=== PATIENT | male | born 1960 | race Caucasian/White ===

== ENCOUNTER 2016-08-25 14:51 | Inpatient (IN) | payer OTHER ==
[~2016-08-25] VITALS: Ht 172.7 cm; Wt 60.1 kg
[~2016-08-25 14:51] MED LIST: CYCL5TAB PO; GABA-113 PO; MULT-506 PO; TRAM-10 PO
[2016-08-25] MEDS ORDERED: SERT50TA PO (15:31)
[2016-08-25] MEDS ORDERED: PREDNISONE TAPER PO (15:31)
[2016-08-25] MEDS ORDERED: SODIUM CHLORIDE 0.9% 1000ML 500 ML IV STA (15:33)
--- NOTE | 2016-08-25 15:38 | EMERGENCY ROOM VISIT NOTE ---
History Report prepared by Rell: Gege Fenton Under the Supervision of: Dr. Kuldip Link M.D. First contact with patient: 15:27 Chief Complaint: ILLNESS Stated Complaint: ANEMIC History of Present Illness The patient is a 56 year old male who presents to the Emergency Room with complaints of possible anemia. He had blood work drawn 2 days ago at [facility] for recent shortness of breath, fatigue and muscle cramping and states his doctors office called him today and recommended he come to the ED for a "possible transfusion". He denies any history of a low blood count. He denies any recent rectal bleeding, melena or hematochezia. He notes he has experienced intermittent shortness of breath for a "long time". He thought the shortness of breath was from increased asthma, but reports "I am just tired every day". He does admit to a recent fall where he hit his head and shoulder, but seemed to only sustain bruising. He denies any recent fevers or abdominal pain. The patient takes daily Zoloft and has been on Prednisone for the past few days for elbow pain. He has a history of alcohol abuse and alcoholic cirrhosis. 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 A total of 10 systems reviewed and were otherwise negative. Past Medical & Surgical Medical Problems: (1) Acute pancreatitis (2) Alcohol abuse (3) Alcoholic cirrhosis Social History Smoking Status: Never Smoker Alcohol Use: heavy Drug Use: none Marital Status: in relationship Housing Status: lives with family Occupation Status: other Current/Historical Medications Scheduled Multivitamin (Multivitamin), 1 TAB PO DAILY Sertraline (Zoloft), 75 MG PO DAILY [Prednisone Taper], 1 DOSE PO DIRECTED Scheduled PRN Cyclobenzaprine Hcl (Flexeril), 5-10 MG PO TID PRN for Muscle Spasms Tramadol (Ultram), 50 MG PO BID PRN for Pain Allergies Coded Allergies: No Known Allergies (Unverified , 04/25/15) Physical Exam Vital Signs Date Time Temp Pulse Resp B/P (MAP) Pulse Ox O2 Delivery O2 Flow Rate FiO2 08/25/16 18:15 98 18 126/72 98 Room Air 08/25/16 16:57 89 20 143/83 98 Room Air 08/25/16 15:54 83 08/25/16 15:46 83 141/73 100 86 146/76 87 110/79 08/25/16 15:02 36.8 83 18 146/82 100 Room Air Physical Exam GENERAL: Patient is in no acute distress. HEENT: No acute trauma, normocephalic atraumatic, mucous membranes moist, no nasal congestion, no scleral icterus. NECK: No stridor, no adenopathy, no meningismus, trachea is midline. LUNGS: Clear to auscultation bilaterally, no wheeze, no rhonchi, breath sounds equal. HEART: Without murmurs gallops or rubs, regular rate and rhythm. ABDOMEN: Soft, nontender, bowel sounds positive, no hernias, no peritonitis. RECTAL: Reddish brown stool, heme negative. EXTREMITIES: No cyanosis or edema, full range of motion of all the joints without pain or difficulty, no signs for acute trauma. NEUROLOGIC: Oriented x 3, no acute motor or sensory deficits, no focal weakness. SKIN: No rash, no jaundice, no diaphoresis. Medical Decision & Procedures ER Provider Diagnostic Interpretation: Radiology results as stated below per my review and radiologist interpretation: CHEST ONE VIEW PORTABLE CLINICAL HISTORY: Altered mental status. Weakness. COMPARISON STUDY: No previous studies for comparison. FINDINGS: Calcified granuloma within the right lower lobe is noted. Patient is rotated. There is no pneumothorax or pleural effusion. There is no evidence of pulmonary edema. Cardiac size is normal. Mediastinal contours are normal. There is no consolidation. IMPRESSION: No acute cardiopulmonary findings. Electronically signed by: Wily Espinal M.D. 08/25/2016 4:01 PM Laboratory Results 08/25/16 15:45 Red Blood Count 4.28, Mean Corpuscular Volume 62.1, Mean Corpuscular Hemoglobin 17.5, Mean Corpuscular Hemoglobin Concent 28.2, Mean Platelet Volume 8.4, Neutrophils (%) (Auto) 89.2, Lymphocytes (%) (Auto) 7.4, Monocytes (%) (Auto) 2.7, Eosinophils (%) (Auto) 0.0, Basophils (%) (Auto) 0.5, Neutrophils # (Auto) 8.60, Lymphocytes # (Auto) 0.71, Monocytes # (Auto) 0.26, Eosinophils # (Auto) 0.00, Basophils # (Auto) 0.05 08/25/16 15:45 Test 08/25/16 15:45 08/25/16 16:50 White Blood Count 9.64 K/uL (4.8-10.8) Red Blood Count 4.28 M/uL (4.7-6.1) Hemoglobin 7.5 g/dL (14.0-18.0) Hematocrit 26.6 % (42-52) Mean Corpuscular Volume 62.1 fL (80-100) Mean Corpuscular Hemoglobin 17.5 pg (25-34) Mean Corpuscular Hemoglobin Concent 28.2 g/dl (32-36) Platelet Count 481 K/uL (130-400) Mean Platelet Volume 8.4 fL (7.4-10.4) Neutrophils (%) (Auto) 89.2 % Lymphocytes (%) (Auto) 7.4 % Monocytes (%) (Auto) 2.7 % Eosinophils (%) (Auto) 0.0 % Basophils (%) (Auto) 0.5 % Neutrophils # (Auto) 8.60 K/uL (1.4-6.5) Lymphocytes # (Auto) 0.71 K/uL (1.2-3.4) Monocytes # (Auto) 0.26 K/uL (0.11-0.59) Eosinophils # (Auto) 0.00 K/uL (0-0.5) Basophils # (Auto) 0.05 K/uL (0-0.2) RDW Standard Deviation 42.3 fL (36.4-46.3) RDW Coefficient of Variation 19.2 % (11.5-14.5) Immature Granulocyte % (Auto) 0.2 % Immature Granulocyte # (Auto) 0.02 K/uL (0.00-0.02) Polychromasia 1+ Hypochromasia PRESENT Anisocytosis PRESENT Microcytosis PRESENT Tear Drop Cells 1+ Prothrombin Time 11.0 SECONDS (9.0-12.0) Prothromb Time International Ratio 1.0 (0.9-1.1) Activated Partial Thromboplast Time 21.9 SECONDS (21.0-31.0) Partial Thromboplastin Ratio 0.8 Anion Gap 12.0 mmol/L (3-11) Est Creatinine Clear Calc Drug Dose 79.7 ml/min Estimated GFR () 111.6 Estimated GFR (Non- 96.3 BUN/Creatinine Ratio 13.0 (10-20) Calcium Level 9.3 mg/dl (8.5-10.1) Magnesium Level 2.1 mg/dl (1.8-2.4) Total Bilirubin 0.5 mg/dl (0.2-1) Aspartate Amino Transf (AST/SGOT) 18 U/L (15-37) Alanine Aminotransferase (ALT/SGPT) 19 U/L (12-78) Alkaline Phosphatase 52 U/L (45-117) Troponin I < 0.015 ng/ml (0-0.045) Total Protein 7.8 gm/dl (6.4-8.2) Albumin 4.0 gm/dl (3.4-5.0) Globulin 3.8 gm/dl (2.5-4.0) Albumin/Globulin Ratio 1.1 (0.9-2) Thyroid Stimulating Hormone (TSH) 0.783 uIu/ml (0.300-4.500) Urine Color YELLOW Urine Appearance CLEAR (CLEAR) Urine pH 7.0 (4.5-7.5) Urine Specific [place] 1.009 (1.000-1.030) Urine Protein NEG (NEG) Urine Glucose (UA) NEG (NEG) Urine Ketones NEG (NEG) Urine Occult Blood NEG (NEG) Urine Nitrite NEG (NEG) Urine Bilirubin NEG (NEG) Urine Urobilinogen NEG (NEG) Urine Leukocyte Esterase NEG (NEG) Laboratory results reviewed by me. Medications Administered Medications (Trade) Dose Ordered Sig/Tavon Route Start Time Stop Time Status Last Admin Dose Admin Sodium Chloride 500 ml @ 999 mls/hr Q31M STAT IV 08/25/16 15:33 08/25/16 16:03 DC 08/25/16 15:50 999 MLS/HR ECG Indication: weakness Rate (beats per minute): 80 Rhythm: normal sinus (normal sinus rhythm) Findings: no acute ischemic change, no ectopy ED Course 1528: The patient was evaluated in room C4. A complete history and physical exam was performed. 1533: NSS 500 ml @ 999 mls/hr IV. 1750: I reevaluated the patient. He is resting comfortably. I discussed my recommendation that he remain in the hospital for further evaluation and management and he verbalized complete understanding and agreement. 1816: I discussed the patients case with Isidro Hyatt. The patient will be further evaluated. Medical Decision Medication Reconciliation: I attest that I have personally reviewed the patient' s current medication list. Blood Pressure Screening: Patient was found to have a slightly elevated blood pressure and was referred to their primary doctor for recheck and further treatment. The differential diagnoses considered include dehydration, electrolyte imbalance , upper or lower GI bleed, UTI, infection and thyroid disorder. There is no leukocytosis. The patient is anemic with a hemoglobin of 7.5. Rectal exam today was heme negative. No significant electrolyte abnormality, kidney failure or hepatitis. There was no coagulopathy. The patient appeared to be in a euthyroid state. Urinalysis did not show evidence for infection. EKG showed a sinus rhythm no acute ischemic changes. Cardiac enzyme testing times one is not consistent with acute cardiac injury. The patient presents with fatigue, weakness and some abnormal outpatient laboratory tests. He was confirmed to be anemic by our ER evaluation. Admission/observation for possible transfusion was felt warranted. The reason for the anemia is not clear and further work up is advised. I did speak to the patient and to case management. The on-call hospitalist was consulted. Consults Time Called: 1730 Consulting Physician: Isidro Hyatt Returned Call: 1816 I discussed the patients case with Isidro Hyatt. The patient will be further evaluated. Impression Primary Impression: Anemia Additional Impressions: Shortness of breath Weakness Scribe Attestation The scribe's documentation has been prepared under my direction and personally reviewed by me in its entirety. I confirm that the note above accurately reflects all work, treatment, procedures, and medical decision making performed by me. Departure Information Dispostion Being Evaluated By Hospitalist Referrals German Cole M.D. (PCP) Patient Instructions My [facility] Problem Qualifiers
--- NOTE | 2016-08-25 16:02 | DIAGNOSTIC IMAGING REPORT ---
CHEST ONE VIEW PORTABLE CLINICAL HISTORY: Altered mental status. Weakness. COMPARISON STUDY: No previous studies for comparison. FINDINGS: Calcified granuloma within the right lower lobe is noted. Patient is rotated. There is no pneumothorax or pleural effusion. There is no evidence of pulmonary edema. Cardiac size is normal. Mediastinal contours are normal. There is no consolidation. IMPRESSION: No acute cardiopulmonary findings. Electronically signed by: Wily Espinal M.D. 08/25/2016 4:01 PM Dictated Date/Time: 08/25/2016 3:59 PM
[2016-08-25 16:12] LABS: PARTIAL THROMBOPLASTIN RATIO 0.8
[2016-08-25 16:23] LABS: ALT/SGPT 19 U/L (12-78); BLOOD UREA NITROGEN 12 mg/dl (7-18); CARBON DIOXIDE 24 mmol/L (21-32); CHLORIDE 102 mmol/L (98-107); CREATININE 0.89 mg/dl (0.60-1.40); GLUCOSE 102 mg/dl (70-99); MAGNESIUM 2.1 mg/dl (1.8-2.4); POTASSIUM 3.9 mmol/L (3.5-5.1); SODIUM 138 mmol/L (136-145)
[2016-08-25 16:33] LABS: ALB/GLOB RATIO 1.1 (0.9-2); ALKALINE PHOSPHATASE 52 U/L (45-117); AST/SGOT 18 U/L (15-37); THYROID STIMULATING HORMONE 0.783 uIu/ml (0.300-4.500)
[2016-08-25 17:15] LABS: URINE APPEARANCE CLEAR (CLEAR); URINE BILIRUBIN NEG (NEG); URINE COLOR YELLOW; URINE NITRITE NEG (NEG); URINE SPECIFIC GRAVITY 1.009 (1.000-1.030); UROBILINOGEN NEG (NEG); ZZUR CULT IF INDIC CLEAN CATCH NO
[2016-08-25 17:20] LABS: HEMATOCRIT 26.6 % (42-52); MEAN CELL VOLUME 62.1 fL (80-100); MEAN CORPUSCULAR HEMOGLOBIN 17.5 pg (25-34); MEAN CORPUSCULAR HGB CONC 28.2 g/dl (32-36); MEAN PLATELET VOLUME 8.4 fL (7.4-10.4); PLATELET COUNT 481 K/uL (130-400); RED BLOOD COUNT 4.28 M/uL (4.7-6.1); WHITE BLOOD COUNT 9.64 K/uL (4.8-10.8)
[2016-08-25 17:22] LABS: MANUAL MICROSCOPIC REQUIRED? NO; REVIEW REQ? NO
[2016-08-25 17:23] LABS: ANISOCYTOSIS PRESENT; BASO % 0.5 %; BASO ABS # 0.05 K/uL (0-0.2); COMPLETE YES; HYPOCHROMIA PRESENT; IG% 0.2 %; LYMPH % 7.4 %; LYMPH ABS # 0.71 K/uL (1.2-3.4); MICROCYTOSIS PRESENT; MONO % 2.7 %; NEUT % 89.2 %; POLYCHROMASIA 1+; TEAR DROP CELLS 1+
[2016-08-25 17:51] LABS: CALCIUM 9.3 mg/dl (8.5-10.1)
[2016-08-25] MEDS ORDERED: ONDANSETRON INJ 2 MG/ML 2 ML VIAL IV PRN (19:30)
[2016-08-25] MEDS ORDERED: ACETAMINOPHEN 325 MG TAB PO PRN (19:30)
[2016-08-25] MEDS ORDERED: LORAZEPAM 2 MG/ML 1 ML VIAL IV STA (19:33)
[2016-08-25] MEDS ORDERED: ACETAMINOPHEN 325 MG TAB PO SCH (19:45)
[2016-08-25] MEDS ORDERED: LORAZEPAM 1 MG TAB PO PRN (19:45)
[2016-08-25] MEDS ORDERED: TRAMADOL HCL 50 MG TAB PO PRN (19:45)
[2016-08-25] MEDS ORDERED: GABAPENTIN 600 MG TAB PO SCH (19:45)
[2016-08-25 20:11] LABS: FERRITIN 5.3 ng/ml (8.0-388.0)
--- NOTE | 2016-08-25 20:12 | History and Physical ---
History & Physical Date & Time of Service: Aug 25, 2016 at 19:44 Chief Complaint: Anemic Primary Care Physician: German Cole M.D. 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 He reports one year of progressively worsening lightheadedness, dizziness, and severe fatigue and muscle cramping. Last Hb in Apr 2015 was 10, with normal baseline, and today it was 7.5. He recently reports worsening dizziness and SOB and fell down banging his head (no cut, LOC or persistent JESUS) on the ground two days ago as a result. His cramps have gotten worse and he has been taking Flexeril unsuccessfully. He reports multiple joint issues requiring steroid injections in his elbows, and occasionally takes prednisone but this is not a chronic thing. He denies any NSAID use hardly at all, using Tramadol mostly for pain if he has it. He still drinks heavily, reporting 10-12 beers daily when not working and he still smokes heavily. He currently denies any abdominal pain, blood in his stool, bruising or other bleeding. He reports having a "h/o bleeding ulcers" and had an upper endoscopy in May 2015 revealing a normal esophagus, +gastritis and Type I gastric varices in the fundus with no stigmata of bleeding. He also had a colonoscopy for age-related CRC screening in Feb 2015 which revealed two small polyps in the sigmoid colon and diverticulosis. In the ER, he is hemoccult negative. He reports his last drink within the last 24 hours and states that he has had the shakes before. Past Medical/Surgical History Medical Problems: (1) Alcohol abuse Status: Chronic (2) Gastric varices without bleeding Status: Chronic (3) Recurrent pancreatitis Status: Chronic (4) Shortness of breath Status: Chronic (5) Splenic vein thrombosis Status: Chronic (6) Tobacco abuse Status: Chronic Social History Problems: (1) ETOH abuse Status: Chronic Family History FH: prostate cancer FATHER FH: stroke FATHER Social History Smoking Status: Current Every Day Smoker Smokeless Tobacco Use: Yes Alcohol Use: heavy Drug Use: none Marital Status: in relationship Housing status: lives with significant other Occupational Status: employed Immunizations History of Influenza Vaccine: No History of Tetanus Vaccine?: Yes Tetanus Immunization Date: Dec 28, 2015 History of Pneumococcal: Yes Pneumococcal Date: Feb 08, 2015 History of Hepatitis B Vaccine: No Multi-Drug Resistant Organisms History of MDRO: No Allergies Coded Allergies: No Known Allergies (Unverified , 04/25/15) Home Medications Scheduled Multivitamin (Multivitamin), 1 TAB PO DAILY Sertraline (Zoloft), 75 MG PO DAILY Scheduled PRN Cyclobenzaprine Hcl (Flexeril), 5-10 MG PO TID PRN for Muscle Spasms Tramadol (Ultram), 50 MG PO BID PRN for Pain Review of Systems ten systems were reviewed and negative except as indicated in HPI Physical Exam Vital Signs Date Time Temp Pulse Resp B/P (MAP) Pulse Ox O2 Delivery O2 Flow Rate FiO2 08/25/16 18:15 98 18 126/72 98 Room Air 08/25/16 16:57 89 20 143/83 98 Room Air 08/25/16 15:54 83 08/25/16 15:46 83 141/73 100 86 146/76 87 110/79 08/25/16 15:02 36.8 83 18 146/82 100 Room Air GEN: WNWD, in no acute distress, alert and appropriate, mentating well HEENT: NC/AT, PERRL, normal sclerae/conjunctivae, MMM, tobacco in mouth, no LAD CARDIO: tachy rate, S1/2 heard without m/g/r LUNGS: CTA bilaterally, no crackles, rales or wheezes, good diaphragmatic excursion ABD: soft, non-tender, non-distended, no rebound or guarding, +BS EXTREMITY: RP and DP palpable 2+ bilat, no LE swelling or edema, extremities are warm and well-perfused NEURO: CN 2-12 intact, sensation intact throughout, no gross focal deficits. MUSC: 5/5 strength throughout, no focal deficits SKIN: warm and dry, some sunburn with peeling on back noted, no bruising. Diagnostics Laboratory Results Results Past 24 Hours Test 08/25/16 15:45 08/25/16 15:46 08/25/16 16:50 Range/Units White Blood Count 9.64 4.8-10.8 K/uL Red Blood Count 4.28 4.7-6.1 M/uL Hemoglobin 7.5 14.0-18.0 g/dL Hematocrit 26.6 42-52 % Mean Corpuscular Volume 62.1 80-100 fL Mean Corpuscular Hemoglobin 17.5 25-34 pg Mean Corpuscular Hemoglobin Concent 28.2 32-36 g/dl Platelet Count 481 130-400 K/uL Mean Platelet Volume 8.4 7.4-10.4 fL Neutrophils (%) (Auto) 89.2 % Lymphocytes (%) (Auto) 7.4 % Monocytes (%) (Auto) 2.7 % Eosinophils (%) (Auto) 0.0 % Basophils (%) (Auto) 0.5 % Neutrophils # (Auto) 8.60 1.4-6.5 K/uL Lymphocytes # (Auto) 0.71 1.2-3.4 K/uL Monocytes # (Auto) 0.26 0.11-0.59 K/uL Eosinophils # (Auto) 0.00 0-0.5 K/uL Basophils # (Auto) 0.05 0-0.2 K/uL RDW Standard Deviation 42.3 36.4-46.3 fL RDW Coefficient of Variation 19.2 11.5-14.5 % Immature Granulocyte % (Auto) 0.2 % Immature Granulocyte # (Auto) 0.02 0.00-0.02 K/uL Polychromasia 1+ Hypochromasia PRESENT Anisocytosis PRESENT Microcytosis PRESENT Tear Drop Cells 1+ Prothrombin Time 11.0 9.0-12.0 SECONDS Prothromb Time International Ratio 1.0 0.9-1.1 Activated Partial Thromboplast Time 21.9 21.0-31.0 SECONDS Partial Thromboplastin Ratio 0.8 Sodium Level 138 136-145 mmol/L Potassium Level 3.9 3.5-5.1 mmol/L Chloride Level 102 98-107 mmol/L Carbon Dioxide Level 24 21-32 mmol/L Anion Gap 12.0 3-11 mmol/L Blood Urea Nitrogen 12 7-18 mg/dl Creatinine 0.89 0.60-1.40 mg/dl Est Creatinine Clear Calc Drug Dose 79.7 ml/min Estimated GFR () 111.6 Estimated GFR (Non- 96.3 BUN/Creatinine Ratio 13.0 10-20 Random Glucose 102 70-99 mg/dl Calcium Level 9.3 8.5-10.1 mg/dl Magnesium Level 2.1 1.8-2.4 mg/dl Total Bilirubin 0.5 0.2-1 mg/dl Aspartate Amino Transf (AST/SGOT) 18 15-37 U/L Alanine Aminotransferase (ALT/SGPT) 19 12-78 U/L Alkaline Phosphatase 52 45-117 U/L Troponin I < 0.015 0-0.045 ng/ml Total Protein 7.8 6.4-8.2 gm/dl Albumin 4.0 3.4-5.0 gm/dl Globulin 3.8 2.5-4.0 gm/dl Albumin/Globulin Ratio 1.1 0.9-2 Thyroid Stimulating Hormone (TSH) 0.783 0.300-4.500 uIu/ml Urine Color YELLOW Urine Appearance CLEAR CLEAR Urine pH 7.0 4.5-7.5 Urine Specific [place] 1.009 1.000-1.030 Urine Protein NEG NEG Urine Glucose (UA) NEG NEG Urine Ketones NEG NEG Urine Occult Blood NEG NEG Urine Nitrite NEG NEG Urine Bilirubin NEG NEG Urine Urobilinogen NEG NEG Urine Leukocyte Esterase NEG NEG Diagnostic Radiology CHEST ONE VIEW PORTABLE CLINICAL HISTORY: Altered mental status. Weakness. COMPARISON STUDY: No previous studies for comparison. FINDINGS: Calcified granuloma within the right lower lobe is noted. Patient is rotated. There is no pneumothorax or pleural effusion. There is no evidence of pulmonary edema. Cardiac size is normal. Mediastinal contours are normal. There is no consolidation. IMPRESSION: No acute cardiopulmonary findings. EKG SR 80. No ST changes. Impression Assessment and Plan 56 yo M presents with symptomatic anemia 1. Symptomatic anemia evidenced by lightheadedness and fatigue--uncertain origin but with h/o bleeding ulcers in the past concern for GI source. He reports the bleeding ulcers were worked up when he was on a trip to [place], but cannot remember the information so as to request the records. He is a heavy drinker and smoker with a history of recurrent pancreatitis. 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 He denies any NSAID use but has had some steroids recently. No prior labwork until Apr 2015 which revealed anemia at that time but not as severe. Pattern and story reflect a chronic blood loss. As there has been no blood per rectum reported or any other bleeding, will not start PPI drip but will start PPI BID and consult GI for assistance with workup/treatment. Transfuse two units now and follow post- transfusion H/H in am. Clear liquid diet until GI is able to weigh in. 2. ETOH abuse-close monitoring for signs/symptoms of withdrawal. Will institute Ativan protocol and Gabapentin protocol and will given 2mg Ativan right now as patient states he is anxious and has some tachycardia. Seizure precautions. Give empiric thiamine and folate. Check B12/folate level in am. Banana bag. 3. Tobacco use-Nicotine patch, note pt had dip in mouth also, so will not use both 4. Depression/Anxiety-cont zoloft daily 5. Muscle cramps-likely related to the anemia-hold on flexeril and see if blood products helps this. Will check CK and 25OH in the am. 6. Tachycardia-likely mutlifactorial from alcohol withdrawal, anxiety and tobacco use. Could also be from bleed, however no bleeding reported and anemia appears to be more chronic. DVT prophy-contraindicated, SCDs only FULL CODE Dispo-to med[facility]surg [facility] Care Med/Surg Resuscitation Status FULL RESUSCITATION VTE Prophylaxis VTE Risk Assessment Done? Y/N: Yes Risk Level: Moderate Given or contraindicated: SCD's, Contraindicated
[2016-08-25] MEDS ORDERED: MULTI-VITAMIN INFUSION INJ 10 ML, THIAMINE HCL INJ 100 MG, FoLIC ACID INJ 1 MG in SODIU... IV ONE (20:30)
[2016-08-25] MEDS ORDERED: GABAPENTIN 1200MG LOADING DOSE PO ONE (20:30)
[2016-08-25 20:51] VITALS: BP 145/64; PULSE 100; TEMP 36.7; O2SAT 98; Ht 172.7 cm; Wt 60.1 kg
[2016-08-25] MEDS ORDERED: THIAMINE HCL INJ 100 MG in SYRINGE 9 ML IV SCH (21:00)
[2016-08-25] MEDS ORDERED: LORAZEPAM INJ 2 MG in SYRINGE 1 ML IV STA (21:10)
[2016-08-25] MEDS: NICOTINE 21 MG/24 HR TDSY TD SCH (22:13)
[2016-08-25] MEDS: PANTOprazole INJ 40 MG in SYRINGE 0 ML IV SCH (22:15)
[2016-08-26] VITALS (18 sets, daily range): BP systolic 129–160; BP diastolic 70–86; PULSE 67–97; TEMP 36.4–37.2; O2SAT 94–100
[2016-08-26] MEDS: GABAPENTIN 600MG Q6H DOSE PO SCH ×2 (01:56→08:21)
[2016-08-26 07:36] LABS: HEMATOCRIT 30.9 % (42-52); MEAN CELL VOLUME 65.6 fL (80-100); MEAN CORPUSCULAR HEMOGLOBIN 19.5 pg (25-34); MEAN CORPUSCULAR HGB CONC 29.8 g/dl (32-36); MEAN PLATELET VOLUME 8.8 fL (7.4-10.4); PLATELET COUNT 410 K/uL (130-400); RED BLOOD COUNT 4.71 M/uL (4.7-6.1); WHITE BLOOD COUNT 8.47 K/uL (4.8-10.8)
[2016-08-26 08:00] LABS: BUN/CREATININE RATIO 13.8 (10-20); CREATININE 0.86 mg/dl (0.60-1.40); POTASSIUM 3.9 mmol/L (3.5-5.1)
[2016-08-26] MEDS ORDERED: MULTIVITAMIN TAB PO SCH (08:00)
[2016-08-26] MEDS ORDERED: SERTRALINE HCL 50 MG TAB PO SCH (08:00)
[2016-08-26] MEDS: NICOTINE 21 MG/24 HR TDSY TD SCH (08:20)
[2016-08-26] MEDS: PANTOprazole INJ 40 MG in SYRINGE 0 ML IV SCH (08:21)
[2016-08-26 08:24] LABS: CALCIUM 8.2 mg/dl (8.5-10.1)
[2016-08-26 11:01] LABS: BENZODIAZEPINE, URINE NEG (NEG); COCAINE,URINE NEG (NEG); PHENCYCLIDINE, URINE NEG (NEG)
[2016-08-26] MEDS ORDERED: LORAZEPAM 2 MG TAB ONE (11:53)
[2016-08-26] MEDS ORDERED: NURSING VERBAL MED ORDER ONE (12:00)
[2016-08-26] MEDS ORDERED: NICO21DI4 TD (12:43)
[2016-08-26] MEDS ORDERED: FERR1TAB23 PO (12:44)
[2016-08-26] MEDS ORDERED: PANT40TA PO (12:44)
--- NOTE | 2016-08-26 12:48 | Discharge Instructions ---
Discharge Instructions Date of Service Aug 26, 2016. Admission Reason for Admission: Symptomatic Anemia Discharge Discharge Diagnosis / Problem: Iron deficiency anemia Discharge Goals Goal(s): Prevent Disease Progression Activity Recommendations Activity Limitations: per Instructions/Follow-up section . Instructions / Follow-Up Instructions / Follow-Up Please take all medications as instructed above. It is recommended that you follow-up with your primary care physician (PCP) within one week of discharge. At this time, your PCP will need to place a referral to see a Cell Changer and get you over to [facility] for possible endoscopy as outpatient. As it is the weekend, someone should be contacting you on Sunday with the time and date of that appointment. It is strongly recommended that you stop drinking and using tobacco as this is bad for your health! It was a pleasure taking care of you! Call if you have any questions or problems. You can reach a [facility] hospitalist on duty at [facility] 24 hours a day by calling [phone]. Take care of yourself. oTnja Edwards DO [facility] Current [facility] Diet Patient's current hospital diet: Regular Diet Discharge Diet Recommended Diet: Regular Diet Procedures Procedures Performed: None. Pending Studies Studies pending at discharge: yes List of pending studies: H pylori angiten level Medical Emergencies . Who to Call and When: Medical Emergencies: If at any time you feel your situation is an emergency, please call 911 immediately. . Non-Emergent Contact Non-Emergency issues call your: Primary Care Provider . . "Provider Documentation" section prepared by Tonja Edwards. . VTE Core Measure Inpt VTE Proph given/why not?: SCD's, Contraindicated
--- NOTE | 2016-08-26 12:53 | Discharge Summary ---
Discharge Summary Date of Service Aug 26, 2016. 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 Consultations: GI Pending Studies/Follow-Up: see instructions below Medication Reconciliation New Medications: Ferrous Sulfate (Iron) 325 Mg Tab 325 MG PO TIDM for 30 Days, #90 TAB 1 Refill Pantoprazole (Protonix) 40 Mg Tab 40 MG PO BID for 30 Days, #60 TAB 1 Refill Nicotine (Nicoderm Cq) 21 Mg/24 Hr Dis 1 PATCH TD QAM for 15 Days, #15 PATCH 2 Refills Continued Medications: Cyclobenzaprine Hcl (Flexeril) 5 Mg Tab 5-10 MG PO TID PRN for Muscle Spasms, TAB PRN Multivitamin (Multivitamin) Tab 1 TAB PO DAILY, TAB Sertraline (Zoloft) 50 Mg Tab 75 MG PO DAILY, TAB Tramadol (Ultram) 50 Mg Tab 50 MG PO BID PRN for Pain, TAB Admission Information HPI (per Admitting provider): 56 yo alcoholic smoker with 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 He reports one year of progressively worsening lightheadedness, dizziness, and severe fatigue and muscle cramping. Last Hb in Apr 2015 was 10, with normal baseline, and today it was 7.5. He recently reports worsening dizziness and SOB and fell down banging his head (no cut, LOC or persistent JESUS) on the ground two days ago as a result. His cramps have gotten worse and he has been taking Flexeril unsuccessfully. He reports multiple joint issues requiring steroid injections in his elbows, and occasionally takes prednisone but this is not a chronic thing. He denies any NSAID use hardly at all, using Tramadol mostly for pain if he has it. He still drinks heavily, reporting 10-12 beers daily when not working and he still smokes heavily. He currently denies any abdominal pain, blood in his stool, bruising or other bleeding. He reports having a "h/o bleeding ulcers" and had an upper endoscopy in May 2015 revealing a normal esophagus, +gastritis and Type I gastric varices in the fundus with no stigmata of bleeding. He also had a colonoscopy for age-related CRC screening in Feb 2015 which revealed two small polyps in the sigmoid colon and diverticulosis. In the ER, he is hemoccult negative. He reports his last drink within the last 24 hours and states that he has had the shakes before. Physical Exam (per Admitting): GEN: WNWD, in no acute distress, alert and appropriate, mentating well HEENT: NC/AT, PERRL, normal sclerae/conjunctivae, MMM, tobacco in mouth, no LAD CARDIO: tachy rate, S1/2 heard without m/g/r LUNGS: CTA bilaterally, no crackles, rales or wheezes, good diaphragmatic excursion ABD: soft, non-tender, non-distended, no rebound or guarding, +BS EXTREMITY: RP and DP palpable 2+ bilat, no LE swelling or edema, extremities are warm and well-perfused NEURO: CN 2-12 intact, sensation intact throughout, no gross focal deficits. MUSC: 5/5 strength throughout, no focal deficits SKIN: warm and dry, some sunburn with peeling on back noted, no bruising. Hospital Course 56 yo M presents with symptomatic anemia. He reports the bleeding ulcers were worked up when he was on a trip to [place], but cannot remember the information so as to request the records. He is a heavy drinker and smoker with a history of recurrent pancreatitis. 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 He denies any NSAID use but has had some steroids recently. No prior labwork until Apr 2015 which revealed anemia at that time but not as se and story reflect a chronic blood loss. As there has been no blood per rectum reported or any other bleeding, however, with his history a PPI was started twice daily. GI was consulted and will see him as an outpatient to consider endoscopy. Anemia workup revealed iron deficiency and he was started on iron supplementation. After two units of blood, he responded appropriately with H/H 7.5/-->9.2/. By day of discharge he was hemodynamically stable and was tolerating regular food with no episodes of GI bleeding throughout his stay. He was still fatigued somewhat but his lightheadedness had improved and he felt well enough to go home. He was strongly advised to cut down on his drinking and to quit using chew tobacco. H pylori was sent while he was present which was pending at time of discharge. Total time spent on discharge = 60 minutes This includes examination of the patient, discharge planning, medication reconciliation, and communication with other providers. Discharge Instructions Discharge Instructions Date of Service Aug 26, 2016. Admission Reason for Admission: Symptomatic Anemia Discharge Discharge Diagnosis / Problem: Iron deficiency anemia Discharge Goals Goal(s): Prevent Disease Progression Activity Recommendations Activity Limitations: per Instructions/Follow-up section . Instructions / Follow-Up Instructions / Follow-Up Please take all medications as instructed above. It is recommended that you follow-up with your primary care physician (PCP) within one week of discharge. At this time, your PCP will need to place a referral to see a Animal Control Specialist and get you over to [facility] for possible endoscopy as outpatient. As it is the weekend, someone should be contacting you on Sunday with the time and date of that appointment. It is strongly recommended that you stop drinking and using tobacco as this is bad for your health! It was a pleasure taking care of you! Call if you have any questions or problems. You can reach a [facility] hospitalist on duty at [facility] 24 hours a day by calling [phone]. Take care of yourself. Tonja Edwards, [facility] Additional Copies To German Cole M.D.
--- NOTE | 2016-08-26 13:08 | Progress Note ---
Progress Note Date of Service Aug 26, 2016. Progress Note Patient with iron deficiency anemia. Known h/o ETOH. Hemodynamically stable without and s/s of melena or hematochezia. He needs an outpatient EGD and colonoscopy which will be arranged. Discussed with hospitalist service. Please call with questions.
[2016-08-26] MEDS ORDERED: GABAPENTIN 600MG Q8H DOSE PO SCH (16:00)
[2016-08-27] MEDS ORDERED: GABAPENTIN 600MG Q12H DOSE PO SCH (20:00)
[2016-08-28] MEDS ORDERED: GABAPENTIN 600MG X1 DOSE PO SCH (08:00)
[2016-08-29] MEDS ORDERED: GABAPENTIN 600MG X1 DOSE PO SCH (08:00)
== END 2016-08-26 19:14 | disposition home or self-care (01) | DRG 812 ==
LOC: C.EDB 14:52 → C.MS4W 19:32 → ENRESERV 19:46
PROVIDERS: ADMIT Hospitalist; ATTEND Hospitalist
DX: D50.8 Other iron deficiency anemias (principal); F17.200 Nicotine dependence, unspecified, uncomplicated; F32.9 Major depressive disorder, single episode, unspecified; F41.9 Anxiety disorder, unspecified; F10.10 Alcohol abuse, uncomplicated

== ENCOUNTER 2018-07-18 15:05 | Inpatient (IN) ==
[2018-07-18] MEDS ORDERED: ACETAMINOPHEN 1,000 MG/100 ML VIAL IV STA (15:55)
[2018-07-18] MEDS ORDERED: KETOROLAC 30 MG/ML VIAL IV STA (15:55)
[2018-07-18] MEDS ORDERED: SODIUM CHLORIDE 0.9% 1000ML 1,000 ML IV SCH (16:00)
--- NOTE | 2018-07-18 16:04 | Emergency Department Note ---
History of Present Illness General Chief complaint: Pain (Generalized) Stated complaint: HURT ALL OVER, FEVER, BLURRED VISION Time Seen by Provider: 07/18/18 15:42 History of Present Illness Maximum Pain Intensity: 10 This is a 58-year-old male presenting to the emergency department with multiple complaints. The patient states that he went to his primary care physician today, and was found to have a fever of 102 F. The patient is complaining of full body aches primarily in his entire back and abdomen. The patient is a chronic alcoholic and does not admit to drinking today. He does not have significant headache or sore throat symptoms. No chest pain, chest tightness, or shortness of breath. He has been eating and drinking as normal but does report chronic constipation. Urination has been normal. The patient evidently has completed his prescriptions for trazodone, Toradol, and Flexeril, and thus has not taken any medication for his pain. He has not taken Advil or Tylenol. He does not identify aggravating or alleviating factors. No known exposure to disease or recent travel history. Home Medications Home Medications Medication Instructions Recorded Confirmed Type multivitamin 1 tab PO DAILY 06/12/18 07/18/18 History sertraline 75 mg PO DAILY 06/12/18 07/18/18 History cyclobenzaprine 5 - 10 mg PO TID PRN 07/18/18 07/18/18 History trazodone 50 mg PO HS 07/18/18 07/18/18 History Allergies Allergy/AdvReac Type Severity Reaction Status Date / Time No Known Allergies Allergy Verified 07/18/18 16:41 Past Med/Surg History Medical History Symptomatic anemia Abdominal pain (Acute) Pancreatitis (Acute) Splenic vein thrombosis (Chronic) Tobacco abuse (Chronic) Alcoholic cirrhosis (09/15/12) Gastric varices without bleeding (Chronic) Recurrent pancreatitis (Chronic) ETOH abuse (Chronic) No pertinent family history Surgical History No pertinent past surgical history Social History Preferred Language: Amharic Communication Ability: Effective Visual Impairment: No Limitations Hearing Ability: Normal Admitting Officer Required: No Beliefs That Will Affect Care: None Current Living Situation: Family Other Information That Helps Us Care for You: No Feels Safe at Home: Yes Safety Concerns: Feels Safe At This Time Smoking Status: Never smoker Do You Dip or Chew Tobacco: Yes Second Hand Exposure: No Tobacco Cessation Education Requested by Patient: No Hx Alcohol Use: Yes Alcohol type: beer and hard liquor Alcohol Intake Frequency Comment: 6-10 drinks a day Hx Substance Use: No Review of Systems A total of 10 systems reviewed and were otherwise negative Physical Exam Vital Signs Vital Signs - 24 hr 07/18/18 15:26 07/18/18 17:19 07/18/18 20:19 Temperature 37.3 C Temperature Source Oral Sepsis Recent Fever Within 48 Hours Yes Sepsis New/Unexplained Change in Mental Status No Sepsis Action Taken by Nursing No Action Required Pulse Rate 96 H Pulse Rate [Apical] 84 72 Pulse Rhythm Regular Pulse Rhythm [Apical] Pulse Strength Normal Pulse Strength [Apical] Respiratory Rate 20 18 18 Respiratory Effort / Characteristics Non-Labored Spontaneous Respiratory Depth Normal Respiratory Pattern Regular Blood Pressure 114/72 Blood Pressure [Right Arm] 134/83 132/83 Blood Pressure Mean 86 Blood Pressure Mean [Right Arm] 100 99 Blood Pressure Position Sitting Blood Pressure Position [Right Arm] Pulse Oximetry 100 100 100 Oxygen Delivery Method Room Air Room Air 07/18/18 22:14 07/18/18 22:34 07/18/18 23:17 Temperature 36.7 C 37.5 C Temperature Source Oral Oral Sepsis Recent Fever Within 48 Hours Sepsis New/Unexplained Change in Mental Status Sepsis Action Taken by Nursing Pulse Rate 75 Pulse Rate [Apical] 83 86 Pulse Rhythm Pulse Rhythm [Apical] Regular Pulse Strength Pulse Strength [Apical] Normal Respiratory Rate 18 17 Respiratory Effort / Characteristics Non-Labored Spontaneous Respiratory Depth Normal Respiratory Pattern Regular Blood Pressure Blood Pressure [Right Arm] 121/78 134/82 Blood Pressure Mean Blood Pressure Mean [Right Arm] 92 99 Blood Pressure Position Blood Pressure Position [Right Arm] Lying Pulse Oximetry 98 99 Oxygen Delivery Method Room Air VITALS: Vitals are noted on the nurse's note and reviewed by myself. Vital signs stable. GENERAL: Well-developed, well-nourished, white male, who is in no acute distress and resting comfortably. Patient is cooperative with the examination. HEAD: Normocephalic atraumatic. EARS: External ear normal. External auditory canals clear, tympanic membranes pearly arteaga without erythema or effusion bilaterally. EYES: Pupils equal round and reactive to light and accommodation. Conjunctivae without injection, sclerae without icterus. Extraocular movements intact. NOSE: Patent, turbinates without inflammation or discharge. MOUTH: Mucous membranes moist. Tonsils are not enlarged. Pharynx without erythema, blood, or exudate. Uvula midline. Airway patent. NECK: Supple without nuchal rigidity. No lymphadenopathy. No thyromegaly. Cervical spine is nontender. HEART: Regular rate and rhythm without murmurs gallops or rubs. LUNGS: Clear to auscultation bilaterally without wheezes, rales or rhonchi. No retractions or accessory muscle use. ABDOMEN: Positive normal bowel sounds x 4. Soft with mild epigastric and lower umbilical abdominal tenderness. No distinct rebound or guarding. No CVA tenderness. MUSCULOSKELETAL: No muscle atrophy, erythema, or edema noted. Full range of motion in all extremities. NEURO: Patient was alert and oriented to person place and time. CN II through XII grossly intact. SKIN: The skin was without rashes, erythema, edema, or bruising. Capillary refill less than 2 seconds. Course Administered Medications Docusate Sodium (Colace) 100 mg PO DAILY TAYO Stop: 08/17/18 21:29 Last Admin: 07/18/18 22:01 Dose: 100 mg Documented by: [id number] Heparin Sodium (Porcine) (Heparin Sodium (Porcine)) 5,000 units SQ Q8 TAYO Stop: 08/17/18 21:59 Last Admin: 07/18/18 22:02 Dose: 5,000 units Documented by: [id number] Cosigned by: [id number] Lactated Ringer's (Lr) 1,000 mls @ 50 mls/hr IV .Q20H TAYO Stop: 08/17/18 20:29 Last Admin: 07/18/18 20:58 Dose: 50 mls/hr Documented by: [id number] Oxycodone HCl (Roxicodone Immediate Rel) 5 mg PO Q4H PRN PRN Reason: Pain Stop: 08/01/18 20:55 Last Admin: 07/18/18 22:58 Dose: 5 mg Documented by: [id number] Trazodone HCl (Desyrel) 50 mg PO HS TAYO Stop: 08/17/18 20:59 Last Admin: 07/18/18 22:01 Dose: 50 mg Documented by: [id number] Discontinued Medications Sodium Chloride (Nss 1000ml) 1,000 mls @ 999 mls/hr IV .Q1H1M TAYO Stop: 07/18/18 17:00 Last Infusion: 07/18/18 17:40 Dose: 0 mls/hr Documented by: [id number] Admin: 07/18/18 16:09 Dose: 999 mls/hr Documented by: [id number] Acetaminophen (Ofirmev) 1,000 mg in 100 mls @ 400 mls/hr IV NOW STA Stop: 07/18/18 16:09 Last Infusion: 07/18/18 16:52 Dose: 0 mls/hr Documented by: [id number] Admin: 07/18/18 16:10 Dose: 400 mls/hr Documented by: [id number] Magnesium Sulfate/Dextrose (Magnesium Sulfate / D5w) 1 gm in 100 mls @ 100 mls/hr IV ONE ONE Stop: 07/18/18 17:39 Last Infusion: 07/18/18 18:33 Dose: 0 mls/hr Documented by: [id number] Admin: 07/18/18 17:17 Dose: 100 mls/hr Documented by: [id number] Piperacillin Sod/Tazobactam Sod (Zosyn) 4.5 gm in 120 mls @ 240 mls/hr IV NOW ONE Stop: 07/18/18 18:34 Last Infusion: 07/18/18 20:14 Dose: 0 mls/hr Documented by: [id number] Admin: 07/18/18 18:22 Dose: 240 mls/hr Documented by: [id number] Thiamine HCl 100 mg/ Syringe 10 mls @ 2 mls/min IV 2100 ONE Stop: 07/18/18 21:04 Last Admin: 07/18/18 20:58 Dose: 2 mls/min Documented by: [id number] Magnesium Sulfate/Dextrose (Magnesium Sulfate / D5w) 1 gm in 100 mls @ 100 mls/hr IV Q1H TAYO Stop: 07/18/18 23:29 Last Infusion: 07/18/18 22:59 Dose: 0 mls/hr Documented by: [id number] Admin: 07/18/18 21:59 Dose: 100 mls/hr Documented by: [id number] Infusion: 07/18/18 21:59 Dose: 100 mls/hr Documented by: [id number] Admin: 07/18/18 21:02 Dose: 100 mls/hr Documented by: [id number] Ioversol (Optiray 320 100ml) 94 ml IV ONCE PRN PRN Reason: Interaction Checking Stop: 07/22/18 17:04 Last Admin: 07/18/18 17:06 Dose: 94 ml Documented by: [id number] Ketorolac Tromethamine (Toradol) 30 mg IV NOW STA Stop: 07/18/18 15:56 Last Admin: 07/18/18 16:10 Dose: 30 mg Documented by: [id number] Potassium Chloride (Klor-Con M20) 40 meq PO NOW STA Stop: 07/18/18 19:32 Last Admin: 07/18/18 20:20 Dose: 40 meq Documented by: [id number] Potassium Chloride (Klor-Con M10) 40 meq PO ONE ONE Stop: 07/18/18 22:01 Last Admin: 07/18/18 21:01 Dose: 40 meq Documented by: [id number] Medical Decision Making Differential Diagnosis Differential diagnosis: Etiologies such as biliary colic, cholecystitis, hepatitis, pancreatitis, cardiac disease, pancreatitis, gastritis, peptic ulcer disease, appendicitis, cystitis, diverticulitis, mesenteric ischemia, inflammatory bowel disease, ileus, bowel obstruction, testicular/adnexal torsion, aortic pathology, shingles, as well as others were considered Laboratory Data Result diagrams: 07/18/18 16:03 07/18/18 21:04 Lab Results 07/18/18 07/18/18 07/18/18 Range/Units 16:03 16:03 16:03 WBC 9.06 (4.8-10.8) K/uL RBC 3.78 L (4.7-6.1) M/uL Hgb 12.7 L (14.0-18.0) g/dL Hct 34.8 L (42-52) % MCV 92.1 (80-100) fL MCH 33.6 (25-34) pg MCHC 36.5 H (32-36) g/dL RDW Std Deviation 43.2 (36.4-46.3) fL RDW Coeff of Ashvin 13.0 (11.5-14.5) % Plt Count 291 (130-400) K/uL MPV 9.4 (7.4-10.4) fL Immature Gran % (Auto) 0.6 % Neut % (Auto) 68.5 % Lymph % (Auto) 9.1 % Wood % (Auto) 21.6 % Eos % (Auto) 0.0 % Baso % (Auto) 0.2 % Immature Gran # (Auto) 0.05 H (0.00-0.02) K/uL Neut # (Auto) 6.21 (1.4-6.5) K/uL Lymph # (Auto) 0.82 L (1.2-3.4) K/uL Wood # (Auto) 1.96 H (0.11-0.59) K/uL Eos # (Auto) 0.00 (0-0.5) K/uL Baso # (Auto) 0.02 (0-0.2) K/uL PT 10.6 (9.0-12.0) Seconds INR 1.0 (0.9-1.1) APTT 28.1 (21.0-31.0) Seconds PTT Ratio 1.0 Sodium 128 L (136-145) mmol/L Potassium 3.3 L (3.5-5.1) mmol/L Chloride 92 L (98-107) mmol/L Carbon Dioxide 27 (21-32) mmol/L Anion Gap 9.0 (3-11) BUN 11 (7-18) mg/dl Creatinine 0.98 (0.6-1.4) mg/dl Est Cr Clr Drug Dosing 69.9 ml/min Est GFR ( Amer) 98.8 Est GFR (Non-Af Amer) 85.2 BUN/Creatinine Ratio 11.3 (10-20) Glucose 115 H (70-99) mg/dl Osmolality (280-300) mOsm/kg Lactate (0.4-2.0) mmol/L Calcium 9.5 (8.5-10.1) mg/dl Magnesium 1.2 L (1.8-2.4) mg/dl Total Bilirubin 0.7 (0.2-1) mg/dl AST 49 H (15-37) U/L ALT 47 (12-78) U/L Alkaline Phosphatase 94 (45-117) U/L Troponin I < 0.015 (0-0.045) ng/ml Total Protein 7.9 (6.4-8.2) gm/dl Albumin 3.5 (3.4-5.0) gm/dl Globulin 4.4 H (2.5-4.0) gm/dl Albumin/Globulin Ratio 0.8 L (0.9-2) Lipase 2422 H (73-393) U/L Procalcitonin (0-0.5) ng/ml TSH 0.746 (0.300-4.500) uIu/ml Urine Color Urine Appearance (Clear) Urine pH (4.5-7.5) Ur Specific [place] (1.000-1.030) Urine Protein (Negative) Urine Glucose (UA) (Negative) Urine Ketones (Negative) Urine Blood (Negative) Urine Nitrite (Negative) Urine Bilirubin (Negative) Urine Urobilinogen (Negative) Ur Leukocyte Esterase (Negative) Urine WBC (Auto) (0-5) /hpf Urine RBC (Auto) (0-4) /hpf U Hyaline Cast (Auto) (0-5) /lpf U Epithel Cells (Auto) (0-5) /lpf Urine Bacteria (Auto) (Negative) Urine Osmolality (500-800) mOsm/kg Ur Random Sodium mmol/L Urine Opiates Screen (Neg) Ur Methadone, Qual (Neg) Urine Barbiturates (Neg) Ur Phencyclidine (PCP) (Neg) U Amphetamin/Meth Scrn (Neg) MDMA (Ecstasy) Screen (Neg) U Benzodiazepines Scrn (Neg) Ur Cocaine Metabolite (Neg) U Marijuana (THC) Screen (Neg) Ethyl Alcohol mg/dL (0-3) mg/dl Lyme Disease IgG Ab (Negative) Lyme Disease IgM Ab (Negative) Influenza Type A Ag (Neg) Influenza Type B Ag (Neg) 07/18/18 07/18/18 07/18/18 Range/Units 16:03 16:03 16:11 WBC (4.8-10.8) K/uL RBC (4.7-6.1) M/uL Hgb (14.0-18.0) g/dL Hct (42-52) % MCV (80-100) fL MCH (25-34) pg MCHC (32-36) g/dL RDW Std Deviation (36.4-46.3) fL RDW Coeff of Ashvin (11.5-14.5) % Plt Count (130-400) K/uL MPV (7.4-10.4) fL Immature Gran % (Auto) % Neut % (Auto) % Lymph % (Auto) % Wood % (Auto) % Eos % (Auto) % Baso % (Auto) % Immature Gran # (Auto) (0.00-0.02) K/uL Neut # (Auto) (1.4-6.5) K/uL Lymph # (Auto) (1.2-3.4) K/uL Wood # (Auto) (0.11-0.59) K/uL Eos # (Auto) (0-0.5) K/uL Baso # (Auto) (0-0.2) K/uL PT (9.0-12.0) Seconds INR (0.9-1.1) APTT (21.0-31.0) Seconds PTT Ratio Sodium (136-145) mmol/L Potassium (3.5-5.1) mmol/L Chloride (98-107) mmol/L Carbon Dioxide (21-32) mmol/L Anion Gap (3-11) BUN (7-18) mg/dl Creatinine (0.6-1.4) mg/dl Est Cr Clr Drug Dosing ml/min Est GFR ( Amer) Est GFR (Non-Af Amer) BUN/Creatinine Ratio (10-20) Glucose (70-99) mg/dl Osmolality 267 L (280-300) mOsm/kg Lactate (0.4-2.0) mmol/L Calcium (8.5-10.1) mg/dl Magnesium (1.8-2.4) mg/dl Total Bilirubin (0.2-1) mg/dl AST (15-37) U/L ALT (12-78) U/L Alkaline Phosphatase (45-117) U/L Troponin I (0-0.045) ng/ml Total Protein (6.4-8.2) gm/dl Albumin (3.4-5.0) gm/dl Globulin (2.5-4.0) gm/dl Albumin/Globulin Ratio (0.9-2) Lipase (73-393) U/L Procalcitonin 0.37 (0-0.5) ng/ml TSH (0.300-4.500) uIu/ml Urine Color Urine Appearance (Clear) Urine pH (4.5-7.5) Ur Specific [place] (1.000-1.030) Urine Protein (Negative) Urine Glucose (UA) (Negative) Urine Ketones (Negative) Urine Blood (Negative) Urine Nitrite (Negative) Urine Bilirubin (Negative) Urine Urobilinogen (Negative) Ur Leukocyte Esterase (Negative) Urine WBC (Auto) (0-5) /hpf Urine RBC (Auto) (0-4) /hpf U Hyaline Cast (Auto) (0-5) /lpf U Epithel Cells (Auto) (0-5) /lpf Urine Bacteria (Auto) (Negative) Urine Osmolality (500-800) mOsm/kg Ur Random Sodium mmol/L Urine Opiates Screen (Neg) Ur Methadone, Qual (Neg) Urine Barbiturates (Neg) Ur Phencyclidine (PCP) (Neg) U Amphetamin/Meth Scrn (Neg) MDMA (Ecstasy) Screen (Neg) U Benzodiazepines Scrn (Neg) Ur Cocaine Metabolite (Neg) U Marijuana (THC) Screen (Neg) Ethyl Alcohol mg/dL (0-3) mg/dl Lyme Disease IgG Ab (Negative) Lyme Disease IgM Ab (Negative) Influenza Type A Ag Neg for Influ A (Neg) Influenza Type B Ag Neg for Influ B (Neg) 07/18/18 07/18/18 07/18/18 Range/Units 16:29 16:29 18:29 WBC (4.8-10.8) K/uL RBC (4.7-6.1) M/uL Hgb (14.0-18.0) g/dL Hct (42-52) % MCV (80-100) fL MCH (25-34) pg MCHC (32-36) g/dL RDW Std Deviation (36.4-46.3) fL RDW Coeff of Ashvin (11.5-14.5) % Plt Count (130-400) K/uL MPV (7.4-10.4) fL Immature Gran % (Auto) % Neut % (Auto) % Lymph % (Auto) % Wood % (Auto) % Eos % (Auto) % Baso % (Auto) % Immature Gran # (Auto) (0.00-0.02) K/uL Neut # (Auto) (1.4-6.5) K/uL Lymph # (Auto) (1.2-3.4) K/uL Wood # (Auto) (0.11-0.59) K/uL Eos # (Auto) (0-0.5) K/uL Baso # (Auto) (0-0.2) K/uL PT (9.0-12.0) Seconds INR (0.9-1.1) APTT (21.0-31.0) Seconds PTT Ratio Sodium (136-145) mmol/L Potassium (3.5-5.1) mmol/L Chloride (98-107) mmol/L Carbon Dioxide (21-32) mmol/L Anion Gap (3-11) BUN (7-18) mg/dl Creatinine (0.6-1.4) mg/dl Est Cr Clr Drug Dosing ml/min Est GFR ( Amer) Est GFR (Non-Af Amer) BUN/Creatinine Ratio (10-20) Glucose (70-99) mg/dl Osmolality (280-300) mOsm/kg Lactate 1.6 (0.4-2.0) mmol/L Calcium (8.5-10.1) mg/dl Magnesium (1.8-2.4) mg/dl Total Bilirubin (0.2-1) mg/dl AST (15-37) U/L ALT (12-78) U/L Alkaline Phosphatase (45-117) U/L Troponin I (0-0.045) ng/ml Total Protein (6.4-8.2) gm/dl Albumin (3.4-5.0) gm/dl Globulin (2.5-4.0) gm/dl Albumin/Globulin Ratio (0.9-2) Lipase (73-393) U/L Procalcitonin (0-0.5) ng/ml TSH (0.300-4.500) uIu/ml Urine Color Urine Appearance (Clear) Urine pH (4.5-7.5) Ur Specific [place] (1.000-1.030) Urine Protein (Negative) Urine Glucose (UA) (Negative) Urine Ketones (Negative) Urine Blood (Negative) Urine Nitrite (Negative) Urine Bilirubin (Negative) Urine Urobilinogen (Negative) Ur Leukocyte Esterase (Negative) Urine WBC (Auto) (0-5) /hpf Urine RBC (Auto) (0-4) /hpf U Hyaline Cast (Auto) (0-5) /lpf U Epithel Cells (Auto) (0-5) /lpf Urine Bacteria (Auto) (Negative) Urine Osmolality (500-800) mOsm/kg Ur Random Sodium mmol/L Urine Opiates Screen Neg (Neg) Ur Methadone, Qual Neg (Neg) Urine Barbiturates Neg (Neg) Ur Phencyclidine (PCP) Neg (Neg) U Amphetamin/Meth Scrn Neg (Neg) MDMA (Ecstasy) Screen Neg (Neg) U Benzodiazepines Scrn Neg (Neg) Ur Cocaine Metabolite Neg (Neg) U Marijuana (THC) Screen Neg (Neg) Ethyl Alcohol mg/dL < 3.0 (0-3) mg/dl Lyme Disease IgG Ab (Negative) Lyme Disease IgM Ab (Negative) Influenza Type A Ag (Neg) Influenza Type B Ag (Neg) 07/18/18 07/18/18 07/18/18 Range/Units 18:29 18:29 18:29 WBC (4.8-10.8) K/uL RBC (4.7-6.1) M/uL Hgb (14.0-18.0) g/dL Hct (42-52) % MCV (80-100) fL MCH (25-34) pg MCHC (32-36) g/dL RDW Std Deviation (36.4-46.3) fL RDW Coeff of Ashvin (11.5-14.5) % Plt Count (130-400) K/uL MPV (7.4-10.4) fL Immature Gran % (Auto) % Neut % (Auto) % Lymph % (Auto) % Wood % (Auto) % Eos % (Auto) % Baso % (Auto) % Immature Gran # (Auto) (0.00-0.02) K/uL Neut # (Auto) (1.4-6.5) K/uL Lymph # (Auto) (1.2-3.4) K/uL Wood # (Auto) (0.11-0.59) K/uL Eos # (Auto) (0-0.5) K/uL Baso # (Auto) (0-0.2) K/uL PT (9.0-12.0) Seconds INR (0.9-1.1) APTT (21.0-31.0) Seconds PTT Ratio Sodium (136-145) mmol/L Potassium (3.5-5.1) mmol/L Chloride (98-107) mmol/L Carbon Dioxide (21-32) mmol/L Anion Gap (3-11) BUN (7-18) mg/dl Creatinine (0.6-1.4) mg/dl Est Cr Clr Drug Dosing ml/min Est GFR ( Amer) Est GFR (Non-Af Amer) BUN/Creatinine Ratio (10-20) Glucose (70-99) mg/dl Osmolality (280-300) mOsm/kg Lactate (0.4-2.0) mmol/L Calcium (8.5-10.1) mg/dl Magnesium (1.8-2.4) mg/dl Total Bilirubin (0.2-1) mg/dl AST (15-37) U/L ALT (12-78) U/L Alkaline Phosphatase (45-117) U/L Troponin I (0-0.045) ng/ml Total Protein (6.4-8.2) gm/dl Albumin (3.4-5.0) gm/dl Globulin (2.5-4.0) gm/dl Albumin/Globulin Ratio (0.9-2) Lipase (73-393) U/L Procalcitonin (0-0.5) ng/ml TSH (0.300-4.500) uIu/ml Urine Color Yellow Urine Appearance Clear (Clear) Urine pH 7.0 (4.5-7.5) Ur Specific [place] 1.029 (1.000-1.030) Urine Protein 1+ H (Negative) Urine Glucose (UA) Negative (Negative) Urine Ketones Trace H (Negative) Urine Blood 2+ H (Negative) Urine Nitrite Negative (Negative) Urine Bilirubin Negative (Negative) Urine Urobilinogen Negative (Negative) Ur Leukocyte Esterase Negative (Negative) Urine WBC (Auto) 0 (0-5) /hpf Urine RBC (Auto) 0-4 (0-4) /hpf U Hyaline Cast (Auto) 0 (0-5) /lpf U Epithel Cells (Auto) 0-5 (0-5) /lpf Urine Bacteria (Auto) Negative (Negative) Urine Osmolality 303 L (500-800) mOsm/kg Ur Random Sodium 24 mmol/L Urine Opiates Screen (Neg) Ur Methadone, Qual (Neg) Urine Barbiturates (Neg) Ur Phencyclidine (PCP) (Neg) U Amphetamin/Meth Scrn (Neg) MDMA (Ecstasy) Screen (Neg) U Benzodiazepines Scrn (Neg) Ur Cocaine Metabolite (Neg) U Marijuana (THC) Screen (Neg) Ethyl Alcohol mg/dL (0-3) mg/dl Lyme Disease IgG Ab (Negative) Lyme Disease IgM Ab (Negative) Influenza Type A Ag (Neg) Influenza Type B Ag (Neg) 07/18/18 07/18/18 Range/Units 21:04 21:04 WBC (4.8-10.8) K/uL RBC (4.7-6.1) M/uL Hgb (14.0-18.0) g/dL Hct (42-52) % MCV (80-100) fL MCH (25-34) pg MCHC (32-36) g/dL RDW Std Deviation (36.4-46.3) fL RDW Coeff of Ashvin (11.5-14.5) % Plt Count (130-400) K/uL MPV (7.4-10.4) fL Immature Gran % (Auto) % Neut % (Auto) % Lymph % (Auto) % Wood % (Auto) % Eos % (Auto) % Baso % (Auto) % Immature Gran # (Auto) (0.00-0.02) K/uL Neut # (Auto) (1.4-6.5) K/uL Lymph # (Auto) (1.2-3.4) K/uL Wood # (Auto) (0.11-0.59) K/uL Eos # (Auto) (0-0.5) K/uL Baso # (Auto) (0-0.2) K/uL PT (9.0-12.0) Seconds INR (0.9-1.1) APTT (21.0-31.0) Seconds PTT Ratio Sodium 131 L (136-145) mmol/L Potassium (3.5-5.1) mmol/L Chloride (98-107) mmol/L Carbon Dioxide (21-32) mmol/L Anion Gap (3-11) BUN (7-18) mg/dl Creatinine (0.6-1.4) mg/dl Est Cr Clr Drug Dosing ml/min Est GFR ( Amer) Est GFR (Non-Af Amer) BUN/Creatinine Ratio (10-20) Glucose (70-99) mg/dl Osmolality (280-300) mOsm/kg Lactate (0.4-2.0) mmol/L Calcium (8.5-10.1) mg/dl Magnesium (1.8-2.4) mg/dl Total Bilirubin (0.2-1) mg/dl AST (15-37) U/L ALT (12-78) U/L Alkaline Phosphatase (45-117) U/L Troponin I (0-0.045) ng/ml Total Protein (6.4-8.2) gm/dl Albumin (3.4-5.0) gm/dl Globulin (2.5-4.0) gm/dl Albumin/Globulin Ratio (0.9-2) Lipase (73-393) U/L Procalcitonin (0-0.5) ng/ml TSH (0.300-4.500) uIu/ml Urine Color Urine Appearance (Clear) Urine pH (4.5-7.5) Ur Specific [place] (1.000-1.030) Urine Protein (Negative) Urine Glucose (UA) (Negative) Urine Ketones (Negative) Urine Blood (Negative) Urine Nitrite (Negative) Urine Bilirubin (Negative) Urine Urobilinogen (Negative) Ur Leukocyte Esterase (Negative) Urine WBC (Auto) (0-5) /hpf Urine RBC (Auto) (0-4) /hpf U Hyaline Cast (Auto) (0-5) /lpf U Epithel Cells (Auto) (0-5) /lpf Urine Bacteria (Auto) (Negative) Urine Osmolality (500-800) mOsm/kg Ur Random Sodium mmol/L Urine Opiates Screen (Neg) Ur Methadone, Qual (Neg) Urine Barbiturates (Neg) Ur Phencyclidine (PCP) (Neg) U Amphetamin/Meth Scrn (Neg) MDMA (Ecstasy) Screen (Neg) U Benzodiazepines Scrn (Neg) Ur Cocaine Metabolite (Neg) U Marijuana (THC) Screen (Neg) Ethyl Alcohol mg/dL (0-3) mg/dl Lyme Disease IgG Ab Negative (Negative) Lyme Disease IgM Ab Negative (Negative) Influenza Type A Ag (Neg) Influenza Type B Ag (Neg) Imaging Data Radiologist's Impression: CT abd pelvis IV con only CT DOSE: 262.06 mGycm HISTORY: Pain. Fever. abd pain. fever. TECHNIQUE: Multiaxial CT images of the abdomen and pelvis were performed following the use of intravenous contrast. A dose lowering technique was utilized adhering to the principles of ALARA. COMPARISON STUDY: 04/25/2015 FINDINGS: Lung bases are clear. Liver is uniform in overall appearance. Gallbladder is slightly contracted. The kidneys are considered negative for hydronephrosis. The multiple collections in the left upper quadrant and left upper abdomen procedure described have essentially resolved. Patient has developed pancreatitis of the pancreatic body and pancreatic tail. Multiple calcifications of the pancreatic substance are present consistent with chronic pancreatitis. Superimposed pancreatitis is present. This appears to be secondary to a 7 mm calcification within the mid pancreatic duct at the level of the pancreatic body. This is best seen on image 24. There is dilatation of the more proximal aspect of the pancreatic duct to 7 mm. There is moderate peripancreatic infiltrative change. A well-defined major pseudocyst is not appreciated. There is small residual fluid pockets do the pancreatic tail several which contain calcific fragments. This potentially represents residual pseudocyst formation from the patient's previous episode of pancreatitis. There is a calcification adjacent to the pancreatic head unaltered from the pr ior study. There is no dilatation of the pancreatic ductal system. Within the abdomen and pelvis is considered nonobstructive. Bladder is midline. There is no significant free fluid within the pelvic cul-de-sac. IMPRESSION: 1. 7 mm obstructing calculus of the mid pancreatic duct. 2. This is creating dilatation of the proximal and mid pancreatic duct to a maximum diameter of 7 mm. 3. This process appears to be creating acute pancreatitis of the pancreatic body and tail superimposed upon chronic pancreatitis which has been described previously. 4. Several small pseudocysts unchanged from the prior study. 5. Moderate peripancreatic infiltrative change with no current evidence for absc ess 6. Additional 8 mm calcification adjacent to the distal aspect of the pancreatic duct XR chest 2V routine CLINICAL HISTORY: fever dyspnea COMPARISON STUDY: 06/12/2018 FINDINGS: The bones soft tissues and hemidiaphragms are normal. The cardiomediastinal silhouette is normal. The lungs are clear. The pulmonary vasculature is normal. IMPRESSION: Negative chest MDM Narrative Physical exam and history were performed. Nursing notes, EMR, and Medication List were personally reviewed. Patient appears to have nonspecific fever as well as abdominal pain and back pain bringing him to the emergency department. I was able to review records from his [facility] visit this morning, and he did have a temperature of 101.6 at their clinic. They had concerns for sepsis and sent him to the ER for further evaluation. Upon arrival the patient does not appear acutely toxic. He does have some reproducible abdominal discomfort. IV access was established and labs were obtained. The patient was hydrated with normal saline. He was given IV Toradol and IV Tylenol. He was kept n.p.o. CT scan of the abdomen was performed, as well as chest x-ray. Blood cultures were gathered. He was empirically started on Zosyn. The patient's blood work is as above and was reviewed. He does not have a significantly elevated white blood cell count. He is mildly anemic, however this does seem somewhat chronic. INR is 1.0. Glucose is 115. Lactic and procalcitonin are normal with blood cultures pending. His magnesium is low at 1.2 and this was repleted through his IV. Transaminases are not diagnostic, however his lipase is elevated at 2422. Alcohol is undetectable. He is negative for influenza. Chest x-ray was reviewed by myself and radiology does not show acute process. The patient CT scan was also reviewed and appears to have findings consistent with an acute on chronic pancreatitis with a 7 mm pancreatic duct stone. The case was discussed with on-call [facility] who recommended keeping the patient n.p.o. after midnight to facilitate ERCP in the morning. The case was also discussed with the [facility] hospitalist team. Who agreed to evaluate the patient here in the department. Please see their dictation for further patient course, plan, and disposition. The chart was completed utilizing [employer] Speech Voice Recognition Software. Grammatical errors, random word insertions, pronoun errors, and incomplete sentences are an occasional consequence of this system due to software limitations, ambient noise, and hardware issues. Any formal questions or concerns about the content, text, or information contained within the body of this dictation should be directly addressed to the provider for clarification. . Impression & Plan Pancreatitis, Low blood magnesium Discharge Plan Visit Data *Final* Discharge Date/Time: 07/18/18 20:44 Chief Complaint: Pain (Generalized) Stated Complaint: HURT ALL OVER, FEVER, BLURRED VISION ED Provider: Gene Jerry ED Midlevel Provider: Clem South Discharge Problem: Pancreatitis, Low blood magnesium Patient Disposition: Admitted As Inpatient Discharge Instructions Interventions: ED Discharge Assessment Last Done: 07/18/18 20:44 Discharge Problem: Pancreatitis Qualifiers: Chronicity: acute Pancreatitis type: unspecified pancreatitis type Acute pancreatitis complication: unspecified Qualified Code(s): K85.90 - Acute pancreatitis without necrosis or infection, unspecified
[2018-07-18 16:14] LABS: Basophils # (auto) 0.02 K/uL (0-0.2); Basophils % (auto) 0.2 %; Hematocrit (blood only) 34.8 % (42-52); Hemoglobin 12.7 g/dL (14.0-18.0); Immature Granulocytes # (auto) 0.05 K/uL (0.00-0.02); Immature Granulocytes % (auto) 0.6 %; Lymphocytes # (auto) 0.82 K/uL (1.2-3.4); Lymphocytes % (auto) 9.1 %; Mean Corpuscular Hgb Conc 36.5 g/dL (32-36); Mean Corpuscular Volume 92.1 fL (80-100); Mean Platelet Volume 9.4 fL (7.4-10.4); Monocytes # (auto) 1.96 K/uL (0.11-0.59); Monocytes % (auto) 21.6 %; Neutrophils # (auto) 6.21 K/uL (1.4-6.5); Neutrophils % (auto) 68.5 %; Platelet Count 291 K/uL (130-400); RDW Standard Deviation 43.2 fL (36.4-46.3); Red Blood Count 3.78 M/uL (4.7-6.1); White Blood Count 9.06 K/uL (4.8-10.8)
[2018-07-18 16:27] LABS: Partial Thromboplastin Time 28.1 Seconds (21.0-31.0); Prothrombin Time 10.6 Seconds (9.0-12.0)
[2018-07-18 16:32] LABS: Alanine Aminotransferase 47 U/L (12-78); Albumin Level 3.5 gm/dl (3.4-5.0); Aspartate Aminotransferase 49 U/L (15-37); BUN Creatinine Ratio 11.3 (10-20); Blood Urea Nitrogen 11 mg/dl (7-18); Calcium 9.5 mg/dl (8.5-10.1); Carbon Dioxide 27 mmol/L (21-32); Chloride 92 mmol/L (98-107); Creatinine Clr Calc Pharmacy 69.9 ml/min; Est GFR (African American) 98.8; Est GFR (Non-African American) 85.2; Glucose 115 mg/dl (70-99); Magnesium 1.2 mg/dl (1.8-2.4); Potassium 3.3 mmol/L (3.5-5.1); Sodium 128 mmol/L (136-145)
[2018-07-18] MEDS ORDERED: MAGNESIUM SULFATE / D5W 1 GM/100 ML BAG IV ONE (16:40)
[2018-07-18 16:43] LABS: Albumin Globulin Ratio 0.8 (0.9-2); Alkaline Phosphatase 94 U/L (45-117); Bilirubin,Total 0.7 mg/dl (0.2-1); Globulin 4.4 gm/dl (2.5-4.0); Total Protein 7.9 gm/dl (6.4-8.2); Troponin I < 0.015 ng/ml (0-0.045)
[2018-07-18] MEDS ORDERED: IOVERSOL 100ml IV PRN (17:05)
--- NOTE | 2018-07-18 17:19 | CT Scan Report ---
CT abd pelvis IV con only CT DOSE: 262.06 mGycm HISTORY: Pain. Fever. abd pain. fever. TECHNIQUE: Multiaxial CT images of the abdomen and pelvis were performed following the use of intrave nous contrast. A dose lowering technique was utilized adhering to the principles of ALARA. COMPARISON STUDY: 04/25/2015 FINDINGS: Lung bases are clear. Liver is uniform in overall appearance. Gallbladder is slightly contr acted. The kidneys are considered negative for hydronephrosis. The multiple collections in the left upper quadrant and left upper abdomen procedure described have e ssentially resolved. Patient has developed pancreatitis of the pancreatic body and pancreatic tail. Multiple calcification s of the pancreatic substance are present consistent with chronic pancreatitis. Superimposed pancreat itis is present. This appears to be secondary to a 7 mm calcification within the mid pancreatic duct at the level of t he pancreatic body. This is best seen on image 24. There is dilatation of the more proximal aspect of the pancreatic duct to 7 mm. There is moderate peripancreatic infiltrative change. A well-defined major pseudocyst is not apprecia gene. There is small residual fluid pockets do the pancreatic tail several which contain calcific frag ments. This potentially represents residual pseudocyst formation from the patient's previous episode of pancreatitis. There is a calcification adjacent to the pancreatic head unaltered from the prior study. There is no dilatation of the pancreatic ductal system. Within the abdomen and pelvis is considered nonobstructive. Bladder is midline. There is no significa nt free fluid within the pelvic cul-de-sac. IMPRESSION: 1. 7 mm obstructing calculus of the mid pancreatic duct. 2. This is creating dilatation of the proximal and mid pancreatic duct to a maximum diameter of 7 mm. 3. This process appears to be creating acute pancreatitis of the pancreatic body and tail superimpose d upon chronic pancreatitis which has been described previously. 4. Several small pseudocysts unchanged from the prior study. 5. Moderate peripancreatic infiltrative change with no current evidence for abscess 6. Additional 8 mm calcification adjacent to the distal aspect of the pancreatic duct The above report was generated using voice recognition software. It may contain grammatical, syntax or spelling errors. Electronically signed by: Gabriel Saldana M.D. 07/18/2018 5:17 PM
--- NOTE | 2018-07-18 17:48 | XRay Report ---
XR chest 2V routine CLINICAL HISTORY: fever dyspnea COMPARISON STUDY: 06/12/2018 FINDINGS: The bones soft tissues and hemidiaphragms are normal. The cardiomediastinal silhouette is n ormal. The lungs are clear. The pulmonary vasculature is normal. IMPRESSION: Negative chest. The above report was generated using voice recognition software. It may contain grammatical, syntax or spelling errors. Electronically signed by: Gabriel Saldana M.D. 07/18/2018 5:46 PM
[2018-07-18] MEDS ORDERED: PIPERACILLIN/TAZOBACTAM 4.5 GM/120 ML BAG IV ONE (18:05)
[2018-07-18] MEDS ORDERED: PIPERACILL/TAZOBAC CONSULT ACTIVE PRN (18:05)
[2018-07-18 19:29] LABS: Appearance Urine Clear (Clear); Bilirubin Urine Negative (Negative); Blood Urine 2+ (Negative); Color Urine Yellow; Glucose Urine UA Negative (Negative); Ketones Urine Trace (Negative); Leukocyte Esterase Urine Negative (Negative); Nitrite Urine Negative (Negative); Protein Urine 1+ (Negative); Specific Gravity Urine 1.029 (1.000-1.030); Urobilinogen Urine Negative (Negative)
[2018-07-18] MEDS ORDERED: POTASSIUM CHLORIDE 20 MEQ TABCR PO STA (19:31)
[2018-07-18 19:41] LABS: Bacteria Urine Automated Negative (Negative); Cast Urine Automated 0 /lpf (0-5); Epithelial Cell Urine Auto 0-5 /lpf (0-5); RBC Urine Automated 0-4 /hpf (0-4); WBC Urine Automated 0 /hpf (0-5)
[2018-07-18 19:47] LABS: Amphetamines+Metham, Urine Neg (Neg); Barbiturates, Urine Neg (Neg); Benzodiazepine, Urine Neg (Neg); Cocaine, Urine Neg (Neg); MDMA (Ecstacy), Urine Neg (Neg); Methadone, Urine Neg (Neg); Opiate, Urine Neg (Neg); Phencyclidine, Urine Neg (Neg)
--- NOTE | 2018-07-18 20:17 | History & Physical Report ---
Date of Service July 18, 2018 Assessment & Plan (1) Pancreatitis: Recurrent Secondary to biliary pathology No sepsis for now. Bilateral blurred vision of 1 week duration Hyponatremia, hypokalemia, hypomagnesemia secondary to poor p.o. intake Acute on chronic anemia No occult GI bleed. mood disorder, stable past alcohol abuse Medical telemetry for hyponatremia Careful correction of sodium Nephrology consult if with worsening of hyponatremia Bowel rest Gentle IVF given hyponatremia GI consult RE recurrent pericarditis (ER provider already in touch with Dr. Dewitt.) Ophthalmology consult in a.m. RE bilateral blurred vision for 1 week duration Replace electrolytes DVT prophylaxis. Heparin subcu Full code History of Present Illness Chief Complaint: Abdominal pain Primary Care Provider: German Cole MD History obtained from patient and records. Medical history significant for chronic anemia (recent hemoglobin of 13 from June 2017), mood disorder, history of pancreatitis, gastric ulcers as per records, past alcohol abuse. Recent confinement August 2016 for symptomatic anemia. One week history of sharp epigastric pain with nausea, no emesis; constipated for about 2 days, poor appetite. Low-grade fever at home. Shortness of breath from not being able to take a deep breath. Body aches. No chest pain. Last alcohol intake was last month. Patient also noted bilateral blurred vision the last week without headache, head trauma, extremity weakness, facial asymmetry. Patient seen at PCPs office and subsequently directed to the ER. IV Zosyn given at the ER. 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 Allergies Allergy/AdvReac Type Severity Reaction Status Date / Time No Known Allergies Allergy Verified 07/18/18 16:41 Home Medications Home Medications Medication Instructions Recorded Confirmed Type multivitamin 1 tab PO DAILY 06/12/18 07/18/18 History sertraline 75 mg PO DAILY 06/12/18 07/18/18 History cyclobenzaprine 5 - 10 mg PO TID PRN 07/18/18 07/18/18 History trazodone 50 mg PO HS 07/18/18 07/18/18 History Past Med/Surg History Medical History Symptomatic anemia Abdominal pain (Acute) Pancreatitis (Acute) Splenic vein thrombosis (Chronic) Tobacco abuse (Chronic) Alcoholic cirrhosis (09/15/12) Gastric varices without bleeding (Chronic) Recurrent pancreatitis (Chronic) ETOH abuse (Chronic) No pertinent family history Surgical History No pertinent past surgical history Social History Preferred Language: Mongolian Communication Ability: Effective Visual Impairment: No Limitations Hearing Ability: Normal Director Social Required: No Beliefs That Will Affect Care: None Current Living Situation: Family Other Information That Helps Us Care for You: No Feels Safe at Home: Yes Safety Concerns: Feels Safe At This Time Smoking Status: Never smoker Do You Dip or Chew Tobacco: Yes Second Hand Exposure: No Tobacco Cessation Education Requested by Patient: No Hx Alcohol Use: Yes Alcohol type: beer and hard liquor Alcohol Intake Frequency Comment: 6-10 drinks a day Hx Substance Use: No Review of Systems Review of Systems: As per HPI, all 10 systems reviewed, all other ROS negative Physical Exam Physical Exam: GENERAL: Comfortable, slightly anxious, no respiratory distress SKIN: Pallor , warm HEENT: Pale palpebral conjunctivae, no ptosis, intermittent squinting of the left eye, dry buccal mucosa NECK : Supple, no tenderness CHEST : CTA, no tenderness HEART : RRR, no obvious murmurs ABDOMEN: Some distention, epigastric tenderness Rectal: Intact sphincter, yellow stool, heme-negative EXTREMITIES : No LE swelling/tenderness, no other conspicuous deformities noted NEUROLOGIC : Coherent, intermittent squinting of the left eye, VA, OU : Able to read gross print material, unable to read fine print material on hand-held card; no facial asymmetry, no other gross focality Results & Data Vital Signs (Past 12 Hours) Vital Signs Temp Pulse Pulse Resp BP BP Pulse Ox 07/18/18 17:19 84 18 134/83 100 07/18/18 15:26 37.3 C 96 H 20 114/72 100 Laboratory Results Laboratory Results WBC 9.06 K/uL (4.8-10.8) 07/18/18 16:03 RBC 3.78 M/uL (4.7-6.1) L 07/18/18 16:03 Hgb 12.7 g/dL (14.0-18.0) L 07/18/18 16:03 Hct 34.8 % (42-52) L 07/18/18 16:03 MCV 92.1 fL (80-100) 07/18/18 16:03 MCH 33.6 pg (25-34) 07/18/18 16:03 MCHC 36.5 g/dL (32-36) H 07/18/18 16:03 RDW Std Deviation 43.2 fL (36.4-46.3) 07/18/18 16:03 RDW Coeff of Ashvin 13.0 % (11.5-14.5) 07/18/18 16:03 Plt Count 291 K/uL (130-400) 07/18/18 16:03 MPV 9.4 fL (7.4-10.4) 07/18/18 16:03 Immature Gran % (Auto) 0.6 % 07/18/18 16:03 Neut % (Auto) 68.5 % 07/18/18 16:03 Lymph % (Auto) 9.1 % 07/18/18 16:03 [place] % (Auto) 21.6 % 07/18/18 16:03 Eos % (Auto) 0.0 % 07/18/18 16:03 Baso % (Auto) 0.2 % 07/18/18 16:03 Immature Gran # (Auto) 0.05 K/uL (0.00-0.02) H 07/18/18 16:03 Neut # (Auto) 6.21 K/uL (1.4-6.5) 07/18/18 16:03 Lymph # (Auto) 0.82 K/uL (1.2-3.4) L 07/18/18 16:03 [place]rie # (Auto) 1.96 K/uL (0.11-0.59) H 07/18/18 16:03 Eos # (Auto) 0.00 K/uL (0-0.5) 07/18/18 16:03 Baso # (Auto) 0.02 K/uL (0-0.2) 07/18/18 16:03 PT 10.6 Seconds (9.0-12.0) 07/18/18 16:03 INR 1.0 (0.9-1.1) 07/18/18 16:03 APTT 28.1 Seconds (21.0-31.0) 07/18/18 16:03 PTT Ratio 1.0 07/18/18 16:03 Sodium 128 mmol/L (136-145) L 07/18/18 16:03 Potassium 3.3 mmol/L (3.5-5.1) L 07/18/18 16:03 Chloride 92 mmol/L (98-107) L 07/18/18 16:03 Carbon Dioxide 27 mmol/L (21-32) 07/18/18 16:03 Anion Gap 9.0 (3-11) 07/18/18 16:03 BUN 11 mg/dl (7-18) 07/18/18 16:03 Creatinine 0.98 mg/dl (0.6-1.4) 07/18/18 16:03 Est Cr Clr Drug Dosing 69.9 ml/min 07/18/18 16:03 Est GFR ( Amer) 98.8 07/18/18 16:03 Est GFR (Non-Af Amer) 85.2 07/18/18 16:03 BUN/Creatinine Ratio 11.3 (10-20) 07/18/18 16:03 Glucose 115 mg/dl (70-99) H 07/18/18 16:03 Lactate 1.6 mmol/L (0.4-2.0) 07/18/18 16:29 Calcium 9.5 mg/dl (8.5-10.1) 07/18/18 16:03 Magnesium 1.2 mg/dl (1.8-2.4) L 07/18/18 16:03 Total Bilirubin 0.7 mg/dl (0.2-1) 07/18/18 16:03 AST 49 U/L (15-37) H 07/18/18 16:03 ALT 47 U/L (12-78) 07/18/18 16:03 Alkaline Phosphatase 94 U/L (45-117) 07/18/18 16:03 Troponin I < 0.015 ng/ml (0-0.045) 07/18/18 16:03 Total Protein 7.9 gm/dl (6.4-8.2) 07/18/18 16:03 Albumin 3.5 gm/dl (3.4-5.0) 07/18/18 16:03 Globulin 4.4 gm/dl (2.5-4.0) H 07/18/18 16:03 Albumin/Globulin Ratio 0.8 (0.9-2) L 07/18/18 16:03 Lipase 2422 U/L (73-393) H 07/18/18 16:03 Procalcitonin 0.37 ng/ml (0-0.5) 07/18/18 16:03 TSH 0.746 uIu/ml (0.300-4.500) 07/18/18 16:03 Urine Color Yellow 07/18/18 18: Urine Appearance Clear (Clear) 07/18/18 18: Urine pH 7.0 (4.5-7.5) 07/18/18 18:29 Ur Specific [place] 1.029 (1.000-1.030) 07/18/18 18:29 Urine Protein 1+ (Negative) H 07/18/18 18:29 Urine Glucose (UA) Negative (Negative) 07/18/18 18:29 Urine Ketones Trace (Negative) H 07/18/18 18:29 Urine Blood 2+ (Negative) H 07/18/18 18:29 Urine Nitrite Negative (Negative) 07/18/18 18: Urine Bilirubin Negative (Negative) 07/18/18 18:29 Urine Urobilinogen Negative (Negative) 07/18/18 18:29 Ur Leukocyte Esterase Negative (Negative) 07/18/18 18:29 Urine WBC (Auto) 0 /hpf (0-5) 07/18/18 18:29 Urine RBC (Auto) 0-4 /hpf (0-4) 07/18/18 18:29 U Hyaline Cast (Auto) 0 /lpf (0-5) 07/18/18 18:29 U Epithel Cells (Auto) 0-5 /lpf (0-5) 07/18/18 18:29 Urine Bacteria (Auto) Negative (Negative) 07/18/18 18:29 Urine Osmolality 303 mOsm/kg (500-800) L 07/18/18 18:29 Ur Random Sodium 24 mmol/L 07/18/18 18:29 Urine Opiates Screen Neg (Neg) 07/18/18 18:29 Ur Methadone, Qual Neg (Neg) 07/18/18 18:29 Urine Barbiturates Neg (Neg) 07/18/18 18:29 Ur Phencyclidine (PCP) Neg (Neg) 07/18/18 18:29 U Amphetamin/Meth Scrn Neg (Neg) 07/18/18 18:29 MDMA (Ecstasy) Screen Neg (Neg) 07/18/18 18:29 U Benzodiazepines Scrn Neg (Neg) 07/18/18 18:29 Ur Cocaine Metabolite Neg (Neg) 07/18/18 18:29 U Marijuana (THC) Screen Neg (Neg) 07/18/18 18:29 Ethyl Alcohol mg/dL < 3.0 mg/dl (0-3) 07/18/18 16:29 Influenza Type A Ag Neg for Influ A (Neg) 07/18/18 16:11 Influenza Type B Ag Neg for Influ B (Neg) 07/18/18 16:11 Diagnostic Findings Chest x-ray: Negative EKG as per my interpretation:Rate 90, NSR, PVCs CT abdomen pelvis: 1. 7 mm obstructing calculus of the mid pancreatic duct. 2. This is creating dilatation of the proximal and mid pancreatic duct to a maximum diameter of 7 mm. 3. This process appears to be creating acute pancreatitis of the pancreatic body and tail superimposed upon chronic pancreatitis which has been described previously. 4. Several small pseudocysts unchanged from the prior study. 5. Moderate peripancreatic infiltrative change with no current evidence for abscess 6. Additional 8 mm calcification adjacent to the distal aspect of the pancreatic duct
[2018-07-18] MEDS ORDERED: POLYETHYLENE (MIRALAX) 17 GM PACK PO PRN (20:55)
[2018-07-18] MEDS ORDERED: MoRPHine SULFATE 2 MG/ML CARP IV PRN (20:56)
[2018-07-18] MEDS ORDERED: ACETAMINOPHEN 325 MG TAB PO PRN (20:56)
[2018-07-18] MEDS ORDERED: PROMETHAZINE HCL 12.5 MG in SODIUM CHLORIDE 0.9% 50 ML IV PRN (20:56)
[2018-07-18] MEDS ORDERED: NITROGLYCERIN SL 0.4 MG/TAB TAB SL PRN (20:56)
[2018-07-18] MEDS: LACTATED RINGER'S 1,000 ML IV SCH (20:58)
[2018-07-18] MEDS ORDERED: THIAMINE HCL 100 MG in SYRINGE 9 ML IV ONE (21:00)
[2018-07-18] MEDS: MAGNESIUM SULFATE / D5W 1 GM/100 ML BAG IV SCH ×2 (21:02→21:59)
[2018-07-18] MEDS ORDERED: POTASSIUM CHLORIDE 10 MEQ TABCR PO ONE (22:00)
[2018-07-18] MEDS: TRAZODONE HCL 50 MG TAB PO SCH (22:01)
[2018-07-18] MEDS: DOCUSATE SODIUM 100 MG CAP PO SCH (22:01)
[2018-07-18] MEDS: HEPARIN SOD 5,000 UNIT/0.5 ML VIAL SQ SCH (22:02)
[2018-07-18 22:21] LABS: Lyme Ab IgG w/WB Rflx Negative (Negative); Lyme Ab IgM w/WB Rflx Negative (Negative)
[2018-07-18] MEDS: OXYCODONE HCL IR 5 MG TAB (IMMEDIATE RELEASE) PO PRN (22:58)
[2018-07-18] MEDS: LORazepam 0.25 MG/0.5 ML VIAL IV PRN (23:54)
[2018-07-19] MEDS: HEPARIN SOD 5,000 UNIT/0.5 ML VIAL SQ SCH ×2 (06:14→22:59)
[2018-07-19] MEDS: OXYCODONE HCL IR 5 MG TAB (IMMEDIATE RELEASE) PO PRN ×3 (06:18→22:58)
[2018-07-19 06:33] LABS: Basophils # (auto) 0.03 K/uL (0-0.2); Basophils % (auto) 0.4 %; Eosinophils # (auto) 0.09 K/uL (0-0.5); Eosinophils % (auto) 1.1 %; Hematocrit (blood only) 30.6 % (42-52); Hemoglobin 10.8 g/dL (14.0-18.0); Immature Granulocytes # (auto) 0.02 K/uL (0.00-0.02); Immature Granulocytes % (auto) 0.3 %; Lymphocytes # (auto) 1.07 K/uL (1.2-3.4); Lymphocytes % (auto) 13.5 %; Mean Corpuscular Hgb Conc 35.3 g/dL (32-36); Mean Corpuscular Volume 92.7 fL (80-100); Mean Platelet Volume 9.2 fL (7.4-10.4); Monocytes % (auto) 27.8 %; Neutrophils % (auto) 56.9 %; Platelet Count 286 K/uL (130-400); RDW Coefficient of Variation 13.1 % (11.5-14.5); RDW Standard Deviation 44.4 fL (36.4-46.3); White Blood Count 7.91 K/uL (4.8-10.8)
[2018-07-19 07:15] LABS: Albumin Globulin Ratio 0.8 (0.9-2); Albumin Level 2.7 gm/dl (3.4-5.0); BUN Creatinine Ratio 12.2 (10-20); Bilirubin,Total 0.5 mg/dl (0.2-1); Calcium 8.6 mg/dl (8.5-10.1); Creatinine Clr Calc Pharmacy 85.4 ml/min; Est GFR (African American) 115.5; Est GFR (Non-African American) 99.7; Globulin 3.6 gm/dl (2.5-4.0); Magnesium 1.7 mg/dl (1.8-2.4); Potassium 3.9 mmol/L (3.5-5.1); Total Protein 6.3 gm/dl (6.4-8.2)
[2018-07-19] MEDS: FOLIC ACID 1 MG TAB PO SCH (07:32)
[2018-07-19] MEDS: THIAMINE HCL 100 MG TAB PO SCH (07:32)
[2018-07-19] MEDS: SERTRALINE HCL 50 MG TABLET PO SCH (07:33)
[2018-07-19] MEDS: MULTIVITAMIN TAB PO SCH (07:33)
[2018-07-19] MEDS: DOCUSATE SODIUM 100 MG CAP PO SCH (07:36)
[2018-07-19] MEDS ORDERED: MAGNESIUM SULFATE / D5W 1 GM/100 ML BAG IV ONE (08:00)
[2018-07-19] MEDS: LACTATED RINGER'S 1,000 ML IV SCH ×3 (12:10→22:37)
--- NOTE | 2018-07-19 12:10 | Gastrointestinal Consultation ---
Date of Consultation July 19, 2018 Assessment & Plan (1) Pancreatitis: Pt is a 58 y/o male currently admitted for acute on chronic pancreatitis secondary to pancreatic duct calculi. Hx of ETOH abuse, last use 1 month ago - Increase IVF rate to 200ml/hr (was at 50ml/hr) - Pepcid 20mg IV BID - Keep NPO for ERCP this afternoon by Dr. Dewitt in OR; Indomethacin 100mg GA for ERCP premed ordered. I had discussed ERCP indication, benefits vs risk with pt. - GI will give further recs after ERCP is completed. - F/U blood cx results. Supervising Physician Co-Signing Physician Notes I performed a history and physical examination of the patient, including specifically on physical exam - soft, nontender abdomen. I have discussed the patient's management with Suzette. Please refer to the nurse practitioner's note for the documented findings and plan of care. ERCP today for PD stone removal, also suspected pancreatic divisim EGD to evaluate his prior esophageal varices History of Present Illness Reason for Consultation: Pancreatitis Requesting Physician: Dr. Ben Pearson Attending Physician: Dr. Dougie Davenport. History of Present Illness Pt is a 58 y/o male w PMHx as noted below who was referred to ED by PCP w c/o upper abd pain associated w nausea w/o vomiting, constipation. He also had been noticing low grade fevers, blurry vision. Upon eval noted to have mild anemia, LFTs unremarkable but Lipase up [place] 1999s. CT abd/pelvis showed 7 mm obstructing calculus of the mid pancreatic duct causing dilatation of the proximal and mid pancreatic duct to a maximum diameter of 7 mm. There appears to be acute on chronic pancreatitis, several small pseudocysts of pancreas, 8mm calcification on distal pancreatic duct. No abscess is noted. Pt notes hx of ETOH abuse, ETOH pancreatitis about 2 yrs ago. Last ETOH intake 1 month ago. Over night he's given LR IVF, made NPO. He feels abd pain is still similar to yesterday. No current N/V. He was febrile up to 38.2C, blood cx obtained, pending. Allergies Allergy/AdvReac Type Severity Reaction Status Date / Time No Known Allergies Allergy Verified 07/18/18 16:41 Home Medications Home Medications Medication Instructions Recorded Confirmed Type multivitamin 1 tab PO DAILY 06/12/18 07/18/18 History sertraline 75 mg PO DAILY 06/12/18 07/18/18 History cyclobenzaprine 5 - 10 mg PO TID PRN 07/18/18 07/18/18 History trazodone 50 mg PO HS 07/18/18 07/18/18 History Patient History Medical History Symptomatic anemia Abdominal pain (Acute) Pancreatitis (Acute) Splenic vein thrombosis (Chronic) Tobacco abuse (Chronic) Alcoholic cirrhosis (09/15/12) Gastric varices without bleeding (Chronic) Recurrent pancreatitis (Chronic) ETOH abuse (Chronic) No pertinent family history Surgical History No pertinent past surgical history Social History Preferred Language: Thai Communication Ability: Effective Visual Impairment: No Limitations Hearing Ability: Normal Fiberglass Model Maker Required: No Beliefs That Will Affect Care: None Current Living Situation: Family Other Information That Helps Us Care for You: No Feels Safe at Home: Yes Safety Concerns: Feels Safe At This Time Smoking Status: Never smoker Do You Dip or Chew Tobacco: Yes Second Hand Exposure: No Tobacco Cessation Education Requested by Patient: No Hx Alcohol Use: Yes Alcohol type: beer and hard liquor Alcohol Intake Frequency Comment: 6-10 drinks a day Hx Substance Use: No Review of Systems Review of Systems: All systems reviewed & are unremarkable except as noted in HPI & below Physical Exam Constitutional: WD/WN, vitals as above well groomed, cooperative and comfortable Eyes: PERRL, conjunctivae normal, anicteric sclerae ENMT: external ear and nose normal, oropharynx normal Respiratory: normal respiratory effort, lungs clear to auscultation Cardiovascular: RRR, no murmur, no edema Gastrointestinal (Abdomen): Inspection/Auscultation: + hypoactive bowel sounds Percussion/Palpation: + abdomen tender (RUQ, LUQ ) and abdomen soft Skin: no rashes, warm and dry no jaundice Neurologic: Motor/Sensory: no asterixis Psychiatric: A+Ox3, euthymic affect Lymphatic: no lymphedema Results & Data Vital Signs (Past 12 Hours) Vital Signs Temp Pulse Pulse Resp BP Pulse Ox 07/19/18 11:14 37.3 C 83 18 146/77 H 97 07/19/18 07:22 79 07/19/18 07:00 38.2 C H 80 18 136/76 98 07/19/18 03:35 37.5 C 81 20 122/80 95 Laboratory Results Laboratory Results - last 72 hr 07/18/18 07/18/18 07/18/18 16:03 16:03 16:03 WBC 9.06 RBC 3.78 L Hgb 12.7 L Hct 34.8 L MCV 92.1 MCH 33.6 MCHC 36.5 H RDW Std Deviation 43.2 RDW Coeff of Ashvin 13.0 Plt Count 291 MPV 9.4 Immature Gran % (Auto) 0.6 Neut % (Auto) 68.5 Lymph % (Auto) 9.1 [place] % (Auto) 21.6 Eos % (Auto) 0.0 Baso % (Auto) 0.2 Immature Gran # (Auto) 0.05 H Neut # (Auto) 6.21 Lymph # (Auto) 0.82 L [place] # (Auto) 1.96 H Eos # (Auto) 0.00 Baso # (Auto) 0.02 PT 10.6 INR 1.0 APTT 28.1 PTT Ratio 1.0 Sodium 128 L Potassium 3.3 L Chloride 92 L Carbon Dioxide 27 Anion Gap 9.0 BUN 11 Creatinine 0.98 Est Cr Clr Drug Dosing 69.9 Est GFR ( Amer) 98.8 Est GFR (Non-Af Amer) 85.2 BUN/Creatinine Ratio 11.3 Glucose 115 H Osmolality Lactate Calcium 9.5 Magnesium 1.2 L Total Bilirubin 0.7 AST 49 H ALT 47 Alkaline Phosphatase 94 Troponin I < 0.015 Total Protein 7.9 Albumin 3.5 Globulin 4.4 H Albumin/Globulin Ratio 0.8 L Lipase 2422 H Procalcitonin TSH 0.746 Urine Color Urine Appearance Urine pH Ur Specific [place] Urine Protein Urine Glucose (UA) Urine Ketones Urine Blood Urine Nitrite Urine Bilirubin Urine Urobilinogen Ur Leukocyte Esterase Urine WBC (Auto) Urine RBC (Auto) U Hyaline Cast (Auto) U Epithel Cells (Auto) Urine Bacteria (Auto) Urine Osmolality Ur Random Sodium Urine Opiates Screen Ur Methadone, Qual Urine Barbiturates Ur Phencyclidine (PCP) U Amphetamin/Meth Scrn MDMA (Ecstasy) Screen U Benzodiazepines Scrn Ur Cocaine Metabolite U Marijuana (THC) Screen Ethyl Alcohol mg/dL Lyme Disease IgG Ab Lyme Disease IgM Ab Influenza Type A Ag Influenza Type B Ag 07/18/18 07/18/18 07/18/18 16:03 16:03 16:11 WBC RBC Hgb Hct MCV MCH MCHC RDW Std Deviation RDW Coeff of Ashvin Plt Count MPV Immature Gran % (Auto) Neut % (Auto) Lymph % (Auto) [place] % (Auto) Eos % (Auto) Baso % (Auto) Immature Gran # (Auto) Neut # (Auto) Lymph # (Auto) [place] # (Auto) Eos # (Auto) Baso # (Auto) PT INR APTT PTT Ratio Sodium Potassium Chloride Carbon Dioxide Anion Gap BUN Creatinine Est Cr Clr Drug Dosing Est GFR ( Amer) Est GFR (Non-Af Amer) BUN/Creatinine Ratio Glucose Osmolality 267 L Lactate Calcium Magnesium Total Bilirubin AST ALT Alkaline Phosphatase Troponin I Total Protein Albumin Globulin Albumin/Globulin Ratio Lipase Procalcitonin 0.37 TSH Urine Color Urine Appearance Urine pH Ur Specific [place] Urine Protein Urine Glucose (UA) Urine Ketones Urine Blood Urine Nitrite Urine Bilirubin Urine Urobilinogen Ur Leukocyte Esterase Urine WBC (Auto) Urine RBC (Auto) U Hyaline Cast (Auto) U Epithel Cells (Auto) Urine Bacteria (Auto) Urine Osmolality Ur Random Sodium Urine Opiates Screen Ur Methadone, Qual Urine Barbiturates Ur Phencyclidine (PCP) U Amphetamin/Meth Scrn MDMA (Ecstasy) Screen U Benzodiazepines Scrn Ur Cocaine Metabolite U Marijuana (THC) Screen Ethyl Alcohol mg/dL Lyme Disease IgG Ab Lyme Disease IgM Ab Influenza Type A Ag Neg for Influ A Influenza Type B Ag Neg for Influ B 07/18/18 07/18/18 07/18/18 16:29 16:29 18:29 WBC RBC Hgb Hct MCV MCH MCHC RDW Std Deviation RDW Coeff of Ashvin Plt Count MPV Immature Gran % (Auto) Neut % (Auto) Lymph % (Auto) [place] % (Auto) Eos % (Auto) Baso % (Auto) Immature Gran # (Auto) Neut # (Auto) Lymph # (Auto) [place] # (Auto) Eos # (Auto) Baso # (Auto) PT INR APTT PTT Ratio Sodium Potassium Chloride Carbon Dioxide Anion Gap BUN Creatinine Est Cr Clr Drug Dosing Est GFR ( Amer) Est GFR (Non-Af Amer) BUN/Creatinine Ratio Glucose Osmolality Lactate 1.6 Calcium Magnesium Total Bilirubin AST ALT Alkaline Phosphatase Troponin I Total Protein Albumin Globulin Albumin/Globulin Ratio Lipase Procalcitonin TSH Urine Color Urine Appearance Urine pH Ur Specific [place] Urine Protein Urine Glucose (UA) Urine Ketones Urine Blood Urine Nitrite Urine Bilirubin Urine Urobilinogen Ur Leukocyte Esterase Urine WBC (Auto) Urine RBC (Auto) U Hyaline Cast (Auto) U Epithel Cells (Auto) Urine Bacteria (Auto) Urine Osmolality Ur Random Sodium Urine Opiates Screen Neg Ur Methadone, Qual Neg Urine Barbiturates Neg Ur Phencyclidine (PCP) Neg U Amphetamin/Meth Scrn Neg MDMA (Ecstasy) Screen Neg U Benzodiazepines Scrn Neg Ur Cocaine Metabolite Neg U Marijuana (THC) Screen Neg Ethyl Alcohol mg/dL < 3.0 Lyme Disease IgG Ab Lyme Disease IgM Ab Influenza Type A Ag Influenza Type B Ag 07/18/18 07/18/18 07/18/18 18:29 18:29 18:29 WBC RBC Hgb Hct MCV MCH MCHC RDW Std Deviation RDW Coeff of Ashvin Plt Count MPV Immature Gran % (Auto) Neut % (Auto) Lymph % (Auto) [place] % (Auto) Eos % (Auto) Baso % (Auto) Immature Gran # (Auto) Neut # (Auto) Lymph # (Auto) [place] # (Auto) Eos # (Auto) Baso # (Auto) PT INR APTT PTT Ratio Sodium Potassium Chloride Carbon Dioxide Anion Gap BUN Creatinine Est Cr Clr Drug Dosing Est GFR ( Amer) Est GFR (Non-Af Amer) BUN/Creatinine Ratio Glucose Osmolality Lactate Calcium Magnesium Total Bilirubin AST ALT Alkaline Phosphatase Troponin I Total Protein Albumin Globulin Albumin/Globulin Ratio Lipase Procalcitonin TSH Urine Color Yellow Urine Appearance Clear Urine pH 7.0 Ur Specific [place] 1.029 Urine Protein 1+ H Urine Glucose (UA) Negative Urine Ketones Trace H Urine Blood 2+ H Urine Nitrite Negative Urine Bilirubin Negative Urine Urobilinogen Negative Ur Leukocyte Esterase Negative Urine WBC (Auto) 0 Urine RBC (Auto) 0-4 U Hyaline Cast (Auto) 0 U Epithel Cells (Auto) 0-5 Urine Bacteria (Auto) Negative Urine Osmolality 303 L Ur Random Sodium 24 Urine Opiates Screen Ur Methadone, Qual Urine Barbiturates Ur Phencyclidine (PCP) U Amphetamin/Meth Scrn MDMA (Ecstasy) Screen U Benzodiazepines Scrn Ur Cocaine Metabolite U Marijuana (THC) Screen Ethyl Alcohol mg/dL Lyme Disease IgG Ab Lyme Disease IgM Ab Influenza Type A Ag Influenza Type B Ag 07/18/18 07/18/18 07/19/18 21:04 21:04 06:21 WBC 7.91 RBC 3.30 L Hgb 10.8 L Hct 30.6 L MCV 92.7 MCH 32.7 MCHC 35.3 RDW Std Deviation 44.4 RDW Coeff of Ashvin 13.1 Plt Count 286 MPV 9.2 Immature Gran % (Auto) 0.3 Neut % (Auto) 56.9 Lymph % (Auto) 13.5 [place] % (Auto) 27.8 Eos % (Auto) 1.1 Baso % (Auto) 0.4 Immature Gran # (Auto) 0.02 Neut # (Auto) 4.50 Lymph # (Auto) 1.07 L [place] # (Auto) 2.20 H Eos # (Auto) 0.09 Baso # (Auto) 0.03 PT INR APTT PTT Ratio Sodium 131 L Potassium Chloride Carbon Dioxide Anion Gap BUN Creatinine Est Cr Clr Drug Dosing Est GFR ( Amer) Est GFR (Non-Af Amer) BUN/Creatinine Ratio Glucose Osmolality Lactate Calcium Magnesium Total Bilirubin AST ALT Alkaline Phosphatase Troponin I Total Protein Albumin Globulin Albumin/Globulin Ratio Lipase Procalcitonin TSH Urine Color Urine Appearance Urine pH Ur Specific [place] Urine Protein Urine Glucose (UA) Urine Ketones Urine Blood Urine Nitrite Urine Bilirubin Urine Urobilinogen Ur Leukocyte Esterase Urine WBC (Auto) Urine RBC (Auto) U Hyaline Cast (Auto) U Epithel Cells (Auto) Urine Bacteria (Auto) Urine Osmolality Ur Random Sodium Urine Opiates Screen Ur Methadone, Qual Urine Barbiturates Ur Phencyclidine (PCP) U Amphetamin/Meth Scrn MDMA (Ecstasy) Screen U Benzodiazepines Scrn Ur Cocaine Metabolite U Marijuana (THC) Screen Ethyl Alcohol mg/dL Lyme Disease IgG Ab Negative Lyme Disease IgM Ab Negative Influenza Type A Ag Influenza Type B Ag 07/19/18 06:21 WBC RBC Hgb Hct MCV MCH MCHC RDW Std Deviation RDW Coeff of Ashvin Plt Count MPV Immature Gran % (Auto) Neut % (Auto) Lymph % (Auto) [place] % (Auto) Eos % (Auto) Baso % (Auto) Immature Gran # (Auto) Neut # (Auto) Lymph # (Auto) [place] # (Auto) Eos # (Auto) Baso # (Auto) PT INR APTT PTT Ratio Sodium 133 L Potassium 3.9 D Chloride 99 Carbon Dioxide 26 Anion Gap 7.0 BUN 10 Creatinine 0.79 Est Cr Clr Drug Dosing 85.4 Est GFR ( Amer) 115.5 Est GFR (Non-Af Amer) 99.7 BUN/Creatinine Ratio 12.2 Glucose 85 Osmolality Lactate Calcium 8.6 Magnesium 1.7 L Total Bilirubin 0.5 AST 43 H ALT 38 Alkaline Phosphatase 79 Troponin I Total Protein 6.3 L D Albumin 2.7 L Globulin 3.6 Albumin/Globulin Ratio 0.8 L Lipase 1165 H Procalcitonin TSH Urine Color Urine Appearance Urine pH Ur Specific [place] Urine Protein Urine Glucose (UA) Urine Ketones Urine Blood Urine Nitrite Urine Bilirubin Urine Urobilinogen Ur Leukocyte Esterase Urine WBC (Auto) Urine RBC (Auto) U Hyaline Cast (Auto) U Epithel Cells (Auto) Urine Bacteria (Auto) Urine Osmolality Ur Random Sodium Urine Opiates Screen Ur Methadone, Qual Urine Barbiturates Ur Phencyclidine (PCP) U Amphetamin/Meth Scrn MDMA (Ecstasy) Screen U Benzodiazepines Scrn Ur Cocaine Metabolite U Marijuana (THC) Screen Ethyl Alcohol mg/dL Lyme Disease IgG Ab Lyme Disease IgM Ab Influenza Type A Ag Influenza Type B Ag (1) Pancreatitis Acute pancreatitis complication: unspecified Chronicity: acute Pancreatitis type: unspecified pancreatitis type Qualified Code(s): K85.90 - Acute pancreatitis without necrosis or infection, unspecified
[2018-07-19] MEDS ORDERED: FAMOTIDINE 20MG/5ML IV PUSH IV STA (12:17)
[2018-07-19] MEDS ORDERED: INDOMETHACIN 50 MG SUPP PR ONE (12:48)
[2018-07-19] MEDS ORDERED: PIPERACILL/TAZOBAC CONSULT ACTIVE SCH (12:58)
[2018-07-19] MEDS ORDERED: PIPERACILLIN/TAZOBACTAM 3.375 GM in DEXTROSE 5% 100 ML IV ONE (13:15)
[2018-07-19] MEDS: FAMOTIDINE 20 MG in SYRINGE 3 ML IV SCH ×2 (14:06→21:00)
[2018-07-19] MEDS ORDERED: ePHEDrine sulfate 50 MG/ML AMP IV PRN (14:19)
[2018-07-19] MEDS ORDERED: ATROPINE SULFATE 0.1 MG/ML 10ML SYR IV PRN (14:19)
[2018-07-19] MEDS ORDERED: fentaNYL citrate 100 MCG/2 ML VIAL IV PRN (14:19)
[2018-07-19] MEDS ORDERED: ONDANSETRON INJ 2 MG/ML 2 ML VIAL IV PRN (14:19)
--- NOTE | 2018-07-19 14:28 | Anesthesiology Consultation ---
Date of Service July 19, 2018 Assessment & Plan (1) Encounter for pre-operative examination: Chart Review Chart Review: Acceptable Risk for Surgery and Patient NOT seen in Pre Admission Testing Consults Requested none snuff one hour ago History Surgery Operation Date: 07/19/18 08:50 Proposed Procedures p Endoscopic Retrograde Cholangiopancreatogram - Carmen Dewitt MD Height/Weight Height: 5 ft 8 in Weight: 58.5 kg Allergies Allergy/AdvReac Type Severity Reaction Status Date / Time No Known Allergies Allergy Verified 07/18/18 16:41 Medications Home Medications Medication Instructions Recorded Confirmed Last Taken multivitamin 1 tab PO DAILY 06/12/18 07/18/18 Unknown sertraline 75 mg PO DAILY 06/12/18 07/18/18 Unknown cyclobenzaprine 5 - 10 mg PO TID PRN 07/18/18 07/18/18 Unknown trazodone 50 mg PO HS 07/18/18 07/18/18 Unknown Active Medications Generic Name Dose Route Start Last Admin Trade Name Freq PRN Reason Stop Dose Admin Acetaminophen 325 mg 07/18/18 20:56 07/19/18 07:31 Tylenol PO 08/17/18 20:55 325 mg Q4H PRN Administration Pain or Fever Docusate Sodium 100 mg 07/18/18 21:30 07/19/18 07:36 Colace PO 08/17/18 21:29 100 mg DAILY TAYO Administration Folic Acid 1 mg 07/19/18 09:00 07/19/18 07:32 Folvite PO 08/18/18 08:59 1 mg QAM TAYO Administration Heparin Sodium (Porcine) 5,000 units 07/18/18 22:00 07/19/18 06:14 Heparin Sodium (Porcine) SQ 08/17/18 21:59 5,000 units Q8 TAYO Administration Lactated Ringer's 1,000 mls @ 200 mls/hr 07/18/18 20:30 07/19/18 12:10 Lr IV 08/17/18 20:29 200 mls/hr .Q5H TAYO Administration Lorazepam 0.25 mg in 0.5 mls @ 0.5 mls/min 07/18/18 20:56 07/18/18 23:54 Ativan IV 08/17/18 20:55 0.5 mls/min Q4H PRN Administration Anxiety Famotidine 20 mg/ Syringe 5 mls @ 2.5 mls/min 07/19/18 13:00 07/19/18 14:06 IV 08/18/18 12:59 2.5 mls/min BID TAYO Administration Multivitamins 1 tab 07/19/18 09:00 07/19/18 07:33 Multivitamin Tab PO 08/18/18 08:59 1 tab DAILY TAYO Administration Oxycodone HCl 5 mg 07/18/18 20:56 07/19/18 10:32 Roxicodone Immediate Rel PO 08/01/18 20:55 5 mg Q4H PRN Administration Pain Sertraline HCl 75 mg 07/19/18 09:00 07/19/18 07:33 Zoloft PO 08/18/18 08:59 75 mg DAILY TAYO Administration Thiamine HCl 100 mg 07/19/18 09:00 07/19/18 07:32 Vitamin B-1 PO 08/18/18 08:59 100 mg QAM TAYO Administration Trazodone HCl 50 mg 07/18/18 21:00 07/18/18 22:01 Desyrel PO 08/17/18 20:59 50 mg HS TAYO Administration Past Medical History Medical History Symptomatic anemia Abdominal pain (Acute) Pancreatitis (Acute) Splenic vein thrombosis (Chronic) Tobacco abuse (Chronic) Alcoholic cirrhosis (09/15/12) Gastric varices without bleeding (Chronic) Recurrent pancreatitis (Chronic) ETOH abuse (Chronic) No pertinent family history Exercise / Class Metabolic Activity II 4-5 Yardwork/Stairs/Walk up hill Past Surgical History Surgical History No pertinent past surgical history Past Anesthesia History No Hx of Anesthesia Complications and No Family Hx of Anesthesia Complications History of PONV No Hx of PONV and No Hx of Motion Sickness Social History Smoking Status: Never smoker Do You Dip or Chew Tobacco: Yes Smoking End Date: Hx Alcohol Use: Yes Alcohol type: beer and hard liquor alcohol intake frequency: 3 or more drinks per day Alcohol Intake Frequency Comment: per pt he has not drank in one month Hx Substance Use: No Physical Exam Vital Signs Last Vital Signs Temp 37.3 C 07/19/18 11:14 Pulse 83 07/19/18 11:14 Resp 18 07/19/18 11:14 BP 146/77 H 07/19/18 11:14 Pulse Ox 97 07/19/18 11:14 Testing Electrocardiogram Date: 07/18/18 Findings: + NSR @ (92) sinus rhythm with occasional PVC's. Chest X-Ray Date: 07/18/18 XR chest 2V routine CLINICAL HISTORY: fever dyspnea COMPARISON STUDY: 06/12/2018 FINDINGS: The bones soft tissues and hemidiaphragms are normal. The cardiomediastinal silhouette is normal. The lungs are clear. The pulmonary vasculature is normal. IMPRESSION: Negative chest. Laboratory Results 07/19/18 06:21 PT 10.6 Seconds (9.0-12.0) 07/18/18 16:03 INR 1.0 (0.9-1.1) 07/18/18 16:03 APTT 28.1 Seconds (21.0-31.0) 07/18/18 16:03 Urine Color Yellow 07/18/18 18:29 Urine Appearance Clear (Clear) 07/18/18 18:29 Urine pH 7.0 (4.5-7.5) 07/18/18 18:29 Ur Specific [place] 1.029 (1.000-1.030) 07/18/18 18:29 Urine Protein 1+ (Negative) H 07/18/18 18:29 Urine Glucose (UA) Negative (Negative) 07/18/18 18:29 Urine Ketones Trace (Negative) H 07/18/18 18:29 Urine Nitrite Negative (Negative) 07/18/18 18:29 Ur Leukocyte Esterase Negative (Negative) 07/18/18 18:29 Urine WBC (Auto) 0 /hpf (0-5) 07/18/18 18:29 Urine RBC (Auto) 0-4 /hpf (0-4) 07/18/18 18:29 U Hyaline Cast (Auto) 0 /lpf (0-5) 07/18/18 18:29 U Epithel Cells (Auto) 0-5 /lpf (0-5) 07/18/18 18:29 Urine Bacteria (Auto) Negative (Negative) 07/18/18 18:29 07/18/18 16:03 Blood Culture - Preliminary Blood Gram positive cocci clusters
[2018-07-19] MEDS ORDERED: ROCURONIUM BROMIDE 10 MG/ML 5 ML VIAL ONE (14:31)
[2018-07-19] MEDS ORDERED: PROPOFOL IV EMULSION 10 MG/ML 20 ML VIAL IV ONE (14:31)
[2018-07-19] MEDS ORDERED: LIDOCAINE HCL 2% 2 ML VIAL/AMP(20MG/ML) INFIL ONE (14:31)
[2018-07-19] MEDS ORDERED: fentaNYL citrate 100 MCG/2 ML VIAL ONE (14:33)
[2018-07-19] MEDS ORDERED: MIDAZOLAM HCL 1 MG/ML 2ML VIAL ONE (14:33)
--- NOTE | 2018-07-19 14:44 | History & Physical Bridge Note ---
Date of Service July 19, 2018 History & Physical Bridge Note I have examined the patient, reviewed the History & Physical and in the interval since the performance of the History & Physical I have noted the following changes of clinical significance: no changes noted ASA is E but will need to proceede with the procedure due to risk of worsening pancreatitis and need to remove the stone Patient had chewed tobacco hence I explained risk of aspiration.
[2018-07-19] MEDS ORDERED: SUCCINYLCHOLINE CHLORIDE 20 MG/ML 10 ML VIAL ONE (15:05)
[2018-07-19] MEDS ORDERED: ESMOLOL HCL INJ 10 MG/ML 10ML VIAL IV ONE (15:55)
[2018-07-19] MEDS ORDERED: METOCLOPRAMIDE HCL INJ 5 MG/ML 2 ML VIAL ONE (15:55)
--- NOTE | 2018-07-19 16:40 | Operative Report ---
Post Operative Report Pre & Post Diagnosis Operation Date: 07/19/18 08:50 Pre-Op Diagnosis: HYPONATREMIA,PANCREATITIS Post-Op Diagnosis: HYPONATREMIA,PANCREATITIS Procedure Operation Date: 07/19/18 08:50 Actual Procedures p Endoscopic Retrograde Cholangiopancreatogram(Not Applicable) - Carmen Dewitt MD s Esophagogastroduodenoscopy(Not Applicable) - Carmen Dewitt MD Surgeon Carmen Dewitt MD Needle Valve Operator None Estimated Blood Loss 0 Findings See Below (Purulent pancreatitis, PD stone removed, pus sweeped, Stent placed) Specimens None Description of Procedure ERCP I attest to the content of the Intraoperative Record and any orders documented therein. Any exceptions are noted below.
--- NOTE | 2018-07-19 17:00 | Fluoroscopy Report ---
FL ERCP biliary ductal CLINICAL HISTORY: CHECK DUCTScalcification COMPARISON STUDY: CT 07/18/2018 FLUOROSCOPY TIME: 3 minutes 20 seconds NUMBER OF FLUOROSCOPIC IMAGES: 11 FINDINGS: Retrograde opacification of the common bile duct as well as cystic duct shows no filling de fects or distention. This appears to been followed by sweeping of the common duct with air balloon insufflation. This follow by retrograde placement of a catheter along the length of the pancreatic duct. There is p artial contrast opacification distally with potential attempted placement of a balloon insufflation d evice. The images of the pancreatic duct are not considered diagnostic. IMPRESSION: 1. No significant filling defect of the biliary ductal system. 2. Retrograde cannulation of the pancreatic duct is successful although it is not opacified to a diag nostic degree. The above report was generated using voice recognition software. It may contain grammatical, syntax or spelling errors. Electronically signed by: Gabriel Saldana M.D. 07/19/2018 4:59 PM
[2018-07-19] MEDS ORDERED: GLUCAGON FOR INJ 1 MG VIAL ONE ×2 (17:09)
--- NOTE | 2018-07-19 17:11 | Hospitalist Progress Note ---
Date of Service July 19, 2018 Assessment & Plan (1) Pancreatitis: Acute on chronic pancreatitis secondary to pancreatic duct calculi H/O Alcohol abuse Last alcohol drink 1 month ago per patient --CT ABD:7 mm obstructing calculus of the mid pancreatic duct. This is creating dilatation of the proximal and mid pancreatic duct to a maximum diameter of 7 mm. This process appears to be creating acute pancreatitis of the pancreatic body and tail superimposed upon chronic pancreatitis which has been described previously. Several small pseudocysts unchanged from the prior study. Moderate peripancreatic infiltrative change with no current evidence for abscess. Additional 8 mm calcification adjacent to the distal aspect of the pancreatic duct --Lipase:[id number] --Appreciate GI Input --Planned for ERCP today --Continue gentle IV fluids given hyponatremia --Continue Pepcid twice daily --N.p.o. for now until further recommendations from GI --Pain control R/O Bacteremia: Has low grade fever Blood Cx: 03/13: Gram-positive cocci in clusters Started on Zosyn empirically MRSA screen negative Repeat blood cultures ordered Bilateral blurred vision Reports symptoms since 1 week Discussed with Ophthalmology Advised to follow up patient as outpatient unless clinically deteriorates Monitor Hyponatremia Likely due to dehydration Also Differential: due to Alcohol abuse Sodium levels: 128>>132 Continue gentle IV fluids Monitor sodium levels Consider Nephrology Consult Hypokalemia Hypomagnesemia Replace electrolytes as needed Acute on chronic anemia EGD: Multiple duodenal ulcers with no stigmata of bleeding. Microscopic hematuria on UA GI following Continue Pepcid Will need Urology FU as outpatient Monitor CBC Partly could be dilutional due to IV fluids Recheck UA in AM Mood disorder stable On Trazadone H/O Alcohol abuse No signs of withdrawal Continue thiamine, folic acid DVT Px: SCDs for now Code Status Full code Subjective Patient is seen and examined at bedside Planned for ERCP today Complains of abdominal pain, back pain this morning Also reports blurred vision Discussed with GI and Ophthalmology today Denies any chest pain, SOB, dizziness Offers no other complaints Review of Systems Review of Systems: All systems reviewed & are unremarkable except as noted in HPI & below Physical Exam Physical Exam: Physical Exam: Vitals signs as noted above General Appearance:Moderately built and nourished, no apparent distress Head: normocephalic, Atraumatic Eyes: normal inspection, EOMI Neck: supple, Trachea midline Respiratory/Chest: Normal breath sounds, CTA Cardiovascular: S1, S2, No murmur Abdomen/GI:Soft, mild right sided tender, Bowel sounds present Extremities/Musculoskelatal:normal inspection, no edema Neurologic/Psych:AAOX3, grossly no focal neurological deficits Skin: normal color, warm Results & Data Vital Signs (Past 12 Hours) Vital Signs Temp Pulse Pulse Pulse Resp BP BP 07/19/18 16:55 86 16 150/90 H 07/19/18 16:47 37.4 C 93 H 21 154/95 H 07/19/18 14:33 37.3 C 83 18 134/79 07/19/18 11:14 37.3 C 83 18 146/77 H 07/19/18 07:22 79 07/19/18 07:00 38.2 C H 80 18 136/76 Pulse Ox 07/19/18 16:55 100 07/19/18 16:47 100 07/19/18 14:33 97 07/19/18 11:14 97 07/19/18 07:22 07/19/18 07:00 98 Laboratory Results Short CBC 07/19/18 Range/Units 06:21 WBC 7.91 (4.8-10.8) K/uL Hgb 10.8 L (14.0-18.0) g/dL Hct 30.6 L (42-52) % Plt Count 286 (130-400) K/uL BMP 07/18/18 07/19/18 07/19/18 21:04 06:21 14:07 Sodium 131 L 133 L 132 L Potassium 3.9 D Chloride 99 Carbon Dioxide 26 BUN 10 Creatinine 0.79 Glucose 85 Calcium 8.6 Liver Function 07/19/18 Range/Units 06:21 Total Bilirubin 0.5 (0.2-1) mg/dl AST 43 H (15-37) U/L ALT 38 (12-78) U/L Alkaline Phosphatase 79 (45-117) U/L Albumin 2.7 L (3.4-5.0) gm/dl Urine 07/18/18 Range/Units 18:29 Urine Color Yellow Urine Appearance Clear (Clear) Urine pH 7.0 (4.5-7.5) Ur Specific [place] 1.029 (1.000-1.030) Urine Protein 1+ H (Negative) Urine Glucose (UA) Negative (Negative) (1) Pancreatitis Acute pancreatitis complication: unspecified Chronicity: acute Pancreatitis type: unspecified pancreatitis type Qualified Code(s): K85.90 - Acute pancreatitis without necrosis or infection, unspecified
--- NOTE | 2018-07-19 17:22 | GI REPORT ---
Patient Name: Antwon Douglass Procedure Date: 07/19/2018 2:50 PM Date of : 1960 Admit Type: Inpatient Age: 58 Gender: Male Attending MD: Carmen Dewitt MD Procedure: Upper GI endoscopy Providers: Carmen Dewitt MD Referring MD: Ben Pearson Md Indications: Epigastric abdominal pain Medicines: General Anesthesia Complications: No immediate complications. Estimated Blood Loss: Estimated blood loss: none. Procedure: Pre-Anesthesia Assessment: - Prior to the procedure, a History and Physical was performed, and patient medications and allergies were reviewed. The patient is competent. The risks and benefits of the procedure and the sedation options and risks were discussed with the patient. All questions were answered and informed consent was obtained. Patient identification and proposed procedure were verified by the physician and the nurse in the procedure room. Mental Status Examination: alert and oriented. Airway Examination: normal oropharyngeal airway and neck mobility. Respiratory Examination: clear to auscultation. CV Examination: normal. ASA Grade Assessment: III - A patient with severe systemic disease. After reviewing the risks and benefits, the patient was deemed in satisfactory condition to undergo the procedure. The anesthesia plan was to use general anesthesia. Immediately prior to administration of medications, the patient was re-assessed for adequacy to receive sedatives. The heart rate, respiratory rate, oxygen saturations, blood pressure, adequacy of pulmonary ventilation, and response to care were monitored throughout the procedure. The physical status of the patient was re-assessed after the procedure. After obtaining informed consent, the endoscope was passed under direct vision. Throughout the procedure, the patient's blood pressure, pulse, and oxygen saturations were monitored continuously. The Endoscope was introduced through the mouth, and advanced to the second part of duodenum. The upper GI endoscopy was accomplished without difficulty. The patient tolerated the procedure well. Findings: The examined esophagus was normal. There is no endoscopic evidence of varices in the lower third of the esophagus or the stomach. Prominent gastric folds were found in the gastric body. Few superficial duodenal ulcers with no stigmata of bleeding were found in the duodenal bulb. The second portion of the duodenum was normal. Impression: - Normal esophagus. - Enlarged gastric folds. - Multiple duodenal ulcers with no stigmata of bleeding. - Normal second portion of the duodenum. - No specimens collected. Recommendation: - Use a proton pump inhibitor PO BID for 2 months. - Perform an ERCP today. Carmen Dewitt MD 07/19/2018 5:21:38 PM This report has been signed electronically. Note Initiated On: 07/19/2018 2:50 PM Number of Addenda: 0 I attest to the content of the Intraoperative Record and orders documented therein, exceptions below {[id number]}
--- NOTE | 2018-07-19 17:23 | Anesthesiology Progress Note ---
Date of Service July 19, 2018 Anesthesia Post Procedure Vital Signs Vital Signs: Temp Pulse Pulse Pulse Resp BP BP 07/19/18 17:15 79 16 131/88 07/19/18 17:05 85 16 137/97 07/19/18 16:55 86 16 150/90 H 07/19/18 16:47 37.4 C 93 H 21 154/95 H 07/19/18 14:33 37.3 C 83 18 134/79 07/19/18 11:14 37.3 C 83 18 146/77 H 07/19/18 07:22 79 07/19/18 07:00 38.2 C H 80 18 136/76 07/19/18 03:35 37.5 C 81 20 122/80 07/18/18 23:20 77 07/18/18 23:17 37.5 C 86 17 134/82 07/18/18 22:34 75 07/18/18 22:14 36.7 C 83 18 121/78 07/18/18 20:19 72 18 132/83 Pulse Ox 07/19/18 17:15 100 07/19/18 17:05 100 07/19/18 16:55 100 07/19/18 16:47 100 07/19/18 14:33 97 07/19/18 11:14 97 07/19/18 07:22 07/19/18 07:00 98 07/19/18 03:35 95 07/18/18 23:20 07/18/18 23:17 99 07/18/18 22:34 07/18/18 22:14 98 07/18/18 20:19 100 Pain Intensity Generalized: Pain Intensity: 7 Transfer of Care Handoff Completed per policy Notes Mental Status: alert / awake / arousable Patient Amnestic to Procedure: Yes Nausea / Vomiting: adequately controlled Pain: adequately controlled Airway Patency, RR, SpO2: stable & adequate BP & HR: stable & adequate Hydration State: stable & adequate Anesthetic Complications: no major complications apparent
--- NOTE | 2018-07-19 17:59 | GI REPORT ---
Patient Name: Antwon Douglass Procedure Date: 07/19/2018 2:14 PM Date of : 1960 Admit Type: Inpatient Age: 58 Gender: Male Attending MD: Carmen Dewitt MD Procedure: ERCP Providers: Carmen Dewitt MD Referring MD: Ben Pearson Md, German Cole Indications: Epigastric abdominal pain, Abnormal abdominal CT, Pancreatic duct obstruction associated acute pancreatitis, Pancreatic duct stone Medicines: General Anesthesia Complications: No immediate complications. Estimated Blood Loss: Estimated blood loss: none. Procedure: Pre-Anesthesia Assessment: - Prior to the procedure, a History and Physical was performed, and patient medications and allergies were reviewed. The patient is competent. The risks and benefits of the procedure and the sedation options and risks were discussed with the patient. All questions were answered and informed consent was obtained. Patient identification and proposed procedure were verified by the physician and the nurse in the procedure room. Mental Status Examination: alert and oriented. Airway Examination: normal oropharyngeal airway and neck mobility. Respiratory Examination: clear to auscultation. CV Examination: normal. ASA Grade Assessment: E - Emergency. After reviewing the risks and benefits, the patient was deemed in satisfactory condition to undergo the procedure. The anesthesia plan was to use general anesthesia. Immediately prior to administration of medications, the patient was re-assessed for adequacy to receive sedatives. The heart rate, respiratory rate, oxygen saturations, blood pressure, adequacy of pulmonary ventilation, and response to care were monitored throughout the procedure. The physical status of the patient was re-assessed after the procedure. After obtaining informed consent, the scope was passed under direct vision. Throughout the procedure, the patient's blood pressure, pulse, and oxygen saturations were monitored continuously. The Scope was introduced through the mouth, and advanced to the duodenum and used to inject contrast into the bile duct and dorsal pancreatic duct. The ERCP was accomplished without difficulty. The patient tolerated the procedure well. Findings: The greige mender film was normal. The esophagus was successfully intubated under direct vision. The scope was advanced to a normal major papilla in the descending duodenum without detailed examination of the pharynx, larynx and associated structures, and upper GI tract. The upper GI tract was grossly normal. The major papilla was small and could not be initially cannulated with standard sphincterotome. An 0.018 inch straight standard wire was passed into the biliary tree. The 3-4-5 taper-tip cannula was passed over the guidewire and the bile duct was then deeply cannulated. Contrast was injected. I personally interpreted the bile duct images. Ductal flow of contrast was adequate. Image quality was adequate. Contrast extended to the main bile duct. Opacification of the main bile duct, cystic duct and gallbladder was successful. The maximum diameter of the ducts was 5 mm. Biliary sphincterotomy was made with a monofilament Fusion OMNI sphincterotome using ERBE electrocautery. There was no post-sphincterotomy bleeding. The biliary tree was swept with an 8.5 mm balloon starting at the bifurcation. Sludge was swept from the duct. Despite multiple attempts, could not cannulate the ventral pancreatic duct. The minor papilla was found and was normal. A 0.035 inch straight standard wire was passed into the dorsal pancreatic duct. The dorsal pancreatic duct was then deeply cannulated with the Fusion OMNI sphincterotome. Changes, including dilation of the main pancreatic duct, irregularity of the main pancreatic duct and beading of side branches, were seen in the main pancreatic duct consistent with chronic pancreatitis. I highly suspect a complete pancreas divisum. A small cyst in the pancreatic duct in the tail of the pancreas was identified. Dorsal pancreatic sphincterotomy was made with a monofilament Fusion OMNI sphincterotome using ERBE electrocautery. There was no post-sphincterotomy bleeding. To remove object(s) the dorsal pancreatic duct was swept with an 8 mm balloon starting at the main pancreatic duct. One stone was removed. No stones remained. Pus was swept from the duct. One 5 Fr by 5 cm plastic stent with an external pigtail and no internal flaps was placed into the dorsal pancreatic duct. Clear fluid flowed through the stent. The stent was in good position. The total fluoroscopy exposure time was 4 minutes and 56 seconds. Indomethacin 100 mg was given via suppository to decrease the risk of post-ERCP pancreatitis (PEP). Impression: Biliary side: - The major papilla appeared to be small. - A biliary sphincterotomy was performed. - No abnormalities seen on the cholangiogram. - The biliary tree was swept and sludge was found. Pancreatic side: - The ventral duct could not be located from the major papilla. - The minor papilla was found and appeared normal. - Pancreas divisum was found. The dorsal pancreatic duct was swept and pus was found. One Pancreatic stone was found. Complete removal was accomplished. A minor papilla sphincterotomy was performed and then a stent was placed. - Findings of chronic pancreatitis seen. Recommendation: - [facility] care. - Clear liquid diet today, then advance as tolerated. - Continue ABx and plan to complete a course of 10 days. - Obtain KUB in 3 weeks to assure spontaneous migration of the PD stent. - Obtain MRCP in 4 weeks to delineate the ductal anatomy. Carmen Dewitt MD 07/19/2018 5:58:53 PM This report has been signed electronically. Note Initiated On: 07/19/2018 2:14 PM Number of Addenda: 0 I attest to the content of the Intraoperative Record and orders documented therein, exceptions below {[id number]}
[2018-07-19] MEDS: PIPERACILLIN/TAZOBACTAM 3.375 GM in DEXTROSE 5% 100 ML IV SCH (18:07)
[2018-07-19] MEDS: PANTOprazole 40 MG TAB PO SCH (20:55)
[2018-07-19] MEDS: TRAZODONE HCL 50 MG TAB PO SCH (20:56)
[2018-07-19] MEDS: LORazepam 0.25 MG/0.5 ML VIAL IV PRN (22:59)
[2018-07-19 23:11] LABS: Appearance Urine Clear (Clear); Bilirubin Urine Negative (Negative); Blood Urine 1+ (Negative); Color Urine Yellow; Glucose Urine UA 1+ (Negative); Ketones Urine Negative (Negative); Leukocyte Esterase Urine Negative (Negative); Nitrite Urine Negative (Negative); Protein Urine Negative (Negative); Urobilinogen Urine Negative (Negative); pH Urine 6.5 (4.5-7.5)
[2018-07-19 23:39] LABS: Bacteria Urine Automated Negative (Negative); Cast Urine Automated 0 /lpf (0-5); Epithelial Cell Urine Auto 0-5 /lpf (0-5); RBC Urine Automated 0-4 /hpf (0-4); WBC Urine Automated 0 /hpf (0-5)
--- NOTE | 2018-07-19 23:51 | Consultation Report ---
DATE OF CONSULTATION: 07/18/2018 INPATIENT CONSULTATION NOTE REASON FOR CONSULT: I was asked to come see the patient due to generalized blurred vision and some double vision in the recent past. I went to visit the patient at bedside and he is currently in the operating room, having a procedure. I spoke to his attending physician, Dr. Pearson who examined him this morning and said the patient's complaint is mainly some difficulty focusing up close. It is unknown if the patient regularly wears glasses and just does not have his reading glasses with him or if had a perhaps his reading demand for the read strength of his reading glasses has changed recently. He also has a current attack of pancreatitis. Sometimes attacks like this can cause fluid shifts in the lens of the eye causing some temporary blurred vision. I have asked the consulting physician to consult me again over the weekend if the patient's symptoms were to worsen or double vision return and stay double. Otherwise, I would recommend that he have a full exam as an outpatient, so he can have a proper refraction with glasses as well as proper testing in the outpatient setting. My office phone number is [phone].
[2018-07-20] MEDS ORDERED: POTASSIUM CHLORIDE 20 MEQ TABCR PO STA (02:17)
[2018-07-20] MEDS: PIPERACILLIN/TAZOBACTAM 3.375 GM in DEXTROSE 5% 100 ML IV SCH ×2 (02:25→09:59)
[2018-07-20] MEDS: MAGNESIUM SULFATE / D5W 1 GM/100 ML BAG IV SCH ×2 (02:43→03:47)
[2018-07-20 03:01] LABS: Basophils # (auto) 0.02 K/uL (0-0.2); Basophils % (auto) 0.4 %; Eosinophils % (auto) 1.8 %; Hematocrit (blood only) 29.9 % (42-52); Hemoglobin 10.6 g/dL (14.0-18.0); Immature Granulocytes # (auto) 0.04 K/uL (0.00-0.02); Immature Granulocytes % (auto) 0.7 %; Mean Corpuscular Hgb Conc 35.5 g/dL (32-36); Mean Platelet Volume 9.4 fL (7.4-10.4); Monocytes # (auto) 1.28 K/uL (0.11-0.59); Monocytes % (auto) 22.7 %; Neutrophils # (auto) 2.91 K/uL (1.4-6.5); Neutrophils % (auto) 51.4 %; Platelet Count 347 K/uL (130-400); Red Blood Count 3.25 M/uL (4.7-6.1); White Blood Count 5.65 K/uL (4.8-10.8)
[2018-07-20 03:19] LABS: Albumin Level 2.5 gm/dl (3.4-5.0); BUN Creatinine Ratio 9.1 (10-20); Bilirubin Direct 0.7 mg/dl (0-0.2); Calcium 8.8 mg/dl (8.5-10.1); Creatinine Clr Calc Pharmacy 92.4 ml/min; Est GFR (African American) 119.3; Magnesium 1.9 mg/dl (1.8-2.4); Potassium 3.8 mmol/L (3.5-5.1)
[2018-07-20 03:28] LABS: Bilirubin,Total 1.2 mg/dl (0.2-1); Total Protein 6.2 gm/dl (6.4-8.2)
[2018-07-20] MEDS: LACTATED RINGER'S 1,000 ML IV SCH ×2 (03:48→07:50)
[2018-07-20] MEDS: HEPARIN SOD 5,000 UNIT/0.5 ML VIAL SQ SCH ×3 (06:39→20:49)
[2018-07-20] MEDS: MULTIVITAMIN TAB PO SCH (07:50)
[2018-07-20] MEDS: FAMOTIDINE 20 MG in SYRINGE 3 ML IV SCH ×2 (07:50→20:53)
[2018-07-20] MEDS: OXYCODONE HCL IR 5 MG TAB (IMMEDIATE RELEASE) PO PRN ×3 (07:50→21:30)
[2018-07-20] MEDS: FOLIC ACID 1 MG TAB PO SCH (07:51)
[2018-07-20] MEDS: SERTRALINE HCL 50 MG TABLET PO SCH (07:51)
[2018-07-20] MEDS: PANTOprazole 40 MG TAB PO SCH ×2 (07:51→20:47)
[2018-07-20] MEDS: DOCUSATE SODIUM 100 MG CAP PO SCH (07:51)
[2018-07-20] MEDS: THIAMINE HCL 100 MG TAB PO SCH (07:51)
[2018-07-20] MEDS ORDERED: VANCOMYCIN CONSULT ACTIVE PRN (09:11)
[2018-07-20] MEDS ORDERED: VANCOMYCIN HCL 1,500 MG in SODIUM CHLORIDE 0.9% 500 ML IV SCH (09:30)
--- NOTE | 2018-07-20 10:06 | Pharmacy Report ---
Pharmacy Abx Initial Consult - Date of Service July 20, 2018 - Pharmacy Dosing Scope Date of Consult: 07/20/18 Consultation requested by: Dr. Pearson Pharmacy is consulted to initiate vancomycin/Zosyn IV dosing therapy, order appropriate labs and adjust drug dose/frequency. - Subjective The patient is a 58 year old M admitted on 07/18/18 20:18. - Objective Height: 5 ft 8 in Weight: 60 kg Vital Signs (Past 12hrs): Vital Signs Temp Pulse Pulse Resp BP Pulse Ox 07/20/18 08:00 49 L 07/20/18 07:07 36.6 C 65 18 136/84 99 07/20/18 04:25 36.3 C L 63 18 160/90 H 97 07/20/18 02:24 62 127/78 97 07/20/18 00:00 62 07/19/18 23:00 36.3 C L 74 18 132/81 99 Lab Results (24hrs): Laboratory Tests (24 Hours) 07/20/18 07/20/18 02:29 02:29 WBC 5.65 Neut # (Auto) 2.91 Creatinine 0.73 Est Cr Clr Drug Dosing 92.4 Micro Results: 07/19/18 13:57 Blood Culture - Pending Blood 07/19/18 14:06 Blood Culture - Pending Blood - Assessment & Plan Assessment * 58 year old M admitted for acute on chronic pancreatitis secondary to pancreatic duct calculi * Hx of ETOH abuse, last use 1 month ago * Started on Zosyn empirically in the ED on 07/18 * Blood Cx: 1/2: Gram-positive cocci in clusters; Vancomycin initiated this AM * Repeat blood cultures ordered. Per Dr. Pearson, abx can be tailored once sensitivities result Plan Vancomycin IV * Estimated PK Parameters: Vd 0.7 L/kg, Slava 0.08 hr-1, t1/2 ~9 hr * Loading dose: 1500 mg (25 mg/kg) * Maintenance dose: 1000 mg IV (17 mg/kg) every 12 hours * Goal trough level: 15 to 20 mcg/mL * Trough ordered for 07/22/18 @0930 Piperacillin/tazobactam * 3.375 g bolus administered over 30 minutes, then 3.375 g IV extended infusion every 8 hours for CrCl greater than 20 mL/min Pharmacy will continue to follow and will adjust dose/frequency as necessary. Thank you.
--- NOTE | 2018-07-20 15:37 | Infectious Disease Consult ---
Date of Consultation July 20, 2018 Assessment & Plan (1) Staphylococcus aureus bacteremia without sepsis: 58-year-old male with staph aureus bacteremia in the setting of pancreatitis from obstructing pancreatic duct stone now status post ERCP and stenting. Patient likely will require 2 weeks of IV antibiotics to adequately treat, will change for now to IV cefazolin. Would obtain echocardiogram given positive blood cultures. Follow-up blood cultures to ensure clearance of bacteremia. Will follow. (2) Recurrent pancreatitis: History of Present Illness Reason for Consultation: Staph bacteremia Attending Physician: Ben Pearson MD History of Present Illness 8-year-old male with history of alcohol abuse, alcoholic cirrhosis, and recurrent pancreatitis, who was admitted to the hospital yesterday with several days of progressively worsening abdominal pain, nausea, anorexia, low-grade fever. Was found to have evidence of recurrent pancreatitis with biliary tract obstruction, and is now undergone for urgent ERCP with placement of a pancreatic duct stent for obstruction. Patient was empirically started on IV Zosyn. Admission blood culture now growing a methicillin sensitive staph aureus. Patient feeling better, pain has decreased, currently 2 out of 10 in intensity. Follow-up blood cultures are pending. Allergies Allergy/AdvReac Type Severity Reaction Status Date / Time No Known Allergies Allergy Verified 07/18/18 16:41 Home Medications Home Medications Medication Instructions Recorded Confirmed Type multivitamin 1 tab PO DAILY 06/12/18 07/18/18 History sertraline 75 mg PO DAILY 06/12/18 07/18/18 History cyclobenzaprine 5 - 10 mg PO TID PRN 07/18/18 07/18/18 History trazodone 50 mg PO HS 07/18/18 07/18/18 History Patient History Medical History Symptomatic anemia Abdominal pain (Acute) Pancreatitis (Acute) Splenic vein thrombosis (Chronic) Tobacco abuse (Chronic) Alcoholic cirrhosis (09/15/12) Gastric varices without bleeding (Chronic) Recurrent pancreatitis (Chronic) ETOH abuse (Chronic) No pertinent family history Surgical History No pertinent past surgical history Social History Preferred Language: [place] Communication Ability: Effective Visual Impairment: No Limitations Hearing Ability: Normal Inspector Paper Products Required: No Beliefs That Will Affect Care: None Current Living Situation: Family Other Information That Helps Us Care for You: No Feels Safe at Home: Yes Safety Concerns: Feels Safe At This Time Smoking Status: Never smoker Do You Dip or Chew Tobacco: Yes Smoking End Date: Second Hand Exposure: No Tobacco Cessation Education Requested by Patient: No Hx Alcohol Use: Yes Alcohol type: beer and hard liquor Alcohol Intake Frequency Comment: 6-10 drinks a day Hx Substance Use: No Review of Systems Review of Systems: All systems reviewed & are unremarkable except as noted in HPI & below Physical Exam Constitutional: WD/WN, vitals as above comfortable; no acute distress Eyes: PERRL, conjunctivae normal, anicteric sclerae ENMT: external ear and nose normal, oropharynx normal Neck: trachea midline, no thyromegaly neck nontender Respiratory: normal respiratory effort, lungs clear to auscultation normal percussion; does not use accessory muscles Cardiovascular: Rate/Rhythm: regular rate and regular rhythm Heart Sounds: normal S1 and normal S2; no gallop, no murmur and no cardiac rub Vessels: normal peripheral pulses; no JVD Gastrointestinal (Abdomen): Inspection/Auscultation: + abdomen distended and normal bowel sounds Percussion/Palpation: + abdomen tender (Right upper quadrant and epigastrium); no hepatosplenomegaly Musculoskeletal: no cyanosis or clubbing, extremities motor strength 5/5 Spine: thoracic spine normal to inspection and lumbar spine normal to inspection; no cervical spinal tenderness Skin: no rashes, warm and dry normal turgor; no lesions Neurologic: patellar DTR's 2+ bilat, sensation intact no focal motor deficits Psychiatric: A+Ox3, euthymic affect Orientation: cooperative Lymphatic: no cervical or axillary lymphadenopathy no inguinal lymphadenopathy Results & Data Vital Signs (Past 12 Hours) Vital Signs Temp Pulse Pulse Resp BP BP Pulse Ox 07/20/18 15:00 36.7 C 60 18 129/84 94 07/20/18 12:00 36.7 C 65 18 132/84 100 07/20/18 08:00 49 L 07/20/18 07:07 36.6 C 65 18 136/84 99 07/20/18 04:25 36.3 C L 63 18 160/90 H 97 Laboratory Results Short CBC 07/20/18 Range/Units 02:29 WBC 5.65 (4.8-10.8) K/uL Hgb 10.6 L (14.0-18.0) g/dL Hct 29.9 L (42-52) % Plt Count 347 (130-400) K/uL BMP 07/19/18 07/20/18 20:55 02:29 Sodium 131 L 136 Potassium 3.8 Chloride 103 Carbon Dioxide 29 BUN 7 Creatinine 0.73 Glucose 92 Calcium 8.8 Liver Function 07/20/18 Range/Units 02:29 Total Bilirubin 1.2 H D (0.2-1) mg/dl Direct Bilirubin 0.7 H (0-0.2) mg/dl AST 37 (15-37) U/L ALT 33 (12-78) U/L Alkaline Phosphatase 82 (45-117) U/L Albumin 2.5 L (3.4-5.0) gm/dl Urine 07/19/18 Range/Units 22:50 Urine Color Yellow Urine Appearance Clear (Clear) Urine pH 6.5 (4.5-7.5) Ur Specific [place] 1.010 (1.000-1.030) Urine Protein Negative (Negative) Urine Glucose (UA) 1+ H (Negative) Diagnostic Findings Microbiology 07/18/18 16:03 Blood Blood Culture - Preliminary Staphylococcus aureus 07/18/18 16:29 Blood Blood Culture - Preliminary No growth to date. CT abd pelvis IV con only CT DOSE: 262.06 mGycm HISTORY: Pain. Fever. abd pain. fever. TECHNIQUE: Multiaxial CT images of the abdomen and pelvis were performed following the use of intravenous contrast. A dose lowering technique was utilized adhering to the principles of ALARA. COMPARISON STUDY: 04/25/2015 FINDINGS: Lung bases are clear. Liver is uniform in overall appearance. Gallbladder is slightly contracted. The kidneys are considered negative for hydronephrosis. The multiple collections in the left upper quadrant and left upper abdomen procedure described have essentially resolved. Patient has developed pancreatitis of the pancreatic body and pancreatic tail. Multiple calcifications of the pancreatic substance are present consistent with chronic pancreatitis. Superimposed pancreatitis is present. This appears to be secondary to a 7 mm calcification within the mid pancreatic duct at the level of the pancreatic body. This is best seen on image 24. There is dilatation of the more proximal aspect of the pancreatic duct to 7 mm. There is moderate peripancreatic infiltrative change. A well-defined major pseudocyst is not appreciated. There is small residual fluid pockets do the pancreatic tail several which contain calcific fragments. This potentially represents residual pseudocyst formation from the patient's previous episode of pancreatitis. There is a calcification adjacent to the pancreatic head unaltered from the prior study. There is no dilatation of the pancreatic ductal system. Within the abdomen and pelvis is considered nonobstructive. Bladder is midline. There is no significant free fluid within the pelvic cul-de-sac. IMPRESSION: 1. 7 mm obstructing calculus of the mid pancreatic duct. 2. This is creating dilatation of the proximal and mid pancreatic duct to a maximum diameter of 7 mm. 3. This process appears to be creating acute pancreatitis of the pancreatic body and tail superimposed upon chronic pancreatitis which has been described pr eviously. 4. Several small pseudocysts unchanged from the prior study. 5. Moderate peripancreatic infiltrative change with no current evidence for abscess 6. Additional 8 mm calcification adjacent to the distal aspect of the pancreatic duct The above report was generated using voice recognition software. It may contain grammatical, syntax or spelling errors. Electronically signed by: Gabriel Saldana M.D. 07/18/2018 5:17 PM
--- NOTE | 2018-07-20 16:32 | Hospitalist Progress Note ---
Date of Service July 20, 2018 Assessment & Plan (1) Pancreatitis: Acute on chronic pancreatitis secondary to pancreatic duct calculi H/O Alcohol abuse Last alcohol drink 1 month ago per patient --CT ABD:7 mm obstructing calculus of the mid pancreatic duct. This is creating dilatation of the proximal and mid pancreatic duct to a maximum diameter of 7 mm. This process appears to be creating acute pancreatitis of the pancreatic body and tail superimposed upon chronic pancreatitis which has been described previously. Several small pseudocysts unchanged from the prior study. Moderate peripancreatic infiltrative change with no current evidence for abscess. Additional 8 mm calcification adjacent to the distal aspect of the pancreatic duct --Lipase:2422>>1165 --Appreciate GI Input --S/P ERCP--biliary sphincterotomy, pancreatic stone removed, minor papilla sphincterotomy and stent placement --Continue gentle IV fluids --Continue Pepcid twice daily --Advance diet as tolerated --Pain control --Continue IV Abx --Needs KUB in 3 weeks (to monitor PD stent) and MRCP in 4 weeks to delinate ductal anatomy R/O Bacteremia: Has low grade fever Blood Cx: 1/2: Staphylococcus aureus IV Zosyn>> Transitioned to IV Cefazolin--Needs 2 week course MRSA screen negative Repeat blood cultures:pending ECHO: pending Appreciate ID input Bilateral blurred vision Reports symptoms since 1 week Discussed with Ophthalmology Advised to follow up patient as outpatient unless clinically deteriorates Blurred vision improving Monitor Hyponatremia Likely due to dehydration Also Differential: due to Alcohol abuse Sodium levels: 128>>132>>136 Decrease IV fluids Monitor sodium levels Consider Nephrology Consult if necessary Hypokalemia Hypomagnesemia Replace electrolytes as needed Acute on chronic anemia EGD: Multiple duodenal ulcers with no stigmata of bleeding. Microscopic hematuria on UA GI following Continue Pepcid Will need Urology FU as outpatient Monitor CBC Hb drop partly could be dilutional due to IV fluids Hb stable Mood disorder stable On Trazadone H/O Alcohol abuse No signs of withdrawal Continue thiamine, folic acid DVT Px: SCDs for now Code Status Full code Subjective Patient is seen and examined at bedside Doing much better today Tolerating liquid diet Denies abdominal pain Back pain, vision improving Also denies any chest pain, SOB, dizziness Offers no other complaints Review of Systems Review of Systems: All systems reviewed & are unremarkable except as noted in HPI & below Physical Exam Physical Exam: Physical Exam: Vitals signs as noted above General Appearance:Moderately built and nourished, no apparent distress Head: normocephalic, Atraumatic Eyes: normal inspection, EOMI Neck: supple, Trachea midline Respiratory/Chest: Normal breath sounds, CTA Cardiovascular: S1, S2, No murmur Abdomen/GI:Soft, non tender, Bowel sounds present Extremities/Musculoskelatal:normal inspection, no edema Neurologic/Psych:AAOX3, grossly no focal neurological deficits Skin: normal color, warm Results & Data Vital Signs (Past 12 Hours) Vital Signs Temp Pulse Pulse Resp BP BP Pulse Ox 07/20/18 15:00 36.7 C 60 18 129/84 94 07/20/18 12:00 36.7 C 65 18 132/84 100 07/20/18 08:00 49 L 07/20/18 07:07 36.6 C 65 18 136/84 99 07/20/18 04:25 36.3 C L 63 18 160/90 H 97 Laboratory Results Short CBC 07/20/18 Range/Units 02:29 WBC 5.65 (4.8-10.8) K/uL Hgb 10.6 L (14.0-18.0) g/dL Hct 29.9 L (42-52) % Plt Count 347 (130-400) K/uL BMP 07/19/18 07/20/18 20:55 02:29 Sodium 131 L 136 Potassium 3.8 Chloride 103 Carbon Dioxide 29 BUN 7 Creatinine 0.73 Glucose 92 Calcium 8.8 Liver Function 07/20/18 Range/Units 02:29 Total Bilirubin 1.2 H D (0.2-1) mg/dl Direct Bilirubin 0.7 H (0-0.2) mg/dl AST 37 (15-37) U/L ALT 33 (12-78) U/L Alkaline Phosphatase 82 (45-117) U/L Albumin 2.5 L (3.4-5.0) gm/dl Urine 07/19/18 Range/Units 22:50 Urine Color Yellow Urine Appearance Clear (Clear) Urine pH 6.5 (4.5-7.5) Ur Specific [place] 1.010 (1.000-1.030) Urine Protein Negative (Negative) Urine Glucose (UA) 1+ H (Negative) (1) Pancreatitis Acute pancreatitis complication: unspecified Chronicity: acute Pancreatitis type: unspecified pancreatitis type Qualified Code(s): K85.90 - Acute pancreatitis without necrosis or infection, unspecified
[2018-07-20] MEDS: CEFAZOLIN 2000MG 2,000 MG/15 ML SYR IV SCH (17:24)
[2018-07-20] MEDS: TRAZODONE HCL 50 MG TAB PO SCH (20:48)
[2018-07-20] MEDS ORDERED: VANCOMYCIN HCL 1,000 MG in SODIUM CHLORIDE 0.9% 250 ML IV SCH (22:00)
[2018-07-20] MEDS: LORazepam 0.25 MG/0.5 ML VIAL IV PRN (23:13)
[2018-07-21] MEDS: CEFAZOLIN 2000MG 2,000 MG/15 ML SYR IV SCH ×3 (01:22→16:54)
[2018-07-21 05:53] LABS: Hematocrit (blood only) 30.4 % (42-52); Hemoglobin 10.4 g/dL (14.0-18.0)
[2018-07-21] MEDS: HEPARIN SOD 5,000 UNIT/0.5 ML VIAL SQ SCH ×3 (05:58→22:43)
[2018-07-21 06:19] LABS: Albumin Level 2.4 gm/dl (3.4-5.0); BUN Creatinine Ratio 7.2 (10-20); Calcium 8.7 mg/dl (8.5-10.1); Creatinine Clr Calc Pharmacy 86.7 ml/min; Est GFR (African American) 114.9; Est GFR (Non-African American) 99.2; Magnesium 1.4 mg/dl (1.8-2.4); Potassium 4.2 mmol/L (3.5-5.1)
[2018-07-21 06:22] LABS: Albumin Globulin Ratio 0.7 (0.9-2); Globulin 3.6 gm/dl (2.5-4.0)
[2018-07-21] MEDS: MULTIVITAMIN TAB PO SCH (09:03)
[2018-07-21] MEDS: FAMOTIDINE 20 MG in SYRINGE 3 ML IV SCH (09:03)
[2018-07-21] MEDS: SERTRALINE HCL 50 MG TABLET PO SCH (09:03)
[2018-07-21] MEDS: PANTOprazole 40 MG TAB PO SCH ×2 (09:03→20:33)
[2018-07-21] MEDS: FOLIC ACID 1 MG TAB PO SCH (09:03)
[2018-07-21] MEDS: DOCUSATE SODIUM 100 MG CAP PO SCH (09:03)
[2018-07-21] MEDS: THIAMINE HCL 100 MG TAB PO SCH (09:04)
[2018-07-21] MEDS: MAGNESIUM SULFATE / D5W 1 GM/100 ML BAG IV SCH ×2 (09:57→10:45)
[2018-07-21] MEDS: OXYCODONE HCL IR 5 MG TAB (IMMEDIATE RELEASE) PO PRN ×3 (12:19→22:49)
--- NOTE | 2018-07-21 14:21 | Hospitalist Progress Note ---
Date of Service July 21, 2018 Assessment & Plan (1) Pancreatitis: Acute on chronic pancreatitis secondary to pancreatic duct calculi H/O Alcohol abuse Last alcohol drink 1 month ago per patient --CT ABD:7 mm obstructing calculus of the mid pancreatic duct. This is creating dilatation of the proximal and mid pancreatic duct to a maximum diameter of 7 mm. This process appears to be creating acute pancreatitis of the pancreatic body and tail superimposed upon chronic pancreatitis which has been described previously. Several small pseudocysts unchanged from the prior study. Moderate peripancreatic infiltrative change with no current evidence for abscess. Additional 8 mm calcification adjacent to the distal aspect of the pancreatic duct --Lipase:[id number] --Appreciate GI Input --S/P ERCP--biliary sphincterotomy, pancreatic stone removed, minor papilla sphincterotomy and stent placement --Received IV fluids --Continue PPI --tolerating diet --Pain control --Continue IV Abx --Needs KUB in 3 weeks (to monitor PD stent) and MRCP in 4 weeks to delineate ductal anatomy --Needs FU with GI upon discharge MSSA Bacteremia: Has low grade fever Blood Cx: 1/2: MSSA IV Zosyn>> Transitioned to IV Cefazolin--Needs 2 week course MRSA screen negative Repeat blood cultures:pending ECHO: No evidence of mass or vegetation Appreciate ID input Bilateral blurred vision Reports symptoms since 1 week Discussed with Ophthalmology Advised to follow up patient as outpatient unless clinically deteriorates Blurred vision much improved Monitor Hyponatremia Likely due to dehydration Also Differential: due to Alcohol abuse Sodium levels: 128>>132>>136>>137 DC IV fluids Monitor sodium levels Hypokalemia Hypomagnesemia Replace electrolytes as needed Acute on chronic anemia EGD: Multiple duodenal ulcers with no stigmata of bleeding. Microscopic hematuria on UA GI following Continue PPI Will need Urology FU as outpatient Monitor CBC Hb drop partly could be dilutional due to IV fluids Hb stable Mood disorder stable On Trazadone H/O Alcohol abuse No signs of withdrawal Continue thiamine, folic acid DVT Px: SCDs for now Code Status Full code Subjective Patient is seen and examined at bedside Reports mild abdominal discomfort Tolerating diet Blurred vision much improved Denies any chest pain, SOB, dizziness Offers no other complaints Review of Systems Review of Systems: All systems reviewed & are unremarkable except as noted in HPI & below Physical Exam Physical Exam: Physical Exam: Vitals signs as noted above General Appearance:Moderately built and nourished, no apparent distress Head: normocephalic, Atraumatic Eyes: normal inspection, EOMI Neck: supple, Trachea midline Respiratory/Chest: Normal breath sounds, CTA Cardiovascular: S1, S2, No murmur Abdomen/GI:Soft, mild epigastric tender, Bowel sounds present Extremities/Musculoskelatal:normal inspection, no edema Neurologic/Psych:AAOX3, grossly no focal neurological deficits Skin: normal color, warm Results & Data Vital Signs (Past 12 Hours) Vital Signs Temp Pulse Pulse Resp BP BP Pulse Ox 07/21/18 11:00 36.9 C 66 18 135/80 96 07/21/18 07:44 57 L 07/21/18 07:00 36.9 C 70 18 153/80 H 90 07/21/18 04:07 37.1 C 72 20 160/85 H 95 Laboratory Results Short CBC 07/21/18 Range/Units 05:31 Hgb 10.4 L (14.0-18.0) g/dL Hct 30.4 L (42-52) % BMP 07/21/18 05:31 Sodium 137 Potassium 4.2 Chloride 102 Carbon Dioxide 29 BUN 6 L Creatinine 0.80 Glucose 84 Calcium 8.7 Liver Function 07/21/18 Range/Units 05:31 Total Bilirubin 1.0 (0.2-1) mg/dl AST 44 H (15-37) U/L ALT 33 (12-78) U/L Alkaline Phosphatase 128 H (45-117) U/L Albumin 2.4 L (3.4-5.0) gm/dl (1) Pancreatitis Acute pancreatitis complication: unspecified Chronicity: acute Pancreatitis type: unspecified pancreatitis type Qualified Code(s): K85.90 - Acute pancreatitis without necrosis or infection, unspecified
[2018-07-21] MEDS: TRAZODONE HCL 50 MG TAB PO SCH (20:30)
[2018-07-21] MEDS: MAGNESIUM OXIDE 400 MG TAB PO SCH (20:31)
[2018-07-21] MEDS: LORazepam 0.25 MG/0.5 ML VIAL IV PRN (22:43)
[2018-07-22] MEDS: CEFAZOLIN 2000MG 2,000 MG/15 ML SYR IV SCH ×2 (01:23→08:28)
[2018-07-22] MEDS: HEPARIN SOD 5,000 UNIT/0.5 ML VIAL SQ SCH (06:12)
[2018-07-22 07:16] VITALS: O2SAT 97
[2018-07-22] MEDS: MAGNESIUM OXIDE 400 MG TAB PO SCH (08:29)
[2018-07-22] MEDS: MULTIVITAMIN TAB PO SCH (08:29)
[2018-07-22] MEDS: PANTOprazole 40 MG TAB PO SCH (08:29)
[2018-07-22] MEDS: FOLIC ACID 1 MG TAB PO SCH (08:29)
[2018-07-22] MEDS: DOCUSATE SODIUM 100 MG CAP PO SCH (08:30)
[2018-07-22] MEDS: SERTRALINE HCL 50 MG TABLET PO SCH (08:30)
[2018-07-22] MEDS: THIAMINE HCL 100 MG TAB PO SCH (08:30)
[2018-07-22 08:40] LABS: Hematocrit (blood only) 31.4 % (42-52); Hemoglobin 11.2 g/dL (14.0-18.0); Mean Corpuscular Hgb Conc 35.7 g/dL (32-36); Mean Corpuscular Volume 92.9 fL (80-100); Mean Platelet Volume 9.3 fL (7.4-10.4); Platelet Count 613 K/uL (130-400); RDW Coefficient of Variation 13.3 % (11.5-14.5); RDW Standard Deviation 45.3 fL (36.4-46.3); Red Blood Count 3.38 M/uL (4.7-6.1); White Blood Count 6.75 K/uL (4.8-10.8)
[2018-07-22 08:50] LABS: Albumin Level 2.6 gm/dl (3.4-5.0); Calcium 9.3 mg/dl (8.5-10.1); Creatinine Clr Calc Pharmacy 81.5 ml/min; Est GFR (African American) 112.1; Est GFR (Non-African American) 96.7; Magnesium 1.9 mg/dl (1.8-2.4); Potassium 4.3 mmol/L (3.5-5.1)
[2018-07-22 08:55] LABS: Albumin Globulin Ratio 0.7 (0.9-2); Bilirubin,Total 0.6 mg/dl (0.2-1); Globulin 3.9 gm/dl (2.5-4.0); Total Protein 6.5 gm/dl (6.4-8.2)
[2018-07-22] MEDS ORDERED: VANCOMYCIN TROUGH ONE (09:30)
[2018-07-22] MEDS: OXYCODONE HCL IR 5 MG TAB (IMMEDIATE RELEASE) PO PRN (10:15)
[2018-07-22 11:22] VITALS: BP 127/70; TEMP 98.6
--- NOTE | 2018-07-22 13:13 | Hospitalist Progress Note ---
Date of Service July 22, 2018 Assessment & Plan (1) Pancreatitis: Acute on chronic pancreatitis secondary to pancreatic duct calculi H/O Alcohol abuse Last alcohol drink 1 month ago per patient --CT ABD:7 mm obstructing calculus of the mid pancreatic duct. This is creating dilatation of the proximal and mid pancreatic duct to a maximum diameter of 7 mm. This process appears to be creating acute pancreatitis of the pancreatic body and tail superimposed upon chronic pancreatitis which has been described previously. Several small pseudocysts unchanged from the prior study. Moderate peripancreatic infiltrative change with no current evidence for abscess. Additional 8 mm calcification adjacent to the distal aspect of the pancreatic duct --Lipase:[id number] --Appreciate GI Input --S/P ERCP--biliary sphincterotomy, pancreatic stone removed, minor papilla sphincterotomy and stent placement --Received IV fluids --Continue PPI --tolerating diet --Pain resolved --Continue IV Abx>>> Transition to Keflex and flagyl for 2 weeks--Appreciate ID input --Needs KUB in 3 weeks (to monitor PD stent) and MRCP in 4 weeks to delineate ductal anatomy --Needs FU with GI upon discharge MSSA Bacteremia: Has low grade fever Blood Cx: 03/13: MSSA--Pansensitive IV Zosyn>> Transitioned to IV Cefazolin>>Transition to Keflex --Needs 2 week course MRSA screen negative Repeat blood cultures:No growth to date ECHO: No evidence of mass or vegetation Appreciate ID input Bilateral blurred vision--Resolved Reports symptoms since 1 week prior to admission Discussed with Ophthalmology Advised to follow up patient as outpatient unless clinically deteriorates vision back to baseline per patient Monitor Hyponatremia--Resolved Likely due to dehydration Also Differential: due to Alcohol abuse Sodium levels: 128>>132>>136>>138 DC IV fluids Monitor sodium levels Hypokalemia Hypomagnesemia Resolved Replace electrolytes as needed Acute on chronic anemia EGD: Multiple duodenal ulcers with no stigmata of bleeding. Microscopic hematuria on UA GI following Continue PPI Monitor CBC Hb stable Denies hematuria Will need Urology FU as outpatient for possible Cystoscopy Mood disorder stable On Trazadone H/O Alcohol abuse No signs of withdrawal Continue thiamine, folic acid DVT Px: SCDs Code Status Full code Subjective Patient is seen and examined at bedside Doing well today abdominal discomfort resolved States his vision is back to baseline Tolerating diet Denies any chest pain, SOB, dizziness Offers no other complaints Discussed with GI and ID today Review of Systems Review of Systems: All systems reviewed & are unremarkable except as noted in HPI & below Physical Exam Physical Exam: Physical Exam: Vitals signs as noted above General Appearance:Moderately built and nourished, no apparent distress Head: normocephalic, Atraumatic Eyes: normal inspection, EOMI Neck: supple, Trachea midline Respiratory/Chest: Normal breath sounds, CTA Cardiovascular: S1, S2, No murmur Abdomen/GI:Soft, Non tender, Bowel sounds present Extremities/Musculoskelatal:normal inspection, no edema Neurologic/Psych:AAOX3, grossly no focal neurological deficits Skin: normal color, warm Results & Data Vital Signs (Past 12 Hours) Vital Signs Temp Pulse Pulse Resp BP BP Pulse Ox 07/22/18 11:21 37 C 78 20 127/70 97 07/22/18 09:19 56 L 07/22/18 07:15 36.9 C 63 18 138/79 97 07/22/18 04:24 36.8 C 67 20 146/84 H 99 Laboratory Results Short CBC 07/22/18 Range/Units 07:46 WBC 6.75 (4.8-10.8) K/uL Hgb 11.2 L (14.0-18.0) g/dL Hct 31.4 L (42-52) % Plt Count 613 H (130-400) K/uL BMP 07/22/18 07:46 Sodium 138 Potassium 4.3 Chloride 102 Carbon Dioxide 31 BUN 5 L Creatinine 0.85 Glucose 94 Calcium 9.3 Liver Function 07/22/18 Range/Units 07:46 Total Bilirubin 0.6 (0.2-1) mg/dl AST 43 H (15-37) U/L ALT 32 (12-78) U/L Alkaline Phosphatase 375 H D (45-117) U/L Albumin 2.6 L (3.4-5.0) gm/dl (1) Pancreatitis Acute pancreatitis complication: unspecified Chronicity: acute Pancreatitis type: unspecified pancreatitis type Qualified Code(s): K85.90 - Acute pancreatitis without necrosis or infection, unspecified
--- NOTE | 2018-07-22 13:26 | Discharge Summary ---
Date of Service July 22, 2018 Admission HPI Per Admitting Provider History obtained from patient and records. Medical history significant for chronic anemia (recent hemoglobin of 13 from June 2017), mood disorder, history of pancreatitis, gastric ulcers as per records, past alcohol abuse. Recent confinement August 2016 for symptomatic anemia. One week history of sharp epigastric pain with nausea, no emesis; constipated for about 2 days, poor appetite. Low-grade fever at home. Shortness of breath from not being able to take a deep breath. Body aches. No chest pain. Last alcohol intake was last month. Patient also noted bilateral blurred vision the last week without headache, head trauma, extremity weakness, facial asymmetry. Patient seen at PCPs office and subsequently directed to the ER. IV Zosyn given at the ER. 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 Admission Exam Per Admitting Provider GENERAL: Comfortable, slightly anxious, no respiratory distress SKIN: Pallor , warm HEENT: Pale palpebral conjunctivae, no ptosis, intermittent squinting of the left eye, dry buccal mucosa NECK : Supple, no tenderness CHEST : CTA, no tenderness HEART : RRR, no obvious murmurs ABDOMEN: Some distention, epigastric tenderness Rectal: Intact sphincter, yellow stool, heme-negative EXTREMITIES : No LE swelling/tenderness, no other conspicuous deformities noted NEUROLOGIC : Coherent, intermittent squinting of the left eye, VA, OU : Able to read gross print material, unable to read fine print material on hand-held card; no facial asymmetry, no other gross focality Principal Diagnosis Discharge Information Discharge Diagnosis Acute pancreatitis Bacteremia Hyponatremia/Hypokalemia/Hypomagnesemia Microscopic Hematuria Discharge Goals Decrease discomfort,Improve function,Improve disease control Discharge Activity Limitations Resume your previous activity Discharge Data Allergies Allergy/AdvReac Type Severity Reaction Status Date / Time No Known Allergies Allergy Verified 07/18/18 16:41 Consultations 07/18/18 18:50 ED Decision to Admit Stat 07/18/18 20:24 Consult Ophthalmology Routine 07/18/18 20:56 Consult Gastroenterology Routine 07/20/18 08:55 Consult Infectious Diseases Routine Procedures Performed Operation Date: 07/19/18 08:50 Actual Procedures p Endoscopic Retrograde Cholangiopancreatogram(Not Applicable) - Carmen Dewitt MD s Esophagogastroduodenoscopy(Not Applicable) - Carmen Dewitt MD ERCP: Impression: Biliary side: - The major papilla appeared to be small. - A biliary sphincterotomy was performed. - No abnormalities seen on the cholangiogram. - The biliary tree was swept and sludge was found. Pancreatic side: - The ventral duct could not be located from the major papilla. - The minor papilla was found and appeared normal. - Pancreas divisum was found. The dorsal pancreatic duct was swept and pus was found. One Pancreatic stone was found. Complete removal was accomplished. A minor papilla sphincterotomy was performed and then a stent was placed. - Findings of chronic pancreatitis seen. Recommendation: - [facility]. - Clear liquid diet today, then advance as tolerated. - Continue ABx and plan to complete a course of 10 days. - Obtain KUB in 3 weeks to assure spontaneous migration of the PD stent. - Obtain MRCP in 4 weeks to delineate the ductal anatomy. CT ABD: 1. 7 mm obstructing calculus of the mid pancreatic duct. 2. This is creating dilatation of the proximal and mid pancreatic duct to a maximum diameter of 7 mm. 3. This process appears to be creating acute pancreatitis of the pancreatic body and tail superimposed upon chronic pancreatitis which has been described previously. 4. Several small pseudocysts unchanged from the prior study. 5. Moderate peripancreatic infiltrative change with no current evidence for abscess 6. Additional 8 mm calcification adjacent to the distal aspect of the pancreatic duct CXR: Negative chest. EGD: Impression: - Normal esophagus. - Enlarged gastric folds. - Multiple duodenal ulcers with no stigmata of bleeding. - Normal second portion of the duodenum. - No specimens collected. Recommendation: - Use a proton pump inhibitor PO BID for 2 months. - Perform an ERCP today. ECHO: There is no evidence of mass or vegetation. This does not rule out endocarditis Ejection fraction= 55 to 60% Pulse wave TDI with anterior and posterior mitral annulus demonstrates normal LV relaxation There is mild mitral regurgitation There is mild tricuspid regurgitation Doppler findings do not suggest pulmonary hypertension Ordered Studies 07/18/18 15:55 CT abd pelvis IV con only Stat 07/19/18 08:47 FL fluoroscopy <1hr Routine 07/19/18 14:00 FL ERCP biliary ductal Routine Hospital Course (1) Pancreatitis: Acute on chronic pancreatitis secondary to pancreatic duct calculi H/O Alcohol abuse Last alcohol drink 1 month ago per patient --CT ABD:7 mm obstructing calculus of the mid pancreatic duct. This is creating dilatation of the proximal and mid pancreatic duct to a maximum diameter of 7 mm . This process appears to be creating acute pancreatitis of the pancreatic body and tail superimposed upon chronic pancreatitis which has been described previously. Several small pseudocysts unchanged from the prior study. Moderate peripancreatic infiltrative change with no current evidence for abscess. Additional 8 mm calcification adjacent to the distal aspect of the pancreatic duct --Lipase:2422>>1165 --Appreciate GI Input --S/P ERCP--biliary sphincterotomy, pancreatic stone removed, minor papilla sphincterotomy and stent placement --Received IV fluids --Continue PPI --tolerating diet --Pain resolved --Continue IV Abx>>> Transition to Keflex and flagyl for 2 weeks--Appreciate ID input --Needs KUB in 3 weeks (to monitor PD stent) and MRCP in 4 weeks to delineate ductal anatomy --Needs FU with GI upon discharge MSSA Bacteremia: Has low grade fever Blood Cx: 03/13: MSSA--Pansensitive IV Zosyn>> Transitioned to IV Cefazolin>>Transition to Keflex --Needs 2 week course MRSA screen negative Repeat blood cultures:No growth to date ECHO: No evidence of mass or vegetation Appreciate ID input Bilateral blurred vision--Resolved Reports symptoms since 1 week prior to admission Discussed with Ophthalmology Advised to follow up patient as outpatient unless clinically deteriorates vision back to baseline per patient Monitor Hyponatremia--Resolved Likely due to dehydration Also Differential: due to Alcohol abuse Sodium levels: 128>>132>>136>>138 DC IV fluids Monitor sodium levels Hypokalemia Hypomagnesemia Resolved Replace electrolytes as needed Acute on chronic anemia EGD: Multiple duodenal ulcers with no stigmata of bleeding. Microscopic hematuria on UA GI following Continue PPI Monitor CBC Hb stable Denies hematuria Will need Urology FU as outpatient for possible Cystoscopy Mood disorder stable On Trazadone H/O Alcohol abuse No signs of withdrawal Continue thiamine, folic acid DVT Px: SCDs Code Status Full code Total Time Total Time Spent Total Time Spent (In Minutes): 43 minutes Total Time Includes: Examination of the Patient, Discharge Planning, Medication Reconciliation, Communication With Other Providers and Other Discharge Plan Discharge Items Patient Disposition: Home - Self-Care Reason For Visit: HYPONATREMIA,PANCREATITIS Discharge Diagnosis: Acute pancreatitis Bacteremia Hyponatremia/Hypokalemia/Hypomagnesemia Microscopic Hematuria Discharge Goals: Decrease discomfort, Improve disease control and Improve function Activity: Resume your previous activity Exercise/Sports: Gradually increase as tolerated Non-emergency contact: Primary Care Provider, Director Of Sales And Marketing, Cloth Winder Machine Operator and Urologist Call non-emergency contact if: you have any medication questions, your symptoms worsen, your pain is not controlled, your pain is worsening, your pain is unusual for you, your pain is concerning for you and you have a fever Follow-up/Referrals: German Cole MD [Primary Care Provider] - Diet: Low Fat Addtl Provider Instructions: Follow-up with your primary care physician Dr. Jernigan on July 26, 2018 at 10:00 AM Follow-up with your coach operator Dr.Molham Bailey 2 weeks as advised Follow up with your Urologist for evaluation of blood in urine as advised Follow up with your Cloth Winder Machine Operator Dr.Jay Ignacio in 1-2 weeks as advised Complete the antibiotics as prescribed Get X ray (KUB) in 3 weeks and repeat MRCP in 4 weeks as per the recommendations from your Director Of Sales And Marketing Seek immediate medical attention if your symptoms reoccur or worsen Prescriptions: New polyethylene glycol 3350 [Miralax] 17 gram Powder In Packet 17 g PO DAILY PRN (Reason: constipation) 30 Days Qty: 30 RF: 0 magnesium oxide 400 mg (241.3 mg magnesium) Tablet 400 mg PO DAILY 14 Days Qty: 14 RF: 0 pantoprazole 40 mg Tablet,Delayed Release (Dr/Ec) 40 mg PO BID 30 Days Qty: 60 RF: 1 thiamine HCl (vitamin B1) [Vitamin B-1] 100 mg Tablet 100 mg PO QAM 30 Days Qty: 30 RF: 0 folic acid 1 mg Tablet 1 mg PO QAM 30 Days Qty: 30 RF: 0 cephalexin [Keflex] 500 mg capsule 500 mg PO QID 14 Days Qty: 56 RF: 0 metronidazole [Flagyl] 500 mg tablet 500 mg PO TID 10 Days Qty: 30 RF: 0 Continued multivitamin Tablet 1 tab PO DAILY RF: 0 sertraline 50 mg Tablet 75 mg PO DAILY RF: 0 trazodone 50 mg Tablet 50 mg PO HS RF: 0 cyclobenzaprine 5 mg Tablet 5 - 10 mg PO TID PRN (Reason: Muscle Spasm/Back Pain) RF: 0 Stand-Alone Forms: [facility] Discharge Orders: Discharge Order (Routine); Ordered 07/22/18 Ordered By: Ben Pearson Admission Data Admit Date/Time: 07/18/18 20:18 Attending Provider: Ben Pearson Admit Provider: Navi Ghosh Primary Care Provider: German Cole Other Providers: Tonja Edwards ; Oleg Ignacio ; Carmen Dewitt ; Kimmy Carcamo Service: Telemetry Medical Other Interventions: Discharge Summary Assessment (RN) Last Done: 07/22/18 13:44 Pending Studies at Discharge: No DC Date/Time DO NOT enter until pt leaves facility: 07/22/18 14:34
[2018-07-22 13:45] VITALS: PULSE 72
== END 2018-07-22 14:34 | disposition home or self-care (01) | DRG 439 ==
LOC: ED 15:05 → 2W 20:18

== ENCOUNTER 2018-11-13 08:53 | Inpatient (IN) ==
[2018-11-13] MEDS ORDERED: MoRPHine SULFATE 4 MG/ML 1 ML CARP\\VIAL IV STA (09:55)
[2018-11-13] MEDS ORDERED: ONDANSETRON INJ 2 MG/ML 2 ML VIAL IV STA (09:55)
[2018-11-13] MEDS ORDERED: SODIUM CHLORIDE 0.9% 500 ML IV SCH (10:00)
[2018-11-13 10:26] LABS: Basophils # (auto) 0.02 K/uL (0-0.2); Basophils % (auto) 0.2 %; Eosinophils # (auto) 0.02 K/uL (0-0.5); Eosinophils % (auto) 0.2 %; Hematocrit (blood only) 32.6 % (42-52); Hemoglobin 11.6 g/dL (14.0-18.0); Immature Granulocytes # (auto) 0.07 K/uL (0.00-0.02); Immature Granulocytes % (auto) 0.8 %; Lymphocytes # (auto) 0.54 K/uL (1.2-3.4); Mean Corpuscular Hgb Conc 35.6 g/dL (32-36); Mean Corpuscular Volume 95.6 fL (80-100); Monocytes # (auto) 2.64 K/uL (0.11-0.59); Monocytes % (auto) 29.5 %; Neutrophils # (auto) 5.65 K/uL (1.4-6.5); Neutrophils % (auto) 63.3 %; Platelet Count 332 K/uL (130-400); RDW Coefficient of Variation 12.9 % (11.5-14.5); RDW Standard Deviation 44.9 fL (36.4-46.3); Red Blood Count 3.41 M/uL (4.7-6.1); White Blood Count 8.94 K/uL (4.8-10.8)
[2018-11-13 10:37] LABS: Albumin Level 2.9 gm/dl (3.4-5.0); BUN Creatinine Ratio 15.1 (10-20); Calcium 8.7 mg/dl (8.5-10.1); Creatinine Clr Calc Pharmacy 86.3 ml/min; Est GFR (African American) 114.9; Est GFR (Non-African American) 99.2; Potassium 3.4 mmol/L (3.5-5.1)
--- NOTE | 2018-11-13 10:41 | Emergency Department Note ---
Entered by Yazan Mcallister acting as a scribe for History of Present Illness General Chief complaint: Abdominal Pain Stated complaint: abd pain,back pain Source: patient History of Present Illness Provider complaint: Abdominal pain Onset (ago): day(s) 3 Location: abdomen Radiation: back Severity: similar to prior episodes Pain Consistency: + constant and + other (Worsening) Maximum Pain Intensity: 9 Current Pain Intensity: 9 Relieved By: + none Exacerbated By: + none Associated symptoms: no chest pain, no nausea/vomiting and no shortness of breat h The patient is a 58 year old male who presents to the Emergency Room with complaints of constant left upper quadrant abdominal pain that started about 3 days ago. The patient rates the pain as a 9/10 and notes it feels similar to his past episodes of pancreatitis. The patient adds that his pain radiates to his back and up to his neck. The patient mentioned that about a month ago he had pancreatitis and had a gallstone removed. The patient denies using any alcohol for the past couple of weeks but he does have a history of alcohol abuse. The patient denies any nausea, vomiting, diarrhea, chest pain or shortness of breath. Home Medications Home Medications Medication Instructions Recorded Confirmed Type sertraline [Zoloft] 75 mg PO DAILY 10/24/18 11/13/18 History cyclobenzaprine 0 mg PO UNKNOWN 11/13/18 11/13/18 History trazodone 0 mg PO UNKNOWN 11/13/18 11/13/18 History Allergies Allergy/AdvReac Type Severity Reaction Status Date / Time No Known Allergies Allergy Verified 11/13/18 09:15 Past Med/Surg History Medical History Splenic vein thrombosis Alcoholic cirrhosis (09/15/12) Gastric varices without bleeding no evidence of varices on 07/2018 EGD Recurrent pancreatitis ETOH abuse 3-4 beers daily* Anemia Anxiety Asthma "childhood" Depression Stomach ulcer non-bleeding Surgical History H/O eye surgery "FIBER" REMOVAL History of ERCP 09/13/18: ERCP: Grade 2 view, MAC#3, ETT 7.5 at [facility] History of colonoscopy History of tonsillectomy Family History Other No pertinent family history in first degree relatives Social History Preferred Language: Slovak Communication Ability: Effective Visual Impairment: No Limitations Hearing Ability: Normal Transit Operator Required: No Beliefs That Will Affect Care: None Current Living Situation: Family Feels Safe at Home: Yes Smoking Status: Never smoker Tobacco Type: cigarettes ; Cigarettes Per Day: KELLIE T SMOKING "YEARS AGO" ; Second Hand Exposure: No ; Hx Alcohol Use: Yes Alcohol type: beer Alcohol Intake Frequency Comment: 6-10 drinks a day Hx Substance Use: No Review of Systems See HPI for pertinent positives & negatives. and A total of 10 systems reviewed and were otherwise negative Physical Exam Vital Signs Vital Signs - 24 hr 11/13/18 08:59 11/13/18 10:42 11/13/18 12:37 Temperature 36.4 C L 38.2 C H Temperature Source Oral Oral Sepsis Recent Fever Within 48 Hours No Sepsis New/Unexplained Change in Mental Status No Sepsis Action Taken by Nursing No Action Required Pulse Rate 75 Pulse Rate [Finger] 99 H 100 H Respiratory Rate 20 16 16 Respiratory Depth Normal Blood Pressure 92/61 L Blood Pressure [Right Arm] 122/77 129/75 Blood Pressure Mean 71 Blood Pressure Mean [Right Arm] 92 93 Pulse Oximetry 98 97 99 Oxygen Delivery Method Room Air Room Air Room Air CONSTITUTIONAL/VITAL SIGNS: Reviewed / noted above. GENERAL: Non-toxic in appearance. INTEGUMENTARY: Warm, dry, and [place]. HEAD: Normocephalic. EYES: without scleral icterus or trauma. ENT/OROPHARYNX: clear and moist. LYMPHADENOPATHY/NECK: Is supple without lymphadenopathy or meningismus. RESPIRATORY: Lungs clear and equal. CARDIOVASCULAR: Regular rate and rhythm. GI/ABDOMEN: Soft. Tender to palpation of the LUQ. No organomegaly or pulsatile mass. No rebound or guarding. Normal bowel sounds. EXTREMITIES: Warm and well perfused. BACK: No CVA tenderness. NEUROLOGICAL: Intact without focal deficits. PSYCHIATRIC: normal affect. MUSCULOSKELETAL: Normally developed with good muscle tone. Course 947: Past medical records reviewed. The patient was evaluated in room B02, and a complete history and physical examination were performed. 1212: I spoke to Melani ESQUEDA under Dr. Michel Felix Hospitalist, about the patient's case. They are going to accept the patient for further evaluation. 1223: I reevaluated the patient and updated him on the treatment plan. He is agreeable to the plan. Consultations Consultation #1: I spoke to Melani Felix PAC under Dr. Michel Felix Hospitalist, about the patient's case. They are going to accept the patient for further evaluation. Time: 12:12 Administered Medications Ioversol (Optiray 320 100ml) 93 ml IV ONCE PRN PRN Reason: Interaction Checking Stop: 11/17/18 10:51 Last Admin: 11/13/18 10:54 Dose: 93 ml Documented by: [id number] Discontinued Medications Sodium Chloride (Nss) 500 mls @ 999 mls/hr IV .Q31M TAYO Stop: 11/13/18 10:30 Last Infusion: 11/13/18 10:43 Dose: 0 mls/hr Documented by: [id number] Admin: 11/13/18 10:14 Dose: 999 mls/hr Documented by: [id number] Morphine Sulfate (Morphine Sulfate) 4 mg IV NOW STA Stop: 11/13/18 09:56 Last Admin: 11/13/18 10:14 Dose: 4 mg Documented by: [id number] Morphine Sulfate (Morphine Sulfate) 2 mg IV NOW STA Stop: 11/13/18 12:38 Last Admin: 11/13/18 13:07 Dose: 2 mg Documented by: [id number] Ondansetron HCl (Zofran) 4 mg IV NOW STA Stop: 11/13/18 09:56 Last Admin: 11/13/18 10:14 Dose: 4 mg Documented by: [id number] Medical Decision Making Differential Diagnosis Differential diagnoses includes but is not limited to gastritis, peptic ulcer disease, GERD, gallbladder disease, pancreatitis, small bowel obstruction, acute coronary syndrome, pericarditis, ischemic bowel, irritable bowel disease, irritable bowel syndrome, appendicitis, diverticulitis, malignancy, hernia, urinary tract infection, torsion, perforation, trauma, infectious. Medical Records Attestation: I reviewed the patient's medical records. Home Medications Current Medication List: was personally reviewed by me Laboratory Data Attestation: I reviewed the patient's lab results. Result diagrams: 11/13/18 10:05 11/13/18 10:05 Lab Results 11/13/18 11/13/18 Range/Units 10:05 10:05 WBC 8.94 (4.8-10.8) K/uL RBC 3.41 L (4.7-6.1) M/uL Hgb 11.6 L (14.0-18.0) g/dL Hct 32.6 L (42-52) % MCV 95.6 (80-100) fL MCH 34.0 (25-34) pg MCHC 35.6 (32-36) g/dL RDW Std Deviation 44.9 (36.4-46.3) fL RDW Coeff of Ashvin 12.9 (11.5-14.5) % Plt Count 332 (130-400) K/uL MPV 9.0 (7.4-10.4) fL Immature Gran % (Auto) 0.8 % Neut % (Auto) 63.3 % Lymph % (Auto) 6.0 % [place] % (Auto) 29.5 % Eos % (Auto) 0.2 % Baso % (Auto) 0.2 % Immature Gran # (Auto) 0.07 H (0.00-0.02) K/uL Neut # (Auto) 5.65 (1.4-6.5) K/uL Lymph # (Auto) 0.54 L (1.2-3.4) K/uL Deuel # (Auto) 2.64 H (0.11-0.59) K/uL Eos # (Auto) 0.02 (0-0.5) K/uL Baso # (Auto) 0.02 (0-0.2) K/uL Absolute Nucleated RBC 0.00 (0-0) K/uL Nucleated RBC % (auto) 0.0 % Sodium 129 L (136-145) mmol/L Potassium 3.4 L (3.5-5.1) mmol/L Chloride 94 L (98-107) mmol/L Carbon Dioxide 29 (21-32) mmol/L Anion Gap 6.0 (3-11) BUN 12 (7-18) mg/dl Creatinine 0.80 (0.6-1.4) mg/dl Est Cr Clr Drug Dosing 86.3 ml/min Est GFR ( Amer) 114.9 Est GFR (Non-Af Amer) 99.2 BUN/Creatinine Ratio 15.1 (10-20) Glucose 154 H (70-99) mg/dl Calcium 8.7 (8.5-10.1) mg/dl Total Bilirubin 0.7 (0.2-1) mg/dl AST 37 (15-37) U/L ALT 43 (12-78) U/L Alkaline Phosphatase 120 H (45-117) U/L Total Protein 6.6 (6.4-8.2) gm/dl Albumin 2.9 L (3.4-5.0) gm/dl Globulin 3.7 (2.5-4.0) gm/dl Albumin/Globulin Ratio 0.8 L (0.9-2) Lipase 1245 H (73-393) U/L Imaging Data Radiologist's Impression: Radiology results as stated below per my review and the radiologist's interpretation: CT abd pelvis IV con only CLINICAL HISTORY: Left upper abdominal pain COMPARISON STUDY: 07/18/2018 TECHNIQUE: The patient was scanned in a dynamic helical fashion during intravenous administration of 93 cc of Optiray 320 A dose lowering technique was utilized adhering to the principles of ALARA. CT DOSE: 287.85 mGycm FINDINGS: Lower chest: There is scattered subcentimeter lung cysts, likely representing emphysema. There is a right lower lobe granuloma Liver: The contrast-enhanced liver is normal in size, contour, and attenuation. There is no intrahepatic biliary ductal dilatation. The hepatic veins and portal veins are patent. Gallbladder: Unremarkable. Spleen: Normal in size and attenuation. There is soft tissue stranding adjacent the spleen, likely secondary to a pancreatic process. Pancreas: There is an indwelling pancreatic stent present. There is dilatation of the distal pancreatic duct. There is an enlarging 5 cm cystic lesion involving the distal pancreatic body/tail. There are associated coarse calcifications. There are possible pancreatic ductal calcifications are This likely represents a pseudocyst. There is mild peripancreatic stranding. There is soft tissue stranding within the left upper quadrant Adrenal glands: Unremarkable. Kidneys: There is symmetric renal cortical enhancement. The kidneys are normal in size without hydronephrosis. Bowel: There are no transition zone to indicate bowel obstruction. There is no evidence of acute diverticulitis. There is no evidence of acute appendicitis. Peritoneum: There is no intraperitoneal free air or abdominal ascites. Vasculature: The abdominal aorta is normal in course and caliber. Adenopathy: There are mildly prominent peripancreatic lymph nodes, likely reactive. Pelvic viscera: The bladder, and pelvic viscera are unremarkable. Skeletal structures: No destructive osseous lesions are seen. IMPRESSION: 1. Acute on chronic pancreatitis 2. Dilatation of the distal pancreatic duct with possible pancreatic ductal calculi 3. Enlarging 5 cm cystic lesion of the pancreatic body/tail, likely representing a pseudocyst 4. Prominent peripancreatic and left upper quadrant mesenteric lymph nodes likely reactive 5. No evidence of bowel obstruction. No evidence of free air 6. No evidence of acute appendicitis. No evidence of acute diverticulitis Electronically signed by: Fran Bales M.D. 11/13/2018 11:23 AM Blood Pressure Blood Pressure Findings: Elevated blood pressure Blood Pressure Disposition: further management by hospitalist MDM Narrative This is a 58-year-old male who presents to the ED with a chief complaint of left upper quadrant abdominal pain. The patient states that his symptoms have been going on for the past few days but worsened today. Denies any associated nausea vomiting or diarrhea. The patient does report alcohol use on a regular basis. He also reported gallstones in the past. His initial vital signs revealed some mild hypertension. The patient reports previous history of pancreatitis and states that this feels similar. The patient has a history of alcohol abuse. Patient's exam revealed some tenderness in left upper quadrant. The CT scan as well as lipase reveal findings suggesting acute pancreatitis. The patient's sodium is slightly low. Chemistry panel was otherwise unremarkable. The patien t was treated with IV morphine and IV fluids as well as IV Zofran. He will be seen by the hospitalist for further inpatient evaluation and care. Impression & Plan Acute pancreatitis Discharge Plan Visit Data Chief Complaint: Abdominal Pain Stated Complaint: abd pain,back pain ED Provider: Gene Jerry Discharge Problem: Acute pancreatitis Patient Disposition: Being Evaluated by Hospitalist Forms Stand Alone Forms: Call Back Authorization, [facility] Prescriptions Prescriptions: No Action sertraline [Zoloft] 50 mg Tablet 75 mg PO DAILY RF: 0 trazodone 50 mg Tablet PO UNKNOWN RF: 0 cyclobenzaprine 5 mg Tablet PO UNKNOWN RF: 0 Referrals Referrals: PCP,NO [Primary Care Provider] - Discharge Problem: Acute pancreatitis Qualifiers: Pancreatitis type: unspecified pancreatitis type Acute pancreatitis complication: unspecified Qualified Code(s): K85.90 - Acute pancreatitis without necrosis or infection, unspecified The scribe's documentation has been prepared under my direction and personally reviewed by me in its entirety. I confirm that the note above accurately reflects all work, treatment, procedures, and medical decision making performed by me.
[2018-11-13 10:45] LABS: Albumin Globulin Ratio 0.8 (0.9-2); Bilirubin,Total 0.7 mg/dl (0.2-1); Globulin 3.7 gm/dl (2.5-4.0); Total Protein 6.6 gm/dl (6.4-8.2)
[2018-11-13] MEDS ORDERED: IOVERSOL 100ml IV PRN (10:52)
--- NOTE | 2018-11-13 11:24 | CT Scan Report ---
CT abd pelvis IV con only CLINICAL HISTORY: Left upper abdominal pain COMPARISON STUDY: 07/18/2018 TECHNIQUE: The patient was scanned in a dynamic helical fashion during intravenous administration of 93 cc of Optiray 320 A dose lowering technique was utilized adhering to the principles of ALARA. CT DOSE: 287.85 mGycm FINDINGS: Lower chest: There is scattered subcentimeter lung cysts, likely representing emphysema. There is a r ight lower lobe granuloma Liver: The contrast-enhanced liver is normal in size, contour, and attenuation. There is no intrahepa tic biliary ductal dilatation. The hepatic veins and portal veins are patent. Gallbladder: Unremarkable. Spleen: Normal in size and attenuation. There is soft tissue stranding adjacent the spleen, likely se condary to a pancreatic process. Pancreas: There is an indwelling pancreatic stent present. There is dilatation of the distal pancreat ic duct. There is an enlarging 5 cm cystic lesion involving the distal pancreatic body/tail. There ar e associated coarse calcifications. There are possible pancreatic ductal calcifications are This like ly represents a pseudocyst. There is mild peripancreatic stranding. There is soft tissue stranding wi thin the left upper quadrant Adrenal glands: Unremarkable. Kidneys: There is symmetric renal cortical enhancement. The kidneys are normal in size without hydron ephrosis. Bowel: There are no transition zone to indicate bowel obstruction. There is no evidence of acute dive rticulitis. There is no evidence of acute appendicitis. Peritoneum: There is no intraperitoneal free air or abdominal ascites. Vasculature: The abdominal aorta is normal in course and caliber. Adenopathy: There are mildly prominent peripancreatic lymph nodes, likely reactive. Pelvic viscera: The bladder, and pelvic viscera are unremarkable. Skeletal structures: No destructive osseous lesions are seen. IMPRESSION: 1. Acute on chronic pancreatitis 2. Dilatation of the distal pancreatic duct with possible pancreatic ductal calculi 3. Enlarging 5 cm cystic lesion of the pancreatic body/tail, likely representing a pseudocyst 4. Prominent peripancreatic and left upper quadrant mesenteric lymph nodes likely reactive 5. No evidence of bowel obstruction. No evidence of free air 6. No evidence of acute appendicitis. No evidence of acute diverticulitis Electronically signed by: Fran Bales M.D. 11/13/2018 11:23 AM
[2018-11-13] MEDS ORDERED: MoRPHine SULFATE 2 MG/ML CARP IV STA (12:37)
--- NOTE | 2018-11-13 12:57 | History & Physical Report ---
Date of Service November 13, 2018 Assessment & Plan (1) Acute on chronic pancreatitis: Etiology of pancreatitis appears multifactorial with history of alcohol abuse, pancreas divisum and pancreatic duct stones - currently episode likely triggered by relapse of alcohol use. New (?) fluid collection on CT. - IVF with NSS with 20 mEq of KCl at 150 ml/hr - Strict NPO for now - Consult GI for additional recommendations - it appears that pt was supposed to be scheduled for a repeat ERCP on 11/22 but cancelled. - Pain control with IV morphine - Replete electrolytes - recheck in AM - Due to new fever since arriving in ED, check blood cultures and lactate. Add empiric antibiotics with cefepime and metronidazole. (2) ETOH abuse: Pt is unclear on his last alcoholic drink was -initially he stated that it was two weeks ago but then admitted it may have been more recently - Monitor for S/S of alcohol withdrawal - Ativan prn symptoms of withdrawal (3) Depression: Pt has been taking his Zoloft intermittently - will hold while NPO then restart. Will need to discuss importance of compliance Patient seen and examined with collaborating physician, Dr. Pearson. Plan of care discussed and as outlined above. Care to be assumed in AM by Dr. Reed. Ricci Thomas PA-C History of Present Illness Primary Care Provider: Dr. Cole 58 y/o male with a PMH of recurrent pancreatitis, pancreas divisum, pancreatic duct stones, alcohol abuse, prior PUD, depression and splenic vein thrombosis who presents with 3-4 days of abdominal pain that has worsened over past 1-2 days. Describes pain "from my butt clean up to my head" and currently rates as 8/10. Pain is present constantly but worse with movement, radiates to his back. Denies any increase in pain with eating and actually reports that his appetite has been great recently. History of alcohol abuse for >30 years having been to AA numerous times and gone through rehab in the past. Initially reported that his last alcoholic drink was two weeks ago - prior to that states that he was drinking at least 3-4 beers per day as well as vodka at times. Denies prior history of alcohol withdrawal. States that he "didn't get the shakes" when he stopped drinking two weeks ago. During the course of the interview pt admitted to a relapse of drinking more recently but "not that much" and stated "I didn't think it would be a problem." Has been taking Aleve and Advil for the pain and states that he wasn't aware that he was supposed to avoid these medications. Denies N/V/D, blood in stool. Reports occasional chills but denies fevers or sweats. Denies CP or SOB. Most recent ERCP was 09/13/18 and showed one occluded stent in the minor papilla; prior minor papilla sphincterotomy open; extension of biliary sphincterotomy performed; moderate dilatation of main PD with irregularity found in PD; pancreas divisum; pancreatic stones found - PD stented and complete removal accomplished; 1 plastic pancreatic stent placed in dorsal PD. Pt was to undergo repeat ERCP for stent removal and re-evaluation of pancreatic duct which was scheduled for 11/22 but patient cancelled this procedure. He states that he was told that the stent would likely pass on its own so he didn't need the ERCP. Also c/o drainage from left eye for past 2-3 days, small amount from right eye since yesterday. May have crusting. Mild blurry vision for past few days. No diplopia. Does not use corrective lenses. No eye pain. +itching bilateral eyes but not as bad today. No sick contacts Allergies Allergy/AdvReac Type Severity Reaction Status Date / Time No Known Allergies Allergy Verified 11/13/18 09:15 Home Medications Home Medications Medication Instructions Recorded Confirmed Type sertraline [Zoloft] 75 mg PO DAILY 10/24/18 11/13/18 History cyclobenzaprine 0 mg PO UNKNOWN 11/13/18 11/13/18 History trazodone 0 mg PO UNKNOWN 11/13/18 11/13/18 History Past Med/Surg History Family History Other No pertinent family history in first degree relatives Social History Preferred Language: Colombian Communication Ability: Effective Visual Impairment: No Limitations Hearing Ability: Normal Senior Project Architect Required: No Beliefs That Will Affect Care: None Current Living Situation: Other Current Living Situation Comment: friend lives with him in his home Feels Safe at Home: Yes Safety Concerns: Feels Safe At This Time Smoking Status: Never smoker Tobacco Type: smokeless tobacco ; Cigarettes Per Day: QUIT SMOKING "YEARS AGO" ; Do You Dip or Chew Tobacco: Yes ; Second Hand Exposure: No ; Hx Alcohol Use: Yes Alcohol type: beer Alcohol Intake Frequency Comment: 6-10 drinks a day Hx Substance Use: No Review of Systems Review of Systems: All systems reviewed & are unremarkable except as noted in HPI & below Constitutional: + chills and + fatigue; no fever, no sweats and no anorexia Eyes: + discharge; no blind spots, no diplopia, no eye pain and no photophobia Ear, Nose, Mouth, Throat: no nasal congestion and no sore throat Respiratory: no cough, no dyspnea and no wheezing Cardiovascular: no chest pain, no palpitations, no syncope and no edema Gastrointestinal: as per Subjective / HPI Genitourinary: no dysuria and no urinary frequency Musculoskeletal: + back pain (radiates from abdominal pain); no neck pain and no muscle weakness Integumentary: no rash, no urticaria and no yellowing of the skin Neurologic: + unsteadiness and + tremor(s); no syncope and no headache(s) Psychiatric: + depression (inconsistently taking meds) Physical Exam Constitutional: well developed, well nourished and + ill appearing; no altered mental status Eyes: PERRL, conjunctivae normal, anicteric sclerae ENMT: external ear and nose normal, oropharynx normal Neck: trachea midline Respiratory: normal respiratory effort, lungs clear to auscultation Auscultation: no rales, no rhonchi and no wheezes Cardiovascular: Rate/Rhythm: regular rate and regular rhythm Heart Sounds: no gallop, no murmur and no cardiac rub Extremities: normal capillary refill; no calf tenderness and no pedal edema Gastrointestinal (Abdomen): Inspection/Auscultation: + abdomen distended (mild) and normal bowel sounds Percussion/Palpation: + abdomen tender (moderate in bilateral UQ), + guarding (voluntary) and abdomen soft Musculoskeletal: Head/Neck/Chest: normocephalic, head atraumatic and neck supple Extremities: no cyanosis and no clubbing Skin: no rashes and no jaundice hot to touch, flushed in face Neurologic: moves all extremities; no focal motor deficits Speech / Cognition: normal speech Motor/Sensory: + tremor (bilateral UE) Psychiatric: A+Ox3, euthymic affect Insight: + limited insight Results & Data Vital Signs (Past 12 Hours) Vital Signs Temp Pulse Pulse Resp BP BP Pulse Ox 11/13/18 12:37 100 H 16 129/75 99 11/13/18 10:42 99 H 16 122/77 97 11/13/18 08:59 36.4 C L 75 20 92/61 L 98 Laboratory Results Laboratory Results - last 24 hr 11/13/18 11/13/18 10:05 10:05 WBC 8.94 RBC 3.41 L Hgb 11.6 L Hct 32.6 L MCV 95.6 MCH 34.0 MCHC 35.6 RDW Std Deviation 44.9 RDW Coeff of Ashvin 12.9 Plt Count 332 MPV 9.0 Immature Gran % (Auto) 0.8 Neut % (Auto) 63.3 Lymph % (Auto) 6.0 [place] % (Auto) 29.5 Eos % (Auto) 0.2 Baso % (Auto) 0.2 Immature Gran # (Auto) 0.07 H Neut # (Auto) 5.65 Lymph # (Auto) 0.54 L [place] # (Auto) 2.64 H Eos # (Auto) 0.02 Baso # (Auto) 0.02 Absolute Nucleated RBC 0.00 Nucleated RBC % (auto) 0.0 Sodium 129 L Potassium 3.4 L Chloride 94 L Carbon Dioxide 29 Anion Gap 6.0 BUN 12 Creatinine 0.80 Est Cr Clr Drug Dosing 86.3 Est GFR ( Amer) 114.9 Est GFR (Non-Af Amer) 99.2 BUN/Creatinine Ratio 15.1 Glucose 154 H Calcium 8.7 Total Bilirubin 0.7 AST 37 ALT 43 Alkaline Phosphatase 120 H Total Protein 6.6 Albumin 2.9 L Globulin 3.7 Albumin/Globulin Ratio 0.8 L Lipase [address] Abd/Pel 11/13/18 - IMPRESSION: 1. Acute on chronic pancreatitis 2. Dilatation of the distal pancreatic duct with possible pancreatic ductal calculi 3. Enlarging 5 cm cystic lesion of the pancreatic body/tail, likely representing a pseudocyst 4. Prominent peripancreatic and left upper quadrant mesenteric lymph nodes likely reactive 5. No evidence of bowel obstruction. No evidence of free air 6. No evidence of acute appendicitis. No evidence of acute diverticulitis Medications Administered Ioversol (Optiray 320 100ml) 93 ml IV ONCE PRN PRN Reason: Interaction Checking Stop: 11/17/18 10:51 Last Admin: 11/13/18 10:54 Dose: 93 ml Documented by: [id number] Discontinued Medications Sodium Chloride (Nss) 500 mls @ 999 mls/hr IV .Q31M TAYO Stop: 11/13/18 10:30 Last Infusion: 11/13/18 10:43 Dose: 0 mls/hr Documented by: [id number] Admin: 11/13/18 10:14 Dose: 999 mls/hr Documented by: [id number] Morphine Sulfate (Morphine Sulfate) 4 mg IV NOW STA Stop: 11/13/18 09:56 Last Admin: 11/13/18 10:14 Dose: 4 mg Documented by: [id number] Morphine Sulfate (Morphine Sulfate) 2 mg IV NOW STA Stop: 11/13/18 12:38 Last Admin: 11/13/18 13:07 Dose: 2 mg Documented by: [id number] Ondansetron HCl (Zofran) 4 mg IV NOW STA Stop: 11/13/18 09:56 Last Admin: 11/13/18 10:14 Dose: 4 mg Documented by: [id number] Supervising Physician Co-Signing Physician Notes Patient is a 58-year-old male with history of recurrent pancreatitis, pancreatic ductal stones, ongoing alcohol use disorder and other medical problems presents with history of worsening abdominal pain since 3-4 duration. Abdominal pain increases with movement, radiates to the back, constant, no relation with food intake, 8/10 intensity. States his last alcohol drink was 2 weeks ago. please review HPI for complete details of presentation. CT abdomen suggestive of acute on chronic pancreatitis, dilatation of the distal pancreatic duct with possible pancreatic ductal calculi. Also noted findings suggestive of pancreatic pseudo cyst. On exam patient is moderately built and nourished, no apparent distress, normocephalic atraumatic, decreased breath sounds, clear to auscultation, abdomen--voluntary guarding, tenderness in epigastric, left upper quadrant, no pedal edema, grossly no focal neurological deficits. Patient is admitted for management of recurrent alcoholic pancreatitis. Plan to keep him n.p.o., aggressive IV fluids, pain control, broad-spectrum antibiotics secondary to fever. Blood cultures obtained. Agree with alcohol withdrawal protocol. Monitor for withdrawal. Counseled to quit drinking. GI consulted for possible ERCP. I personally reviewed the record. Patient is interviewed and examined at bedside. Patient's care is coordinated with Tammie Thomas PA-C. Please refer to the documentation above for details of patient's presentation and for discussion of other issues.
[2018-11-13] MEDS ORDERED: CEFEPIME CONSULT ACTIVE ONE (13:35)
--- NOTE | 2018-11-13 14:15 | Gastrointestinal Consultation ---
Date of Consultation November 13, 2018 Assessment & Plan (1) Acute on chronic pancreatitis: 58 year old male w/ history of recurrent pancreatitis, pancreas divisum, pancreatic duct stones, alcohol abuse admitted w/ acute on chronic pancreatitis, dilatation of the distal pancreatic duct with possible pancreatic ductal calculi and new fluid collection, about 5 cm cystic lesion on the pancreatic body. He is awake, alert w/o leukocytosis but is newly running fevers. No evidence of MELISSA w/ mildly elevated ALKP at 120 but otherwise normal liver function test. Pancreatitis Management - NPO for bowel rest - LR 200 mL/hr - Ensure adequate hydration w/ 2 pt drop in HGB - Antiemetics PRN - Analgesia PRN - Can continue ABX for now given new onset fever - Will discuss repeat ERCP w/ attending - Strict ETOH cessation Expiratory Wheezing - Recommend Chest XR Thank you for allowing us to participate in the care of this patient. Please call with any acute changes, questions or concerns. Please see addendum below with additional recommendation from my supervising physician. Present on Admission?: Yes Supervising Physician Co-Signing Physician Notes Attending attestation I have seen, examined this patient, and agree with the findings and above by our mid-level provider SHEMAR Chang, with the following additions -Known chronic pancreatitis with pancreatic duct stone calcifications, as well as pancreas divisum, now presenting with acute on chronic pancreatitis without complications including lack of hypoxia or renal failure. Does have a fever and a new fluid collection consistent with pancreatic fluid collection. -We will need repeat ERCP however the timing is to be determined, in the interim continue with conservative care including IV fluids, pain control, blood cultures for fever as well as chest x-ray and urine culture. History of Present Illness Reason for Consultation: pancreatitis Requesting Physician: Martha Attending Physician: Martha History of Present Illness 58 year old male with history of recurrent pancreatitis, pancreas divisum, pancreatic duct stones, alcohol abuse, prior PUD, depression and splenic vein thrombosis who presented through the ED for evaluation of upper abdominal pain - GI asked to evaluate for pancreatitis. Pt was seen and evaluated, chart reviewed. Pt notes a history of recurrent pancreatitis. Also endorses ongoing ETOH use suggesting last ETOH use was about 2/3 weeks ago. He notes 3/4 days ago started having vague upper abdominal pain. This has worsened and become constant, more severe. Pain radiates under both breasts, into his back and up his neck. Mild nausea but no vomiting. No change in bowels. Denies any post- prandial diarrhea. No black or bloody stools. No weight loss. No fevers but has had some chills. He does have a cough. ERCP 09/13/18: occluded stent in the minor papilla; prior minor papilla sphincterotomy open; extension of biliary sphincterotomy performed; moderate dilatation of main PD with irregularity found in PD; pancreas divisum; pancreatic stones found - PD stented and complete removal accomplished; 1 plastic pancreatic stent placed in dorsal PD ERCP 07/19/18: Biliary side: The major papilla appeared to be small. A biliary sphincterotomy was performed.No abnormalities seen on the cholangiogram.The biliary tree was swept and sludge was found. Pancreatic side: The ventral duct could not be located from the major papilla. The minor papilla was found and appeared normal. Pancreas divisum was found. The dorsal pancreatic duct was swept and pus was found. One Pancreatic stone was found. Complete removal was accomplished. A minor papilla sphincterotomy was performed and then a stent was placed. Findings of chronic pancreatitis seen CTAP 11/28: acute on chronic pancreatitis Dilatation of the distal pancreatic duct with possible pancreatic ductal calculi Enlarging 5 cm cystic lesion of the pancreatic body/tail, likely representing a pseudocyst Prominent peripancreatic and left upper quadrant mesenteric lymph nodes likely reactiveNo evidence of bowel obstruction. No evidence of free air No evidence of acute appendicitis. No evidence of acute diverticulitis CTAP 07/28: 7 mm obstructing calculus of the mid pancreatic duct. This is creating dilatation of the proximal and mid pancreatic duct to a maximum diameter of 7 mm. This process appears to be creating acute pancreatitis of the pancreatic body and tail superimposed upon chronic pancreatitis which has been described previously. Several small pseudocysts unchanged from the prior study.Moderate peripancreatic infiltrative change with no current evidence for abscess Additional 8 mm calcification adjacent to the distal aspect of the pancreatic duct Allergies Allergy/AdvReac Type Severity Reaction Status Date / Time No Known Allergies Allergy Verified 11/13/18 09:15 Home Medications Home Medications Medication Instructions Recorded Confirmed Type sertraline [Zoloft] 75 mg PO DAILY 10/24/18 11/13/18 History cyclobenzaprine 0 mg PO UNKNOWN 11/13/18 11/13/18 History trazodone 0 mg PO UNKNOWN 11/13/18 11/13/18 History Patient History Family History Other No pertinent family history in first degree relatives Social History Preferred Language: Fijian Communication Ability: Effective Visual Impairment: No Limitations Hearing Ability: Normal Barrel Stave Inspector Required: No Beliefs That Will Affect Care: None Current Living Situation: Family Feels Safe at Home: Yes Smoking Status: Never smoker Tobacco Type: cigarettes ; Cigarettes Per Day: QUIT SMOKING "YEARS AGO" ; Second Hand Exposure: No ; Hx Alcohol Use: Yes Alcohol type: beer Alcohol Intake Frequency Comment: 6-10 drinks a day Hx Substance Use: No Review of Systems Constitutional: + chills; no fever, no fatigue and no weight loss Respiratory: + cough; no dyspnea and no wheezing Cardiovascular: no chest pain, no dyspnea on exertion and no palpitations Gastrointestinal: + abdominal pain; no nausea, no coffee ground emesis, no hematemesis, no diarrhea/loose stools, no blood in stools and no melena Physical Exam Constitutional: well nourished; no acute distress and not ill appearing Neck: trachea midline Respiratory: Auscultation: + diminished lung sounds and + wheezes Cardiovascular: Rate/Rhythm: regular rate and regular rhythm Gastrointestinal (Abdomen): Inspection/Auscultation: abdomen normal to inspection Percussion/Palpation: + abdomen tender and abdomen soft; no guarding, abdomen not rigid, no abdominal mass and no ascites Skin: no rashes, warm and dry Results & Data Vital Signs (Past 12 Hours) Vital Signs Temp Pulse Pulse Resp BP BP Pulse Ox 11/13/18 12:37 38.2 C H 100 H 16 129/75 99 11/13/18 10:42 99 H 16 122/77 97 11/13/18 08:59 36.4 C L 75 20 92/61 L 98 Laboratory Results 11/13/18 11/13/18 Range/Units 10:05 10:05 WBC 8.94 (4.8-10.8) K/uL RBC 3.41 L (4.7-6.1) M/uL Hgb 11.6 L (14.0-18.0) g/dL Hct 32.6 L (42-52) % MCV 95.6 (80-100) fL MCH 34.0 (25-34) pg MCHC 35.6 (32-36) g/dL RDW Std Deviation 44.9 (36.4-46.3) fL RDW Coeff of Ashvin 12.9 (11.5-14.5) % Plt Count 332 (130-400) K/uL MPV 9.0 (7.4-10.4) fL Immature Gran % (Auto) 0.8 % Neut % (Auto) 63.3 % Lymph % (Auto) 6.0 % [place] % (Auto) 29.5 % Eos % (Auto) 0.2 % Baso % (Auto) 0.2 % Immature Gran # (Auto) 0.07 H (0.00-0.02) K/uL Neut # (Auto) 5.65 (1.4-6.5) K/uL Lymph # (Auto) 0.54 L (1.2-3.4) K/uL [place] # (Auto) 2.64 H (0.11-0.59) K/uL Eos # (Auto) 0.02 (0-0.5) K/uL Baso # (Auto) 0.02 (0-0.2) K/uL Absolute Nucleated RBC 0.00 (0-0) K/uL Nucleated RBC % (auto) 0.0 % Sodium 129 L (136-145) mmol/L Potassium 3.4 L (3.5-5.1) mmol/L Chloride 94 L (98-107) mmol/L Carbon Dioxide 29 (21-32) mmol/L Anion Gap 6.0 (3-11) BUN 12 (7-18) mg/dl Creatinine 0.80 (0.6-1.4) mg/dl Est Cr Clr Drug Dosing 86.3 ml/min Est GFR ( Amer) 114.9 Est GFR (Non-Af Amer) 99.2 BUN/Creatinine Ratio 15.1 (10-20) Glucose 154 H (70-99) mg/dl Calcium 8.7 (8.5-10.1) mg/dl Total Bilirubin 0.7 (0.2-1) mg/dl AST 37 (15-37) U/L ALT 43 (12-78) U/L Alkaline Phosphatase 120 H (45-117) U/L Total Protein 6.6 (6.4-8.2) gm/dl Albumin 2.9 L (3.4-5.0) gm/dl Globulin 3.7 (2.5-4.0) gm/dl Albumin/Globulin Ratio 0.8 L (0.9-2) Lipase 1245 H (73-393) U/L
[2018-11-13] MEDS ORDERED: CEFEPIME 2,000 MG in SYRINGE 7.5 ML IV ONE (14:45)
[2018-11-13] MEDS ORDERED: LORazepam 1 MG TAB PO PRN (15:38)
[2018-11-13] MEDS ORDERED: ARTIFICIAL TEARS OP PRN (15:38)
[2018-11-13] MEDS ORDERED: CEFEPIME CONSULT ACTIVE PRN (15:45)
[2018-11-13] MEDS ORDERED: NSS + 20MEQ KCL 20 MEQ/1,000 ML BAG IV SCH (15:45)
[2018-11-13] MEDS ORDERED: FOLIC ACID 1 MG in SYRINGE 9.8 ML IV ONE (15:45)
[2018-11-13] MEDS ORDERED: ONDANSETRON INJ 2 MG/ML 2 ML VIAL IV PRN (15:54)
[2018-11-13] MEDS: metroNIDAZOLE 500 MG/100 ML BAG IV SCH ×2 (17:41→23:49)
[2018-11-13] MEDS: THIAMINE HCL 100 MG in SYRINGE 9 ML IV SCH (17:42)
[2018-11-13] MEDS: CEFEPIME 2,000 MG in SYRINGE 7.5 ML IV SCH ×2 (17:43→23:49)
[2018-11-13] MEDS: MoRPHine SULFATE 2 MG/ML CARP IV PRN (20:11)
[2018-11-13] MEDS ORDERED: LORazepam 2 MG/4 ML VIAL ONE (20:29)
[2018-11-13] MEDS ORDERED: ACETAMINOPHEN 65 ML IV PRN (20:30)
--- NOTE | 2018-11-13 20:45 | XRay Report ---
XR chest 1V portable CLINICAL HISTORY: 58 years-old Male presenting with congestion/infiltrate. TECHNIQUE: Portable upright AP view of the chest was obtained. COMPARISON: 07/18/2018. FINDINGS: Cardiac silhouette top normal in size. No focal opacity. Blunting of the left costophrenic angle may be due to prominent fat pad or trace effusion. No large effusion or pneumothorax. Osseous structures normal. Upper abdomen normal. IMPRESSION: 1. Questionable trace left pleural effusion. Otherwise no acute cardiopulmonary disease. Electronically signed by: Jb Welsh M.D. 11/13/2018 8:43 PM
[2018-11-13] MEDS ORDERED: KETOROLAC 30 MG/ML VIAL IV ONE (21:41)
[2018-11-13] MEDS: FAMOTIDINE 20 MG in SYRINGE 3 ML IV SCH (22:20)
[2018-11-13] MEDS: LACTATED RINGER'S 1,000 ML IV SCH (22:30)
[2018-11-14] MEDS: MoRPHine SULFATE 2 MG/ML CARP IV PRN ×4 (03:19→22:22)
[2018-11-14] MEDS: LORazepam 1.5 MG/3 ML VIAL IV PRN ×4 (03:29→22:22)
[2018-11-14] MEDS: LACTATED RINGER'S 1,000 ML IV SCH ×3 (03:33→18:15)
[2018-11-14 03:41] LABS: Appearance Urine Clear (Clear); Bacteria Urine Automated Negative (Negative); Bilirubin Urine Negative (Negative); Blood Urine 1+ (Negative); Cast Urine Automated 0 /lpf (0-5); Color Urine Yellow; Epithelial Cell Urine Auto 20-30 /lpf (0-5); Glucose Urine UA Negative (Negative); Ketones Urine Negative (Negative); Leukocyte Esterase Urine Negative (Negative); Nitrite Urine Negative (Negative); Protein Urine Negative (Negative); RBC Urine Automated 0-4 /hpf (0-4); Specific Gravity Urine 1.017 (1.000-1.030); Urobilinogen Urine Negative (Negative); pH Urine 6.5 (4.5-7.5)
[2018-11-14 06:34] LABS: Hematocrit (blood only) 30.2 % (42-52); Hemoglobin 10.5 g/dL (14.0-18.0); Mean Corpuscular Hgb Conc 34.8 g/dL (32-36); Mean Corpuscular Volume 96.5 fL (80-100); Mean Platelet Volume 9.2 fL (7.4-10.4); Platelet Count 365 K/uL (130-400); RDW Coefficient of Variation 13.2 % (11.5-14.5); RDW Standard Deviation 46.2 fL (36.4-46.3); Red Blood Count 3.13 M/uL (4.7-6.1); White Blood Count 9.53 K/uL (4.8-10.8)
[2018-11-14 06:41] LABS: INR 1.1 (0.9-1.1); Prothrombin Time 11.5 Seconds (9.0-12.0)
[2018-11-14 06:58] LABS: ALC (manual) 1.16 K/uL (1.2-3.4); Dohle Bodies 2+; Eosinophils # (manual) 0.09 K/uL (0-0.5); Eosinophils % (manual) 0.9 %; Lymphocytes # (manual) 1.16 K/uL (1.2-3.4); Lymphocytes % (manual) 12.2 %; Monocytes # (manual) 1.08 K/uL (0.11-0.59); Monocytes % (manual) 11.3 %; Neutrophils % (manual) 75.6 %; Toxic Granulation 2+; Toxic Vacuolation 1+
[2018-11-14 07:05] LABS: Estimated Average Glucose 117 mg/dl; Hemoglobin A1C 5.7 % (4.5-5.6)
[2018-11-14 07:11] LABS: Albumin Level 2.4 gm/dl (3.4-5.0); BUN Creatinine Ratio 13.3 (10-20); Calcium 8.4 mg/dl (8.5-10.1); Creatinine Clr Calc Pharmacy 77.7 ml/min; Est GFR (Non-African American) 94.9; Magnesium 1.1 mg/dl (1.8-2.4); Potassium 3.2 mmol/L (3.5-5.1)
[2018-11-14 07:15] LABS: Bilirubin Direct 0.2 mg/dl (0-0.2); Bilirubin,Total 0.6 mg/dl (0.2-1); Phosphorus 2.1 mg/dl (2.5-4.9); Total Protein 5.7 gm/dl (6.4-8.2)
[2018-11-14] MEDS ORDERED: POTASSIUM PHOS 3 MMOL/1 ML INFUSION IV STA (08:04)
[2018-11-14] MEDS: ACETAMINOPHEN 65 ML IV PRN ×2 (08:22→17:19)
[2018-11-14] MEDS: CEFEPIME 2,000 MG in SYRINGE 7.5 ML IV SCH ×2 (08:26→15:54)
[2018-11-14] MEDS: FAMOTIDINE 20 MG in SYRINGE 3 ML IV SCH ×2 (08:26→21:14)
[2018-11-14] MEDS: FOLIC ACID 1 MG in SYRINGE 9.8 ML IV SCH (08:26)
[2018-11-14] MEDS: THIAMINE HCL 100 MG in SYRINGE 9 ML IV SCH (08:26)
[2018-11-14] MEDS: metroNIDAZOLE 500 MG/100 ML BAG IV SCH ×2 (08:28→16:00)
[2018-11-14] MEDS ORDERED: POTASSIUM PHOSPHATE 30 MMOL in SODIUM CHLORIDE 0.9% 500 ML IV ONE (08:30)
[2018-11-14] MEDS: MAGNESIUM SULFATE / D5W 1 GM/100 ML BAG IV SCH ×2 (08:36→10:16)
--- NOTE | 2018-11-14 09:03 | Gastroenterology Progress Note ---
Date of Service November 14, 2018 Assessment & Plan (1) Acute on chronic pancreatitis: 58 year old male w/ history of recurrent pancreatitis, pancreas divisum, pancreatic duct stones, alcohol abuse admitted w/ acute on chronic pancreatitis, dilatation of the distal pancreatic duct with possible pancreatic ductal calculi and new fluid collection, about 5 cm cystic lesion on the pancreatic body. He is awake, alert w/o leukocytosis but is newly running fevers. No evidence of MELISSA w/ mildly elevated ALKP at 120 but otherwise normal liver function test. He remains febrile on Flagyl/Cefepime. AM labs pending. Pancreatitis Management - NPO for bowel rest - LR 250 mL/hr - Ensure adequate hydration w/ 2 pt drop in HGB - Antiemetics PRN - Analgesia PRN - Continue ABX for now given new onset fever - Will discuss repeat ERCP w/ attending - Strict ETOH cessation - Follow blood cx Thank you for allowing us to participate in the care of this patient. Please call with any acute changes, questions or concerns. Please see addendum below with additional recommendation from my supervising physician. Supervising Physician Co-Signing Physician Notes Attending attestation I have seen, examined this patient, and agree with the findings and above by our mid-level provider SHEMAR Chang, with the following additions. -Cr, Pulm function ok. With a pancreatic fluid collection, if continues to have fevers may need aspiration of cyst. Stable now. -Continue with IVF, abx, pain control Subjective Pt was seen and evaluated, chart reviewed. Remains febrile this AM Cultures pending Chest XR reviewed Notes this AM he is less dizzy He has persistent upper abdominal pain, unchanged No nausea, vomiting Passing gas but no BM + non productive cough, no CP, SOB Review of Systems Constitutional: + fever and + chills; no fatigue Respiratory: + cough; no dyspnea and no wheezing Cardiovascular: no chest pain, no radiating jaw, neck or arm pain and no dyspnea on exertion Gastrointestinal: + abdominal pain; no nausea, no coffee ground emesis, no hematemesis, no blood in stools and no melena Physical Exam Constitutional: + ill appearing; no acute distress Neck: + trachea not midline Respiratory: normal respiratory effort Auscultation: + diminished lung sounds Cardiovascular: Rate/Rhythm: regular rate and regular rhythm Gastrointestinal (Abdomen): Percussion/Palpation: + abdomen tender and abdomen soft; no guarding, abdomen not rigid, no abdominal mass and no ascites Skin: no rashes, warm and dry Results & Data Vital Signs (Past 12 Hours) Vital Signs Temp Pulse Pulse Resp BP Pulse Ox 11/14/18 07:15 38.3 C H 92 H 20 101/64 94 11/14/18 03:26 36.8 C 85 18 111/75 98 11/14/18 00:24 36.4 C L 74 19 118/63 97 11/14/18 00:00 90 11/13/18 23:53 36.4 C L 74 17 118/63 97 11/13/18 21:30 39 C H
--- NOTE | 2018-11-14 11:09 | Hospitalist Progress Note ---
Date of Service November 14, 2018 Assessment & Plan (1) Acute on chronic pancreatitis: Etiology of pancreatitis appears multifactorial with history of alcohol abuse, pancreas divisum and pancreatic duct stones - currently episode likely triggered by relapse of alcohol use. New fluid collection on CT. - IVF with NSS with 20 mEq of KCl at 150 ml/hr - Strict NPO for now - Consult GI for additional recommendations - it appears that pt was supposed to be scheduled for a repeat ERCP on 11/22 but cancelled. - Pain control with IV morphine -Clinically little better with ongoing pain -GI is not planning to do any ERCP for now -We will continue n.p.o. and intravenous fluids Possible cholangitis With history of fever and chills but white count remains normal Await blood culture Continue current antibiotic with cefepime and Flagyl (2) ETOH abuse: Pt is unclear on his last alcoholic drink was -initially he stated that it was two weeks ago but then admitted it may have been more recently - Monitor for S/S of alcohol withdrawal - Ativan prn symptoms of withdrawal -No signs and/or symptoms of withdrawal (3) Depression: Pt has been taking his Zoloft intermittently - will hold while NPO then restart. Will need to discuss importance of compliance GI prophylaxis With famotidine DVT prophylaxis Subcu heparin CODE STATUS Full Subjective 11/14 The patient is seen and examined in telemetry unit He was admitted with abdominal pain and fever since yesterday History of pancreatic stent Complains abdominal pain with radiation to back without any nausea Denies any chest pain in the palpitation Has a fever of 38.3 C this morning Review of Systems Review of Systems: All systems reviewed and are unremarkable except as noted below Constitutional: + fever, + chills and + fatigue; no sweats and no anorexia Eyes: + discharge; no blind spots, no diplopia, no eye pain and no photophobia Gastrointestinal: + abdominal pain (Gross to the back) and + nausea; no vomiting Musculoskeletal: + back pain (radiates from abdominal pain); no neck pain and no muscle weakness Neurologic: + unsteadiness and + tremor(s); no syncope and no headache(s) Psychiatric: + depression (inconsistently taking meds) Physical Exam Physical Exam: Lying in bed with moderate discomfort secondary to abdominal pain Constitutional: well developed, well nourished, + acute distress (Moderate abdominal pain) and + ill appearing; no altered mental status Eyes: Left eye redness with drainage and sticking of the eyelids ENMT: external ear and nose normal, oropharynx normal Neck: trachea midline Respiratory: normal respiratory effort; no respiratory distress Auscultation: lungs clear to auscultation bilaterally; no rales, no rhonchi and no wheezes Cardiovascular: Rate/Rhythm: regular rate and regular rhythm Heart Sounds: no gallop, no murmur and no cardiac rub Extremities: normal capillary refill; no calf tenderness and no pedal edema Gastrointestinal (Abdomen): Inspection/Auscultation: + abdomen distended (mild) and normal bowel sounds Percussion/Palpation: + abdomen tender (moderate in bilateral UQ), + guarding (voluntary) and abdomen soft Musculoskeletal: Head/Neck/Chest: normocephalic, head atraumatic and neck supple Extremities: no cyanosis and no clubbing No acute arthritis in any of the joints Skin: no rashes and no jaundice Neurologic: moves all extremities; no focal motor deficits Speech / Cognition: normal speech Motor/Sensory: + tremor (bilateral UE) Psychiatric: A+Ox3, euthymic affect Insight: + limited insight Lymphatic: no cervical or axillary lymphadenopathy Results & Data Vital Signs (Past 12 Hours) Vital Signs Temp Pulse Pulse Resp BP Pulse Ox 11/14/18 10:15 37.1 C 11/14/18 07:15 38.3 C H 92 H 20 101/64 94 11/14/18 03:26 36.8 C 85 18 111/75 98 11/14/18 00:24 36.4 C L 74 19 118/63 97 11/14/18 00:00 90 11/13/18 23:53 36.4 C L 74 17 118/63 97 Laboratory Results Short CBC 11/14/18 Range/Units 06:09 WBC 9.53 (4.8-10.8) K/uL Hgb 10.5 L (14.0-18.0) g/dL Hct 30.2 L (42-52) % Plt Count 365 (130-400) K/uL BMP 11/14/18 06:09 Sodium 135 L Potassium 3.2 L Chloride 100 Carbon Dioxide 28 BUN 12 Creatinine 0.89 Glucose 96 Calcium 8.4 L Liver Function 11/14/18 Range/Units 06:09 Total Bilirubin 0.6 (0.2-1) mg/dl Direct Bilirubin 0.2 (0-0.2) mg/dl AST 23 (15-37) U/L ALT 28 (12-78) U/L Alkaline Phosphatase 96 (45-117) U/L Albumin 2.4 L (3.4-5.0) gm/dl Urine 11/14/18 Range/Units 03:25 Urine Color Yellow Urine Appearance Clear (Clear) Urine pH 6.5 (4.5-7.5) Ur Specific [place] 1.017 (1.000-1.030) Urine Protein Negative (Negative) Urine Glucose (UA) Negative (Negative) Medications Administered Current Inpatient Medications Artificial Tears (Artificial Tears) 2 drops OP Q2R PRN PRN Reason: Dryness Stop: 12/13/18 15:37 Folic Acid 1 mg/ Syringe 10 mls @ 5 mls/min IV QAM [facility] Stop: 12/14/18 08:59 Last Admin: 11/14/18 08:26 Dose: 5 mls/min Documented by: Metronidazole (Flagyl) 500 mg in 100 mls @ 100 mls/hr IV Q8H [facility] Stop: 11/23/18 15:59 Last Infusion: 11/14/18 10:30 Dose: Infused Documented by: Famotidine 20 mg/ Syringe 5 mls @ 2.5 mls/min IV BID [facility] Stop: 12/13/18 20:59 Last Admin: 11/14/18 08:26 Dose: 2.5 mls/min Documented by: Thiamine HCl 100 mg/ Syringe 10 mls @ 2 mls[facility] [place] Stop: 12/13/18 15:44 Last Admin: 11/14/18 08:26 Dose: 2 mls/min Documented by: Cefepime HCl 2,000 mg/ Syringe 20 mls @ 5 mls/min IV Q8H [facility]; Protocol Stop: 11/23/18 15:59 Last Admin: 11/14/18 08:26 Dose: 5 mls/min Documented by: Lorazepam (Ativan) 1.5 mg in 3 mls @ 3 mls/min IV Q2H PRN PRN Reason: Alcohol Withdrawal Stop: 12/13/18 20:20 Last Admin: 11/14/18 03:29 Dose: 3 mls/min Documented by: Acetaminophen (Ofirmev) 65 mls @ 200 mls/hr IV Q6H PRN PRN Reason: Pain or Fever Stop: 12/13/18 21:44 Last Infusion: 11/14/18 10:31 Dose: Infused Documented by: Lactated Ringer's (Lr) 1,000 mls @ 200 mls/hr IV .Q5H [facility] Stop: 12/13/18 21:44 Last Admin: 11/14/18 08:35 Dose: 200 mls/hr Documented by: Potassium Phosphate 30 mmol/ (Sodium Chloride) 510 mls @ 102 mls/hr IV 0830 ONE Stop: 11/14/18 13:29 Last Admin: 11/14/18 10:16 Dose: 102 mls/hr Documented by: Ioversol (Optiray 320 100ml) 93 ml IV ONCE PRN PRN Reason: Interaction Checking Stop: 11/17/18 10:51 Last Admin: 11/13/18 10:54 Dose: 93 ml Documented by: Lorazepam (Ativan) 1 mg PO ONE PRN; Protocol PRN Reason: EtoH Withdrawal AWSS 6-10 Miscellaneous Information (Cefepime Consult Active) 1 ea N/A UD PRN PRN Reason: Consult Stop: 12/13/18 15:44 Morphine Sulfate (Morphine Sulfate) 2 mg IV Q3H PRN PRN Reason: Pain Stop: 11/27/18 13:12 Last Admin: 11/14/18 03:19 Dose: 2 mg Documented by: Ondansetron HCl (Zofran) 4 mg IV Q6H PRN PRN Reason: Nausea Stop: 12/13/18 15:53 Last Admin: 11/13/18 20:11 Dose: 4 mg Documented by:
[2018-11-14] MEDS: HEPARIN SOD 5,000 UNIT/0.5 ML VIAL SQ SCH (21:14)
[2018-11-15] MEDS: CEFEPIME 2,000 MG in SYRINGE 7.5 ML IV SCH ×4 (00:07→23:18)
[2018-11-15] MEDS: LACTATED RINGER'S 1,000 ML IV SCH ×6 (00:23→21:59)
[2018-11-15] MEDS: metroNIDAZOLE 500 MG/100 ML BAG IV SCH ×4 (00:23→23:18)
[2018-11-15] MEDS: ACETAMINOPHEN 65 ML IV PRN (01:27)
[2018-11-15] MEDS: MoRPHine SULFATE 2 MG/ML CARP IV PRN ×6 (06:29→23:11)
[2018-11-15 07:11] LABS: Hematocrit (blood only) 28.2 % (42-52); Hemoglobin 9.7 g/dL (14.0-18.0); Mean Corpuscular Hgb Conc 34.4 g/dL (32-36); Mean Corpuscular Volume 95.6 fL (80-100); Mean Platelet Volume 9.4 fL (7.4-10.4); Platelet Count 434 K/uL (130-400); RDW Coefficient of Variation 13.2 % (11.5-14.5); Red Blood Count 2.95 M/uL (4.7-6.1); White Blood Count 16.38 K/uL (4.8-10.8)
[2018-11-15 07:43] LABS: Albumin Level 1.9 gm/dl (3.4-5.0); BUN Creatinine Ratio 8.8 (10-20); Calcium 8.1 mg/dl (8.5-10.1); Creatinine Clr Calc Pharmacy 87.9 ml/min; Est GFR (African American) 114.9; Est GFR (Non-African American) 99.2; Magnesium 1.1 mg/dl (1.8-2.4)
[2018-11-15 07:46] LABS: Albumin Globulin Ratio 0.6 (0.9-2); Bilirubin,Total 0.7 mg/dl (0.2-1); Globulin 3.1 gm/dl (2.5-4.0); Phosphorus 2.2 mg/dl (2.5-4.9)
[2018-11-15 08:35] LABS: ALC (manual) 3.28 K/uL (1.2-3.4); Basophils # (manual) 0.15 K/uL (0-0.2); Basophils % (manual) 0.9 %; Lymphocytes # (manual) 3.28 K/uL (1.2-3.4); Monocytes # (manual) 0.85 K/uL (0.11-0.59); Monocytes % (manual) 5.2 %; Myelocytes # (manual) 0.28 K/uL (0-0); Myelocytes % (manual) 1.7 %; Neutrophils % (manual) 72.2 %
[2018-11-15] MEDS: FOLIC ACID 1 MG in SYRINGE 9.8 ML IV SCH (09:22)
[2018-11-15] MEDS: THIAMINE HCL 100 MG in SYRINGE 9 ML IV SCH (09:23)
[2018-11-15] MEDS ORDERED: POTASSIUM PHOS 3 MMOL/1 ML INFUSION IV STA (09:33)
[2018-11-15] MEDS: HEPARIN SOD 5,000 UNIT/0.5 ML VIAL SQ SCH ×2 (09:34→19:56)
[2018-11-15] MEDS: FAMOTIDINE 20 MG in SYRINGE 3 ML IV SCH ×2 (09:53→19:55)
[2018-11-15] MEDS ORDERED: POTASSIUM PHOSPHATE 30 MMOL in SODIUM CHLORIDE 0.9% 500 ML IV ONE (10:00)
[2018-11-15] MEDS ORDERED: POTASSIUM CHLORIDE 20 MEQ TABCR PO ONE (10:00)
--- NOTE | 2018-11-15 10:03 | Gastroenterology Progress Note ---
Date of Service November 15, 2018 Assessment & Plan (1) Acute on chronic pancreatitis: 58 year old male w/ history of recurrent pancreatitis, pancreas divisum, pancreatic duct stones, alcohol abuse admitted w/ acute on chronic pancreatitis, dilatation of the distal pancreatic duct with possible pancreatic ductal calculi and new fluid collection, about 5 cm cystic lesion on the pancreatic body. He is awake, alert w/o leukocytosis but is newly running fevers. No evidence of MELISSA w/ mildly elevated ALKP at 120 but otherwise normal liver function test. He remains febrile on Flagyl/Cefepime. This morning he has new leukocytosis. Will arrange CT abd/pelvis to rule out worsening fluid collection, necrosis etc Pancreatitis Management - Repeat CT ordered - LR 250 mL/hr - Ensure adequate hydration w/ 2 pt drop in HGB - Antiemetics PRN - Analgesia PRN - Continue ABX for now given new onset fever - Will discuss repeat ERCP w/ attending - Strict ETOH cessation - Follow blood cx Pt was encouraged to keep ERCP was scheduled after discussion w/ Dr. Dewitt yesterday. Thank you for allowing us to participate in the care of this patient. Please call with any acute changes, questions or concerns. Please see addendum below with additional recommendation from my supervising physician. Supervising Physician Co-Signing Physician Notes Attending attestation I have seen, examined this patient, and agree with the findings and above by our mid-level provider SHEMAR Chang, with the following additions. Patient with less complaints today, actually feels better, pain is less. However increasing WBC count, continued fevers, and CT scan done today with increasing size slightly more organized inflammatory left upper quadrant fluid collection presumably pancreatic fluid collection, given the caliber change as well as presence of stones concern for pancreatic disconnect. If that is the case, then may need attempted ERCP to try to cross and bridge this disconnect versus surgical resection. We will discuss with Dr. Rene Davalos whom has been managing. Subjective Pt was seen and evaluated Leukocytosis this AM which is new Persistent fever Blood cultures negative to date Notes his pain is slightly improved but still present No nausea, vomiting Had some clears this AM without any worsening symptoms + fever + chills No CP, SOB Review of Systems Constitutional: + fever and + chills; no fatigue Respiratory: + cough; no dyspnea and no wheezing Gastrointestinal: + abdominal pain; no nausea, no coffee ground emesis, no hematemesis, no blood in stools and no melena Physical Exam Constitutional: well nourished and + ill appearing; no acute distress Neck: + trachea not midline Respiratory: normal respiratory effort Auscultation: + diminished lung sounds and + wheezes Cardiovascular: Rate/Rhythm: regular rate and regular rhythm Gastrointestinal (Abdomen): Inspection/Auscultation: abdomen normal to inspection Percussion/Palpation: + abdomen tender and abdomen soft; no guarding, abdomen not rigid, no abdominal mass and no ascites Skin: no rashes, warm and dry Results & Data Vital Signs (Past 12 Hours) Vital Signs Temp Pulse Pulse Resp BP Pulse Ox 11/15/18 08:05 37.2 C 94 H 18 98/61 L 97 11/15/18 06:58 37.0 C 82 18 123/73 96 11/15/18 03:16 38.2 C H 95 H 18 109/70 94 11/15/18 02:12 101 H 11/14/18 23:27 39.3 C H 102 H 18 127/74 95
[2018-11-15] MEDS ORDERED: IOVERSOL 100ml IV PRN (11:21)
--- NOTE | 2018-11-15 11:47 | CT Scan Report ---
ABDOMEN AND PELVIS CT WITH IV CONTRAST CT DOSE: 377.95 mGycm HISTORY: Follow up study in a patient with acute on chronic pancreatitis panc w/ fluid collect. feve r, leukocytosis TECHNIQUE: Multiaxial CT images of the abdomen and pelvis were performed following the IV administrat ion of 94 cc of Optiray 320, A dose lowering technique was utilized adhering to the principles of AL JAIDA. COMPARISON STUDY: CT abdomen and pelvis 11/13/2018. FINDINGS: Small bilateral pleural effusions with bibasilar dependent consolidation suggestive of prob able atelectasis is new from comparison. Emphysema. No pneumatosis or pneumoperitoneum. The imaged in ferior cardiac chambers are unremarkable. Mild gallbladder distention. The liver, spleen and adrenal glands are unremarkable. Stable positioning of the pancreatic stent. Dilation of the distal pancreati c duct with possible pancreatic ductal calculi redemonstrated. Scattered calcifications of the pancre atic tail. Cystic lesion of the pancreatic body/tail redemonstrated which measures approximately 4.8 x 3.3 cm, previously measuring approximately 5.0 x 3.3 cm on 11/13/2018. Peripancreatic inflammation/ed macrina redemonstrated. Small volume of ascites within the abdominal left upper quadrant is noted with mi ld degree of peripheral enhancement. Interval development of a 3.0 x 2.1 cm fluid collection within t his distribution adjacent to the splenic flexure, image 119 series 3. No drainable fluid collection i dentified. Kidneys, ureters and urinary bladder are unremarkable. Prostamegaly. Small fat filled inguinal hernia s. Calcified plaque the abdominal aorta without aneurysm. Mildly prominent periaortic lymph nodes. En larged gastrohepatic lymph nodes measuring up to 1.2 x 1.5 cm, likely reactive. No bowel obstruction. Mild colonic diverticulosis without acute diverticulitis. Mild wall thickening of the splenic flexur e, likely reactive. Air-fluid levels throughout the colon are suggestive of diarrheal illness. Visual ized appendix appears unremarkable. Mild generalized body wall edema. Bones appear to be intact. IMPRESSION: 1. Acute on chronic pancreatitis with stable positioning of the pancreatic ductal stent. 2. Pancreatic ductal dilation with possible pancreatic ductal calculi redemonstrated. 3. Cystic lesion of the pancreatic body/tail appears unchanged suggestive of a probable pseudocyst. 4. Trace reactive upper abdominal ascites with increased fluid about the abdominal left upper quadran t which demonstrates mild peripheral enhancement suspicious for phlegmon/developing abscess. 5. Mild wall thickening of the splenic flexure, likely reactive. 6. No bowel obstruction. 7. Interval development of small pleural effusions with bibasilar consolidation suggestive of atelect asis. Electronically signed by: Vicente Kang M.D. 11/15/2018 11:46 AM
[2018-11-15] MEDS: MAGNESIUM SULFATE / D5W 1 GM/100 ML BAG IV SCH ×2 (11:50→13:14)
--- NOTE | 2018-11-15 14:18 | Hospitalist Progress Note ---
Date of Service November 15, 2018 Assessment & Plan (1) Acute on chronic pancreatitis: Etiology of pancreatitis appears multifactorial with history of alcohol abuse, pancreas divisum and pancreatic duct stones - currently episode likely triggered by relapse of alcohol use. New fluid collection on CT. - IVF with NSS with 20 mEq of KCl at 150 ml/hr - Strict NPO for now - Consult GI for additional recommendations - it appears that pt was supposed to be scheduled for a repeat ERCP on 11/22 but cancelled. - Pain control with IV morphine -Clinically little better with ongoing pain -GI is not planning to do any ERCP for now -We will continue n.p.o. and intravenous fluids -Has been started on clears orally and advanced to full liquid this morning -Denies any significant abdominal pain today Possible cholangitis With history of fever and chills but white count remains normal Await blood culture Continue current antibiotic with cefepime and Flagyl Noted to have high white count with increasing neutrophil Repeat CT of the abdomen and pelvis did show possible intra-abdominal fluid co llection with abscess formation We will continue current antibiotic (2) ETOH abuse: Pt is unclear on his last alcoholic drink was -initially he stated that it was two weeks ago but then admitted it may have been more recently - Monitor for S/S of alcohol withdrawal - Ativan prn symptoms of withdrawal -No signs and/or symptoms of withdrawal (3) Depression: Pt has been taking his Zoloft intermittently - will hold while NPO then restart. Will need to discuss importance of compliance GI prophylaxis With famotidine DVT prophylaxis Subcu heparin CODE STATUS Full Subjective 11/14 The patient is seen and examined in telemetry unit He was admitted with abdominal pain and fever since yesterday History of pancreatic stent Complains abdominal pain with radiation to back without any nausea Denies any chest pain in the palpitation Has a fever of 38.3 C this morning 11/15 The patient was seen and examined in telemetry unit He remains generally weak and complains to have some left upper quadrant/epigastric pain No nausea no vomiting and no more fever and/or chills Has tremor with outstretched hands Review of Systems Review of Systems: All systems reviewed and are unremarkable except as noted below Constitutional: + fatigue; no sweats and no anorexia Eyes: + discharge; no blind spots, no diplopia, no eye pain and no photophobia Gastrointestinal: + abdominal pain (Gross to the back) and + nausea; no vomiting Musculoskeletal: + back pain (radiates from abdominal pain); no neck pain and no muscle weakness Neurologic: + unsteadiness and + tremor(s); no syncope and no headache(s) Psychiatric: + depression (inconsistently taking meds) Physical Exam Physical Exam: Lying in bed with moderate discomfort secondary to pain in the abdomen Constitutional: well developed, well nourished, + acute distress (Moderate abdominal pain) and + ill appearing; no altered mental status ENMT: external ear and nose normal, oropharynx normal Neck: trachea midline Respiratory: normal respiratory effort; no respiratory distress Auscultation: lungs clear to auscultation bilaterally; no rales, no rhonchi and no wheezes Cardiovascular: Rate/Rhythm: regular rate and regular rhythm Heart Sounds: no gallop, no murmur and no cardiac rub Extremities: normal capillary refill; no calf tenderness and no pedal edema Gastrointestinal (Abdomen): Inspection/Auscultation: + abdomen distended (mild) and normal bowel sounds Percussion/Palpation: + abdomen tender (In the epigastrium mainly), + guarding (voluntary) and abdomen soft Musculoskeletal: Head/Neck/Chest: normocephalic, head atraumatic and neck sup ple Extremities: no cyanosis and no clubbing Skin: no rashes and no jaundice Neurologic: moves all extremities; no focal motor deficits Speech / Cognition: normal speech Motor/Sensory: + tremor (bilateral UE) Psychiatric: A+Ox3, euthymic affect Insight: + limited insight Lymphatic: no cervical or axillary lymphadenopathy Results & Data Vital Signs (Past 12 Hours) Vital Signs Temp Pulse Pulse Resp BP BP Pulse Ox 11/15/18 11:01 37.5 C 84 18 120/76 100 11/15/18 08:05 37.2 C 94 H 18 98/61 L 97 11/15/18 06:58 37.0 C 82 18 123/73 96 11/15/18 03:16 38.2 C H 95 H 18 109/70 94 Laboratory Results Short CBC 11/15/18 Range/Units 06:51 WBC 16.38 H (4.8-10.8) K/uL Hgb 9.7 L (14.0-18.0) g/dL Hct 28.2 L (42-52) % Plt Count 434 H (130-400) K/uL BMP 11/15/18 06:51 Sodium 134 L Potassium 3.0 L Chloride 99 Carbon Dioxide 28 BUN 7 D Creatinine 0.80 Glucose 92 Calcium 8.1 L Liver Function 11/15/18 Range/Units 06:51 Total Bilirubin 0.7 (0.2-1) mg/dl AST 17 (15-37) U/L ALT 21 (12-78) U/L Alkaline Phosphatase 97 (45-117) U/L Albumin 1.9 L (3.4-5.0) gm/dl Medications Administered Current Inpatient Medications Artificial Tears (Artificial Tears) 2 drops OP Q2R PRN PRN Reason: Dryness Stop: 12/13/18 15:37 Heparin Sodium (Porcine) (Heparin Sodium (Porcine)) 5,000 units SQ Q12 [facility] Stop: 12/14/18 20:59 Last Admin: 11/15/18 09:34 Dose: 5,000 units Documented by: Folic Acid 1 mg/ Syringe 10 mls @ 5 [facility]ls[facility] Stop: 12/14/18 08:59 Last Admin: 11/15/18 09:22 Dose: 5 mls/min Documented by: Metronidazole (Flagyl) 500 mg in 100 mls @ 100 mls/hr IV Q8H [facility] Stop: 11/23/18 15:59 Last Infusion: 11/15/18 10:17 Dose: Infused Documented by: Famotidine 20 mg/ Syringe 5 mls @ 2.5 mls/min IV BID [facility] Stop: 12/13/18 20:59 Last Admin: 11/15/18 09:53 Dose: 2.5 mls/min Documented by: Thiamine HCl 100 mg/ Syringe 10 mls @ 2 mls/min IV QAM [facility] Stop: 12/13/18 15:44 Last Admin: 11/15/18 09:23 Dose: 2 mls/min Documented by: Cefepime HCl 2,000 mg/ Syringe 20 mls @ 5 mls/min IV Q8H [facility]; Protocol Stop: 11/23/18 15:59 Last Admin: 11/15/18 09:33 Dose: 5 mls/min Documented by: Lorazepam (Ativan) 1.5 mg in 3 mls @ 3 mls/min IV Q2H PRN PRN Reason: Alcohol Withdrawal Stop: 12/13/18 20:20 Last Admin: 11/14/18 22:22 Dose: 3 mls/min Documented by: Acetaminophen (Ofirmev) 65 mls @ 200 mls/hr IV Q6H PRN PRN Reason: Pain or Fever Stop: 12/13/18 21:44 Last Infusion: 11/15/18 01:47 Dose: Infused Documented by: Lactated Ringer's (Lr) 1,000 mls @ 200 mls/hr IV .Q5H [facility] Stop: 12/13/18 21:44 Last Admin: 11/15/18 11:46 Dose: 200 mls/hr Documented by: Potassium Phosphate 30 mmol/ (Sodium Chloride) 510 mls @ 88 mls/hr IV ONE ONE Stop: 11/15/18 15:47 Last Admin: 11/15/18 11:48 Dose: 88 mls/hr Documented by: Ioversol (Optiray 320 100ml) 94 ml IV ONCE PRN PRN Reason: Interaction Checking Stop: 11/17/18 10:51 Lorazepam (Ativan) 1 mg PO ONE PRN; Protocol PRN Reason: EtoH Withdrawal AWSS 6-10 Miscellaneous Information (Cefepime Consult Active) 1 ea N/A UD PRN PRN Reason: Consult Stop: 12/13/18 15:44 Morphine Sulfate (Morphine Sulfate) 2 mg IV Q3H PRN PRN Reason: Pain Stop: 11/27/18 13:12 Last Admin: 11/15/18 13:18 Dose: 2 mg Documented by: Ondansetron HCl (Zofran) 4 mg IV Q6H PRN PRN Reason: Nausea Stop: 12/13/18 15:53 Last Admin: 11/13/18 20:11 Dose: 4 mg Documented by:
--- NOTE | 2018-11-15 20:10 | Magnetic Resonance Report ---
MRCP CLINICAL HISTORY: Pancreatitis. Pancreatic stent. Generalized abdominal pain. COMPARISON STUDY: Abdominal CT dated 11/15/2018. MRCP dated 09/16/2012. TECHNIQUE: Abdominal MRCP is performed utilizing various T2-weighted sequences in the axial and coron al planes. IV contrast was not administered for this examination. 3-D reformats are created and asses sed. FINDINGS: The gallbladder is distended. No gallstones are identified, and there is no gallbladder wall thickeni ng or pericholecystic inflammation. The common bile duct is normal in caliber, measuring up to 4 mm i n diameter. There are no filling defects to indicate choledocholithiasis. A filling defect within the pancreatic duct proximal to the ampulla likely corresponds to a known pancreatic duct stent. The macdonald creatic duct in the region of the pancreatic head at the major papilla measures up to 7 mm in diamete r. The distal pancreatic duct is somewhat irregular and measures up to 4 mm in diameter. Pancreas div isum is noted, and the stent is located within the minor papilla. A round filling defect within the p ancreatic duct in the pancreatic head above the major papilla (high-resolution coronal image #65) may represent an intraductal stone. The pancreatic duct extends to a collection adjacent the pancreatic tail. The unenhanced liver, spleen, adrenal glands, and kidneys are grossly unremarkable. The pancreas is h eterogeneous. Only mild inflammatory change is seen around the distal pancreas. A fluid collection in the region of the pancreatic tail measures approximately 5.5 x 4 cm and likely represents a pseudocy st. There are left larger than right pleural effusions with associated atelectasis. Trace fluid is no gene in the left paracolic gutter. A smaller organized fluid collection is also seen in the left upper quadrant on image #13 measuring 3.7 x 1.9 cm. This is located just inferior to the spleen. IMPRESSION: 1. No gallstones are identified. There is no intra or extrahepatic biliary ductal dilatation. 2. Pancreas divisum is noted. 3. A pancreatic stent is in place, entering via the minor papilla. 4. There is an ovoid filling defect identified within the pancreatic duct in the pancreatic head sarah on just above the major papilla. This likely represents a ductal calculus. 5. Findings suggest mild acute pancreatitis. 6. There is a large fluid collection again seen within/adjacent to the pancreatic tail. This likely r epresents a pseudocyst. The sterility of the collection cannot be assessed by MRI. 7. An additional complex collection is seen in the left upper quadrant. Again, likely representing a pseudocyst the sterility of which cannot be assessed. 8. Left larger than right pleural effusions. 9. Additional findings as above. Dictated: 11/15/2018 6:48 PM Transcribed: 11/15/2018 8:02 PM Elva [id number] [email or web address] Electronically signed by: Kuldip Duvall M.D. 11/15/2018 8:09 PM
[2018-11-16] MEDS: LACTATED RINGER'S 1,000 ML IV SCH ×4 (02:26→20:23)
[2018-11-16] MEDS: MoRPHine SULFATE 2 MG/ML CARP IV PRN ×5 (05:53→23:22)
[2018-11-16] MEDS: CEFEPIME 2,000 MG in SYRINGE 7.5 ML IV SCH ×3 (07:39→23:37)
[2018-11-16] MEDS: FOLIC ACID 1 MG in SYRINGE 9.8 ML IV SCH (07:45)
[2018-11-16] MEDS: metroNIDAZOLE 500 MG/100 ML BAG IV SCH ×3 (07:55→23:36)
[2018-11-16] MEDS: HEPARIN SOD 5,000 UNIT/0.5 ML VIAL SQ SCH ×2 (07:55→20:23)
[2018-11-16] MEDS: FAMOTIDINE 20 MG in SYRINGE 3 ML IV SCH ×2 (08:02→20:23)
[2018-11-16] MEDS: THIAMINE HCL 100 MG in SYRINGE 9 ML IV SCH (08:04)
--- NOTE | 2018-11-16 08:06 | Gastroenterology Progress Note ---
Date of Service November 16, 2018 Assessment & Plan (1) Acute on chronic pancreatitis: Patient with a history of alcohol abuse resulting in chronic pancreatitis presented with worsening pain and evidence of acute pancreatitis. He does have a reina-pancreatic fluid collection but does not seem to have evidence of infection at the present time. The patient is to have an elective ERCP in the next week for stent revision. 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 For the present time I would recommend a low-fat diet and watchful waiting. The patient was again cautioned about ongoing alcohol use as it will contribute to worsening pancreatic problems over the near term. Recommendations Low-fat diet Please call with any questions or concerns Elective ERCP as previously scheduled per Subjective The patient notes that his abdominal pain is improved from yesterday. He underwent MRCP last night which showed evidence of pancreatic divisum as noted on his prior ERCPs. He does not appear to have evidence of a ductal disruption. Review of Systems Constitutional: no sweats and no malaise Eyes: no diplopia Ear, Nose, Mouth, Throat: + ear trauma; no foul smell Respiratory: no change in sputum and no hemoptysis Cardiovascular: no dyspnea at rest Gastrointestinal: no nausea and no hematemesis Physical Exam Constitutional: no acute distress Eyes: PERRL, conjunctivae normal, anicteric sclerae Neck: trachea midline, no thyromegaly Respiratory: normal respiratory effort; no respiratory distress Cardiovascular: Rate/Rhythm: regular rhythm Gastrointestinal (Abdomen): Inspection/Auscultation: abdomen not distended Percussion/Palpation: + abdomen tender Mild tenderness in the left upper quadrant and mid epigastric region Skin: no rashes, warm and dry Results & Data Vital Signs (Past 12 Hours) Vital Signs Temp Pulse Pulse Resp BP Pulse Ox 11/16/18 07:51 37.9 C H 87 20 155/84 H 93 11/16/18 04:23 38.2 C H 81 16 156/71 H 92 11/16/18 01:08 91 H 11/15/18 23:09 38.1 C H 90 18 136/78 93 Diagnostic Findings MRCP CLINICAL HISTORY: Pancreatitis. Pancreatic stent. Generalized abdominal pain. COMPARISON STUDY: Abdominal CT dated 11/15/2018. MRCP dated 09/16/2012. TECHNIQUE: Abdominal MRCP is performed utilizing various T2-weighted sequences in the axial and coronal planes. IV contrast was not administered for this examination. 3-D reformats are created and assessed. FINDINGS: The gallbladder is distended. No gallstones are identified, and there is no gallbladder wall thickening or pericholecystic inflammation. The common bile duct is normal in caliber, measuring up to 4 mm in diameter. There are no filling defects to indicate choledocholithiasis. A filling defect within the pancreatic duct proximal to the ampulla likely corresponds to a known pancreatic duct stent. The pancreatic duct in the region of the pancreatic head at the major papilla measures up to 7 mm in diameter. The distal pancreatic duct is somewhat irregular and measures up to 4 mm in diameter. Pancreas divisum is not ed, and the stent is located within the minor papilla. A round filling defect within the pancreatic duct in the pancreatic head above the major papilla (high- resolution coronal image #65) may represent an intraductal stone. The pancreatic duct extends to a collection adjacent the pancreatic tail. The unenhanced liver, spleen, adrenal glands, and kidneys are grossly unremarkable. The pancreas is heterogeneous. Only mild inflammatory change is seen around the distal pancreas. A fluid collection in the region of the pancreatic tail measures approximately 5.5 x 4 cm and likely represents a pseudo cyst. There are left larger than right pleural effusions with associated atelectasis. Trace fluid is noted in the left paracolic gutter. A smaller organized fluid collection is also seen in the left upper quadrant on image #13 measuring 3.7 x 1.9 cm. This is located just inferior to the spleen. IMPRESSION: 1. No gallstones are identified. There is no intra or extrahepatic biliary ductal dilatation. 2. Pancreas divisum is noted. 3. A pancreatic stent is in place, entering via the minor papilla. 4. There is an ovoid filling defect identified within the pancreatic duct in the pancreatic head region just above the major papilla. This likely represents a ductal calculus. 5. Findings suggest mild acute pancreatitis. 6. There is a large fluid collection again seen within/adjacent to the p ancreatic tail. This likely represents a pseudocyst. The sterility of the collection cannot be assessed by MRI. 7. An additional complex collection is seen in the left upper quadrant. Again, likely representing a pseudocyst the sterility of which cannot be assessed. 8. Left larger than right pleural effusions. 9. Additional findings as above.
[2018-11-16 08:12] LABS: Hematocrit (blood only) 32.6 % (42-52); Hemoglobin 11.3 g/dL (14.0-18.0); Mean Corpuscular Hgb Conc 34.7 g/dL (32-36); Mean Corpuscular Volume 94.2 fL (80-100); Mean Platelet Volume 9.9 fL (7.4-10.4); Platelet Count 580 K/uL (130-400); RDW Coefficient of Variation 13.3 % (11.5-14.5); RDW Standard Deviation 45.7 fL (36.4-46.3); Red Blood Count 3.46 M/uL (4.7-6.1); White Blood Count 21.84 K/uL (4.8-10.8)
[2018-11-16 08:34] LABS: Basophils # (auto) 0.09 K/uL (0-0.2); Basophils % (auto) 0.4 %; Eosinophils # (auto) 0.06 K/uL (0-0.5); Eosinophils % (auto) 0.3 %; Immature Granulocytes # (auto) 0.66 K/uL (0.00-0.02); Lymphocytes # (auto) 1.57 K/uL (1.2-3.4); Lymphocytes % (auto) 7.2 %; Monocytes # (auto) 2.44 K/uL (0.11-0.59); Monocytes % (auto) 11.2 %; Neutrophils # (auto) 17.02 K/uL (1.4-6.5); Neutrophils % (auto) 77.9 %
[2018-11-16 08:48] LABS: Albumin Level 2.3 gm/dl (3.4-5.0); Calcium 8.7 mg/dl (8.5-10.1); Creatinine Clr Calc Pharmacy 98.6 ml/min; Est GFR (African American) 120.7; Est GFR (Non-African American) 104.2; Magnesium 1.3 mg/dl (1.8-2.4); Potassium 3.2 mmol/L (3.5-5.1)
[2018-11-16 08:51] LABS: Albumin Globulin Ratio 0.7 (0.9-2); Bilirubin,Total 0.7 mg/dl (0.2-1); Globulin 3.5 gm/dl (2.5-4.0); Phosphorus 2.4 mg/dl (2.5-4.9); Total Protein 5.8 gm/dl (6.4-8.2)
--- NOTE | 2018-11-16 14:22 | Hospitalist Progress Note ---
Date of Service November 16, 2018 Assessment & Plan (1) Acute on chronic pancreatitis: Etiology of pancreatitis appears multifactorial with history of alcohol abuse, pancreas divisum and pancreatic duct stones - currently episode likely triggered by relapse of alcohol use. New fluid collection on CT. - IVF with NSS with 20 mEq of KCl at 150 ml/hr - Strict NPO on admission - Consult GI for additional recommendations - it appears that pt was supposed to be scheduled for a repeat ERCP on 11/22 but cancelled. - Pain control with IV morphine -Clinically little better with ongoing pain -GI is not planning to do any ERCP for now -We will continue n.p.o. and intravenous fluids -Has been started on clears orally and advanced to full liquid this morning -Denies any significant abdominal pain today -We will advance diet as tolerated, decrease intravenous fluid and increase ambulation Possible cholangitis/intra-abdominal collection with abscess formation With history of fever and chills but white count remains normal Await blood cultures-have been negative Continue current antibiotic with cefepime and Flagyl Noted to have high white count with increasing neutrophil Repeat CT of the abdomen and pelvis did show possible intra-abdominal fluid collection with abscess formation MRI of the abdomen did not show any significant findings except the fluid collection has noted in CT Appreciate GI input and recommendation We will continue current antibiotic (2) ETOH abuse: Pt is unclear on his last alcoholic drink was -initially he stated that it was two weeks ago but then admitted it may have been more recently - Monitor for S/S of alcohol withdrawal - Ativan prn symptoms of withdrawal -No signs and/or symptoms of withdrawal (3) Depression: Pt has been taking his Zoloft intermittently - will hold while NPO then restart. Will need to discuss importance of compliance GI prophylaxis With famotidine DVT prophylaxis Subcu heparin CODE STATUS Full Subjective 11/14 The patient is seen and examined in telemetry unit He was admitted with abdominal pain and fever since yesterday History of pancreatic stent Complains abdominal pain with radiation to back without any nausea Denies any chest pain in the palpitation Has a fever of 38.3 C this morning 11/15 The patient was seen and examined in telemetry unit He remains generally weak and complains to have some left upper quadrant/epigastric pain No nausea no vomiting and no more fever and/or chills Has tremor with outstretched hands 11/16 The patient was seen and examined in telemetry unit He has been a little bit better today Complaint history of some epigastric pain Has been passing a lot of urine Denies any nausea and/or vomiting Review of Systems Review of Systems: All systems reviewed and are unremarkable except as noted below Constitutional: + fatigue; no sweats and no anorexia Eyes: + discharge; no blind spots, no diplopia, no eye pain and no photophobia Gastrointestinal: + abdominal pain (Gross to the back) and + nausea; no vomiting Musculoskeletal: + back pain (radiates from abdominal pain); no neck pain and no muscle weakness Neurologic: + unsteadiness and + tremor(s) (Bilateral acute distress and tremor is improved); no syncope and no headache(s) Psychiatric: + depression (inconsistently taking meds) Physical Exam Physical Exam: Lying in bed without significant discomfort Constitutional: well developed and well nourished; no acute distress, not ill appearing and no altered mental status ENMT: external ear and nose normal, oropharynx normal Neck: trachea midline Respiratory: normal respiratory effort; no respiratory distress Auscultation: lungs clear to auscultation bilaterally; no rales, no rhonchi and no wheezes Cardiovascular: Rate/Rhythm: regular rate and regular rhythm Heart Sounds: no gallop, no murmur and no cardiac rub Extremities: normal capillary refill; no calf tenderness and no pedal edema Gastrointestinal (Abdomen): Inspection/Auscultation: normal bowel sounds Percussion/Palpation: + abdomen tender (Minimal tenderness in the epigastrium) and abdomen soft Musculoskeletal: Head/Neck/Chest: normocephalic, head atraumatic and neck supple Extremities: no cyanosis and no clubbing Skin: no rashes and no jaundice Neurologic: moves all extremities; no focal motor deficits Speech / Cognition: normal speech Motor/Sensory: + tremor (bilateral UE) Psychiatric: A+Ox3, euthymic affect Insight: + limited insight Lymphatic: no cervical or axillary lymphadenopathy Results & Data Vital Signs (Past 12 Hours) Vital Signs Temp Pulse Resp BP Pulse Ox 11/16/18 11:15 37.5 C 73 20 144/71 H 93 11/16/18 07:51 37.9 C H 87 20 155/84 H 93 11/16/18 04:23 38.2 C H 81 16 156/71 H 92 Laboratory Results Short CBC 11/16/18 Range/Units 07:45 WBC 21.84 H (4.8-10.8) K/uL Hgb 11.3 L (14.0-18.0) g/dL Hct 32.6 L (42-52) % Plt Count 580 H (130-400) K/uL BMP 11/16/18 07:45 Sodium 133 L Potassium 3.2 L Chloride 96 L Carbon Dioxide 30 BUN 4 L Creatinine 0.71 Glucose 92 Calcium 8.7 Liver Function 11/16/18 Range/Units 07:45 Total Bilirubin 0.7 (0.2-1) mg/dl AST 17 (15-37) U/L ALT 19 (12-78) U/L Alkaline Phosphatase 114 (45-117) U/L Albumin 2.3 L (3.4-5.0) gm/dl Medications Administered Current Inpatient Medications Artificial Tears (Artificial Tears) 2 drops OP Q2R PRN PRN Reason: Dryness Stop: 12/13/18 15:37 Heparin Sodium (Porcine) (Heparin Sodium (Porcine)) 5,000 units SQ Q12 [facility], 1928[facility]1983 Stop: 12/14/18 20:59 Last Admin: 11/16/18 07:55 Dose: 5,000 units Documented by: Folic Acid 1 mg/ Syringe 10 mls @ 5 mls/min IV QAM [facility], [facility]1983 Stop: 12/14/18 08:59 Last Admin: 11/16/18 07:45 Dose: 5 mls/min Documented by: Metronidazole (Flagyl) 500 mg in 100 mls @ 100 mls/hr IV Q8H [facility], [facility]1983 Stop: 11/23/18 15:59 Last Infusion: 11/16/18 09:59 Dose: Infused Documented by: Famotidine 20 mg/ Syringe 5 mls @ 2.5 mls/min IV BID [facility], [facility]1983 Stop: 12/13/18 20:59 Last Admin: 11/16/18 08:02 Dose: 2.5 mls/min Documented by: Thiamine HCl 100 mg/ Syringe 10 mls @ 2 mls/min IV QAM [facility], [facility]1983 Stop: 12/13/18 15:44 Last Admin: 11/16/18 08:04 Dose: 2 mls/min Documented by: Cefepime HCl 2,000 mg/ Syringe 20 mls @ 5 mls/min IV Q8H [facility], [facility]1983; Protocol Stop: 11/23/18 15:59 Last Admin: 11/16/18 07:39 Dose: 5 mls/min Documented by: Lorazepam (Ativan) 1.5 mg in 3 mls @ 3 mls/min IV Q2H PRN PRN Reason: Alcohol Withdrawal Stop: 12/13/18 20:20 Last Admin: 11/14/18 22:22 Dose: 3 mls/min Documented by: Acetaminophen (Ofirmev) 65 mls @ 200 mls/hr IV Q6H PRN PRN Reason: Pain or Fever Stop: 12/13/18 21:44 Last Infusion: 11/15/18 01:47 Dose: Infused Documented by: Lactated Ringer's (Lr) 1,000 mls @ 100 mls/hr IV .Q10H TAYO Stop: 12/13/18 21:44 Last Admin: 11/16/18 13:56 Dose: 100 mls/hr Documented by: Ioversol (Optiray 320 100ml) 94 ml IV ONCE PRN PRN Reason: Interaction Checking Stop: 11/17/18 10:51 Lorazepam (Ativan) 1 mg PO ONE PRN; Protocol PRN Reason: EtoH Withdrawal AWSS 6-10 Miscellaneous Information (Cefepime Consult Active) 1 ea N/A UD PRN PRN Reason: Consult Stop: 12/13/18 15:44 Morphine Sulfate (Morphine Sulfate) 2 mg IV Q3H PRN PRN Reason: Pain Stop: 11/27/18 13:12 Last Admin: 11/16/18 13:56 Dose: 2 mg Documented by: Ondansetron HCl (Zofran) 4 mg IV Q6H PRN PRN Reason: Nausea Stop: 12/13/18 15:53 Last Admin: 11/13/18 20:11 Dose: 4 mg Documented by:
[2018-11-16] MEDS ORDERED: POTASSIUM PHOS 3 MMOL/1 ML INFUSION IV STA (14:23)
[2018-11-16] MEDS ORDERED: POTASSIUM PHOSPHATE 30 MMOL in SODIUM CHLORIDE 0.9% 500 ML IV ONE (15:00)
[2018-11-16] MEDS: MAGNESIUM SULFATE / D5W 1 GM/100 ML BAG IV SCH ×2 (15:31→16:39)
[2018-11-17] MEDS: MoRPHine SULFATE 2 MG/ML CARP IV PRN ×2 (03:55→07:48)
[2018-11-17] MEDS: LACTATED RINGER'S 1,000 ML IV SCH (05:22)
[2018-11-17] MEDS: THIAMINE HCL 100 MG in SYRINGE 9 ML IV SCH (07:47)
[2018-11-17] MEDS: CEFEPIME 2,000 MG in SYRINGE 7.5 ML IV SCH ×2 (07:47→15:36)
[2018-11-17] MEDS: FOLIC ACID 1 MG in SYRINGE 9.8 ML IV SCH (07:47)
[2018-11-17] MEDS: HEPARIN SOD 5,000 UNIT/0.5 ML VIAL SQ SCH ×3 (07:47→20:41)
[2018-11-17] MEDS: metroNIDAZOLE 500 MG/100 ML BAG IV SCH ×3 (07:48→23:40)
[2018-11-17] MEDS: FAMOTIDINE 20 MG in SYRINGE 3 ML IV SCH ×2 (07:48→20:40)
[2018-11-17 08:10] LABS: Hematocrit (blood only) 31.5 % (42-52); Hemoglobin 11.1 g/dL (14.0-18.0); Mean Corpuscular Hgb Conc 35.2 g/dL (32-36); Mean Corpuscular Volume 94.9 fL (80-100); Mean Platelet Volume 9.6 fL (7.4-10.4); Platelet Count 661 K/uL (130-400); RDW Coefficient of Variation 13.3 % (11.5-14.5); Red Blood Count 3.32 M/uL (4.7-6.1); White Blood Count 20.24 K/uL (4.8-10.8)
[2018-11-17 08:39] LABS: BUN Creatinine Ratio 6.1 (10-20); Calcium 8.3 mg/dl (8.5-10.1); Creatinine Clr Calc Pharmacy 94.9 ml/min; Est GFR (African American) 119.3; Magnesium 1.5 mg/dl (1.8-2.4); Phosphorus 2.9 mg/dl (2.5-4.9); Potassium 3.6 mmol/L (3.5-5.1)
[2018-11-17 08:44] LABS: Basophils # (auto) 0.06 K/uL (0-0.2); Basophils % (auto) 0.3 %; Eosinophils # (auto) 0.15 K/uL (0-0.5); Eosinophils % (auto) 0.7 %; Immature Granulocytes # (auto) 1.04 K/uL (0.00-0.02); Immature Granulocytes % (auto) 5.1 %; Lymphocytes # (auto) 2.31 K/uL (1.2-3.4); Lymphocytes % (auto) 11.4 %; Monocytes # (auto) 2.13 K/uL (0.11-0.59); Monocytes % (auto) 10.5 %; Neutrophils # (auto) 14.55 K/uL (1.4-6.5); Toxic Granulation 1+
--- NOTE | 2018-11-17 11:24 | Gastroenterology Progress Note ---
Date of Service November 17, 2018 Assessment & Plan (1) Acute on chronic pancreatitis: Patient with a history of chronic pancreatitis having an exacerbation. The patient has a number of fluid collections and given the persistent elevation of his white blood cell count I would wonder about underlying infection of the pancreatic cysts. Given this I think it may be beneficial to have the patient referred to a tertiary center where interventions on the cyst could be performed. Recommendations Continue broad-spectrum antibiotic coverage Clear liquid diet Referral to tertiary center to consider Axious stent drainage of the dominant pancreatic cyst Subjective Patient notes having persistent discomfort, it is improved as compared to prior to admission. Review of Systems Constitutional: no sweats Ear, Nose, Mouth, Throat: no dental pain Respiratory: no change in sputum and no hemoptysis Cardiovascular: no chest pain with activity Gastrointestinal: + abdominal pain, + bloating and + nausea; no hematemesis and no cramping Physical Exam Constitutional: WD/WN, vitals as above Eyes: PERRL, conjunctivae normal, anicteric sclerae Neck: trachea midline, no thyromegaly Respiratory: normal respiratory effort; no respiratory distress Cardiovascular: Rate/Rhythm: regular rate Gastrointestinal (Abdomen): Percussion/Palpation: + abdomen tender Patient with tenderness localizing to the mid epigastric region and left abdomen Results & Data Vital Signs (Past 12 Hours) Vital Signs Temp Pulse Resp BP BP Pulse Ox 11/17/18 07:13 37.1 C 76 20 153/87 H 96 11/17/18 07:00 37.0 C 72 16 145/81 H 94 11/17/18 02:56 37.5 C 65 16 131/80 94 Laboratory Results Laboratory Results - last 24 hr 11/17/18 11/17/18 07:53 07:53 WBC 20.24 H RBC 3.32 L Hgb 11.1 L Hct 31.5 L MCV 94.9 MCH 33.4 MCHC 35.2 RDW Std Deviation 46.0 RDW Coeff of Ashvin 13.3 Plt Count 661 H MPV 9.6 Immature Gran % (Auto) 5.1 Neut % (Auto) 72.0 Lymph % (Auto) 11.4 [place] % (Auto) 10.5 Eos % (Auto) 0.7 Baso % (Auto) 0.3 Immature Gran # (Auto) 1.04 H Neut # (Auto) 14.55 H Lymph # (Auto) 2.31 [place] # (Auto) 2.13 H Eos # (Auto) 0.15 Baso # (Auto) 0.06 Toxic Granulation 1+ Sodium 133 L Potassium 3.6 Chloride 95 L Carbon Dioxide 30 Anion Gap 8.0 BUN 5 L Creatinine 0.73 Est Cr Clr Drug Dosing 94.9 Est GFR ( Amer) 119.3 Est GFR (Non-Af Amer) 103.0 BUN/Creatinine Ratio 6.1 L Glucose 115 H Calcium 8.3 L Phosphorus 2.9 Magnesium 1.5 L Diagnostic Findings MRCP CLINICAL HISTORY: Pancreatitis. Pancreatic stent. Generalized abdominal pain. COMPARISON STUDY: Abdominal CT dated 11/15/2018. MRCP dated 09/16/2012. TECHNIQUE: Abdominal MRCP is performed utilizing various T2-weighted sequences in the axial and coronal planes. IV contrast was not administered for this examination. 3-D reformats are created and assessed. FINDINGS: The gallbladder is distended. No gallstones are identified, and there is no gallbladder wall thickening or pericholecystic inflammation. The common bile duct is normal in caliber, measuring up to 4 mm in diameter. There are no filling defects to indicate choledocholithiasis. A filling defect within the pancreatic duct proximal to the ampulla likely corresponds to a known pancreatic duct stent. The pancreatic duct in the region of the pancreatic head at the major papilla measures up to 7 mm in diameter. The distal pancreatic duct is somewhat irregular and measures up to 4 mm in diameter. Pancreas divisum is noted, and the stent is located within the minor papilla. A round filling defect within the pancreatic duct in the pancreatic head above the major papilla (high- resolution coronal image #65) may represent an intraductal stone. The pancreatic duct extends to a collection adjacent the pancreatic tail. The unenhanced liver, spleen, adrenal glands, and kidneys are grossly unremarkable. The pancreas is heterogeneous. Only mild inflammatory change is seen around the distal pancreas. A fluid collection in the region of the pancreatic tail measures approximately 5.5 x 4 cm and likely represents a pseudocyst. There are left larger than right pleural effusions with associated atelectasis. Trace fluid is noted in the left paracolic gutter. A smaller organized fluid collection is also seen in the left upper quadrant on image #13 measuring 3.7 x 1.9 cm. This is located just inferior to the spleen. IMPRESSION: 1. No gallstones are identified. There is no intra or extrahepatic biliary ductal dilatation. 2. Pancreas divisum is noted. 3. A pancreatic stent is in place, entering via the minor papilla. 4. There is an ovoid filling defect identified within the pancreatic duct in the pancreatic head region just above the major papilla. This likely represents a ductal calculus. 5. Findings suggest mild acute pancreatitis. 6. There is a large fluid collection again seen within/adjacent to the pancreatic tail. This likely represents a pseudocyst. The sterility of the collection cannot be assessed by MRI. 7. An additional complex collection is seen in the left upper quadrant. Again, likely representing a pseudocyst the sterility of which cannot be assessed. 8. Left larger than right pleural effusions. 9. Additional findings as above.
--- NOTE | 2018-11-17 11:51 | Hospitalist Progress Note ---
Date of Service November 17, 2018 Assessment & Plan (1) Acute on chronic pancreatitis: Etiology of pancreatitis appears multifactorial with history of alcohol abuse, pancreas divisum and pancreatic duct stones - currently episode likely triggered by relapse of alcohol use. New fluid collection on CT. - IVF with NSS with 20 mEq of KCl at 150 ml/hr - Strict NPO on admission - Consult GI for additional recommendations - it appears that pt was supposed to be scheduled for a repeat ERCP on 11/22 but cancelled. - Pain control with IV morphine -Clinically little better with ongoing pain -GI is not planning to do any ERCP for now -We will continue n.p.o. and intravenous fluids -Has been started on clears orally and advanced to full liquid this morning -Denies any significant abdominal pain today -We will advance diet as tolerated, decrease intravenous fluid and increase ambulation -Abdominal pain is better without any nausea and/or vomiting -Tolerating clears and advance diet as tolerated Possible cholangitis/intra-abdominal collection with abscess formation With history of fever and chills but white count remains normal Await blood cultures-have been negative Continue current antibiotic with cefepime and Flagyl Noted to have high white count with increasing neutrophil Repeat CT of the abdomen and pelvis did show possible intra-abdominal fluid collection with abscess formation MRI of the abdomen did not show any significant findings except the fluid collection has noted in CT GI recommended that the patient should be transferred to a tertiary care center for drainage of the intra-abdominal fluid collection/abscess Discussed with the patient in detail and explained the proposed intervention He is very anxious and has been crying since knowing that he may have to be transferred He wants to wait till tomorrow morning and 1 to have a repeat scan to see if the collection has been improving or not We will continue current antibiotic (2) ETOH abuse: Pt is unclear on his last alcoholic drink was -initially he stated that it was two weeks ago but then admitted it may have been more recently - Monitor for S/S of alcohol withdrawal - Ativan prn symptoms of withdrawal -No signs and/or symptoms of withdrawal (3) Depression: Pt has been taking his Zoloft intermittently - will hold while NPO then restart. Will need to discuss importance of compliance GI prophylaxis With famotidine DVT prophylaxis Subcu heparin CODE STATUS Full Discussed with him in presence of the nurse in detail Subjective 11/14 The patient is seen and examined in telemetry unit He was admitted with abdominal pain and fever since yesterday History of pancreatic stent Complains abdominal pain with radiation to back without any nausea Denies any chest pain in the palpitation Has a fever of 38.3 C this morning 11/15 The patient was seen and examined in telemetry unit He remains generally weak and complains to have some left upper quadrant/epigastric pain No nausea no vomiting and no more fever and/or chills Has tremor with outstretched hands 11/16 The patient was seen and examined in telemetry unit He has been a little bit better today Complaint history of some epigastric pain Has been passing a lot of urine Denies any nausea and/or vomiting 11/17 Patient was seen and examined in telemetry unit He has been feeling little better with less pain than left upper quadrant without any nausea and vomiting Tolerating clears orally Denies any fever and/or chills He is worried that he may to be transferred to tertiary care center and wants to wait till tomorrow Review of Systems Review of Systems: All systems reviewed and are unremarkable except as noted below Constitutional: + fatigue; no sweats and no anorexia Gastrointestinal: + abdominal pain (Gross to the back) and + nausea; no vomiting Musculoskeletal: + back pain (radiates from abdominal pain); no neck pain and no muscle weakness Neurologic: + unsteadiness and + tremor(s) (Bilateral acute distress and tremor is improved); no syncope and no headache(s) Psychiatric: + depression (inconsistently taking meds) Physical Exam Physical Exam: Has been lying in bed with anxiety and crying Constitutional: well developed and well nourished; no acute distress, not ill appearing and no altered mental status ENMT: external ear and nose normal, oropharynx normal Neck: trachea midline Respiratory: normal respiratory effort; no respiratory distress Auscultation: lungs clear to auscultation bilaterally; no rales, no rhonchi and no wheezes Cardiovascular: Rate/Rhythm: regular rate and regular rhythm Heart Sounds: no gallop, no murmur and no cardiac rub Extremities: normal capillary refill; no calf tenderness and no pedal edema Gastrointestinal (Abdomen): Inspection/Auscultation: normal bowel sounds Percussion/Palpation: + abdomen tender (Minimal tenderness in the epigastrium) and abdomen soft Musculoskeletal: Head/Neck/Chest: normocephalic, head atraumatic and neck supple Extremities: no cyanosis and no clubbing Skin: no rashes and no jaundice Neurologic: moves all extremities; no focal motor deficits Speech / Cognition: normal speech Motor/Sensory: + tremor (bilateral UE) Psychiatric: A+Ox3, euthymic affect Insight: + limited insight Lymphatic: no cervical or axillary lymphadenopathy Results & Data Vital Signs (Past 12 Hours) Vital Signs Temp Pulse Pulse Resp BP BP Pulse Ox 11/17/18 11:32 37.3 C 65 16 149/80 H 95 11/17/18 07:13 37.1 C 76 20 153/87 H 96 11/17/18 07:00 37.0 C 72 16 145/81 H 94 11/17/18 02:56 37.5 C 65 16 131/80 94 Laboratory Results Short CBC 11/17/18 Range/Units 07:53 WBC 20.24 H (4.8-10.8) K/uL Hgb 11.1 L (14.0-18.0) g/dL Hct 31.5 L (42-52) % Plt Count 661 H (130-400) K/uL BMP 11/17/18 07:53 Sodium 133 L Potassium 3.6 Chloride 95 L Carbon Dioxide 30 BUN 5 L Creatinine 0.73 Glucose 115 H Calcium 8.3 L Medications Administered Current Inpatient Medications Artificial Tears (Artificial Tears) 2 drops OP Q2R PRN PRN Reason: Dryness Stop: 12/13/18 15:37 Heparin Sodium (Porcine) (Heparin Sodium (Porcine)) 5,000 units SQ Q12 TAYO Stop: 12/14/18 20:59 Last Admin: 11/17/18 08:06 Dose: Not Given Documented by: Folic Acid 1 mg/ Syringe 10 mls @ 5 mls/min IV QAM TAYO Stop: 12/14/18 08:59 Last Admin: 11/17/18 07:47 Dose: 5 mls/min Documented by: Metronidazole (Flagyl) 500 mg in 100 mls @ 100 mls/hr IV Q8H TAYO Stop: 11/23/18 15:59 Last Infusion: 11/17/18 09:01 Dose: Infused Documented by: Famotidine 20 mg/ Syringe 5 mls @ 2.5 mls/min IV BID TAYO Stop: 12/13/18 20:59 Last Admin: 11/17/18 07:48 Dose: 2.5 mls/min Documented by: Thiamine HCl 100 mg/ Syringe 10 mls @ 2 mls/min IV QAM TAYO Stop: 12/13/18 15:44 Last Admin: 11/17/18 07:47 Dose: 2 mls/min Documented by: Cefepime HCl 2,000 mg/ Syringe 20 mls @ 5 mls/min IV Q8H TAYO; Protocol Stop: 11/23/18 15:59 Last Admin: 11/17/18 07:47 Dose: 5 mls/min Documented by: Lorazepam (Ativan) 1.5 mg in 3 mls @ 3 mls/min IV Q2H PRN PRN Reason: Alcohol Withdrawal Stop: 12/13/18 20:20 Last Admin: 11/14/18 22:22 Dose: 3 mls/min Documented by: Acetaminophen (Ofirmev) 65 mls @ 200 mls/hr IV Q6H PRN PRN Reason: Pain or Fever Stop: 12/13/18 21:44 Last Infusion: 11/15/18 01:47 Dose: Infused Documented by: Lactated Ringer's (Lr) 1,000 mls @ 80 mls/hr IV [id number] Stop: 12/13/18 21:44 Last Admin: 11/17/18 05:22 Dose: 80 mls/hr Documented by: Lorazepam (Ativan) 1 mg PO ONE PRN; Protocol PRN Reason: EtoH Withdrawal AWSS 6-10 Miscellaneous Information (Cefepime Consult Active) 1 ea N/A UD PRN PRN Reason: Consult Stop: 12/13/18 15:44 Morphine Sulfate (Morphine Sulfate) 2 mg IV Q3H PRN PRN Reason: Pain Stop: 11/27/18 13:12 Last Admin: 11/17/18 07:48 Dose: 2 mg Documented by: Ondansetron HCl (Zofran) 4 mg IV Q6H PRN PRN Reason: Nausea Stop: 12/13/18 15:53 Last Admin: 11/13/18 20:11 Dose: 4 mg Documented by:
[2018-11-18] MEDS: CEFEPIME 2,000 MG in SYRINGE 7.5 ML IV SCH ×4 (00:23→23:28)
[2018-11-18] MEDS: MoRPHine SULFATE 2 MG/ML CARP IV PRN ×2 (01:23→07:59)
[2018-11-18 07:29] LABS: Hematocrit (blood only) 30.8 % (42-52); Hemoglobin 10.7 g/dL (14.0-18.0); Mean Corpuscular Hgb Conc 34.7 g/dL (32-36); Mean Corpuscular Volume 96.9 fL (80-100); Mean Platelet Volume 9.6 fL (7.4-10.4); Platelet Count 689 K/uL (130-400); RDW Coefficient of Variation 13.3 % (11.5-14.5); RDW Standard Deviation 46.6 fL (36.4-46.3); Red Blood Count 3.18 M/uL (4.7-6.1); White Blood Count 17.41 K/uL (4.8-10.8)
[2018-11-18 08:00] LABS: Basophils # (auto) 0.11 K/uL (0-0.2); Basophils % (auto) 0.6 %; Eosinophils # (auto) 0.15 K/uL (0-0.5); Eosinophils % (auto) 0.9 %; Immature Granulocytes # (auto) 1.14 K/uL (0.00-0.02); Immature Granulocytes % (auto) 6.5 %; Lymphocytes # (auto) 2.01 K/uL (1.2-3.4); Lymphocytes % (auto) 11.5 %; Monocytes # (auto) 2.04 K/uL (0.11-0.59); Monocytes % (auto) 11.7 %; Neutrophils # (auto) 11.96 K/uL (1.4-6.5); Neutrophils % (auto) 68.8 %; Toxic Granulation 1+
[2018-11-18 08:01] LABS: Albumin Level 2.1 gm/dl (3.4-5.0); BUN Creatinine Ratio 7.8 (10-20); Calcium 8.2 mg/dl (8.5-10.1); Creatinine Clr Calc Pharmacy 90.1 ml/min; Est GFR (African American) 116.8; Est GFR (Non-African American) 100.7; Magnesium 1.5 mg/dl (1.8-2.4); Potassium 3.5 mmol/L (3.5-5.1)
[2018-11-18] MEDS: metroNIDAZOLE 500 MG/100 ML BAG IV SCH ×3 (08:01→23:29)
[2018-11-18] MEDS: FOLIC ACID 1 MG in SYRINGE 9.8 ML IV SCH (08:01)
[2018-11-18] MEDS: FAMOTIDINE 20 MG in SYRINGE 3 ML IV SCH ×2 (08:01→21:49)
[2018-11-18 08:03] LABS: Albumin Globulin Ratio 0.6 (0.9-2); Bilirubin,Total 0.5 mg/dl (0.2-1); Globulin 3.6 gm/dl (2.5-4.0); Phosphorus 2.4 mg/dl (2.5-4.9); Total Protein 5.7 gm/dl (6.4-8.2)
[2018-11-18] MEDS: HEPARIN SOD 5,000 UNIT/0.5 ML VIAL SQ SCH ×3 (08:11→21:48)
[2018-11-18] MEDS: THIAMINE HCL 100 MG in SYRINGE 9 ML IV SCH (09:42)
[2018-11-18] MEDS ORDERED: INDOMETHACIN 50 MG SUPP PR ONE ×2 (11:22→16:41)
[2018-11-18] MEDS ORDERED: METOCLOPRAMIDE HCL INJ 5 MG/ML 2 ML VIAL IV ONE (11:23)
--- NOTE | 2018-11-18 11:43 | Gastroenterology Progress Note ---
Date of Service November 18, 2018 Assessment & Plan (1) Acute on chronic pancreatitis: Pt is a 58 y/o male w ongoing ETOH abuse, admitted w recurrent pancreatitis. Hx of pancreatic duct stone, pseudocysts development. He is s/p pancreatic stent placement back in September. We reviewed pt's imaging studies again - pancreatic cyst not mature (not walled off). Thus he would be unable to undergo Axios stent placement. Cyst may take 2- 4 weeks to mature. We plan to perform ERCP today w pancreatic stent exchange. - Keep NPO. - ERCP by Dr. Dewitt in OR this afternooon. Send Indomethacin 100mg MS x 1 dose to OR to be given pre ERCP - Continue IVF and IV antibx - GI will give further recs after ERCP is completed. (2) ETOH abuse: Supervising Physician Co-Signing Physician Notes I performed a history and physical examination of the patient, including specifically on physical exam - soft, nontender abdomen. I have discussed the patient's management with Suzette. Please refer to the nurse practitioner's note for the documented findings and plan of care. I reviewed the images with radiology, the cyst is no walled off yet hence he is not a candidate for Axios drainage, I discussed with our advanced endoscopy at [facility] [place], [place] and they agree. Need to repeat CT scan in 2 weeks to check maturation of the cyst wall. The collection may have some communication with his PD hence will try tanspapillary drainage with ERCP today. Subjective Pt reports persistent upper abd pain but improved w current analgesics. He denies any n/v. Tolerated solid meals. He is moving his bowels. Review of Systems Review of Systems: All systems reviewed & are unremarkable except as noted in HPI & below Physical Exam Constitutional: WD/WN, vitals as above well groomed, cooperative and comfortable Eyes: PERRL, conjunctivae normal, anicteric sclerae ENMT: external ear and nose normal, oropharynx normal Respiratory: normal respiratory effort, lungs clear to auscultation Cardiovascular: RRR, no murmur, no edema Gastrointestinal (Abdomen): Inspection/Auscultation: normal bowel sounds Percussion/Palpation: + abdomen tender (RUQ area ) and abdomen soft Skin: no rashes, warm and dry no jaundice Neurologic: Motor/Sensory: no asterixis Psychiatric: A+Ox3, euthymic affect Lymphatic: no lymphedema Results & Data Vital Signs (Past 12 Hours) Vital Signs Temp Pulse Resp BP BP Pulse Ox 11/18/18 08:31 36.9 C 91 H 21 94/60 L 93 11/18/18 04:43 37.1 C 59 L 14 152/71 H 95 11/18/18 00:09 37.1 C 53 L 16 152/87 H 98
--- NOTE | 2018-11-18 14:01 | Anesthesiology Consultation ---
Date of Service November 18, 2018 Assessment & Plan (1) Encounter for pre-operative examination: (2) Encounter for pre-operative examination: History Surgery Operation Date: 11/18/18 12:10 Proposed Procedures p Endoscopic Retrograde Cholangiopancreatogram - Carmen Dewitt MD Height/Weight Height: 5 ft 8 in Weight: 60.2 kg Allergies Allergy/AdvReac Type Severity Reaction Status Date / Time No Known Allergies Allergy Verified 11/13/18 09:15 Medications Home Medications Medication Instructions Recorded Confirmed Last Taken sertraline [Zoloft] 75 mg PO DAILY 10/24/18 11/13/18 Unknown cyclobenzaprine 0 mg PO UNKNOWN 11/13/18 11/13/18 Unknown trazodone 0 mg PO UNKNOWN 11/13/18 11/13/18 Unknown Active Medications Generic Name Dose Route Start Last Admin Trade Name Freq PRN Reason Stop Dose Admin Heparin Sodium (Porcine) 5,000 units 11/14/18 21:00 11/18/18 08:11 Heparin Sodium (Porcine) SQ 12/14/18 20:59 Not Given Q12 TAYO Folic Acid 1 mg/ Syringe 10 mls @ 5 mls/min 11/14/18 09:00 11/18/18 08:01 IV 12/14/18 08:59 5 mls/min QAM TAYO Administration Metronidazole 500 mg in 100 mls @ 100 mls/hr 11/13/18 16:00 11/18/18 09:03 Flagyl IV 11/23/18 15:59 Infused Q8H TAYO Infusion Famotidine 20 mg/ Syringe 5 mls @ 2.5 mls/min 11/13/18 21:00 11/18/18 08:01 IV 12/13/18 20:59 2.5 mls/min BID TAYO Administration Thiamine HCl 100 mg/ Syringe 10 mls @ 2 mls/min 11/13/18 15:45 11/18/18 09:42 IV 12/13/18 15:44 2 mls/min QAM TAYO Administration Cefepime HCl 2,000 mg/ Syringe 20 mls @ 5 mls/min 11/13/18 16:00 11/18/18 08:00 IV 11/23/18 15:59 5 mls/min Q8H TAYO Administration Protocol Lorazepam 1.5 mg in 3 mls @ 3 mls/min 11/13/18 20:21 11/14/18 22:22 Ativan IV 12/13/18 20:20 3 mls/min Q2H PRN Administration Alcohol Withdrawal Acetaminophen 65 mls @ 200 mls/hr 11/13/18 21:45 11/15/18 01:47 Ofirmev IV 12/13/18 21:44 Infused Q6H PRN Infusion Pain or Fever Morphine Sulfate 2 mg 11/13/18 13:13 11/18/18 07:59 Morphine Sulfate IV 11/27/18 13:12 2 mg Q3H PRN Administration Pain Ondansetron HCl 4 mg 11/13/18 15:54 11/13/18 20:11 Zofran IV 12/13/18 15:53 4 mg Q6H PRN Administration Nausea Past Medical History Medical History Splenic vein thrombosis Alcoholic cirrhosis (09/15/12) Gastric varices without bleeding no evidence of varices on 07/2018 EGD Recurrent pancreatitis ETOH abuse 3-4 beers daily* Anemia Anxiety Asthma "childhood" Depression Stomach ulcer non-bleeding Past Family History Family History Other No pertinent family history in first degree relatives Past Surgical History Surgical History H/O eye surgery "FIBER" REMOVAL History of ERCP 09/13/18: ERCP: Grade 2 view, MAC#3, ETT 7.5 at [facility] History of colonoscopy History of tonsillectomy Social History Smoking Status: Never smoker tobacco type: smokeless tobacco Smoking cigarettes per day: QUIT SMOKING "YEARS AGO" Do You Dip or Chew Tobacco: Yes Hx Alcohol Use: Yes Alcohol type: beer alcohol intake frequency: 3 or more drinks per day Alcohol Intake Frequency Comment: Admits to 4-5 beers/day for many years. Stated he has not had any in 2wks Hx Substance Use: No substance use type: does not use Physical Exam Vital Signs Last Vital Signs Temp 37.0 C 11/18/18 11:37 Pulse 54 L 11/18/18 11:37 Resp 18 11/18/18 11:37 BP 155/82 H 11/18/18 11:37 Pulse Ox 99 11/18/18 11:37 Testing Laboratory Results 11/18/18 07:09 11/18/18 07:09 PT 11.5 Seconds (9.0-12.0) 11/14/18 06:09 INR 1.1 (0.9-1.1) 11/14/18 06:09 Hemoglobin A1c 5.7 % (4.5-5.6) H 11/14/18 06:09 Urine Color Yellow 11/14/18 03:25 Urine Appearance Clear (Clear) 11/14/18 03:25 Urine pH 6.5 (4.5-7.5) 11/14/18 03:25 Ur Specific [place] 1.017 (1.000-1.030) 11/14/18 03:25 Urine Protein Negative (Negative) 11/14/18 03:25 Urine Glucose (UA) Negative (Negative) 11/14/18 03:25 Urine Ketones Negative (Negative) 11/14/18 03:25 Urine Nitrite Negative (Negative) 11/14/18 03:25 Ur Leukocyte Esterase Negative (Negative) 11/14/18 03:25 Urine WBC (Auto) 1-5 /hpf (0-5) 11/14/18 03:25 Urine RBC (Auto) 0-4 /hpf (0-4) 11/14/18 03:25 U Hyaline Cast (Auto) 0 /lpf (0-5) 11/14/18 03:25 U Epithel Cells (Auto) 20-30 /lpf (0-5) H 11/14/18 03:25 Urine Bacteria (Auto) Negative (Negative) 11/14/18 03:25 11/13/18 16:16 Aerobic Blood Culture - Preliminary Blood No growth in Aerobic bottle after 48 hours. Anaerobic Blood Culture - Preliminary No growth in Anaerobic bottle after 48 hours. 11/13/18 16:06 Aerobic Blood Culture - Preliminary Blood No growth in Aerobic bottle after 48 hours. Anaerobic Blood Culture - Preliminary No growth in Anaerobic bottle after 48 hours. Electrocardiogram Date: 07/18/18 Sinus rhythm with occasional Premature ventricular complexes Otherwise normal ECG When compared with ECG of 12-JUN-2018 12:18, Premature ventricular complexes are now Present Confirmed by Venancio Costello ([id number]) on 07/20/2018 6:21:11 AM Chest X-Ray Date: 09/04/19 IMPRESSION: 1. Questionable trace left pleural effusion. Otherwise no acute cardiopulmonary disease.
[2018-11-18] MEDS ORDERED: PHENYLEPHRINE 100MCG/ML 5ML SYR IV PRN (16:22)
[2018-11-18] MEDS ORDERED: LABETALOL HCL IV 5 MG/ML 20ML IV PRN (16:22)
[2018-11-18] MEDS ORDERED: ATROPINE SULFATE 0.1 MG/ML 10ML SYR IV PRN (16:22)
[2018-11-18] MEDS ORDERED: ONDANSETRON INJ 2 MG/ML 2 ML VIAL IV PRN (16:22)
[2018-11-18] MEDS ORDERED: ePHEDrine sulfate 50 MG/ML AMP IV PRN (16:22)
[2018-11-18] MEDS ORDERED: HYDROmorphone INJ 1 MG/ML SYRINGE IV PRN (16:22)
[2018-11-18] MEDS ORDERED: fentaNYL citrate 100 MCG/2 ML VIAL IV PRN (16:22)
[2018-11-18] MEDS ORDERED: LIDOCAINE HCL 2% 2 ML VIAL/AMP(20MG/ML) INFIL ONE (16:28)
[2018-11-18] MEDS ORDERED: PROPOFOL IV EMULSION 10 MG/ML 20 ML VIAL IV ONE (16:28)
[2018-11-18] MEDS ORDERED: fentaNYL citrate 100 MCG/2 ML VIAL ONE ×2 (16:30→18:18)
[2018-11-18] MEDS ORDERED: MIDAZOLAM HCL 1 MG/ML 2ML VIAL ONE (16:30)
--- NOTE | 2018-11-18 16:30 | Anesthesiology Consultation ---
Date of Service November 18, 2018 Assessment & Plan (1) Encounter for pre-operative examination: Chart Review Chart Review: Acceptable Risk for Surgery and Patient NOT seen in Pre Admission Testing Consults Requested none ASA ASA3 Proposed Anesthesia Anesthesia Type: General Risk / Benefits Reviewed With: PT / POA / Parent / Guardian, Accepts Plan and Informed Consent Obtained History Surgery Operation Date: 11/18/18 12:10 Proposed Procedures p Endoscopic Retrograde Cholangiopancreatogram - Carmen Dewitt MD Height/Weight Height: 5 ft 8 in Weight: 60.2 kg Allergies Allergy/AdvReac Type Severity Reaction Status Date / Time No Known Allergies Allergy Verified 11/13/18 09:15 Medications Home Medications Medication Instructions Recorded Confirmed Last Taken sertraline [Zoloft] 75 mg PO DAILY 10/24/18 11/13/18 Unknown cyclobenzaprine 0 mg PO UNKNOWN 11/13/18 11/13/18 Unknown trazodone 0 mg PO UNKNOWN 11/13/18 11/13/18 Unknown Active Medications Generic Name Dose Route Start Last Admin Trade Name Freq PRN Reason Stop Dose Admin Heparin Sodium (Porcine) 5,000 units 11/14/18 21:00 11/18/18 08:11 Heparin Sodium (Porcine) SQ 12/14/18 20:59 Not Given Q12 TAYO Folic Acid 1 mg/ Syringe 10 mls @ 5 mls/min 11/14/18 09:00 11/18/18 08:01 IV 12/14/18 08:59 5 mls/min QAM TAYO Administration Metronidazole 500 mg in 100 mls @ 100 mls/hr 11/13/18 16:00 11/18/18 16:03 Flagyl IV 11/23/18 15:59 100 mls/hr Q8H TAYO Administration Famotidine 20 mg/ Syringe 5 mls @ 2.5 mls/min 11/13/18 21:00 11/18/18 08:01 IV 12/13/18 20:59 2.5 mls/min BID TAYO Administration Thiamine HCl 100 mg/ Syringe 10 mls @ 2 mls/min 11/13/18 15:45 11/18/18 09:42 IV 12/13/18 15:44 2 mls/min QAM TAYO Administration Cefepime HCl 2,000 mg/ Syringe 20 mls @ 5 mls/min 11/13/18 16:00 11/18/18 16:00 IV 11/23/18 15:59 5 mls/min Q8H TAYO Administration Protocol Lorazepam 1.5 mg in 3 mls @ 3 mls/min 11/13/18 20:21 11/14/18 22:22 Ativan IV 12/13/18 20:20 3 mls/min Q2H PRN Administration Alcohol Withdrawal Acetaminophen 65 mls @ 200 mls/hr 11/13/18 21:45 11/15/18 01:47 Ofirmev IV 12/13/18 21:44 Infused Q6H PRN Infusion Pain or Fever Morphine Sulfate 2 mg 11/13/18 13:13 11/18/18 07:59 Morphine Sulfate IV 11/27/18 13:12 2 mg Q3H PRN Administration Pain Ondansetron HCl 4 mg 11/13/18 15:54 11/13/18 20:11 Zofran IV 12/13/18 15:53 4 mg Q6H PRN Administration Nausea NPO Date Last Intake of Fluids: 11/18/18 Time Last Intake of Fluids: 08:00 Date Last Intake of Solids: 11/18/18 Time Last Intake of Solids: 08:00 Past Medical History Medical History Splenic vein thrombosis Alcoholic cirrhosis (09/15/12) Gastric varices without bleeding no evidence of varices on 07/2018 EGD Recurrent pancreatitis ETOH abuse 3-4 beers daily* Anemia Anxiety Asthma "childhood" Depression Stomach ulcer non-bleeding Exercise / Class Metabolic Activity II 4-5 Yardwork/Stairs/Walk up hill Past Family History Family History Other No pertinent family history in first degree relatives Past Surgical History Surgical History H/O eye surgery "FIBER" REMOVAL History of ERCP 09/13/18: ERCP: Grade 2 view, MAC#3, ETT 7.5 at [facility] History of colonoscopy History of tonsillectomy Past Anesthesia History No Hx of Anesthesia Complications and No Family Hx of Anesthesia Complications History of PONV No Hx of PONV and No Hx of Motion Sickness Social History Smoking Status: Never smoker tobacco type: smokeless tobacco Smoking cigarettes per day: QUIT SMOKING "YEARS AGO" Do You Dip or Chew Tobacco: Yes Hx Alcohol Use: Yes Alcohol type: beer alcohol intake frequency: 3 or more drinks per day Alcohol Intake Frequency Comment: Admits to 4-5 beers/day for many years. Stated he has not had any in 2wks Hx Substance Use: No substance use type: does not use Review of Systems no chest pain or sob Physical Exam Vital Signs Last Vital Signs Temp 37.2 C 11/18/18 16:19 Pulse 60 11/18/18 16:19 Resp 15 11/18/18 16:19 BP 169/92 H 11/18/18 16:19 Pulse Ox 100 11/18/18 16:19 Constitutional + cachectic ENMT Mouth: + poor dentition; no TMJ abnormality Thyromental Distance: > or= 3.5 Finger Breadths Mallampati Class: II Neck normal visual inspection Respiratory normal respiratory effort Auscultation: lungs clear to auscultation bilaterally Cardiovascular Rate/Rhythm: regular rate and regular rhythm Musculoskeletal Spine: no pain with cervical ROM Skin slightly jaundiced Neurologic moves all extremities Psychiatric Orientation: alert and oriented x 3 Testing Laboratory Results 11/18/18 07:09 11/18/18 07:09 PT 11.5 Seconds (9.0-12.0) 11/14/18 06:09 INR 1.1 (0.9-1.1) 11/14/18 06:09 Hemoglobin A1c 5.7 % (4.5-5.6) H 11/14/18 06:09 Urine Color Yellow 11/14/18 03:25 Urine Appearance Clear (Clear) 11/14/18 03:25 Urine pH 6.5 (4.5-7.5) 11/14/18 03:25 Ur Specific [employer] 1.017 (1.000-1.030) 11/14/18 03:25 Urine Protein Negative (Negative) 11/14/18 03:25 Urine Glucose (UA) Negative (Negative) 11/14/18 03:25 Urine Ketones Negative (Negative) 11/14/18 03:25 Urine Nitrite Negative (Negative) 11/14/18 03:25 Ur Leukocyte Esterase Negative (Negative) 11/14/18 03:25 Urine WBC (Auto) 1-5 /hpf (0-5) 11/14/18 03:25 Urine RBC (Auto) 0-4 /hpf (0-4) 11/14/18 03:25 U Hyaline Cast (Auto) 0 /lpf (0-5) 11/14/18 03:25 U Epithel Cells (Auto) 20-30 /lpf (0-5) H 11/14/18 03:25 Urine Bacteria (Auto) Negative (Negative) 11/14/18 03:25 11/13/18 16:16 Aerobic Blood Culture - Preliminary Blood No growth in Aerobic bottle after 48 hours. Anaerobic Blood Culture - Preliminary No growth in Anaerobic bottle after 48 hours. 11/13/18 16:06 Aerobic Blood Culture - Preliminary Blood No growth in Aerobic bottle after 48 hours. Anaerobic Blood Culture - Preliminary No growth in Anaerobic bottle after 48 hours. Electrocardiogram Date: 07/18/18 Sinus rhythm with occasional Premature ventricular complexes Otherwise normal ECG When compared with ECG of 12-JUN-2018 12:18, Premature ventricular complexes are now Present Confirmed by Venancio Costello ([id number]) on 01/2019 6:21:11 AM Chest X-Ray Date: 11/13/18 IMPRESSION: 1. Questionable trace left pleural effusion. Otherwise no acute cardiopulmonary disease.
[2018-11-18] MEDS ORDERED: SUCCINYLCHOLINE CHLORIDE 20 MG/ML 10 ML VIAL ONE (17:07)
[2018-11-18] MEDS ORDERED: DEXAMETHASONE SOD INJ 4 MG/ML VIAL ONE (17:07)
[2018-11-18] MEDS ORDERED: ONDANSETRON INJ 2 MG/ML 2 ML VIAL ONE (17:07)
[2018-11-18] MEDS ORDERED: ePHEDrine sulfate 50 MG/ML SYR ONE (17:10)
[2018-11-18] MEDS ORDERED: INDOMETHACIN 50 MG SUPP PR STA (17:48)
--- NOTE | 2018-11-18 18:16 | Operative Report ---
Post Operative Report Pre & Post Diagnosis Operation Date: 11/18/18 12:10 Pre-Op Diagnosis: Acute Chronic Pancreatitis Post-Op Diagnosis: Acute Chronic Pancreatitis Procedure Operation Date: 11/18/18 12:10 Actual Procedures p Endoscopic Retrograde Cholangiopancreatogram(Not Applicable) - Carmen Dewitt MD Surgeon Carmen Dewitt MD Cap Jewel Plate Assembler None Estimated Blood Loss 0 Findings See Below (Large PD stone removed, PD stent exchanged, Transpapillary Cyst drainage) Specimens None Description of Procedure ERCP I attest to the content of the Intraoperative Record and any orders documented therein. Any exceptions are noted below.
--- NOTE | 2018-11-18 18:42 | Fluoroscopy Report ---
FL ERCP biliary ductal CLINICAL HISTORY: 58 years-old Male presenting with for ercp. TECHNIQUE: Fluoroscopy was provided for endoscopic retrograde cholangiopancreatography. 21 fluoroscop ic image(s) recorded. COMPARISON: MRCP from 11/15/2018. FINDINGS: Procedure: An endoscope projects over the proximal duodenum. A plastic pancreatic duct stents is in p lace at the start of the procedure. A guidewire was introduced into the pancreatic duct. The guidewir e was advanced to the level of the mid to distal duct, which was then opacified with contrast. A wood ection was opacified in continuity with the pancreatic duct. Subsequently a pancreatic duct stent was replaced. Peritoneal spillage: No evidence of peritoneal spillage of contrast. However contrast may be present in the retroperitoneum. Extrahepatic bile ducts: The common bile duct was not opacified. Intrahepatic bile ducts: Bile ducts were not opacified. Fluoroscopy dosage (mGy): 99.04. Fluoroscopy time: 452.6 seconds. Number or time of high level fluoroscopy (HLF), digital spot, or digital subtraction images: 0. IMPRESSION: Placement of a pancreatic duct stent. Pancreatic collections apparently in continuity with the pancre atic duct. Electronically signed by: Jb Welsh M.D. 11/18/2018 6:41 PM
--- NOTE | 2018-11-18 18:42 | Hospitalist Progress Note ---
Date of Service November 18, 2018 Assessment & Plan (1) Acute on chronic pancreatitis: Etiology of pancreatitis appears multifactorial with history of alcohol abuse, pancreas divisum and pancreatic duct stones - currently episode likely triggered by relapse of alcohol use. New fluid collection on CT. - IVF with NSS with 20 mEq of KCl at 150 ml/hr - Strict NPO on admission - Consult GI for additional recommendations - it appears that pt was supposed to be scheduled for a repeat ERCP on 11/22 but cancelled. - Pain control with IV morphine -Clinically little better with ongoing pain -GI is not planning to do any ERCP for now -We will continue n.p.o. and intravenous fluids -Has been started on clears orally and advanced to full liquid this morning -Denies any significant abdominal pain today -We will advance diet as tolerated, decrease intravenous fluid and increase ambulation -Abdominal pain is better without any nausea and/or vomiting -Tolerating clears and advance diet as tolerated Possible cholangitis/intra-abdominal collection with abscess formation With history of fever and chills but white count remains normal Await blood cultures-have been negative Continue current antibiotic with cefepime and Flagyl Noted to have high white count with increasing neutrophil Repeat CT of the abdomen and pelvis did show possible intra-abdominal fluid collection with abscess formation MRI of the abdomen did not show any significant findings except the fluid collection has noted in CT GI recommended that the patient should be transferred to a tertiary care center for drainage of the intra-abdominal fluid collection/abscess Discussed with the patient in detail and explained the proposed intervention He is very anxious and has been crying since knowing that he may have to be transferred He wants to wait till tomorrow morning and 1 to have a repeat scan to see if the collection has been improving or not We will continue current antibiotic Clinically better today Discussed with GI and will have ERCP and drainage of pancreas pseudocyst today (2) ETOH abuse: Pt is unclear on his last alcoholic drink was -initially he stated that it was two weeks ago but then admitted it may have been more recently - Monitor for S/S of alcohol withdrawal - Ativan prn symptoms of withdrawal -No signs and/or symptoms of withdrawal (3) Depression: Pt has been taking his Zoloft intermittently - will hold while NPO then restart. Will need to discuss importance of compliance GI prophylaxis With famotidine DVT prophylaxis Subcu heparin CODE STATUS Full Subjective 11/14 The patient is seen and examined in telemetry unit He was admitted with abdominal pain and fever since yesterday History of pancreatic stent Complains abdominal pain with radiation to back without any nausea Denies any chest pain in the palpitation Has a fever of 38.3 C this morning 11/15 The patient was seen and examined in telemetry unit He remains generally weak and complains to have some left upper quadrant/epigastric pain No nausea no vomiting and no more fever and/or chills Has tremor with outstretched hands 11/16 The patient was seen and examined in telemetry unit He has been a little bit better today Complaint history of some epigastric pain Has been passing a lot of urine Denies any nausea and/or vomiting 11/17 Patient was seen and examined in telemetry unit He has been feeling little better with less pain than left upper quadrant without any nausea and vomiting Tolerating clears orally Denies any fever and/or chills He is worried that he may to be transferred to tertiary care center and wants to wait till tomorrow 11/18 Patient was seen and examined in telemetry unit He wants to go to [facility] today though his overall condition and lab has been improving Discussed with GI and with to come for ERCP and drainage of pseudocyst Review of Systems Review of Systems: All systems reviewed and are unremarkable except as noted below Constitutional: + fatigue; no sweats and no anorexia Eyes: + discharge; no blind spots, no diplopia, no eye pain and no photophobia Gastrointestinal: + abdominal pain (Gross to the back) and + nausea; no vomiting Musculoskeletal: + back pain (radiates from abdominal pain); no neck pain and no muscle weakness Neurologic: + unsteadiness and + tremor(s) (Bilateral acute distress and tremor is improved); no syncope and no headache(s) Psychiatric: + depression (inconsistently taking meds) Physical Exam Physical Exam: Lying in bed without any symptoms Constitutional: well developed and well nourished; no acute distress, not ill appearing and no altered mental status ENMT: external ear and nose normal, oropharynx normal Neck: trachea midline Respiratory: normal respiratory effort; no respiratory distress Auscultation: lungs clear to auscultation bilaterally; no rales, no rhonchi and no wheezes Cardiovascular: Rate/Rhythm: regular rate and regular rhythm Heart Sounds: no gallop, no murmur and no cardiac rub Extremities: normal capillary refill; no calf tenderness and no pedal edema Gastrointestinal (Abdomen): Inspection/Auscultation: normal bowel sounds Percussion/Palpation: + abdomen tender (Minimal tenderness in the epigastrium) and abdomen soft Musculoskeletal: Head/Neck/Chest: normocephalic, head atraumatic and neck supple Extremities: no cyanosis and no clubbing Skin: no rashes and no jaundice Neurologic: moves all extremities; no focal motor deficits Speech / Cognition: normal speech Motor/Sensory: + tremor (bilateral UE) Psychiatric: A+Ox3, euthymic affect Insight: + limited insight Lymphatic: no cervical or axillary lymphadenopathy Results & Data Vital Signs (Past 12 Hours) Vital Signs Temp Pulse Resp BP BP Pulse Ox 11/18/18 16:19 37.2 C 60 15 169/92 H 100 11/18/18 15:20 37.4 C 62 20 164/76 H 99 11/18/18 11:37 37.0 C 54 L 18 155/82 H 99 11/18/18 08:31 36.9 C 91 H 21 94/60 L 93 Laboratory Results Short CBC 11/18/18 Range/Units 07:09 WBC 17.41 H (4.8-10.8) K/uL Hgb 10.7 L (14.0-18.0) g/dL Hct 30.8 L (42-52) % Plt Count 689 H (130-400) K/uL BMP 11/18/18 07:09 Sodium 136 Potassium 3.5 Chloride 98 Carbon Dioxide 32 BUN 6 L Creatinine 0.77 Glucose 102 H Calcium 8.2 L Liver Function 11/18/18 Range/Units 07:09 Total Bilirubin 0.5 (0.2-1) mg/dl AST 15 (15-37) U/L ALT 15 (12-78) U/L Alkaline Phosphatase 84 (45-117) U/L Albumin 2.1 L (3.4-5.0) gm/dl Medications Administered Current Inpatient Medications Artificial Tears (Artificial Tears) 2 drops OP Q2R PRN PRN Reason: Dryness Stop: 12/13/18 15:37 Atropine Sulfate (Atropine Sulfate) 0.5 mg IV Q1M PRN PRN Reason: PACU Use-HR<40 &/or Bradycardi Stop: 11/18/18 21:22 Ephedrine Sulfate (Ephedrine Sulfate) 5 mg IV Q5M PRN PRN Reason: PACU Use Only-SBP<90 mmHg Stop: 11/18/18 21:22 Fentanyl Citrate (Fentanyl Citrate) 25 mcg IV Q5M PRN PRN Reason: PACU Use Only-Pain Stop: 11/18/18 21:22 Heparin Sodium (Porcine) (Heparin Sodium (Porcine)) 5,000 units SQ Q12 [facility] Stop: 12/14/18 20:59 Last Admin: 11/18/18 08:11 Dose: Not Given Documented by: Hydromorphone HCl (Dilaudid) 0.25 mg IV Q5M PRN PRN Reason: PACU Use Only-Pain Stop: 11/18/18 21:22 Folic Acid 1 mg/ Syringe 10 mls @ 5 mls/min IV QAM [facility] Stop: 12/14/18 08:59 Last Admin: 11/18/18 08:01 Dose: 5 mls/min Documented by: Metronidazole (Flagyl) 500 mg in 100 mls @ 100 mls/hr IV Q8H [facility] Stop: 11/23/18 15:59 Last Admin: 11/18/18 16:03 Dose: 100 mls/hr Documented by: Famotidine 20 mg/ Syringe 5 mls @ 2.5 mls/min IV BID [facility] Stop: 12/13/18 20:59 Last Admin: 11/18/18 08:01 Dose: 2.5 mls/min Documented by: Thiamine HCl 100 mg/ Syringe 10 mls @ 2 mls/min IV QAM [facility] Stop: 12/13/18 15:44 Last Admin: 11/18/18 09:42 Dose: 2 mls/min Documented by: Cefepime HCl 2,000 mg/ Syringe 20 mls @ 5 mls/min IV Q8H [facility]; Protocol Stop: 11/23/18 15:59 Last Admin: 11/18/18 16:00 Dose: 5 mls/min Documented by: Lorazepam (Ativan) 1.5 mg in 3 mls @ 3 mls/min IV Q2H PRN PRN Reason: Alcohol Withdrawal Stop: 12/13/18 20:20 Last Admin: 11/14/18 22:22 Dose: 3 mls/min Documented by: Acetaminophen (Ofirmev) 65 mls @ 200 mls/hr IV Q6H PRN PRN Reason: Pain or Fever Stop: 12/13/18 21:44 Last Infusion: 11/15/18 01:47 Dose: Infused Documented by: Labetalol HCl (Normodyne) 5 mg IV Q5M PRN PRN Reason: PACU Use-SBP>160 or DBP>100 Stop: 11/18/18 21:22 Lorazepam (Ativan) 1 mg PO ONE PRN; Protocol PRN Reason: EtoH Withdrawal AWSS 6-10 Miscellaneous Information (Cefepime Consult Active) 1 ea N/A UD PRN PRN Reason: Consult Stop: 12/13/18 15:44 Morphine Sulfate (Morphine Sulfate) 2 mg IV Q3H PRN PRN Reason: Pain Stop: 11/27/18 13:12 Last Admin: 11/18/18 07:59 Dose: 2 mg Documented by: Ondansetron HCl (Zofran) 4 mg IV Q6H PRN PRN Reason: Nausea Stop: 12/13/18 15:53 Last Admin: 11/13/18 20:11 Dose: 4 mg Documented by: Ondansetron HCl (Zofran) 4 mg IV ONCE PRN PRN Reason: PACU Use Only-Nausea/Vomiting Stop: 11/18/18 21:22 Phenylephrine HCl (Ty-Synephrine 500mcg/5ml) 100 mcg IV Q5M PRN PRN Reason: PACU Use Only-SBP<90 or HR>70 Stop: 11/18/18 21:22
[2018-11-18] MEDS ORDERED: HydrALAZINE HCL 20 MG/ML VIAL ONE (19:06)
[2018-11-18] MEDS ORDERED: HydrALAZINE HCL 20 MG/ML VIAL IV ONE (19:16)
[2018-11-18] MEDS ORDERED: HydrALAZINE HCL 20 MG/ML VIAL IV STA (19:31)
--- NOTE | 2018-11-18 19:31 | Anesthesiology Progress Note ---
Date of Service November 18, 2018 Anesthesia Post Procedure Vital Signs Vital Signs: Temp Pulse Pulse Resp BP BP Pulse Ox 11/18/18 19:25 36.5 C 59 L 13 156/75 H 100 11/18/18 19:15 36.5 C 54 L 12 159/80 H 100 11/18/18 19:05 36.5 C 49 L 17 180/88 H 100 11/18/18 18:55 36.0 C L 53 L 15 154/90 H 100 11/18/18 18:45 36.0 C L 50 L 11 L 183/93 H 100 11/18/18 18:35 36.0 C L 56 L 16 175/99 H 100 11/18/18 18:26 36.0 C L 71 12 172/92 H 100 11/18/18 16:19 37.2 C 60 15 169/92 H 100 11/18/18 15:20 37.4 C 62 20 164/76 H 99 11/18/18 11:37 37.0 C 54 L 18 155/82 H 99 11/18/18 08:31 36.9 C 91 H 21 94/60 L 93 11/18/18 04:43 37.1 C 59 L 14 152/71 H 95 11/18/18 00:09 37.1 C 53 L 16 152/87 H 98 Pain Intensity Abdomen: Pain Intensity: 0 Lower Back: Pain Intensity: 2 Transfer of Care Handoff Completed per policy Notes Mental Status: alert / awake / arousable Patient Amnestic to Procedure: Yes Nausea / Vomiting: adequately controlled Pain: adequately controlled Airway Patency, RR, SpO2: stable & adequate BP & HR: stable & adequate Hydration State: stable & adequate Anesthetic Complications: no major complications apparent and Pt Satisfied with anesthetic care
--- NOTE | 2018-11-18 19:46 | GI REPORT ---
Patient Name: Antwon Douglass Procedure Date: 11/18/2018 3:58 PM Date of : 1960 Admit Type: Inpatient Age: 58 Gender: Male Attending MD: Carmen Dewitt MD Procedure: ERCP Providers: Carmen Dewitt MD Referring MD: Michael eRed, Jovani Grande DO, Pardeep Schulz MD, German Cole Indications: Epigastric abdominal pain, Acute pancreatitis, Pancreatic duct stone, For therapy of pancreatic cysts/ necrosis Medicines: General Anesthesia Complications: No immediate complications. Estimated Blood Loss: Estimated blood loss: none. Procedure: Pre-Anesthesia Assessment: - Prior to the procedure, a History and Physical was performed, and patient medications and allergies were reviewed. The patient is competent. The risks and benefits of the procedure and the sedation options and risks were discussed with the patient. All questions were answered and informed consent was obtained. Patient identification and proposed procedure were verified by the physician and the nurse in the procedure room. Mental Status Examination: alert and oriented. Airway Examination: normal oropharyngeal airway and neck mobility. Respiratory Examination: clear to auscultation. CV Examination: normal. ASA Grade Assessment: III - A patient with severe systemic disease. After reviewing the risks and benefits, the patient was deemed in satisfactory condition to undergo the procedure. The anesthesia plan was to use general anesthesia. Immediately prior to administration of medications, the patient was re-assessed for adequacy to receive sedatives. The heart rate, respiratory rate, oxygen saturations, blood pressure, adequacy of pulmonary ventilation, and response to care were monitored throughout the procedure. The physical status of the patient was re-assessed after the procedure. After obtaining informed consent, the scope was passed under direct vision. Throughout the procedure, the patient's blood pressure, pulse, and oxygen saturations were monitored continuously. The Scope was introduced through the mouth, and advanced to the duodenum and used to inject contrast into the dorsal and ventral pancreatic ducts. The ERCP was accomplished without difficulty. The patient tolerated the procedure well. Findings: A pancreatic stent was visible on the microgrinder operator film. The esophagus was successfully intubated under direct vision. The scope was advanced to a normal major papilla in the descending duodenum without detailed examination of the pharynx, larynx and associated structures, and upper GI tract. The upper GI tract was grossly normal. A biliary sphincterotomy had been performed. The sphincterotomy appeared open. One plastic pancreatic stent was emerging from the minor papilla. The stent was totally occluded. A minor papilla sphincterotomy had been performed. The sphincterotomy appeared open. I planned to cannulate the PD from the major papilla despite prior failed attempts given MRCP showing large stone impacted in the PD orifice at the major papilla and was successful this time. A short 0.025 inch Jagwire was passed into the ventral pancreatic duct. The ventral pancreatic duct was then deeply cannulated with the Autotome sphincterotome. Contrast was injected. I personally interpreted the pancreatic duct images. Ductal flow of contrast was adequate. Image quality was adequate. Contrast extended to the pancreatic duct. The ventral pancreatic duct in the head of the pancreas was dilated markedly and segmentally. The ventral pancreatic duct in the head of the pancreas contained a single large stone. There seems to be an incomplete pancreas divisum as contrast would not extend into the main pancreatic duct. Ventral pancreatic sphincterotomy was made with a monofilament traction (standard) sphincterotome using ERBE electrocautery. There was no post-sphincterotomy bleeding. Pancreatic duct orifice was successfully dilated with a 6 mm balloon dilator. To remove the object(s) the ventral pancreatic duct was swept with an 8.5 mm balloon but the balloon burst over the stone hence I decided to use a trapezoid basket. One 10 mm stone was removed successfully. No stones remained. Despite multiple attempts to access main PD from the major papilla, the guidewire was only exiting through the minor papilla suggesting an underlying incomplete divisim or maybe an ansa loop. I decided to access the PD from the minor papilla. A short 0.025 inch Jagwire was passed into the dorsal pancreatic duct. The dorsal pancreatic duct was then deeply cannulated with the 8.5 mm balloon. Opacification of the main pancreatic duct was successful. Large amount of purulent necrotic material was briskly flowing from both the minor and major papilla. This was suctioned. A pancreatogram was obtained all the way to the tail of the pancreas, a large fluid collection communicating with the PD related to the infected pseudocyst noted in the body of the pancreas. There was upstream ductal dilation. A single disruption with a leak of contrast was found in the pancreatic duct in the body of the pancreas into the fluid collection. I was able to pass the guidewire beyond this area into the tail of the pancreas. One 8.5 Fr by 15 cm plastic pancreatic stent with no external flaps and no internal flaps was placed 14 cm into the dorsal pancreatic duct for transpapillary pancreatic cyst drainage. Purulent fluid and necrotic tissue flowed through the stent. The stent was in good position. Indomethacin 100 mg was given via suppository to decrease the risk of post-ERCP pancreatitis (PEP). Impression: - Prior minor papilla sphincterotomy appeared open. One totally occluded stent was seen in the minor papilla. This was removed. - Successful cannulation of the ventral pancreatic duct from the major papilla. Marked segmental ductal dilation with large impacted stone seen. A pancreatic sphincterotomy was performed and followed by sphincteroplasty. A 10 mm pancreatic stone was found and removed using a trapezoid basket. 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 - Successful transpapillary drainage of an infected pancreatic cyst. A gush of necrotic, purulent fluid was drained. - One 14 cm Johlin plastic pancreatic stent was placed into the dorsal pancreatic duct. Recommendation: - [facility] to [facility] for [facility] care. - Continue ABx, plan to complete a 10 days course. - Perform CT scan (computed tomography) of the abdomen with contrast in 4 weeks to check the size of the pancreatic cyst. If size is not decreased and the wall is mature, will refer to [facility] for transgastric drainage via Axios stent placement. - Repeat ERCP in 3 months to remove the stent. Carmen Dewitt MD 11/18/2018 7:46:12 PM This report has been signed electronically. Note Initiated On: 11/18/2018 3:58 PM Number of Addenda: 0 I attest to the content of the Intraoperative Record and orders documented therein, exceptions below {[id number]}
[2018-11-19 07:45] LABS: Mean Corpuscular Hgb Conc 33.3 g/dL (32-36); Mean Corpuscular Volume 97.6 fL (80-100); Mean Platelet Volume 9.8 fL (7.4-10.4); Platelet Count 803 K/uL (130-400); RDW Coefficient of Variation 13.7 % (11.5-14.5); RDW Standard Deviation 48.9 fL (36.4-46.3); Red Blood Count 3.38 M/uL (4.7-6.1); White Blood Count 14.92 K/uL (4.8-10.8)
--- NOTE | 2018-11-19 07:45 | Anesthesiology Progress Note ---
Date of Service November 19, 2018 Anesthesia Post Procedure Vital Signs Vital Signs: Temp Pulse Pulse Resp BP BP Pulse Ox 11/19/18 03:55 36.8 C 63 18 112/66 96 11/18/18 23:38 36.7 C 98 H 20 98/61 L 99 11/18/18 21:45 36.6 C 88 18 94/57 L 99 11/18/18 20:43 36.6 C 89 18 140/80 99 11/18/18 20:15 36.6 C 96 H 18 145/88 H 99 11/18/18 19:48 36.3 C L 66 18 150/77 H 99 11/18/18 19:25 36.5 C 59 L 13 156/75 H 100 11/18/18 19:15 36.5 C 54 L 12 159/80 H 100 11/18/18 19:05 36.5 C 49 L 17 180/88 H 100 11/18/18 18:55 36.0 C L 53 L 15 154/90 H 100 11/18/18 18:45 36.0 C L 50 L 11 L 183/93 H 100 11/18/18 18:35 36.0 C L 56 L 16 175/99 H 100 11/18/18 18:26 36.0 C L 71 12 172/92 H 100 11/18/18 16:19 37.2 C 60 15 169/92 H 100 11/18/18 15:20 37.4 C 62 20 164/76 H 99 11/18/18 11:37 37.0 C 54 L 18 155/82 H 99 11/18/18 08:31 36.9 C 91 H 21 94/60 L 93 Pain Intensity Abdomen: Pain Intensity: 0 Lower Back: Pain Intensity: 0 Notes Mental Status: alert / awake / arousable and participated in evaluation Patient Amnestic to Procedure: Yes Nausea / Vomiting: adequately controlled Pain: adequately controlled Airway Patency, RR, SpO2: stable & adequate BP & HR: stable & adequate Hydration State: stable & adequate Anesthetic Complications: no major complications apparent
[2018-11-19] MEDS: THIAMINE HCL 100 MG in SYRINGE 9 ML IV SCH (08:17)
[2018-11-19] MEDS: FAMOTIDINE 20 MG in SYRINGE 3 ML IV SCH (08:17)
[2018-11-19] MEDS: CEFEPIME 2,000 MG in SYRINGE 7.5 ML IV SCH (08:17)
[2018-11-19] MEDS: FOLIC ACID 1 MG in SYRINGE 9.8 ML IV SCH (08:17)
[2018-11-19] MEDS: metroNIDAZOLE 500 MG/100 ML BAG IV SCH (08:18)
[2018-11-19] MEDS: HEPARIN SOD 5,000 UNIT/0.5 ML VIAL SQ SCH (08:18)
[2018-11-19 08:20] LABS: Basophils # (auto) 0.02 K/uL (0-0.2); Basophils % (auto) 0.1 %; Eosinophils # (auto) 0.01 K/uL (0-0.5); Eosinophils % (auto) 0.1 %; Immature Granulocytes # (auto) 1.18 K/uL (0.00-0.02); Immature Granulocytes % (auto) 7.9 %; Lymphocytes # (auto) 1.42 K/uL (1.2-3.4); Lymphocytes % (auto) 9.5 %; Monocytes # (auto) 1.05 K/uL (0.11-0.59); Neutrophils # (auto) 11.24 K/uL (1.4-6.5); Neutrophils % (auto) 75.4 %; Toxic Granulation 1+
[2018-11-19 08:25] LABS: Albumin Globulin Ratio 0.6 (0.9-2); Albumin Level 2.2 gm/dl (3.4-5.0); Bilirubin,Total 0.2 mg/dl (0.2-1); Calcium 8.9 mg/dl (8.5-10.1); Creatinine Clr Calc Pharmacy 87.8 ml/min; Est GFR (African American) 115.5; Est GFR (Non-African American) 99.7; Globulin 3.9 gm/dl (2.5-4.0); Potassium 4.3 mmol/L (3.5-5.1); Total Protein 6.1 gm/dl (6.4-8.2)
--- NOTE | 2018-11-19 09:57 | Gastroenterology Progress Note ---
Date of Service November 19, 2018 Assessment & Plan (1) Acute on chronic pancreatitis: Pt is a 58 y/o male w ongoing ETOH abuse, admitted w recurrent pancreatitis. Hx of pancreatic duct stone, pseudocysts development. He is s/p pancreatic stent placement back in September. We reviewed pt's imaging studies again - pancreatic cyst not mature (not walled off). Thus he would be unable to undergo Axios stent placement. Cyst may take 2- 4 weeks to mature. ERCP performed on 11/18/18 - Prior minor papilla sphincterotomy appeared open. One totally occluded stent was seen in the minor papilla which was removed and another pancreatic stent was placed. 10mm pancreatic duct stone removed, pancreatic cyst drained. - Advance diet as tolerated - Completed 10 days course of antibx: Cipro 500mg BID , Flagyl 500mg TID - Obtain CT abd in 4 week's time to check for size of pancreatic cyst. If size not decreased and wall is mature, will refer to [facility] for transgastric drainage of cyst via Axios stent - Repeat ERCP in 3 months time to remove pancreatic stent - Strict ETOh cessation (2) ETOH abuse: Supervising Physician Co-Signing Physician Notes I performed a history and physical examination of the patient, including speci fically on physical exam - soft, nontender abdomen. I have discussed the patient's management with Suzette. Please refer to the nurse practitioner's note for the documented findings and plan of care. s/p transpapillary pancreatic cyst drainage and stone extraction. Doing great. Advance diet. Follow up with me as OP. Subjective Pt feels well, denies any abd pain, n/v, fever, chills overnight. Desires to go home. WBC coming down. LFTs normal. Review of Systems Review of Systems: All systems reviewed & are unremarkable except as noted in HPI & below Physical Exam Constitutional: WD/WN, vitals as above well groomed, cooperative and comfortable Eyes: PERRL, conjunctivae normal, anicteric sclerae ENMT: external ear and nose normal, oropharynx normal Respiratory: normal respiratory effort, lungs clear to auscultation Cardiovascular: RRR, no murmur, no edema Gastrointestinal (Abdomen): Inspection/Auscultation: normal bowel sounds Percussion/Palpation: abdomen soft; abdomen nontender (RUQ area ) Skin: no rashes, warm and dry no jaundice Psychiatric: A+Ox3, euthymic affect Lymphatic: no lymphedema Results & Data Vital Signs (Past 12 Hours) Vital Signs Temp Pulse Resp BP BP Pulse Ox 11/19/18 07:46 36.6 C 58 L 18 108/66 96 11/19/18 03:55 36.8 C 63 18 112/66 96 11/18/18 23:38 36.7 C 98 H 20 98/61 L 99
[2018-11-19] MEDS ORDERED: FOLIC ACID 1 MG TAB PO SCH (14:00)
[2018-11-19] MEDS ORDERED: THIAMINE HCL 50 MG TABLET PO SCH (14:00)
--- NOTE | 2018-11-19 14:39 | Hospitalist Progress Note ---
Date of Service November 19, 2018 Assessment & Plan (1) Acute on chronic pancreatitis: Etiology of pancreatitis appears multifactorial with history of alcohol abuse, pancreas divisum and pancreatic duct stones - currently episode likely triggered by relapse of alcohol use. New fluid collection on CT. - IVF with NSS with 20 mEq of KCl at 150 ml/hr - Strict NPO on admission - Consult GI for additional recommendations - it appears that pt was supposed to be scheduled for a repeat ERCP on 11/22 but cancelled. - Pain control with IV morphine -Clinically little better with ongoing pain -GI is not planning to do any ERCP for now -We will continue n.p.o. and intravenous fluids -Has been started on clears orally and advanced to full liquid this morning -Denies any significant abdominal pain today -We will advance diet as tolerated, decrease intravenous fluid and increase ambulation -Abdominal pain is better without any nausea and/or vomiting -Tolerating clears and advance diet as tolerated -Status post ERCP and extraction of pancreatic duct stone -Denies any more pain and tolerating almost regular diet -We will discharge home this afternoon Possible cholangitis/intra-abdominal collection with abscess formation With history of fever and chills but white count remains normal Await blood cultures-have been negative Continue current antibiotic with cefepime and Flagyl Noted to have high white count with increasing neutrophil Repeat CT of the abdomen and pelvis did show possible intra-abdominal fluid collection with abscess formation MRI of the abdomen did not show any significant findings except the fluid collection has noted in CT GI recommended that the patient should be transferred to a tertiary care center for drainage of the intra-abdominal fluid collection/abscess Discussed with the patient in detail and explained the proposed intervention He is very anxious and has been crying since knowing that he may have to be transferred He wants to wait till tomorrow morning and 1 to have a repeat scan to see if the collection has been improving or not We will continue current antibiotic Clinically better today Discussed with GI and will have ERCP and drainage of pancreas pseudocyst today Status post ERCP and extraction pancreatic duct stone and aspiration of fluid collection Patient has been feeling a lot better He will be discharged home this afternoon (2) ETOH abuse: Pt is unclear on his last alcoholic drink was -initially he stated that it was two weeks ago but then admitted it may have been more recently - Monitor for S/S of alcohol withdrawal - Ativan prn symptoms of withdrawal -No signs and/or symptoms of withdrawal -Strongly advised to have follow-up with alcohol Anonymous (3) Depression: Pt has been taking his Zoloft intermittently - will hold while NPO then restart. Will need to discuss importance of compliance GI prophylaxis With famotidine DVT prophylaxis Subcu heparin CODE STATUS Full Discharge home this afternoon following PT evaluation Subjective 11/14 The patient is seen and examined in telemetry unit He was admitted with abdominal pain and fever since yesterday History of pancreatic stent Complains abdominal pain with radiation to back without any nausea Denies any chest pain in the palpitation Has a fever of 38.3 C this morning 11/15 The patient was seen and examined in telemetry unit He remains generally weak and complains to have some left upper quadrant/epigastric pain No nausea no vomiting and no more fever and/or chills Has tremor with outstretched hands 11/16 The patient was seen and examined in telemetry unit He has been a little bit better today Complaint history of some epigastric pain Has been passing a lot of urine Denies any nausea and/or vomiting 11/17 Patient was seen and examined in telemetry unit He has been feeling little better with less pain than left upper quadrant without any nausea and vomiting Tolerating clears orally Denies any fever and/or chills He is worried that he may to be transferred to tertiary care center and wants to wait till tomorrow 11/18 Patient was seen and examined in telemetry unit He wants to go to [facility] today though his overall condition and lab has been improving Discussed with GI and with to come for ERCP and drainage of pseudocyst 11/19 The patient was seen and examined in medical floor Please status post ERCP and extraction of pancreatic duct stone He is almost free of pain and denies any fever and chills He has been ambulating Will get PT evaluation before discharge to home this afternoon Review of Systems Review of Systems: All systems reviewed and are unremarkable except as noted below Constitutional: + fatigue; no sweats and no anorexia Eyes: + discharge; no blind spots, no diplopia, no eye pain and no photophobia Gastrointestinal: + nausea; no abdominal pain (Gross to the back) and no vomiting Musculoskeletal: no back pain (radiates from abdominal pain), no neck pain and no muscle weakness Neurologic: + unsteadiness and + tremor(s) (Bilateral acute distress and tremor is improved); no syncope and no headache(s) Psychiatric: + depression (inconsistently taking meds) Physical Exam Physical Exam: No apparent distress at rest Constitutional: + thin ENMT: external ear and nose normal, oropharynx normal Neck: trachea midline Respiratory: normal respiratory effort; no respiratory distress Auscultation: lungs clear to auscultation bilaterally; no rales, no rhonchi and no wheezes Cardiovascular: Rate/Rhythm: regular rate and regular rhythm Heart Sounds: no gallop, no murmur and no cardiac rub Extremities: normal capillary refill; no calf tenderness and no pedal edema Gastrointestinal (Abdomen): Inspection/Auscultation: abdomen normal to inspection and normal bowel sounds Percussion/Palpation: abdomen soft; abdomen nontender (Minimal tenderness in the epigastrium) Musculoskeletal: Head/Neck/Chest: normocephalic, head atraumatic and neck supple Extremities: no cyanosis and no clubbing Skin: no rashes and no jaundice Neurologic: moves all extremities; no focal motor deficits Speech / Cognition: normal speech Motor/Sensory: + tremor (bilateral UE) Has unsteady gait Psychiatric: A+Ox3, euthymic affect Insight: + limited insight Lymphatic: no cervical or axillary lymphadenopathy Results & Data Vital Signs (Past 12 Hours) Vital Signs Temp Pulse Resp BP BP Pulse Ox 11/19/18 11:00 36.6 C 78 18 110/79 98 11/19/18 07:46 36.6 C 58 L 18 108/66 96 11/19/18 03:55 36.8 C 63 18 112/66 96 Laboratory Results Short CBC 11/19/18 Range/Units 07:11 WBC 14.92 H (4.8-10.8) K/uL Hgb 11.0 L (14.0-18.0) g/dL Hct 33.0 L (42-52) % Plt Count 803 H (130-400) K/uL BMP 11/19/18 07:11 Sodium 136 Potassium 4.3 D Chloride 100 Carbon Dioxide 30 BUN 12 D Creatinine 0.79 Glucose 196 H Calcium 8.9 Liver Function 11/19/18 Range/Units 07:11 Total Bilirubin 0.2 (0.2-1) mg/dl AST 16 (15-37) U/L ALT 14 (12-78) U/L Alkaline Phosphatase 92 (45-117) U/L Albumin 2.2 L (3.4-5.0) gm/dl Medications Administered Current Inpatient Medications Artificial Tears (Artificial Tears) 2 drops OP Q2R PRN PRN Reason: Dryness Stop: 12/13/18 15:37 Ciprofloxacin (Cipro) 500 mg PO BID [facility] Stop: 11/29/18 20:59 Folic Acid (Folvite) 1 mg PO QAM [facility] Stop: 12/19/18 13:59 Last Admin: 11/19/18 13:57 Dose: Not Given Documented by: Heparin Sodium (Porcine) (Heparin Sodium (Porcine)) 5,000 units SQ Q12 TAYO Stop: 12/14/18 20:59 Last Admin: 11/19/18 08:18 Dose: 5,000 units Documented by: Lorazepam (Ativan) 1.5 mg in 3 mls @ 3 mls/min IV Q2H PRN PRN Reason: Alcohol Withdrawal Stop: 12/13/18 20:20 Last Admin: 11/14/18 22:22 Dose: 3 mls/min Documented by: Acetaminophen (Ofirmev) 65 mls @ 200 mls/hr IV Q6H PRN PRN Reason: Pain or Fever Stop: 12/13/18 21:44 Last Infusion: 11/15/18 01:47 Dose: Infused Documented by: Lorazepam (Ativan) 1 mg PO ONE PRN; Protocol PRN Reason: EtoH Withdrawal AWSS 6-10 Metronidazole (Flagyl) 500 mg PO BID [facility] Stop: 11/29/18 20:59 Morphine Sulfate (Morphine Sulfate) 2 mg IV Q3H PRN PRN Reason: Pain Stop: 11/27/18 13:12 Last Admin: 11/18/18 07:59 Dose: 2 mg Documented by: Ondansetron HCl (Zofran) 4 mg IV Q6H PRN PRN Reason: Nausea Stop: 12/13/18 15:53 Last Admin: 11/13/18 20:11 Dose: 4 mg Documented by: Pantoprazole Sodium (Protonix) 40 mg PO QAM [facility] Stop: 12/20/18 08:59 Thiamine HCl (Vitamin B-1) 50 mg PO QAM [facility] Stop: 12/19/18 13:59 Last Admin: 11/19/18 13:57 Dose: Not Given Documented by:
--- NOTE | 2018-11-19 19:31 | Discharge Summary ---
Date of Service November 19, 2018 Admission HPI Per Admitting Provider 58 y/o male with a PMH of recurrent pancreatitis, pancreas divisum, pancreatic duct stones, alcohol abuse, prior PUD, depression and splenic vein thrombosis who presents with 3-4 days of abdominal pain that has worsened over past 1-2 days. Describes pain "from my butt clean up to my head" and currently rates as 8/10. Pain is present constantly but worse with movement, radiates to his back. Denies any increase in pain with eating and actually reports that his appetite has been great recently. History of alcohol abuse for >30 years having been to AA numerous times and gone through rehab in the past. Initially reported that his last alcoholic drink was two weeks ago - prior to that states that he was drinking at least 3-4 beers per day as well as vodka at times. Denies prior history of alcohol withdrawal. States that he "didn't get the shakes" when he stopped drinking two weeks ago. During the course of the interview pt admitted to a relapse of drinking more recently but "not that much" and stated "I didn't think it would be a problem." Has been taking Aleve and Advil for the pain and states that he wasn't aware that he was supposed to avoid these medications. Denies N/V/D, blood in stool. Reports occasional chills but denies fevers or sweats. Denies CP or SOB. Most recent ERCP was 09/13/18 and showed one occluded stent in the minor papilla; prior minor papilla sphincterotomy open; extension of biliary sphincterotomy performed; moderate dilatation of main PD with irregularity found in PD; pancreas divisum; pancreatic stones found - PD stented and complete removal accomplished; 1 plastic pancreatic stent placed in dorsal PD. Pt was to undergo repeat ERCP for stent removal and re-evaluation of pancreatic duct which was scheduled for 11/22 but patient cancelled this procedure. He states that he was told that the stent would likely pass on its own so he didn't need the ERCP. Also c/o drainage from left eye for past 2-3 days, small amount from right eye since yesterday. May have crusting. Mild blurry vision for past few days. No diplopia. Does not use corrective lenses. No eye pain. +itching bilateral eyes but not as bad today. No sick contacts Admission Exam Per Admitting Provider Constitutional: well developed, well nourished and + ill appearing; no altered mental status Eyes: PERRL, conjunctivae normal, anicteric sclerae ENMT: external ear and nose normal, oropharynx normal Neck: trachea midline Respiratory: normal respiratory effort, lungs clear to auscultation Auscult ation: no rales, no rhonchi and no wheezes Cardiovascular: Rate/Rhythm: regular rate and regular rhythm Heart Sounds: no gallop, no murmur and no cardiac rub Extremities: normal capillary refill; no calf tenderness and no pedal edema Gastrointestinal (Abdomen): Inspection/Auscultation: + abdomen distended (mild) and normal bowel sounds Percussion/Palpation: + abdomen tender (moderate in bilateral UQ), + guarding (voluntary) and abdomen soft Musculoskeletal: Head/Neck/Chest: normocephalic, head atraumatic and neck supple Extremities: no cyanosis and no clubbing Skin: no rashes and no jaundice hot to touch, flushed in face Neurologic: moves all extremities; no focal motor deficits Speech / Cognition: normal speech Motor/Sensory: + tremor (bilateral UE) Psychiatric: A+Ox3, euthymic affect Insight: + limited insight Principal Diagnosis Acute on chronic pancreatitis, status post ERCP and extraction of pancreatic duct stone and replacement of new stent, intra-abdominal fluid collection with possible abscess formation, alcohol abuse Discharge Exam Constitutional + thin ENMT external ear and nose normal, oropharynx normal Neck trachea midline Respiratory normal respiratory effort; no respiratory distress Auscultation: lungs clear to auscultation bilaterally; no rales, no rhonchi and no wheezes Cardiovascular Rate/Rhythm: regular rate and regular rhythm Heart Sounds: no gallop, no murmur and no cardiac rub Extremities: normal capillary refill; no calf tenderness and no pedal edema Gastrointestinal (Abdomen) Inspection/Auscultation: abdomen normal to inspection and normal bowel sounds Percussion/Palpation: abdomen soft; abdomen nontender (Minimal tenderness in the epigastrium) Musculoskeletal Head/Neck/Chest: normocephalic, head atraumatic and neck supple Extremities: no cyanosis and no clubbing Skin no rashes and no jaundice Neurologic moves all extremities; no focal motor deficits Speech / Cognition: normal speech Motor/Sensory: + tremor (bilateral UE) Psychiatric A+Ox3, euthymic affect Insight: + limited insight Lymphatic no cervical or axillary lymphadenopathy Discharge Data Allergies Allergy/AdvReac Type Severity Reaction Status Date / Time No Known Allergies Allergy Verified 11/13/18 09:15 Consultations 11/13/18 12:15 ED Decision to Admit Stat 11/13/18 13:13 Consult Gastroenterology Routine Procedures Performed Operation Date: 11/18/18 12:10 Actual Procedures p Endoscopic Retrograde Cholangiopancreatogram(Not Applicable) - Carmen Dewitt MD Ordered Studies 11/13/18 09:55 CT abd pelvis IV con only Stat 11/15/18 09:45 CT abd pelvis IV con only Urgent 11/15/18 16:00 MR MRCP Routine 11/18/18 16:30 [place] ERCP biliary ductal Routine Hospital Course (1) Acute on chronic pancreatitis: Etiology of pancreatitis appears multifactorial with history of alcohol abuse, pancreas divisum and pancreatic duct stones - currently episode likely triggered by relapse of alcohol use. New fluid collection on CT. - IVF with NSS with 20 mEq of KCl at 150 ml/hr - Strict NPO on admission - Consult GI for additional recommendations - it appears that pt was supposed to be scheduled for a repeat ERCP on 11/22 but cancelled. - Pain control with IV morphine -Clinically little better with ongoing pain -GI is not planning to do any ERCP for now -We will continue n.p.o. and intravenous fluids -Has been started on clears orally and advanced to full liquid this morning -Denies any significant abdominal pain today -We will advance diet as tolerated, decrease intravenous fluid and increase ambulation -Abdominal pain is better without any nausea and/or vomiting -Tolerating clears and advance diet as tolerated -Status post ERCP and extraction of pancreatic duct stone -Denies any more pain and tolerating almost regular diet -We will discharge home this afternoon Possible cholangitis/intra-abdominal collection with abscess formation With history of fever and chills but white count remains normal Await blood cultures-have been negative Continue current antibiotic with cefepime and Flagyl Noted to have high white count with increasing neutrophil Repeat CT of the abdomen and pelvis did show possible intra-abdominal fluid collection with abscess formation MRI of the abdomen did not show any significant findings except the fluid collection has noted in CT GI recommended that the patient should be transferred to a tertiary care center for drainage of the intra-abdominal fluid collection/abscess Discussed with the patient in detail and explained the proposed intervention He is very anxious and has been crying since knowing that he may have to be transferred He wants to wait till tomorrow morning and 1 to have a repeat scan to see if the collection has been improving or not We will continue current antibiotic Clinically better today Discussed with GI and will have ERCP and drainage of pancreas pseudocyst today Status post ERCP and extraction pancreatic duct stone and aspiration of fluid collection Patient has been feeling a lot better He will be discharged home this afternoon (2) ETOH abuse: Pt is unclear on his last alcoholic drink was -initially he stated that it was two weeks ago but then admitted it may have been more recently - Monitor for S/S of alcohol withdrawal - Ativan prn symptoms of withdrawal -No signs and/or symptoms of withdrawal -Strongly advised to have follow-up with alcohol Anonymous (3) Depression: Pt has been taking his Zoloft intermittently - will hold while NPO then restart. Will need to discuss importance of compliance GI prophylaxis With famotidine DVT prophylaxis Subcu heparin CODE STATUS Full Discharge home this afternoon following PT evaluation Total Time Total Time Spent Total Time Spent (In Minutes): 35 minutes Total Time Includes: Examination of the Patient, Discharge Planning, Medication Reconciliation and Communication With Other Providers Discharge Plan Discharge Items Patient Disposition: Home - Self-Care Reason For Visit: ACUTE CHRONIC PANCREATITIS Discharge Diagnosis: Acute on chronic pancreatitis, status post ERCP and extraction of pancreatic duct stone and replacement of new stent, intra- abdominal fluid collection with possible abscess formation, alcohol abuse Condition: Fair Discharge Goals: Decrease discomfort, Improve function and Increase independence Activity: Resume your previous activity Non-emergency contact: Primary Care Provider Call non-emergency contact if: you have any medication questions and your symptoms worsen Follow-up/Referrals: German Cole MD [Primary Care Provider] - 11/22/18 10:45 am (Your appointment is with Dr. Moore. Dr. Jernigan is not available. ) Diet: Low Fat Addtl Provider Instructions: Please take precaution to avoid fall. Advised to quit drinking and outpatient follow-up with alcohol Anonymous group Repeat CT of the abdomen and pelvis in 4 weeks Repeat ERCP in 3 months-[facility] have follow-up for that Prescriptions: New metronidazole 500 mg Tablet 500 mg PO TID 10 Days Qty: 30 RF: 0 ciprofloxacin HCl 500 mg Tablet 500 mg PO BID 10 Days Qty: 20 RF: 0 pantoprazole 40 mg Tablet,Delayed Release (Dr/Ec) 40 mg PO QAM 30 Days Qty: 30 RF: 0 folic acid 1 mg Tablet 1 mg PO QAM 30 Days Qty: 30 RF: 0 thiamine HCl (vitamin B1) [Vitamin B-1] 50 mg Tablet 50 mg PO QAM 30 Days Qty: 30 RF: 0 Lactinex 1 million cell tablet,chewable 2 tab PO BID Qty: 40 RF: 0 Continued sertraline [Zoloft] 50 mg Tablet 75 mg PO DAILY RF: 0 trazodone 50 mg Tablet PO UNKNOWN RF: 0 cyclobenzaprine 5 mg Tablet PO UNKNOWN RF: 0 Stand-Alone Forms: Call Back Authorization, [facility] Discharge Orders: Discharge Order (Routine); Ordered 11/19/18 Ordered By: Michael Reed Admission Data Admit Date/Time: 11/13/18 13:13 Attending Provider: Michael Reed Admit Provider: Ben Pearson Primary Care Provider: German Cole Other Providers: Ben Pearson ; Pardeep Schulz Service: Medical Other Interventions: Discharge Summary Assessment (RN) Last Done: 11/19/18 16:50 DC Date/Time DO NOT enter until pt leaves facility: 11/19/18 18:02
[2018-11-19] MEDS ORDERED: metroNIDAZOLE 500 MG TAB PO SCH (21:00)
[2018-11-19] MEDS ORDERED: CIPROFLOXACIN 500 MG TAB PO SCH (21:00)
[2018-11-20] MEDS ORDERED: PANTOprazole 40 MG TAB PO SCH (09:00)
== END 2018-11-19 18:02 | disposition home or self-care (01) | DRG 439 ==
LOC: ED 08:53 → 2S 13:13 → 2W 11-18 18:51
DX: T85.698A Other mechanical complication of other specified internal prosthetic devices, implants and grafts, initial encounter; F32.9 Major depressive disorder, single episode, unspecified; K25.9 Gastric ulcer, unspecified as acute or chronic, without hemorrhage or perforation; K85.22 Alcohol induced acute pancreatitis with infected necrosis; Y73.2 Prosthetic and other implants, materials and accessory gastroenterology and urology devices associated with adverse incidents; K86.89 Other specified diseases of pancreas; K70.30 Alcoholic cirrhosis of liver without ascites; Y92.009 Unspecified place in unspecified non-institutional (private) residence as the place of occurrence of the external cause; F10.20 Alcohol dependence, uncomplicated; F17.210 Nicotine dependence, cigarettes, uncomplicated; K83.09 Other cholangitis; K86.3 Pseudocyst of pancreas; K86.0 Alcohol-induced chronic pancreatitis; Q45.3 Other congenital malformations of pancreas and pancreatic duct

== ENCOUNTER 2020-02-17 17:21 | Inpatient (IN) ==
[2020-02-17] MEDS ORDERED: THIAMINE HCL 200 MG in SODIUM CHLORIDE 0.9% 50 ML IV STA (17:56)
[2020-02-17] MEDS ORDERED: MULTI-VITAMIN INFUSION 10 ML, THIAMINE HCL 100 MG, FOLIC ACID 1 MG in SODIUM CHLORIDE 0... IV ONE (17:56)
--- NOTE | 2020-02-17 18:40 | Emergency Department Note ---
Impression & Plan Ataxia, Ambulatory dysfunction, Chronic alcoholism, Hypomagnesemia ED Provider Note NAME: ANYI RIVAS AGE: 59 SEX: M ARRIVES VIA: Walk-In INFORMANT: Patient, ED PROVIDER(S): Miguel Rodrigez MD CHIEF COMPLAINT: Etoh dependence ambulatory dysfunction, concern for wernicke's PLAN: Disposition: Admit MEDICAL DECISION MAKING: The patient is a pleasant 59-year-old gentleman with a past medical history of alcohol dependence/abuse, withdrawal, history of alcoholic cirrhosis with history of gastric varices, history of recurrent pancreatitis who presents emerge department from his PCPs office after being evaluated for worsening diffi culty with ambulation unable to keep his balance with concern for developing Wernicke's encephalopathy symptoms of ambulatory dysfunction developing over couple of months, per the patient where has become so severe he has fallen numerous times though he denies any loss of consciousness. He does report a new cough and mild congestion over the past week which she says is not typical for him but denies any known COVID-19 exposures. He denies any fevers, nausea, vomiting, diarrhea, urinary symptoms. He does report he has a tender lump on the right side of his neck which he noticed a couple of days ago. He denies any recent dental pain or infection. He does chew tobacco. On arrival the patient is fatigued appearing but no acute distress, afebrile stable vital signs. He appears clinically dry. He has no overt nystagmus. He does have mild impairment with lpsfjp-vw-yuxa/dysmetria and sluggish alternating palms but significant impairment when performing [id number]. He is completely unable to stand due to unsteadiness in his legs. Reflexes are diminished in the lower extremities. There is no clonus. EKG without overt acute ischemia. Chest x-ray negative for acute cardiopulmon linda process. WBC 4.6, nonspecific. H/H 12.4/37 similar to prior range of values. Platelets within normal limits. Chemistry without metabolic acidosis. Magnesium 1.7 with repletion provided. AST 52 consistent with the patient's alcoholism and otherwise LFTs unremarkable. Troponin negative/undetectable. Ammonia detectable at 30 but within normal range. TSH within normal limits. Lipase is not elevated. UA without convincing evidence of infection. Blood alcohol 198. Lyme screen was negative. COVID-19 RNA, NAAT test was negative. CT of the head and CT of the head and neck was performed and negative for ICH, ischemia or severe narrowing or occlusion of large vessels. Review of the patient's CT does not demonstrate any overt concerning findings related to the patient's right neck pain, may be related to nonspecific reactive lymph node. Patient is agreeable with recommendation for admission for further treatment and evaluation. Suspect likely component related to the patient's alcoholism. Patient was on CIWA during ED observation without development of any severe withdrawal symptoms. Case was discussed with Dr. Ghosh, [facility] hospitalist, who will evaluate the patient for admission. Triage Nursing notes reviewed and agree them. Additional history obtained from [facility] records. Prior medical records reviewed Vital Signs: reviewed and remarkable for no significant abnormalities Differential diagnosis: Infection, dehydration, metabolic abnormality, hypo/hyperglycemia, electrolyte disturbance, anemia, hypoxia, cardiac sources, intracerebral event, toxicologic, neurologic, as well as other pathologies. ER treatment provided: See below. Diagnostics interpreted by me: ECG: Normal sinus rhythm, 81 bpm, no ectopy, no overt ST elevation or depression, QTC 432, QRS 92. Cardiac Monitoring: An order for continuous cardiac monitoring was placed and demonstrated normal sinus rhythm, 81 bpm, no ectopy. Laboratory studies: See below Imaging studies: XR chest 1V portable CLINICAL HISTORY: Atypical chest pain COMPARISON STUDY: 11/23/2018 FINDINGS: The heart is the upper limits of normal in size. There is no failure. There is no focal pulmonary consolidation. There are no pleural effusions. Slight haziness in the perihilar markings is likely secondary to overlying breast tissue attenuation and scatter.[ IMPRESSION: No active disease in the chest. -- CT head/brain wo con CLINICAL HISTORY: Ataxia, etoh abuse DIFFICULTY WALKING. POSSIBLE STROKE. HEAD TRAUMA. COMPARISON STUDY: No previous studies for comparison. TECHNIQUE: Axial CT of the brain is performed from the vertex to the skull base. IV contrast was not administered for this examination. A dose lowering technique was utilized adhering to the principles of ALARA. CT DOSE: FINDINGS: No intra or extra-axial mass lesions are visualized. There is no CT evidence of acute cortical infarction. There is no evidence of midline shift. There is no acute hemorrhage. No calvarial fractures are visualized. There are mild atrophic changes. There is no evidence of pathologic ventricular dilatation. There is mild sphenoid maxillary and ethmoid sinus mucosal thickening. IMPRESSION: No acute intracranial findings -- CT angio head w con CLINICAL HISTORY: Ataxia, ethanol abuse DIZZINESS, HEAD TRAUMA, POSSIBLE STROKE. TECHNIQUE: CT angiography of the head was performed in a dynamic helical fashion during intravenous administration of 121 cc of Optiray 320. MIP imaging was performed. A dose lowering technique was utilized adhering to the principles of ALARA. CT DOSE: COMPARISON STUDY: No previous studies for comparison. FINDINGS: There are no lesion suspicious for aneurysm. There are no major intracranial branch occlusions. The dural venous sinuses appear patent. There is a origin left posterior cerebral artery. There is paranasal sinus mucosal thickening IMPRESSION: Unremarkable CT angiography of the brain. -- CT angio neck with con CLINICAL HISTORY: Ataxia, etoh abuse COMPARISON STUDY: No previous studies for comparison. TECHNIQUE: CT angiography was performed from the aortic arch to the skull base. MIP imaging was performed. The patient was scanned in a dynamic helical fashion during intravenous administration of cc of Optiray 320. A dose lowering technique was utilized adhering to the principles of ALARA. CT DOSE: 1067.62 mGy.cm Technique: CT angiogram of the carotid and vertebral arteries was obtained using intravenous contrast and 3-D reconstruction. NASCET criteria was utilized. Findings: The right carotid revealed no evidence of aneurysm and no evidence of dissection. There is no evidence of hemodynamic significant stenosis. The left carotid revealed no evidence of hemodynamic significant stenosis. There is no evidence of aneurysm. There is no evidence of dissection. There is no evidence of hemodynamically significant vertebral stenosis. There is no evidence of vertebral dissection. IMPRESSION: No evidence of hemodynamically significant carotid or vertebral artery stenosis. No evidence of dissection. ACT 112: Negative or not required by law. Consultation(s): Case was discussed with Dr. Ghosh, [facility] hospitalist, who will evaluate the patient for admission. HPI: The patient is a pleasant 59-year-old gentleman with a past medical history of alcohol dependence/abuse, withdrawal, history of alcoholic cirrhosis with history of gastric varices, history of recurrent pancreatitis who presents emerge department from his PCPs office after being evaluated for worsening difficulty with ambulation unable to keep his balance with concern for developing Wernicke's encephalopathy symptoms of ambulatory dysfunction developing over couple of months, per the patient where has become so severe he has fallen numerous times though he denies any loss of consciousness. He does report a new cough and mild congestion over the past week which she says is not typical for him but denies any known COVID-19 exposures. He denies any fevers, nausea, vomiting, diarrhea, urinary symptoms. He does report he has a tender lump on the right side of his neck which he noticed a couple of days ago. He denies any recent dental pain or infection. He does chew tobacco. ROS: See above HPI for pertinent positives & negatives. A total of 10 systems reviewed and were otherwise negative. PAST MEDICAL HISTORY:See Below PAST SURGICAL HISTORY:See Below FAMILY HISTORY:See Below SOCIAL HISTORY:See Below HOME MEDICATIONS:See Below ALLERGIES:See Below VITALS:See Below PHYSICAL EXAMINATION: GENERAL: Awake, alert, fatigued-appearing, in no distress HENT: Normocephalic, atraumatic. Oropharynx with dry mucous membranes and otherwise unremarkable. EYES: Normal conjunctiva. Sclera non-icteric. EOMI. No nystamgus. PEARRL. NECK: Supple. No nuchal rigidity. FROM. No JVD. RESPIRATORY: Clear to auscultation. CARDIAC: Regular rate, normal rhythm. Extremities warm and well perfused. Pulses equal. ABDOMEN: Soft, non-distended. No tenderness to palpation. No rebound or guarding. No masses. RECTAL: Deferred. MUSCULOSKELETAL: Chest examination reveals no tenderness. The back is symmetrical on inspection without obvious abnormality. There is no CVA tenderness to palpation. No joint edema. LOWER EXTREMITIES: Calves are equal size bilaterally and non-tender. No edema. No discoloration. NEURO: Mild impairment with dysmetria, dysdiadochokinesia, ataxia. Patient is unable to stand as he cannot maintain his balance even with eyes open. 5/5 strength and SILT x 4 extremities. Reflexes are diminished in the lower extre mities. There is no clonus. SKIN: No rash or jaundice noted. Miguel Rodrigez MD Past Med/Surg History Medical History Alcoholic cirrhosis (09/15/12) Anemia Anxiety Asthma "childhood" Depression ETOH abuse 3-4 beers daily* Gastric varices without bleeding no evidence of varices on 07/2018 EGD Recurrent pancreatitis Splenic vein thrombosis Stomach ulcer non-bleeding Surgical History H/O eye surgery "FIBER" REMOVAL History of colonoscopy History of ERCP 09/13/18: ERCP: Grade 2 view, MAC#3, ETT 7.5 at [facility] History of tonsillectomy Family History Other No pertinent family history in first degree relatives Social History Smoking Status: Never smoker Cigarettes Per Day: QUIT SMOKING "YEARS AGO"; Second Hand Exposure: No; Hx Alcohol Use: Yes Alcohol type: beer Alcohol Intake Frequency Comment: 6-10 drinks a day Hx Substance Use: No Preferred Language: Trinidadian Communication Ability: Effective Visual Impairment: No Limitations Hearing Ability: Normal Rug Cleaner Required: No Beliefs That Will Affect Care: None Current Living Situation: Other Current Living Situation Comment: friend lives with him in his home Feels Safe at Home: Yes Assistive Devices: None Allergies Allergies Allergy/AdvReac Type Severity Reaction Status Date / Time No Known Allergies Allergy Verified 02/17/20 19:28 Home Meds Home Medications Medication Instructions Recorded Confirmed sertraline [Zoloft] 75 mg PO DAILY 10/24/18 02/17/20 cyclobenzaprine 5 - 10 mg PO TID PRN 11/13/18 02/17/20 trazodone 50 mg PO HS 11/13/18 02/17/20 albuterol sulfate 2 puff INHALATION Q4 PRN 02/17/20 02/17/20 pantoprazole 40 mg PO DAILY 02/17/20 02/17/20 Results & Data (ED) Vital Signs Vital Signs - 24 hr 02/17/20 17:27 02/17/20 18:21 02/17/20 19:12 Temperature 36.6 C Temperature Source Temporal Artery Scan Oral Pulse Rate 95 H 78 Pulse Rate from SpO2 Sensor 80 Respiratory Rate 18 19 Blood Pressure 109/71 120/83 Blood Pressure Mean 83 89 Pulse Oximetry 98 95 Oxygen Delivery Method Room Air Room Air Sepsis Recent Fever Within 48 Hours No Sepsis New/Unexplained Change in Mental Status No Sepsis Action Taken by Nursing No Action Required 02/17/20 19:30 02/17/20 20:00 02/17/20 20:30 Temperature Temperature Source Pulse Rate 74 72 71 Pulse Rate from SpO2 Sensor 76 72 Respiratory Rate 19 17 15 Blood Pressure 121/83 134/93 135/85 Blood Pressure Mean 90 110 92 Pulse Oximetry 96 97 94 Oxygen Delivery Method Room Air Sepsis Recent Fever Within 48 Hours Sepsis New/Unexplained Change in Mental Status Sepsis Action Taken by Nursing 02/17/20 21:27 02/17/20 21:30 Temperature Temperature Source Pulse Rate 85 71 Pulse Rate from SpO2 Sensor 78 71 Respiratory Rate 21 18 Blood Pressure 134/85 138/88 Blood Pressure Mean 89 95 Pulse Oximetry 97 95 Oxygen Delivery Method Room Air Room Air Sepsis Recent Fever Within 48 Hours Sepsis New/Unexplained Change in Mental Status Sepsis Action Taken by Nursing Laboratory Data Attestation: I reviewed the patient's lab results. Result diagrams: 02/17/20 18:38 02/17/20 18:38 Lab Results 02/17/20 02/17/20 02/17/20 Range/Units 18:38 18:38 18:38 WBC 4.61 L (4.8-10.8) K/uL RBC 3.75 L (4.7-6.1) M/uL Hgb 12.4 L (14.0-18.0) g/dL Hct 37.0 L (42-52) % MCV 98.7 (80-100) fL MCH 33.1 (25-34) pg MCHC 33.5 (32-36) g/dL RDW Std Deviation 47.4 H (36.4-46.3) fL RDW Coeff of Ashvin 13.1 (11.5-14.5) % Plt Count 185 (130-400) K/uL MPV 9.4 (7.4-10.4) fL Immature Gran % (Auto) 0.2 % Neut % (Auto) 44.3 % Lymph % (Auto) 39.9 % Bay % (Auto) 9.3 % Eos % (Auto) 5.4 % Baso % (Auto) 0.9 % Neut # (Auto) 2.04 (1.4-6.5) K/uL Lymph # (Auto) 1.84 (1.2-3.4) K/uL Bay # (Auto) 0.43 (0.11-0.59) K/uL Eos # (Auto) 0.25 (0-0.5) K/uL Baso # (Auto) 0.04 (0-0.2) K/uL Immature Gran # (Auto) 0.01 (0.00-0.02) K/uL PT 10.2 (9.0-12.0) Seconds INR 1.0 (0.9-1.1) APTT 26.0 (21.0-31.0) Seconds PTT Ratio 0.9 Sodium 137 (136-145) mmol/L Potassium 3.6 (3.5-5.1) mmol/L Chloride 103 (98-107) mmol/L Carbon Dioxide 27 (21-32) mmol/L Anion Gap 7.0 (3-11) BUN 11 (7-18) mg/dl Creatinine 0.82 (0.6-1.4) mg/dl Est Cr Clr Drug Dosing 93.1 ml/min Est GFR ( Amer) 113.0 Est GFR (Non-Af Amer) 97.5 BUN/Creatinine Ratio 13.0 (10-20) Glucose 134 H (70-99) mg/dl Calcium 8.3 L (8.5-10.1) mg/dl Phosphorus 2.6 (2.5-4.9) mg/dl Magnesium 1.7 L (1.8-2.4) mg/dl Total Bilirubin 0.4 (0.2-1) mg/dl Direct Bilirubin 0.2 (0-0.2) mg/dl AST 52 H (15-37) U/L ALT 31 (12-78) U/L Alkaline Phosphatase 70 (45-117) U/L Ammonia (11-32) umol/L Total Creatine Kinase 123 (39-308) U/L Troponin I < 0.015 (0-0.045) ng/ml Total Protein 7.4 (6.4-8.2) gm/dl Albumin 3.5 (3.4-5.0) gm/dl Globulin 3.9 (2.5-4.0) gm/dl Albumin/Globulin Ratio 0.9 (0.9-2) Lipase 168 (73-393) U/L TSH 0.726 (0.300-4.500) uIu/ml Urine Color Urine Appearance (Clear) Urine pH (4.5-7.5) Ur Specific [place] (1.000-1.030) Urine Protein (Negative) Urine Glucose (UA) (Negative) Urine Ketones (Negative) Urine Blood (Negative) Urine Nitrite (Negative) Urine Bilirubin (Negative) Urine Urobilinogen (Negative) Ur Leukocyte Esterase (Negative) Urine RBC (0-4) /hpf Urine WBC (0-5) /hpf Ur Epithelial Cells (0-5) /lpf Urine Bacteria (Negative) Ethyl Alcohol mg/dL (0-3) mg/dl Lyme Disease IgG Ab (Negative) Lyme Disease IgM Ab (Negative) COVID-19 Eval Order SARS-CoV-2, RNA, NAAT (NEGATIVE) 02/17/20 02/17/20 02/17/20 Range/Units 18:38 18:38 18:40 WBC (4.8-10.8) K/uL RBC (4.7-6.1) M/uL Hgb (14.0-18.0) g/dL Hct (42-52) % MCV (80-100) fL MCH (25-34) pg MCHC (32-36) g/dL RDW Std Deviation (36.4-46.3) fL RDW Coeff of Ashvin (11.5-14.5) % Plt Count (130-400) K/uL MPV (7.4-10.4) fL Immature Gran % (Auto) % Neut % (Auto) % Lymph % (Auto) % Bay % (Auto) % Eos % (Auto) % Baso % (Auto) % Neut # (Auto) (1.4-6.5) K/uL Lymph # (Auto) (1.2-3.4) K/uL Bay # (Auto) (0.11-0.59) K/uL Eos # (Auto) (0-0.5) K/uL Baso # (Auto) (0-0.2) K/uL Immature Gran # (Auto) (0.00-0.02) K/uL PT (9.0-12.0) Seconds INR (0.9-1.1) APTT (21.0-31.0) Seconds PTT Ratio Sodium (136-145) mmol/L Potassium (3.5-5.1) mmol/L Chloride (98-107) mmol/L Carbon Dioxide (21-32) mmol/L Anion Gap (3-11) BUN (7-18) mg/dl Creatinine (0.6-1.4) mg/dl Est Cr Clr Drug Dosing ml/min Est GFR ( Amer) Est GFR (Non-Af Amer) BUN/Creatinine Ratio (10-20) Glucose (70-99) mg/dl Calcium (8.5-10.1) mg/dl Phosphorus (2.5-4.9) mg/dl Magnesium (1.8-2.4) mg/dl Total Bilirubin (0.2-1) mg/dl Direct Bilirubin (0-0.2) mg/dl AST (15-37) U/L ALT (12-78) U/L Alkaline Phosphatase (45-117) U/L Ammonia 30.0 (11-32) umol/L Total Creatine Kinase (39-308) U/L Troponin I (0-0.045) ng/ml Total Protein (6.4-8.2) gm/dl Albumin (3.4-5.0) gm/dl Globulin (2.5-4.0) gm/dl Albumin/Globulin Ratio (0.9-2) Lipase (73-393) U/L TSH (0.300-4.500) uIu/ml Urine Color Urine Appearance (Clear) Urine pH (4.5-7.5) Ur Specific [place] (1.000-1.030) Urine Protein (Negative) Urine Glucose (UA) (Negative) Urine Ketones (Negative) Urine Blood (Negative) Urine Nitrite (Negative) Urine Bilirubin (Negative) Urine Urobilinogen (Negative) Ur Leukocyte Esterase (Negative) Urine RBC (0-4) /hpf Urine WBC (0-5) /hpf Ur Epithelial Cells (0-5) /lpf Urine Bacteria (Negative) Ethyl Alcohol mg/dL (0-3) mg/dl Lyme Disease IgG Ab Negative (Negative) Lyme Disease IgM Ab Negative (Negative) COVID[facility] SARS-[facility]-2, RNA, NAAT (NEGATIVE) 02/17/20 02/17/20 02/17/20 Range/Units 18:40 18:47 19:13 WBC (4.8-10.8) K/uL RBC (4.7-6.1) M/uL Hgb (14.0-18.0) g/dL Hct (42-52) % MCV (80-100) fL MCH (25-34) pg MCHC (32-36) g/dL RDW Std Deviation (36.4-46.3) fL RDW Coeff of Ashvin (11.5-14.5) % Plt Count (130-400) K/uL MPV (7.4-10.4) fL Immature Gran % (Auto) % Neut % (Auto) % Lymph % (Auto) % Bay % (Auto) % Eos % (Auto) % Baso % (Auto) % Neut # (Auto) (1.4-6.5) K/uL Lymph # (Auto) (1.2-3.4) K/uL [place] # (Auto) (0.11-0.59) K/uL Eos # (Auto) (0-0.5) K/uL Baso # (Auto) (0-0.2) K/uL Immature Gran # (Auto) (0.00-0.02) K/uL PT (9.0-12.0) Seconds INR (0.9-1.1) APTT (21.0-31.0) Seconds PTT Ratio Sodium (136-145) mmol/L Potassium (3.5-5.1) mmol/L Chloride (98-107) mmol/L Carbon Dioxide (21-32) mmol/L Anion Gap (3-11) BUN (7-18) mg/dl Creatinine (0.6-1.4) mg/dl Est Cr Clr Drug Dosing ml/min Est GFR ( Amer) Est GFR (Non-Af Amer) BUN/Creatinine Ratio (10-20) Glucose (70-99) mg/dl Calcium (8.5-10.1) mg/dl Phosphorus (2.5-4.9) mg/dl Magnesium (1.8-2.4) mg/dl Total Bilirubin (0.2-1) mg/dl Direct Bilirubin (0-0.2) mg/dl AST (15-37) U/L ALT (12-78) U/L Alkaline Phosphatase (45-117) U/L Ammonia (11-32) umol/L Total Creatine Kinase (39-308) U/L Troponin I (0-0.045) ng/ml Total Protein (6.4-8.2) gm/dl Albumin (3.4-5.0) gm/dl Globulin (2.5-4.0) gm/dl Albumin/Globulin Ratio (0.9-2) Lipase (73-393) U/L TSH (0.300-4.500) uIu/ml Urine Color Yellow Urine Appearance Clear (Clear) Urine pH 6.5 (4.5-7.5) Ur Specific [place] 1.025 (1.000-1.030) Urine Protein Negative (Negative) Urine Glucose (UA) Negative (Negative) Urine Ketones Trace H (Negative) Urine Blood Trace H (Negative) Urine Nitrite Negative (Negative) Urine Bilirubin Negative (Negative) Urine Urobilinogen Negative (Negative) Ur Leukocyte Esterase Negative (Negative) Urine RBC 5-10 H (0-4) /hpf Urine WBC 0-5 (0-5) /hpf Ur Epithelial Cells 0-5 (0-5) /lpf Urine Bacteria Negative (Negative) Ethyl Alcohol mg/dL 198.0 H (0-3) mg/dl Lyme Disease IgG Ab (Negative) Lyme Disease IgM Ab (Negative) COVID-19 Eval Order SARS-CoV-2, RNA, NAAT NEGATIVE (NEGATIVE) Administered Medications Discontinued Medications Multivitamins 10 ml/ Thiamine HCl 100 mg/ Folic Acid 1 mg/Sodium Chloride 1,011.2 mls @ 1,011.2 mls/hr IV .Q1H ONE Stop: 02/17/20 18:55 Last Infusion: 02/17/20 19:57 Dose: 0 mls/hr Documented by: [id number] Admin: 02/17/20 18:45 Dose: 1,011.2 mls/hr Documented by: [id number] Thiamine HCl 200 mg/ Sodium (Chloride) 52 mls @ 208 mls/hr IV NOW STA Stop: 02/17/20 18:10 Last Infusion: 02/17/20 19:04 Dose: 0 mls/hr Documented by: [id number] Admin: 02/17/20 18:45 Dose: 208 mls/hr Documented by: [id number] Magnesium Sulfate/Dextrose (Magnesium Sulfate / D5w) 1 gm in 100 mls @ 100 mls/hr IV Q1H TAYO Stop: 02/17/20 21:46 Last Admin: 02/17/20 21:37 Dose: 100 mls/hr Documented by: [id number] Infusion: 02/17/20 21:37 Dose: 0 mls/hr Documented by: [id number] Admin: 02/17/20 20:36 Dose: 100 mls/hr Documented by: [id number] Ioversol (Optiray 320 125ml) 121 ml IV ONCE ONE Stop: 02/17/20 20:51 Last Admin: 02/17/20 20:51 Dose: 121 ml Documented by: [id number] Discharge Plan Visit Data Chief Complaint: Referred by Doctor Stated Complaint: REF BY ED Provider: Miguel Rodrigez Discharge Problem: Ataxia, Ambulatory dysfunction, Chronic alcoholism, Hypomagnesemia Forms Stand Alone Forms: [facility] Prescriptions Prescriptions: No Action sertraline [Zoloft] 50 mg Tablet 75 mg PO DAILY RF: 0 trazodone 50 mg Tablet 50 mg PO HS RF: 0 cyclobenzaprine 5 mg Tablet 5 - 10 mg PO TID PRN (Reason: spasms/pain) RF: 0 pantoprazole 40 mg Tablet,Delayed Release (Dr/Ec) 40 mg PO DAILY RF: 0 albuterol sulfate 90 mcg/actuation Hfa Aerosol Inhaler 2 puff INHALATION Q4 PRN (Reason: Shortness Of Breath Or Wheezing) RF: 0
[2020-02-17 19:03] LABS: Basophils # (auto) 0.04 K/uL (0-0.2); Basophils % (auto) 0.9 %; Eosinophils # (auto) 0.25 K/uL (0-0.5); Eosinophils % (auto) 5.4 %; Hemoglobin 12.4 g/dL (14.0-18.0); Immature Granulocytes # (auto) 0.01 K/uL (0.00-0.02); Immature Granulocytes % (auto) 0.2 %; Lymphocytes # (auto) 1.84 K/uL (1.2-3.4); Lymphocytes % (auto) 39.9 %; Mean Corpuscular Hemoglobin 33.1 pg (25-34); Mean Corpuscular Hgb Conc 33.5 g/dL (32-36); Mean Corpuscular Volume 98.7 fL (80-100); Mean Platelet Volume 9.4 fL (7.4-10.4); Monocytes # (auto) 0.43 K/uL (0.11-0.59); Monocytes % (auto) 9.3 %; Neutrophils # (auto) 2.04 K/uL (1.4-6.5); Neutrophils % (auto) 44.3 %; Platelet Count 185 K/uL (130-400); RDW Coefficient of Variation 13.1 % (11.5-14.5); RDW Standard Deviation 47.4 fL (36.4-46.3); Red Blood Count 3.75 M/uL (4.7-6.1); White Blood Count 4.61 K/uL (4.8-10.8)
[2020-02-17 19:21] LABS: Appearance Urine Clear (Clear); Bilirubin Urine Negative (Negative); Blood Urine Trace (Negative); Color Urine Yellow; Glucose Urine UA Negative (Negative); Ketones Urine Trace (Negative); Leukocyte Esterase Urine Negative (Negative); Nitrite Urine Negative (Negative); Protein Urine Negative (Negative); Specific Gravity Urine 1.025 (1.000-1.030); Urobilinogen Urine Negative (Negative); pH Urine 6.5 (4.5-7.5)
[2020-02-17 19:22] LABS: Alanine Aminotransferase 31 U/L (12-78); Albumin Level 3.5 gm/dl (3.4-5.0); Aspartate Aminotransferase 52 U/L (15-37); Bilirubin Direct 0.2 mg/dl (0-0.2); Blood Urea Nitrogen 11 mg/dl (7-18); Calcium 8.3 mg/dl (8.5-10.1); Carbon Dioxide 27 mmol/L (21-32); Chloride 103 mmol/L (98-107); Creatinine Clr Calc Pharmacy 93.1 ml/min; Est GFR (Non-African American) 97.5; Glucose 134 mg/dl (70-99); Lipase 168 U/L (73-393); Magnesium 1.7 mg/dl (1.8-2.4); Potassium 3.6 mmol/L (3.5-5.1); Sodium 137 mmol/L (136-145)
[2020-02-17 19:29] LABS: Partial Thromboplastin Ratio 0.9; Prothrombin Time 10.2 Seconds (9.0-12.0)
[2020-02-17 19:31] LABS: Albumin Globulin Ratio 0.9 (0.9-2); Alkaline Phosphatase 70 U/L (45-117); Bilirubin,Total 0.4 mg/dl (0.2-1); Creatine Kinase 123 U/L (39-308); Globulin 3.9 gm/dl (2.5-4.0); Phosphorus 2.6 mg/dl (2.5-4.9); Thyroid Stimulating Hormone 0.726 uIu/ml (0.300-4.500); Total Protein 7.4 gm/dl (6.4-8.2); Troponin I < 0.015 ng/ml (0-0.045)
[2020-02-17 19:34] LABS: Bacteria Urine Negative (Negative); Epithelial Cell Urine 0-5 /lpf (0-5); WBC Urine 0-5 /hpf (0-5)
[2020-02-17 19:56] LABS: Lyme Ab IgG w/WB Rflx Negative (Negative); Lyme Ab IgM w/WB Rflx Negative (Negative)
--- NOTE | 2020-02-17 19:56 | XRay Report ---
XR chest 1V portable CLINICAL HISTORY: Atypical chest pain COMPARISON STUDY: 11/23/2018 FINDINGS: The heart is the upper limits of normal in size. There is no failure. There is no focal pul monary consolidation. There are no pleural effusions. Slight haziness in the perihilar markings is li osvaldo secondary to overlying breast tissue attenuation and scatter.[ IMPRESSION: No active disease in the chest. ACT 112: Negative or not required by law. Electronically signed by: Fran Bales M.D. 02/17/2020 7:55 PM
[2020-02-17] MEDS: MAGNESIUM SULFATE / D5W 1 GM/100 ML BAG IV SCH ×2 (20:36→21:37)
[2020-02-17] MEDS ORDERED: OPTIRAY 320 125ml IV ONE (20:50)
--- NOTE | 2020-02-17 21:00 | CT Scan Report ---
CT head/brain wo con CLINICAL HISTORY: Ataxia, etoh abuse DIFFICULTY WALKING. POSSIBLE STROKE. HEAD TRAUMA. COMPARISON STUDY: No previous studies for comparison. TECHNIQUE: Axial CT of the brain is performed from the vertex to the skull base. IV contrast was not administered for this examination. A dose lowering technique was utilized adhering to the principles of ALARA. CT DOSE: FINDINGS: No intra or extra-axial mass lesions are visualized. There is no CT evidence of acute cortical infarc tion. There is no evidence of midline shift. There is no acute hemorrhage. No calvarial fractures ar e visualized. There are mild atrophic changes. There is no evidence of pathologic ventricular dilatation. There is mild sphenoid maxillary and ethmoid sinus mucosal thickening. IMPRESSION: No acute intracranial findings ACT 112: Negative or not required by law. Electronically signed by: Fran Bales M.D. 02/17/2020 8:59 PM
--- NOTE | 2020-02-17 21:03 | CT Scan Report ---
CT angio neck with con CLINICAL HISTORY: Ataxia, etoh abuse COMPARISON STUDY: No previous studies for comparison. TECHNIQUE: CT angiography was performed from the aortic arch to the skull base. MIP imaging was perfo rmed. The patient was scanned in a dynamic helical fashion during intravenous administration of cc of Optiray 320. A dose lowering technique was utilized adhering to the principles of ALARA. CT DOSE: 1067.62 mGy.cm Technique: CT angiogram of the carotid and vertebral arteries was obtained using intravenous contrast and 3-D reconstruction. NASCET criteria was utilized. Findings: The right carotid revealed no evidence of aneurysm and no evidence of dissection. There is no evidenc e of hemodynamic significant stenosis. The left carotid revealed no evidence of hemodynamic significant stenosis. There is no evidence of an eurysm. There is no evidence of dissection. There is no evidence of hemodynamically significant vertebral stenosis. There is no evidence of verte bral dissection. IMPRESSION: No evidence of hemodynamically significant carotid or vertebral artery stenosis. No evidence of disse ction. ACT 112: Negative or not required by law. Electronically signed by: Fran Bales M.D. 02/17/2020 9:02 PM
--- NOTE | 2020-02-17 21:05 | CT Scan Report ---
CT angio head w con CLINICAL HISTORY: Ataxia, ethanol abuse DIZZINESS, HEAD TRAUMA, POSSIBLE STROKE. TECHNIQUE: CT angiography of the head was performed in a dynamic helical fashion during intravenous a dministration of 121 cc of Optiray 320. MIP imaging was performed. A dose lowering technique was util ized adhering to the principles of ALARA. CT DOSE: COMPARISON STUDY: No previous studies for comparison. FINDINGS: There are no lesion suspicious for aneurysm. There are no major intracranial branch occlusi ons. The dural venous sinuses appear patent. There is a origin left posterior cerebral artery. There is paranasal sinus mucosal thickening IMPRESSION: Unremarkable CT angiography of the brain. ACT 112: Negative or not required by law. Electronically signed by: Fran Bales M.D. 02/17/2020 9:04 PM
--- NOTE | 2020-02-17 22:17 | History & Physical Report ---
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 Lovenox subcu if no bleed on MRI brain Full code Text document was generated using [employer] voice recognition software. It may contain grammatical or spelling errors. Kindly contact undersigned for clarification of any documentation item in question. History of Present Illness Chief Complaint: Gait instability, sent by family doctor Primary Care Provider: German Cole MD History obtained from patient and records. Medical history significant for alcoholic cirrhosis, recurrent pancreatitis, ongoing alcohol abuse, chronic anemia (Baseline hemoglobin 12-13 ), mood disorder Last confinement November 2018 for recurrent pancreatitis status post ERCP. For about a month now patient noted worsening gait instability and inability to keep balance leading to some falls at home. No chest pain, no unusual shortness of breath. Achy headache symptoms the last 2 days. No recent visual problems. Patient does not feel confused. No recollection of recent head trauma. Daily alcohol intake. Patient sent to ER by PCP after evaluation at clinic. Thiamine given at the ER for possible Warnicke's encephalopathy. 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 Allergies Allergy/AdvReac Type Severity Reaction Status Date / Time No Known Allergies Allergy Verified 02/17/20 19:28 Home Medications Medication Instructions Recorded Confirmed Type sertraline [Zoloft] 75 mg PO DAILY 10/24/18 02/17/20 History cyclobenzaprine 5 - 10 mg PO TID PRN 11/13/18 02/17/20 History trazodone 50 mg PO HS 11/13/18 02/17/20 History albuterol sulfate 2 puff INHALATION Q4 PRN 02/17/20 02/17/20 History pantoprazole 40 mg PO DAILY 02/17/20 02/17/20 History Past Med/Surg History Medical History Alcoholic cirrhosis (09/15/12) Anemia Anxiety Asthma "childhood" Depression ETOH abuse 3-4 beers daily* Gastric varices without bleeding no evidence of varices on 07/2018 EGD Recurrent pancreatitis Splenic vein thrombosis Stomach ulcer non-bleeding Surgical History H/O eye surgery "FIBER" REMOVAL History of colonoscopy History of ERCP 09/13/18: ERCP: Grade 2 view, MAC#3, ETT 7.5 at [facility] History of tonsillectomy Family History Other No pertinent family history in first degree relatives Social History Smoking Status: Never smoker Cigarettes Per Day: QUIT SMOKING "YEARS AGO"; Second Hand Exposure: No; Hx Alcohol Use: Yes Alcohol type: beer Alcohol Intake Frequency Comment: 6-10 drinks a day Hx Substance Use: No Preferred Language: Greenlandic Communication Ability: Effective Visual Impairment: No Limitations Hearing Ability: Normal Casino Shift Manager Required: No Beliefs That Will Affect Care: None Current Living Situation: Other Current Living Situation Comment: friend lives with him in his home Feels Safe at Home: Yes Assistive Devices: None Review of Systems Review of Systems: As per HPI, all 10 systems reviewed, all other ROS negative Physical Exam Physical Exam: Physical Exam: GENERAL: slightly anxious, tremulous, somewhat restless, no respiratory distress SKIN: Pallor, warm HEENT: Pale palpebral conjunctivae, no ptosis, intermittent squinting of the left eye, dry buccal mucosa NECK : Supple, no tenderness CHEST : CTA, no tenderness HEART : RRR, no obvious murmurs ABDOMEN: Some distention, no tenderness EXTREMITIES : No LE swelling/tenderness, no other conspicuous deformities noted NEUROLOGIC : Coherent, EOM full and equal, tremulous, some degree of extremity incoordination on testing, gait and stance not assessed Results & Data Results & Data ([facility]) Vital Signs (Past 12 Hours) Vital Signs Temp Pulse Resp BP Pulse Ox 02/17/20 21:30 71 18 138/88 95 02/17/20 21:27 85 21 134/85 97 02/17/20 20:30 71 15 135/85 94 02/17/20 20:00 72 17 134/93 97 02/17/20 19:30 74 19 121/83 96 12/08/20 19:12 78 19 120/83 95 02/17/20 17:27 36.6 C 95 H 18 109/71 98 Laboratory Results Laboratory Results WBC 4.61 K/uL (4.8-10.8) L 02/17/20 18:38 RBC 3.75 M/uL (4.7-6.1) L 02/17/20 18:38 Hgb 12.4 g/dL (14.0-18.0) L 02/17/20 18:38 Hct 37.0 % (42-52) L 02/17/20 18:38 MCV 98.7 fL (80-100) 02/17/20 18:38 MCH 33.1 pg (25-34) 02/17/20 18:38 MCHC 33.5 g/dL (32-36) 02/17/20 18:38 RDW Std Deviation 47.4 fL (36.4-46.3) H 02/17/20 18:38 RDW Coeff of Ashvin 13.1 % (11.5-14.5) 02/17/20 18:38 Plt Count 185 K/uL (130-400) 02/17/20 18:38 MPV 9.4 fL (7.4-10.4) 02/17/20 18:38 Immature Gran % (Auto) 0.2 % 02/17/20 18:38 Neut % (Auto) 44.3 % 02/17/20 18:38 Lymph % (Auto) 39.9 % 02/17/20 18:38 Milam % (Auto) 9.3 % 02/17/20 18:38 Eos % (Auto) 5.4 % 02/17/20 18:38 Baso % (Auto) 0.9 % 02/17/20 18:38 Neut # (Auto) 2.04 K/uL (1.4-6.5) 02/17/20 18:38 Lymph # (Auto) 1.84 K/uL (1.2-3.4) 02/17/20 18:38 [place] # (Auto) 0.43 K/uL (0.11-0.59) 02/17/20 18:38 Eos # (Auto) 0.25 K/uL (0-0.5) 02/17/20 18:38 Baso # (Auto) 0.04 K/uL (0-0.2) 02/17/20 18:38 Immature Gran # (Auto) 0.01 K/uL (0.00-0.02) 02/17/20 18:38 PT 10.2 Seconds (9.0-12.0) 02/17/20 18:38 INR 1.0 (0.9-1.1) 02/17/20 18:38 APTT 26.0 Seconds (21.0-31.0) 02/17/20 18:38 PTT Ratio 0.9 02/17/20 18:38 Sodium 137 mmol/L (136-145) 02/17/20 18:38 Potassium 3.6 mmol/L (3.5-5.1) 02/17/20 18:38 Chloride 103 mmol/L (98-107) 02/17/20 18:38 Carbon Dioxide 27 mmol/L (21-32) 02/17/20 18:38 Anion Gap 7.0 (3-11) 02/17/20 18:38 BUN 11 mg/dl (7-18) 02/17/20 18:38 Creatinine 0.82 mg/dl (0.6-1.4) 02/17/20 18:38 Est Cr Clr Drug Dosing 93.1 ml/min 02/17/20 18:38 Est GFR ( Amer) 113.0 02/17/20 18:38 Est GFR (Non-Af Amer) 97.5 02/17/20 18:38 BUN/Creatinine Ratio 13.0 (10-20) 02/17/20 18:38 Glucose 134 mg/dl (70-99) H 02/17/20 18:38 Calcium 8.3 mg/dl (8.5-10.1) L 02/17/20 18:38 Phosphorus 2.6 mg/dl (2.5-4.9) 02/17/20 18:38 Magnesium 1.7 mg/dl (1.8-2.4) L 02/17/20 18:38 Total Bilirubin 0.4 mg/dl (0.2-1) 02/17/20 18:38 Direct Bilirubin 0.2 mg/dl (0-0.2) 02/17/20 18:38 AST 52 U/L (15-37) H 02/17/20 18:38 ALT 31 U/L (12-78) 02/17/20 18:38 Alkaline Phosphatase 70 U/L (45-117) 02/17/20 18:38 Ammonia 30.0 umol/L (11-32) 02/17/20 18:38 Total Creatine Kinase 123 U/L (39-308) 02/17/20 18:38 Troponin I < 0.015 ng/ml (0-0.045) 02/17/20 18:38 Total Protein 7.4 gm/dl (6.4-8.2) 02/17/20 18:38 Albumin 3.5 gm/dl (3.4-5.0) 02/17/20 18:38 Globulin 3.9 gm/dl (2.5-4.0) 02/17/20 18:38 Albumin/Globulin Ratio 0.9 (0.9-2) 02/17/20 18:38 Lipase 168 U/L (73-393) 02/17/20 18:38 TSH 0.726 uIu/ml (0.300-4.500) 02/17/20 18:38 Urine Color Yellow 02/17/20 19:13 Urine Appearance Clear (Clear) 02/17/20 19:13 Urine pH 6.5 (4.5-7.5) 02/17/20 19:13 Ur Specific [place] 1.025 (1.000-1.030) 02/17/20 19:13 Urine Protein Negative (Negative) 02/17/20 19:13 Urine Glucose (UA) Negative (Negative) 02/17/20 19:13 Urine Ketones Trace (Negative) H 02/17/20 19:13 Urine Blood Trace (Negative) H 02/17/20 19:13 Urine Nitrite Negative (Negative) 02/17/20 19:13 Urine Bilirubin Negative (Negative) 02/17/20 19:13 Urine Urobilinogen Negative (Negative) 02/17/20 19:13 Ur Leukocyte Esterase Negative (Negative) 02/17/20 19:13 Urine RBC 5-10 /hpf (0-4) H 02/17/20 19:13 Urine WBC 0-5 /hpf (0-5) 02/17/20 19:13 Ur Epithelial Cells 0-5 /lpf (0-5) 02/17/20 19:13 Urine Bacteria Negative (Negative) 02/17/20 19:13 Ethyl Alcohol mg/dL 198.0 mg/dl (0-3) H 02/17/20 18:47 Lyme Disease IgG Ab Negative (Negative) 02/17/20 18:38 Lyme Disease IgM Ab Negative (Negative) 02/17/20 18:38 [facility]19 [facility] 02/17/20 18:40 SARS-CoV-2, RNA, NAAT NEGATIVE (NEGATIVE) 02/17/20 18:[address] head: No acute intracranial findings CT angio head: Unremarkable CT angiography of the brain. CT angio neck: No evidence of hemodynamically significant carotid or vertebral artery stenosis. No evidence of dissection. Chest x-ray : No active disease in the chest. EKG as per my interpretation : Rate 80, NSR, normal axis, no ischemia
[2020-02-17] MEDS ORDERED: GABAPENTIN 600 MG TAB PO ONE (22:37)
[2020-02-17] MEDS ORDERED: GADOBUTROL 65ML VIAL IV ONE (23:51)
[2020-02-18] MEDS ORDERED: NORMOSOL-R 1,000 ML IV ONE
[2020-02-18] MEDS ORDERED: GABAPENTIN 1200MG ALCOHOL WITHDRAWAL LOAD PO STA (00:56)
[2020-02-18] MEDS ORDERED: ACETAMINOPHEN 325 MG TAB PO PRN (00:56)
[2020-02-18] MEDS ORDERED: LORazepam 3 MG/6 ML VIAL IV PRN (00:56)
[2020-02-18] MEDS ORDERED: PROMETHAZINE HCL 6.25 MG in SODIUM CHLORIDE 0.9% 50 ML IV PRN (00:56)
[2020-02-18] MEDS ORDERED: LORazepam 2 MG/4 ML VIAL IV PRN (00:56)
[2020-02-18] MEDS ORDERED: ATIVAN IV ALCOHOL WITHDRAWL IV PRN (00:56)
[2020-02-18] MEDS ORDERED: ALBUTEROL HFA 8 GM INHALER INH PRN (00:56)
[2020-02-18] MEDS: oxyCODONE HCL IR 5 MG TAB (IMMEDIATE RELEASE) PO PRN ×3 (01:16→20:32)
[2020-02-18] MEDS: LORazepam 1 MG/2 ML VIAL IV PRN (01:17)
[2020-02-18] MEDS: THIAMINE HCL 100 MG TAB PO SCH ×2 (01:25→08:11)
[2020-02-18] MEDS: FOLIC ACID 1 MG TAB PO SCH ×2 (01:25→08:12)
[2020-02-18] MEDS: GABAPENTIN 600 MG TAB PO SCH ×3 (06:01→20:25)
[2020-02-18 07:20] LABS: Basophils # (auto) 0.04 K/uL (0-0.2); Basophils % (auto) 0.8 %; Eosinophils # (auto) 0.42 K/uL (0-0.5); Eosinophils % (auto) 8.1 %; Hematocrit (blood only) 35.6 % (42-52); Hemoglobin 11.6 g/dL (14.0-18.0); Immature Granulocytes # (auto) 0.01 K/uL (0.00-0.02); Immature Granulocytes % (auto) 0.2 %; Lymphocytes # (auto) 1.55 K/uL (1.2-3.4); Lymphocytes % (auto) 29.8 %; Mean Corpuscular Hemoglobin 32.6 pg (25-34); Mean Corpuscular Hgb Conc 32.6 g/dL (32-36); Mean Platelet Volume 9.5 fL (7.4-10.4); Monocytes # (auto) 0.73 K/uL (0.11-0.59); Neutrophils # (auto) 2.45 K/uL (1.4-6.5); Neutrophils % (auto) 47.1 %; Platelet Count 153 K/uL (130-400); RDW Standard Deviation 47.6 fL (36.4-46.3); Red Blood Count 3.56 M/uL (4.7-6.1)
--- NOTE | 2020-02-18 07:25 | Magnetic Resonance Report ---
MR brain wo/w con HISTORY: 59 years-old Male ataxia, [place] acute dizziness with headache and ataxia. Recent head injury w ith fall. 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 There is no restricted diffusio n to suggest acute or subacute infarct. The midline structures including the corpus callosum, brainst em, optic chiasm, pituitary and pineal glands appear unremarkable in sagittal T1 series. No cerebella r tonsillar herniation. Degenerative changes are noted involving the imaged cervical spine. No acute intracranial hemorrhage, midline shift, abnormal extra axial collection, hydrocephalus or in tracranial mass. Cerebral venous sinuses and major arterial flow voids at the level the skull base [place] patent. Mastoid air cells are clear. Mucoperiosteal thickening of the paranasal sinuses included 2.3 center focus of polypoid thickening of the left maxillary sinus. Skull, orbits and soft tissues are unremarkable. Mild involutional changes. Minimal T2/FLAIR hyperintensities about the white matter may reflect devel oping chronic microvascular ischemic disease. No abnormal intra-axial or extra-axial enhancement. IMPRESSION: 1. No acute intracranial abnormality, specifically there is no evidence of acute or subacute infarct. 2. No abnormal enhancement. ACT 112: Negative or not required by law. The above report was generated using voice recognition software. It may contain grammatical, syntax o r spelling errors. Electronically signed by: Vicente Kang M.D. 02/18/2020 7:23 AM
[2020-02-18 07:51] LABS: BUN Creatinine Ratio 13.3 (10-20); Calcium 8.2 mg/dl (8.5-10.1); Creatinine Clr Calc Pharmacy 71.2 ml/min; Est GFR (African American) 109.7; Est GFR (Non-African American) 94.7; Magnesium 2.1 mg/dl (1.8-2.4); Potassium 4.5 mmol/L (3.5-5.1)
[2020-02-18 07:55] LABS: Albumin Globulin Ratio 0.9 (0.9-2); Bilirubin,Total 0.8 mg/dl (0.2-1); Globulin 3.4 gm/dl (2.5-4.0); Total Protein 6.4 gm/dl (6.4-8.2)
[2020-02-18] MEDS: SERTRALINE HCL 50 MG TABLET PO SCH (08:12)
[2020-02-18] MEDS: PANTOprazole 40 MG TAB PO SCH (08:13)
[2020-02-18] MEDS: ENOXAPARIN INJ 30 MG/0.3 ML SYR SQ SCH (08:13)
[2020-02-18] MEDS: MULTIVITAMIN TAB PO SCH (08:13)
--- NOTE | 2020-02-18 13:43 | Electrocardiogram Report ---
Test Reason : Blood Pressure : / mmHG Vent. Rate : 081 BPM Atrial Rate : 081 BPM P-R Int : 130 ms QRS Dur : 092 ms QT Int : 372 ms P-R-T Axes : 046 033 049 degrees QTc Int : 432 ms Normal sinus rhythm Normal ECG When compared with ECG of 18-JUL-2018 16:01, Premature ventricular complexes are no longer Present Confirmed by Doc Funk ([id number]) on 02/18/2020 1:43:29 PM Referred By: Jessica Ingram Confirmed By:Doc Funk
--- NOTE | 2020-02-18 14:58 | Hospitalist Progress Note ---
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 Could have labyrinthine disease but does not have any other symptoms with it Relevant investigations including CTA of the neck and head, CT of the head and MRI of the head remain unremarkable Awaiting neurology evaluation We will get PT and OT evaluation Right neck adenopathy Denies any sore throat recently and does not have any obvious ear and respiratory infection Will cover with antibiotic Augmentin 875 mg twice daily was prescribed Alcoholic cirrhosis, no overt decompensation Consumes about 6 beers per day regularly Minimal tremor on outstretched hands Chronic anemia (hemoglobin at baseline) Mood disorder, at baseline DVT prophylaxis. Lovenox subcu if no bleed on MRI brain Full code Admission and Anticipated Discharge Date Admission Date: February 17, 2020 Subjective 02/18/2020 The patient was seen and examined in medical telemetry unit He is ataxia and dizziness are better but he complains today of pain and swelling involving right lateral neck Denies any fever and/or chills and denies any neurological symptoms Review of Systems Review of Systems: All systems reviewed and are unremarkable except as noted below Neurologic: + gait abnormality, + unsteadiness and + dizziness; no headache(s) Physical Exam Physical Exam: Lying in bed comfortably Constitutional: well developed and well nourished; no acute distress and not ill appearing Eyes: PERRL, conjunctivae normal, anicteric sclerae ENMT: external ear and nose normal, oropharynx normal Neck: trachea midline, no thyromegaly + neck tender (With swelling of the right lateral side of the neck ) Respiratory: normal respiratory effort; no respiratory distress Auscultation: lungs clear to auscultation bilaterally Cardiovascular: Rate/Rhythm: regular rate and regular rhythm Heart Sounds: no murmur Extremities: no edema Gastrointestinal (Abdomen): Inspection/Auscultation: abdomen normal to inspection and normal bowel sounds Percussion/Palpation: abdomen soft; abdomen nontender Musculoskeletal: No acute arthritis in any joint Neurologic: PERRL, EOMI, accommodation nl, no face palsy, no dysarthria Psychiatric: A+Ox3, euthymic affect Lymphatic: no cervical or axillary lymphadenopathy Results & Data Results & Data ([facility]) Vital Signs (Past 12 Hours) Vital Signs Temp Pulse Pulse Resp BP Pulse Ox 02/18/20 11:12 36.6 C 76 18 154/91 H 97 02/18/20 07:26 36.4 C 63 18 148/89 H 96 02/18/20 07:22 65 Laboratory Results Short CBC 02/17/20 02/18/20 Range/Units 18:38 07:05 WBC 4.61 L 5.20 (4.8-10.8) K/uL Hgb 12.4 L 11.6 L (14.0-18.0) g/dL Hct 37.0 L 35.6 L (42-52) % Plt Count 185 153 (130-400) K/uL BMP 02/17/20 02/18/20 18:38 07:05 Sodium 137 136 Potassium 3.6 4.5 D Chloride 103 103 Carbon Dioxide 27 31 BUN 11 12 Creatinine 0.82 0.88 Glucose 134 H 106 H Calcium 8.3 L 8.2 L Cardiac Enzymes 02/17/20 Range/Units 18:38 Total Creatine Kinase 123 (39-308) U/L Troponin I < 0.015 (0-0.045) ng/ml Liver Function 02/17/20 02/18/20 Range/Units 18:38 07:05 Total Bilirubin 0.4 0.8 (0.2-1) mg/dl Direct Bilirubin 0.2 (0-0.2) mg/dl AST 52 H 46 H (15-37) U/L ALT 31 27 (12-78) U/L Alkaline Phosphatase 70 72 (45-117) U/L Albumin 3.5 3.0 L (3.4-5.0) gm/dl Urine 02/17/20 Range/Units 19:13 Urine Color Yellow Urine Appearance Clear (Clear) Urine pH 6.5 (4.5-7.5) Ur Specific [place] 1.025 (1.000-1.030) Urine Protein Negative (Negative) Urine Glucose (UA) Negative (Negative) Medications Administered Current Inpatient Medications Acetaminophen (Acetaminophen 325 Mg Tab) 325 mg PO Q6H PRN PRN Reason: Mild Pain Stop: 03/19/20 00:55 Albuterol (Albuterol Hfa 8 Gm Inhaler) 2 puffs INH Q4 PRN PRN Reason: Shortness Of Breath Or Wheezing Stop: 03/19/20 00:55 Amoxicillin/Clavulanate Potassium (Amoxicillin/Clavulanate 875 Mg Tab) 1 tab PO BIDM [facility]; Protocol Stop: 02/25/20 16:59 Enoxaparin Sodium (Enoxaparin Inj 30 Mg/0.3 Ml Syr) [facility] [place] Stop: 03/19/20 08:59 Last Admin: 02/18/20 08:13 Dose: 30 mg Documented by: Folic Acid (Folic Acid 1 Mg Tab) [facility] [place] Stop: 03/19/20 00:55 Last Admin: 02/18/20 08:12 Dose: 1 mg Documented by: Gabapentin (Gabapentin 600 Mg Tab) 600 mg PO Q24H [facility] Stop: 02/21/20 12:01 Gabapentin (Gabapentin 600 Mg Tab) 600 mg PO Q8H [facility] Stop: 02/19/20 12:01 Gabapentin (Gabapentin 600 Mg Tab) 600 mg PO Q12H [facility] Stop: 02/20/20 12:01 Parenteral Electrolytes (Normosol-R) 1,000 mls @ 60 mls/hr IV .[id number] ONE Stop: 02/18/20 16:39 Last Admin: 02/18/20 01:00 Dose: 60 mls/hr Documented by: Lorazepam (Ativan) 1 mg in 2 mls @ 2 mls/min IV UD PRN; Protocol PRN Reason: EtOH Withdrawl AWSS Score 6,7 Stop: 03/19/20 00:55 Last Admin: 02/18/20 01:17 Dose: 2 mls/min Documented by: Lorazepam (Ativan) 2 mg in 4 mls @ 4 mls/min IV UD PRN; Protocol PRN Reason: EtOH Withdrawl AWSS Score 8,9 Stop: 03/19/20 00:55 Lorazepam (Ativan) 3 mg in 6 mls @ 4 mls/min IV ONCE PRN; Protocol PRN Reason: EtOH Withdrawl AWSS Score >=10 Stop: 03/19/20 00:55 Promethazine HCl 6.25 mg/ (Sodium Chloride) 50.25 mls @ 201 mls/hr IV Q6H PRN PRN Reason: Nausea And Vomiting Stop: 03/19/20 00:55 Multivitamins (Multivitamin Tab) 1 tab PO [facility] Stop: 03/19/20 08:59 Last Admin: 02/18/20 08:13 Dose: 1 tab Documented by: Oxycodone HCl (Oxycodone Hcl Ir 5 Mg Tab (Immediate Release)) 5 mg PO Q4H PRN PRN Reason: Pain Stop: 03/03/20 00:55 Last Admin: 02/18/20 08:16 Dose: 5 mg Documented by: Pantoprazole Sodium (Pantoprazole 40 Mg Tab) 40 mg PO DAILY [facility] Stop: 03/19/20 08:59 Last Admin: 02/18/20 08:13 Dose: 40 mg Documented by: Sertraline HCl (Sertraline Hcl 50 Mg Tablet) 75 mg PO DAILY [facility] Stop: 03/19/20 08:59 Last Admin: 02/18/20 08:12 Dose: 75 mg Documented by: Thiamine HCl (Thiamine Hcl 100 Mg Tab) 100 mg PO [facility] Stop: 03/19/20 00:55 Last Admin: 02/18/20 08:11 Dose: 100 mg Documented by: Trazodone HCl (Trazodone Hcl 50 Mg Tab) 50 mg PO [facility] Stop: 03/19/20 20:59
[2020-02-18] MEDS: AMOXICILLIN/CLAVULANATE 875 MG TAB PO SCH (16:06)
--- NOTE | 2020-02-18 16:21 | History and Physical Report ---
DATE OF ADMISSION: 02/18/2020 NEUROLOGY CONSULTATION NOTE CHIEF COMPLAINT: Unsteady gait. HISTORY OF PRESENT ILLNESS: A 59-year-old male admitted from the Emergency Department last evening for gait instability. He has a past medical history of alcohol dependence/abuse, history of alcohol withdrawal, history of alcoholic cirrhosis as well as gastric varices. He also has a history of recurrent pancreatitis. He presented to the Emergency Department after being referred from his PCP's office for worsening difficulty with ambulation, unable to keep his balance with concern for developing Wernicke's encephalopathy symptoms. He has fallen several times over the last month with no loss of consciousness. On arrival in Emergency Department, he was noted to appear fatigued, although no distress. His vital signs were stable. He was afebrile. He appeared dry. EKG was performed without evidence of acute ischemia. Chest x-ray was negative for cardiopulmonary process. CT of the head and neck was performed and negative for hemorrhage, ischemia or severe narrowing of the occlusion of the vessels. The patient was admitted to the hospitalist service for gait ataxia. Neurology was consulted for further recommendations. ALLERGIES: No known drug allergies. HOME MEDICATIONS: Zoloft 75 mg daily, Flexeril, trazodone 50 mg nightly, Protonix, albuterol. PAST MEDICAL HISTORY: Alcoholic cirrhosis, anemia, anxiety, asthma, depression, alcohol abuse, gastric varices, recurrent pancreatitis, splenic vein thrombosis, stomach ulcer. PAST SURGICAL HISTORY: Eye surgery, colonoscopy, ERCP, tonsillectomy. FAMILY HISTORY: No pertinent family history noted. SOCIAL HISTORY: He is a former smoker. He drinks alcohol 6-10 drinks a day. REVIEW OF SYSTEMS: As noted above. All 10 review of systems was performed and negative except as noted above. PHYSICAL EXAMINATION: VITAL SIGNS: Blood pressure 154/91, pulse is 76, respiratory rate 18, temperature is 36.6 degrees Celsius, oxygen saturation 97% on room air. EXAM: Constitutional: appearance normally developed Face: normocephalic and atraumatic Eyes: normal lids, normal conjunctiva Neck: supple Respiratory: normal effort Cardiovascular: normal pulses Abdomen: non distended Skin: no rashes, lesions, or ulcers noted Psychiatric: normal mood and normal affect NEUROLOGIC EXAMINATION: Appearance: no acute distress Orientation: awake, alert and oriented x 3 Mental Status: alert Attention: normal Knowledge: appropriate Language: no aphasia Speech: no dysarthria Cranial Nerves: CN 2 - no visual defect on confrontation and pupils round, equal, reactive to light CN 3, 4, 6 - extra-ocular movements intact CN 5 - facial sensation intact CN 7 - no facial asymmetry CN 8 - intact hearing CN 9, 10 - palate symmetric CN 11 - good shoulder shrug CN 12 - tongue midline Gait: wide based unsteady gait, turns on bloc Coordination:intention tremor and ataxia with finger to nose testing Sensory: intact and symmetric to light touch, position sense in both toes is intact Muscle Tone: normal Muscle exam: 5/5 in upper and lowers Reflexes: 2+ at the knees and biceps B/L, No ankle clonus DIAGNOSTIC TESTING AND LABORATORY VALUES: WBC 5.20, hemoglobin 11.6, platelet count 153. INR is 1.0. Sodium is 136, potassium 4.5, chloride 103, carbon dioxide 31, BUN 12, creatinine 0.88, glucose is 106. Calcium is 8.2. AST is 46, ALT is 27. Troponins negative. Total CK is 123. Ammonia is 30, lipase is 168. TSH is normal at 0.726. Urinalysis showed trace ketones, trace blood, 5-10 RBCs, negative bacteria. Brain MRI performed on 02/17/2020 showed no acute intracranial abnormality, specifically no evidence of acute or subacute infarct. No abnormal enhancement. CTA head and neck showed no evidence of high-grade stenosis or large vessel occlusion. No evidence of dissection. Head CT noncontrast showed no acute intracranial findings. ASSESSMENT AND PLAN: A 59-year-old male with known history of chronic alcohol abuse, admitted with truncal and appendicular ataxia, likely secondary to chronic alcohol use. Chronic alcohol use impacts the cerebellum as well as impact proprioception and gait. The patient will benefit from physical therapy and possibly rehabilitation for gait training. Agree with thiamine replacement as well as alcohol withdrawal precautions while inpatient. The patient will likely benefit from a nerve conduction study or EMG as an outpatient to evaluate for signs of a sensory neuropathy. He declines EMG at this time. Would obtain a thiamine level, although this level will take some time to come back. Would also check other vitamins such as folic acid, B12, vitamin E, and vitamin B6 as patient reports poor PO intake. Otherwise, the patient can follow up with PCP as an outpatient. Please contact me with any additional questions or concerns. ODALYS
[2020-02-18] MEDS: traZODone HCL 50 MG TAB PO SCH (20:25)
[2020-02-19] MEDS: GABAPENTIN 600 MG TAB PO SCH ×3 (03:59→23:28)
[2020-02-19] MEDS: oxyCODONE HCL IR 5 MG TAB (IMMEDIATE RELEASE) PO PRN ×5 (04:00→23:27)
[2020-02-19] MEDS: AMOXICILLIN/CLAVULANATE 875 MG TAB PO SCH ×2 (07:43→17:38)
[2020-02-19] MEDS: FOLIC ACID 1 MG TAB PO SCH (07:43)
[2020-02-19] MEDS: MULTIVITAMIN TAB PO SCH (07:43)
[2020-02-19] MEDS: ENOXAPARIN INJ 30 MG/0.3 ML SYR SQ SCH (07:43)
[2020-02-19] MEDS: THIAMINE HCL 100 MG TAB PO SCH (07:44)
[2020-02-19] MEDS: SERTRALINE HCL 50 MG TABLET PO SCH (07:44)
[2020-02-19] MEDS: PANTOprazole 40 MG TAB PO SCH (07:44)
--- NOTE | 2020-02-19 14:34 | Hospitalist Progress Note ---
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 Could have labyrinthine disease but does not have any other symptoms with it Relevant investigations including CTA of the neck and head, CT of the head and MRI of the head remain unremarkable Awaiting neurology evaluation We will get PT and OT evaluation-recommended 24-hour care But the patient wants to go home We will continue PT and OT for now Right neck adenopathy Denies any sore throat recently and does not have any obvious ear and respiratory infection Will cover with antibiotic Augmentin 875 mg twice daily was prescribed Right-sided neck swelling has been improving Alcoholic cirrhosis, no overt decompensation Consumes about 6 beers per day regularly Going through acute withdrawal from alcohol Medically not stable to be discharged We will continue gabapentin protocol Chronic anemia (hemoglobin at baseline) Mood disorder, at baseline DVT prophylaxis. Lovenox subcu if no bleed on MRI brain Full code Admission and Anticipated Discharge Date Admission Date: February 17, 2020 Subjective 02/18/2020 The patient was seen and examined in medical telemetry unit He is ataxia and dizziness are better but he complains today of pain and swelling involving right lateral neck Denies any fever and/or chills and denies any neurological symptoms 02/19/2020 The patient was seen and examined in medical telemetry unit He remains very ataxic today and has tremors at rest He has tachycardia as well and seems to be going through withdrawal symptoms Review of Systems Review of Systems: All systems reviewed and are unremarkable except as noted below Neurologic: + gait abnormality, + unsteadiness and + dizziness; no headache(s) Physical Exam Physical Exam: Sitting at the edge of the bed with acute anxiety Constitutional: well developed, well nourished and + acute distress Eyes: PERRL, conjunctivae normal, anicteric sclerae ENMT: external ear and nose normal, oropharynx normal Neck: trachea midline, no thyromegaly + neck tender (With swelling of the right lateral side of the neck ) Respiratory: normal respiratory effort; no respiratory distress Auscult ation: lungs clear to auscultation bilaterally Cardiovascular: Rate/Rhythm: regular rate and regular rhythm Heart Sounds: no murmur Extremities: no edema Gastrointestinal (Abdomen): Inspection/Auscultation: abdomen normal to i nspection and normal bowel sounds Percussion/Palpation: abdomen soft; abdomen nontender Neurologic: Tremors involving the outstretched hands Psychiatric: A+Ox3, euthymic affect Lymphatic: no cervical or axillary lymphadenopathy Results & Data Results & Data ([facility]) Vital Signs (Past 12 Hours) Vital Signs Temp Pulse Pulse Resp BP BP Pulse Ox 02/19/20 11:21 37.0 C 101 H 18 126/82 96 02/19/20 08:15 81 02/19/20 07:22 37.4 C 75 18 124/72 94 02/19/20 03:51 38.3 C H 62 20 104/73 98 Medications Administered Current Inpatient Medications Acetaminophen (Acetaminophen 325 Mg Tab) 325 mg PO Q6H PRN PRN Reason: Mild Pain Stop: 03/19/20 00:55 Last Admin: 02/19/20 03:59 Dose: 325 mg Documented by: Albuterol (Albuterol Hfa 8 Gm Inhaler) 2 puffs INH Q4 PRN PRN Reason: Shortness Of Breath Or Wheezing Stop: 03/19/20 00:55 Amoxicillin/Clavulanate Potassium (Amoxicillin/Clavulanate 875 Mg Tab) 1 tab PO BIDM [facility]; Protocol Stop: 02/25/20 16:59 Last Admin: 02/19/20 07:43 Dose: 1 tab Documented by: Enoxaparin Sodium (Enoxaparin Inj 30 Mg/0.3 Ml Syr) [facility] [place]: 03/19/20 08:59 Last Admin: 02/19/20 07:43 Dose: 30 mg Documented by: Folic Acid (Folic Acid 1 Mg Tab) 1 mg PO QAM [facility] Stop: 03/19/20 00:55 Last Admin: 02/19/20 07:43 Dose: 1 mg Documented by: Gabapentin (Gabapentin 600 Mg Tab) 600 mg PO Q24H [facility] Stop: 02/21/20 12:01 Gabapentin (Gabapentin 600 Mg Tab) 600 mg PO Q12H [facility] Stop: 02/20/20 12:01 Lorazepam (Ativan) 1 mg in 2 mls @ 2 mls/min IV UD PRN; Protocol PRN Reason: EtOH Withdrawl AWSS Score 6,7 Stop: 03/19/20 00:55 Last Admin: 02/18/20 01:17 Dose: 2 mls/min Documented by: Lorazepam (Ativan) 2 mg in 4 mls @ 4 mls/min IV UD PRN; Protocol PRN Reason: EtOH Withdrawl AWSS Score 8,9 Stop: 03/19/20 00:55 Lorazepam (Ativan) 3 mg in 6 mls @ 4 mls/min IV ONCE PRN; Protocol PRN Reason: EtOH Withdrawl AWSS Score >=10 Stop: 03/19/20 00:55 Promethazine HCl 6.25 mg/ (Sodium Chloride) 50.25 mls @ 201 mls/hr IV Q6H PRN PRN Reason: Nausea And Vomiting Stop: 03/19/20 00:55 Multivitamins (Multivitamin Tab) [facility] [place]: 03/19/20 08:59 Last Admin: 02/19/20 07:43 Dose: 1 tab Documented by: Oxycodone HCl (Oxycodone Hcl Ir 5 Mg Tab (Immediate Release)) 5 mg PO Q4H PRN PRN Reason: Pain Stop: 03/03/20 00:55 Last Admin: 02/19/20 12:10 Dose: 5 mg Documented by: Pantoprazole Sodium (Pantoprazole 40 Mg Tab) 40 mg PO DAILY [facility] Stop: 03/19/20 08:59 Last Admin: 02/19/20 07:44 Dose: 40 mg Documented by: Sertraline HCl (Sertraline Hcl 50 Mg Tablet) 75 mg PO DAILY [facility] Stop: 03/19/20 08:59 Last Admin: 02/19/20 07:44 Dose: 75 mg Documented by: Thiamine HCl (Thiamine Hcl 100 Mg Tab) [facility] [place]: 03/19/20 00:55 Last Admin: 02/19/20 07:44 Dose: 100 mg Documented by: Trazodone HCl (Trazodone Hcl 50 Mg Tab) 50 mg PO [facility] Stop: 03/19/20 20:59 Last Admin: 02/18/20 20:25 Dose: 50 mg Documented by:
[2020-02-19] MEDS: traZODone HCL 50 MG TAB PO SCH (21:00)
[2020-02-19] MEDS: LORazepam 1 MG/2 ML VIAL IV PRN (21:38)
[2020-02-20] MEDS: AMOXICILLIN/CLAVULANATE 875 MG TAB PO SCH (07:47)
[2020-02-20] MEDS: ENOXAPARIN INJ 30 MG/0.3 ML SYR SQ SCH (07:47)
[2020-02-20] MEDS: FOLIC ACID 1 MG TAB PO SCH (07:47)
[2020-02-20] MEDS: MULTIVITAMIN TAB PO SCH (07:47)
[2020-02-20] MEDS: THIAMINE HCL 100 MG TAB PO SCH (07:48)
[2020-02-20] MEDS: SERTRALINE HCL 50 MG TABLET PO SCH (07:48)
[2020-02-20] MEDS: PANTOprazole 40 MG TAB PO SCH (07:48)
[2020-02-20] MEDS ORDERED: bisacodyL 10 MG SUPP PR STA (10:32)
[2020-02-20 10:52] LABS: Basophils # (auto) 0.05 K/uL (0-0.2); Basophils % (auto) 0.5 %; Eosinophils % (auto) 5.1 %; Hematocrit (blood only) 38.8 % (42-52); Hemoglobin 12.9 g/dL (14.0-18.0); Immature Granulocytes # (auto) 0.05 K/uL (0.00-0.02); Immature Granulocytes % (auto) 0.5 %; Lymphocytes # (auto) 1.41 K/uL (1.2-3.4); Lymphocytes % (auto) 14.3 %; Mean Corpuscular Hemoglobin 33.4 pg (25-34); Mean Corpuscular Hgb Conc 33.2 g/dL (32-36); Mean Corpuscular Volume 100.5 fL (80-100); Mean Platelet Volume 9.5 fL (7.4-10.4); Monocytes # (auto) 0.76 K/uL (0.11-0.59); Monocytes % (auto) 7.7 %; Neutrophils # (auto) 7.07 K/uL (1.4-6.5); Neutrophils % (auto) 71.9 %; Platelet Count 187 K/uL (130-400); RDW Coefficient of Variation 12.7 % (11.5-14.5); RDW Standard Deviation 46.6 fL (36.4-46.3); Red Blood Count 3.86 M/uL (4.7-6.1); White Blood Count 9.84 K/uL (4.8-10.8)
[2020-02-20 11:26] LABS: Calcium 9.5 mg/dl (8.5-10.1); Creatinine Clr Calc Pharmacy 58.4 ml/min; Est GFR (African American) 78.4; Est GFR (Non-African American) 67.6; Potassium 4.3 mmol/L (3.5-5.1)
[2020-02-20 12:29] LABS: Folate (Folic Acid) > 20.00 ng/ml (>5.38); Vitamin B12 571 pg/ml (193-986)
[2020-02-20] MEDS: GABAPENTIN 600 MG TAB PO SCH (12:36)
--- NOTE | 2020-02-20 13:38 | Hospitalist Progress Note ---
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 Could have labyrinthine disease but does not have any other symptoms with it Relevant investigations including CTA of the neck and head, CT of the head and MRI of the head remain unremarkable Awaiting neurology evaluation We will get PT and OT evaluation-recommended 24-hour care But the patient wants to go home We will continue PT and OT for now-recommended home and use walker at home Will be discharged home this afternoon Right neck adenopathy Denies any sore throat recently and does not have any obvious ear and respiratory infection Will cover with antibiotic Augmentin 875 mg twice daily was prescribed Right-sided neck swelling has been improving, and is almost gone Alcoholic cirrhosis, no overt decompensation Consumes about 6 beers per day regularly Going through acute withdrawal from alcohol Medically not stable to be discharged We will continue gabapentin protocol Does not have any acute withdrawal symptoms Medically stable to be discharged His vitamin B12 and folate levels are normal Chronic anemia (hemoglobin at baseline) Mood disorder, at baseline DVT prophylaxis. Lovenox subcu if no bleed on MRI brain Full code Admission and Anticipated Discharge Date Admission Date: February 19, 2020 Subjective 02/18/2020 The patient was seen and examined in medical telemetry unit He is ataxia and dizziness are better but he complains today of pain and swelling involving right lateral neck Denies any fever and/or chills and denies any neurological symptoms 02/19/2020 The patient was seen and examined in medical telemetry unit He remains very ataxic today and has tremors at rest He has tachycardia as well and seems to be going through withdrawal symptoms 02/20/2020 The patient was seen and examined in medical telemetry unit He has been much better today and denies any significant tremor and/or unsteadiness in gait He denies any other symptoms Participated in PT and OT and was cleared to go home Review of Systems Review of Systems: All systems reviewed and are unremarkable except as noted below Neurologic: + gait abnormality, + unsteadiness and + dizziness; no headache(s) Physical Exam Physical Exam: Sitting at the edge of the bed with acute anxiety Constitutional: well developed, well nourished and + acute distress Eyes: PERRL, conjunctivae normal, anicteric sclerae ENMT: external ear and nose normal, oropharynx normal Neck: trachea midline, no thyromegaly + neck tender (With swelling of the right lateral side of the neck ) Respiratory: normal respiratory effort; no respiratory distress Auscultation: lungs clear to auscultation bilaterally Cardiovascular: Rate/Rhythm: regular rate and regular rhythm Heart Sounds: no murmur Extremities: no edema Gastrointestinal (Abdomen): Inspection/Auscultation: abdomen normal to inspection and normal bowel sounds Percussion/Palpation: abdomen soft; abdomen nontender Musculoskeletal: No acute arthritis in any joint Neurologic: PERRL, EOMI, accommodation nl, no face palsy, no dysarthria Psychiatric: A+Ox3, euthymic affect Lymphatic: no cervical or axillary lymphadenopathy Results & Data Results & Data ([facility]) Vital Signs (Past 12 Hours) Vital Signs Temp Pulse Pulse Resp BP Pulse Ox 02/20/20 11:38 36.9 C 88 19 93/54 L 94 02/20/20 09:02 36.6 C 77 18 123/78 93 02/20/20 07:38 69 02/20/20 05:29 36.6 C 62 16 119/82 96 Laboratory Results Short CBC 02/20/20 Range/Units 10:40 WBC 9.84 (4.8-10.8) K/uL Hgb 12.9 L (14.0-18.0) g/dL Hct 38.8 L (42-52) % Plt Count 187 (130-400) K/uL BMP 02/20/20 10:40 Sodium 137 Potassium 4.3 Chloride 103 Carbon Dioxide 30 BUN 17 Creatinine 1.18 Glucose 116 H Calcium 9.5 Medications Administered Current Inpatient Medications Acetaminophen (Acetaminophen 325 Mg Tab) 325 mg PO Q6H PRN PRN Reason: Mild Pain Stop: 03/19/20 00:55 Last Admin: 02/19/20 03:59 Dose: 325 mg Documented by: Albuterol (Albuterol Hfa 8 Gm Inhaler) 2 puffs INH Q4 PRN PRN Reason: Shortness Of Breath Or Wheezing Stop: 03/19/20 00:55 Amoxicillin/Clavulanate Potassium (Amoxicillin/Clavulanate 875 Mg Tab) 1 tab PO BIDM [facility]; Protocol Stop: 02/25/20 16:59 Last Admin: 02/20/20 07:47 Dose: 1 tab Documented by: Enoxaparin Sodium (Enoxaparin Inj 30 Mg/0.3 Ml Syr) 30 [facility] [place] Stop: 03/19/20 08:59 Last Admin: 02/20/20 07:47 Dose: 30 mg Documented by: Folic Acid (Folic Acid 1 Mg Tab) 1 [facility] [place] Stop: 03/19/20 00:55 Last Admin: 02/20/20 07:47 Dose: 1 mg Documented by: Gabapentin (Gabapentin 600 Mg Tab) 600 mg PO Q24H [facility] Stop: 02/21/20 12:01 Lorazepam (Ativan) 1 mg in 2 mls @ 2 mls/min IV UD PRN; Protocol PRN Reason: EtOH Withdrawl AWSS Score 6,7 Stop: 03/19/20 00:55 Last Admin: 02/19/20 21:38 Dose: 2 mls/min Documented by: Lorazepam (Ativan) 2 mg in 4 mls @ 4 mls/min IV UD PRN; Protocol PRN Reason: EtOH Withdrawl AWSS Score 8,9 Stop: 03/19/20 00:55 Lorazepam (Ativan) 3 mg in 6 mls @ 4 mls/min IV ONCE PRN; Protocol PRN Reason: EtOH Withdrawl AWSS Score >=10 Stop: 03/19/20 00:55 Promethazine HCl 6.25 mg/ (Sodium Chloride) 50.25 mls @ 201 mls/hr IV Q6H PRN PRN Reason: Nausea And Vomiting Stop: 03/19/20 00:55 Multivitamins (Multivitamin Tab) 1 tab PO [facility] Stop: 03/19/20 08:59 Last Admin: 02/20/20 07:47 Dose: 1 tab Documented by: Oxycodone HCl (Oxycodone Hcl Ir 5 Mg Tab (Immediate Release)) 5 mg PO Q4H PRN PRN Reason: Pain Stop: 03/03/20 00:55 Last Admin: 02/19/20 23:27 Dose: 5 mg Documented by: Pantoprazole Sodium (Pantoprazole 40 Mg Tab) 40 mg PO DAILY [facility] Stop: 03/19/20 08:59 Last Admin: 02/20/20 07:48 Dose: 40 mg Documented by: Sertraline HCl (Sertraline Hcl 50 Mg Tablet) 75 mg PO DAILY [facility] Stop: 03/19/20 08:59 Last Admin: 02/20/20 07:48 Dose: 75 mg Documented by: Thiamine HCl (Thiamine Hcl 100 Mg Tab) [facility] [place] Stop: 03/19/20 00:55 Last Admin: 02/20/20 07:48 Dose: 100 mg Documented by: Trazodone HCl (Trazodone Hcl 50 Mg Tab) 50 mg PO [facility] Stop: 03/19/20 20:59 Last Admin: 02/19/20 21:00 Dose: 50 mg Documented by:
--- NOTE | 2020-02-21 08:50 | Discharge Summary ---
Date of Service February 21, 2020 Admission HPI Per Admitting Provider History obtained from patient and records. Medical history significant for alcoholic cirrhosis, recurrent pancreatitis, ongoing alcohol abuse, chronic anemia (Baseline hemoglobin 12-13 ), mood disorder Last confinement November 2018 for recurrent pancreatitis status post ERCP. For about a month now patient noted worsening gait instability and inability to keep balance leading to some falls at home. No chest pain, no unusual shortness of breath. Achy headache symptoms the last 2 days. No recent visual problems. Patient does not feel confused. No recollection of recent head trauma. Daily alcohol intake. Patient sent to ER by PCP after evaluation at clinic. Thiamine given at the ER for possible Warnicke's encephalopathy. 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 Admission Exam Per Admitting Provider Physical Exam: Physical Exam: GENERAL: slightly anxious, tremulous, somewhat restless, no respiratory distress SKIN: Pallor, warm HEENT: Pale palpebral conjunctivae, no ptosis, intermittent squinting of the left eye, dry buccal mucosa NECK : Supple, no tenderness CHEST : CTA, no tenderness HEART : RRR, no obvious murmurs ABDOMEN: Some distention, no tenderness EXTREMITIES : No LE swelling/tenderness, no other conspicuous deformities noted NEUROLOGIC : Coherent, EOM full and equal, tremulous, some degree of extremity incoordination on testing, gait and stance not assessed Principal Diagnosis 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, alcoholic cirrhosis, chronic anemia, mood disorder Discharge Exam Constitutional well developed, well nourished and + acute distress Eyes PERRL, conjunctivae normal, anicteric sclerae ENMT external ear and nose normal, oropharynx normal Neck trachea midline, no thyromegaly + neck tender (With swelling of the right lateral side of the neck ) Respiratory normal respiratory effort; no respiratory distress Auscultation: lungs clear to auscultation bilaterally Cardiovascular Rate/Rhythm: regular rate and regular rhythm Heart Sounds: no murmur Extremities: no edema Gastrointestinal (Abdomen) Inspection/Auscultation: abdomen normal to inspection and normal bowel sounds Percussion/Palpation: abdomen soft; abdomen nontender Neurologic PERRL, EOMI, accommodation nl, no face palsy, no dysarthria Psychiatric A+Ox3, euthymic affect Lymphatic no cervical or axillary lymphadenopathy Discharge Data Allergies Allergy/AdvReac Type Severity Reaction Status Date / Time No Known Allergies Allergy Verified 02/17/20 19:28 Consultations 02/17/20 21:27 ED Decision to Admit Stat 02/18/20 00:56 Consult Case Management - Discharge Planning Routine Consult Neurology Routine Ordered Studies 02/17/20 17:59 CT angio head w con Stat CT angio neck with con Stat CT head/brain wo con Stat 02/17/20 22:16 MR brain wo/w con Urgent Hospital Course (1) Ataxia: Has been going on for more than a year 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 Could have labyrinthine disease but does not have any other symptoms with it Relevant investigations including CTA of the neck and head, CT of the head and MRI of the head remain unremarkable Awaiting neurology evaluation We will get PT and OT evaluation-recommended 24-hour care But the patient wants to go home We will continue PT and OT for now-recommended home and use walker at home Will be discharged home this afternoon Right neck adenopathy Denies any sore throat recently and does not have any obvious ear and respiratory infection Will cover with antibiotic Augmentin 875 mg twice daily was prescribed Right-sided neck swelling has been improving, and is almost gone Alcoholic cirrhosis, no overt decompensation Consumes about 6 beers per day regularly Going through acute withdrawal from alcohol Medically not stable to be discharged We will continue gabapentin protocol Does not have any acute withdrawal symptoms Medically stable to be discharged His vitamin B12 and folate levels are normal Chronic anemia (hemoglobin at baseline) Mood disorder, at baseline DVT prophylaxis. 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, alcoholic cirrhosis, chronic anemia, mood disorder Condition on Discharge: Good Activity: Resume your previous activity Activity Comment: Take extreme precaution to avoid falls Non-emergency contact: Primary Care Provider Call non-emergency contact if: you have any medication questions and your symptoms worsen Follow-up/Referrals: German Cole MD [Primary Care Provider] - (Date & Time 02/25/2020 11:20 AM Provider German Cole MD Department [facility] ) Diet: Regular Addtl Attending Provider Instructions: Please walker during ambulation at home Take extreme precaution to avoid falls Complete abstinence from use of alcohol Pending Studies at Discharge: No Stand-Alone Forms: [facility], Smoking Cessation Medications and DC Order Prescriptions: New amoxicillin-pot clavulanate [Augmentin] 875-125 mg Tablet 1 tab PO BIDM Qty: 6 RF: 0 gabapentin 600 mg Tablet 600 mg PO Q24H Qty: 1 RF: 0 folic acid 1 mg Tablet 1 mg PO QAM Qty: 30 RF: 0 multivitamin [Daily-Anatoly] Tablet 1 tab PO QAM Qty: 30 RF: 0 thiamine HCl (vitamin B1) [Vitamin B-1] 100 mg Tablet 100 mg PO QAM Qty: 30 RF: 0 Continued sertraline [Zoloft] 50 mg Tablet 75 mg PO DAILY RF: 0 trazodone 50 mg Tablet 50 mg PO HS RF: 0 cyclobenzaprine 5 mg Tablet 5 - 10 mg PO TID PRN (Reason: spasms/pain) RF: 0 pantoprazole 40 mg Tablet,Delayed Release (Dr/Ec) 40 mg PO DAILY RF: 0 albuterol sulfate 90 mcg/actuation Hfa Aerosol Inhaler 2 puff INHALATION Q4 PRN (Reason: Shortness Of Breath Or Wheezing) RF: 0 Discharge Orders: Discharge Order (Routine); Ordered 02/20/20 Ordered By: Michael Reed Admission Data Admit Date/Time: 02/19/20 15:33 Attending Provider: Michael Reed Admit Provider: Navi Ghosh Primary Care Provider: German Cole Other Providers: Navi Ghosh ; Christy Rausch ; Gabe Dailey Kathleen ; Ellis Padilla Other Interventions: Discharge Summary Assessment (RN) Last Done: 02/20/20 14:30
[2020-02-21] MEDS ORDERED: GABAPENTIN 600 MG TAB PO SCH (12:00)
== END 2020-02-20 15:58 | disposition home or self-care (01) | DRG 57 ==
LOC: ED 17:21 → 2W 17:21

== ENCOUNTER 2020-08-27 19:31 | Inpatient (IN) ==
--- NOTE | 2020-08-27 20:07 | Emergency Department Note ---
Impression & Plan Weakness, Dizziness, Fall, Rib pain on right side, Hypomagnesemia ED Provider Note INFORMANT: Patient ED PROVIDER(S): Gabe Shrestha MD CHIEF COMPLAINT: Dizziness and fall PLAN: Disposition: Admitted Condition: Good Outpatient prescription management: none Referral: None MEDICAL DECISION MAKING: Patient presented because of dizziness, frequent falls, feeling weak, and also had double vision. He states his symptoms have been fluctuating over the last week and worsening. He was also complaining of right rib pain. The patient had a work-up performed. His CBC showed a mild anemia. His INR was negative. His AST was minimally elevated and his magnesium was moderately low. Magnesium was repleted. Troponin and chemistry panel was otherwise unremarkable. The patient underwent CT imaging including angiography of the head neck. No acute findings were noted. No aneurysm, tumor, or obvious stroke. The patient clearly is weak in the lower extremities. He has hypomagnesemia. He has double vision and is falling. He did have complaints of right rib tenderness and a chest x-ray with ribs were performed. No acute problems were noted. In light of his symptoms further treatment and management in the hospital will be necessary. Consultation was made with Dr. Navi Ghosh, [facility] hospitalist service. Patient was evaluated in the ER for further management. Triage Nursing notes reviewed and agree them. Vital Signs: reviewed and remarkable for no significant abnormalities Differential diagnosis: Infection, dehydration, metabolic abnormality, hypo/hyperglycemia, electrolyte disturbance, anemia, hypoxia, cardiac sources, intracerebral event, toxicologic, neurologic, as well as other pathologies. Diagnostics interpreted by me: ECG: Twelve-lead ECG reveals a normal sinus rhythm at [address] elevation or depression. No PACs or PVCs. Normal axis. Cardiac Monitoring: Cardiac monitoring ordered by me: The patient was placed on continuous cardiac monitoring and observed. It revealed a normal sinus rhythm at eighty beats per minute without ectopy or evidence of dysrhythmia. Imaging studies: CT scan of the head with angiography of the head neck is negative for acute process. Right rib series negative for acute process. I refer you to the EMR for further details. HPI: The patient is a 60 year old male who presents to the Emergency Room with complaints of dizziness. This started a week ago and is intermittent. Seems to occur more with standing and walking. The patient also notes the following associated symptoms, double vision, right rib pain from fall today. The patient has found no relieving factors. Current pain is rated as 1/10. Pt patt es LOC, headache, fevers, chills, diaphoresis, visual changes, neck pain, left chest pain, breathing difficulties, nausea, vomiting, abdominal pain, back pain, melena, hematochezia, urinary symptoms, numbness, weakness, lymphadenopathy, rash, or other complaints. ROS: See above HPI for pertinent positives & negatives. A total of 10 systems reviewed and were otherwise negative. PAST MEDICAL HISTORY:See Below , alcoholism, pancreatitis PAST SURGICAL HISTORY:See Below, FAMILY HISTORY:See Below SOCIAL HISTORY:See Below, ETOH- last 1.5 weeks ago HOME MEDICATIONS:See Below ALLERGIES:See Below VITALS:See Below PHYSICAL EXAMINATION: GENERAL: Awake, alert, well-appearing, in no distress HENT: Normocephalic, atraumatic. Oropharynx unremarkable. EYES: Normal conjunctiva. Sclera non-icteric. PERRL, EOMI NECK: Inspection normal. Non-tender. Supple. No nuchal rigidity. FROM. No masses. RESPIRATORY: Clear to auscultation. No wheezes. No rales. Normal respiratory effort. CARDIAC: Normal rate. Normal rhythm. No murmurs. No rubs. Extremities warm and well perfused. Pulses equal. No JVD. GI: Soft, non-distended. No tenderness to palpation. No rebound or guarding. No masses. RECTAL: Deferred. MUSCULOSKELETAL: Atraumatic. Chest examination reveals right rib tenderness. The back is symmetrical on inspection without obvious abnormality. There is no CVA tenderness to palpation. No joint edema. LOWER EXTREMITIES: Calves are equal size bilaterally and non-tender. No edema. No discoloration. NEURO: Normal sensorium. No sensory deficits noted. Mild lower extremity weakness. SPeech normal. CN 2-12 intact SKIN: No rash or jaundice noted. Gabe Shrestha MD Past Med/Surg History Medical History (Updated 08/28/20 @ 02:36 by Gabe Shrestha MD) Alcoholic cirrhosis (09/15/12) Anemia Anxiety Asthma "childhood" Depression ETOH abuse 3-4 beers daily* Gastric varices without bleeding no evidence of varices on 07/2018 EGD Recurrent pancreatitis Splenic vein thrombosis Stomach ulcer non-bleeding Surgical History H/O eye surgery "FIBER" REMOVAL History of colonoscopy History of ERCP 09/13/18: ERCP: Grade 2 view, MAC#3, ETT 7.5 at [facility] History of tonsillectomy Family History Other No pertinent family history in first degree relatives Social History Smoking Status: Never smoker Cigarettes Per Day: QUIT SMOKING "YEARS AGO"; Second Hand Exposure: Yes; Hx Alcohol Use: Yes Alcohol type: beer and hard liquor Alcohol Intake Frequency Comment: 6-10 drinks a day Hx Substance Use: No Preferred Language: Arabic Communication Ability: Effective Visual Impairment: No Limitations Hearing Ability: Normal Transmission Rebuilder Required: No Beliefs That Will Affect Care: None marital status: Single Current Living Situation: Significant Other Current Living Situation Comment: lives with S.O. Feels Safe at Home: Yes Assistive Devices: Walker Allergies Allergies Allergy/AdvReac Type Severity Reaction Status Date / Time No Known Allergies Allergy Verified 08/28/20 01:14 Home Meds Home Medications Medication Instructions Recorded Confirmed sertraline [Zoloft] 75 mg PO DAILY 10/24/18 08/28/20 trazodone 50 mg PO HS 11/13/18 08/28/20 albuterol sulfate 2 puff INHALATION Q4 PRN 02/17/20 08/28/20 pantoprazole 40 mg PO DAILY PRN 02/17/20 08/28/20 cyclobenzaprine 5 - 10 mg PO TID PRN 08/28/20 08/28/20 montelukast [Singulair] 10 mg PO DAILY PRN 08/28/20 08/28/20 Previous Rx's Medication Instructions Recorded multivitamin [Daily-Anatoly] 1 tab PO QAM #30 tab 02/20/20 Results & Data (ED) Vital Signs Vital Signs - 24 hr 08/27/20 19:33 08/27/20 20:06 08/27/20 20:10 Temperature 36.2 C L Temperature Source Temporal Artery Scan Pulse Rate - Lying Pulse Rate - Sitting Pulse Rate - Standing Pulse Rate 105 H 91 H 90 Pulse Rate from SpO2 Sensor 92 H 88 Respiratory Rate 20 23 16 Blood Pressure - Lying Blood Pressure - Sitting Blood Pressure- Standing Blood Pressure 122/80 Blood Pressure Mean 94 Blood Pressure Position Sitting Pulse Oximetry 100 100 100 Oxygen Delivery Method Room Air Sepsis Recent Fever Within 48 Hours No Sepsis New/Unexplained Change in Mental Status No Sepsis Action Taken by Nursing No Action Required 08/27/20 20:13 08/27/20 20:17 08/27/20 20:19 Temperature Temperature Source Pulse Rate - Lying 83 Pulse Rate - Sitting 89 Pulse Rate - Standing 107 H Pulse Rate 89 Pulse Rate from SpO2 Sensor 92 H Respiratory Rate 23 21 Blood Pressure - Lying 141/79 H Blood Pressure - Sitting 121/77 Blood Pressure- Standing 104/66 Blood Pressure 141/79 H 121/77 Blood Pressure Mean 99 91 Blood Pressure Position Pulse Oximetry 97 Oxygen Delivery Method Sepsis Recent Fever Within 48 Hours Sepsis New/Unexplained Change in Mental Status Sepsis Action Taken by Nursing 08/27/20 20:20 08/27/20 20:22 08/27/20 20:30 Temperature Temperature Source Pulse Rate - Lying Pulse Rate - Sitting Pulse Rate - Standing Pulse Rate 97 H 88 88 Pulse Rate from SpO2 Sensor 97 H 89 89 Respiratory Rate 17 15 16 Blood Pressure - Lying Blood Pressure - Sitting Blood Pressure- Standing Blood Pressure 104/66 110/75 Blood Pressure Mean 78 86 Blood Pressure Position Pulse Oximetry 98 98 99 Oxygen Delivery Method Sepsis Recent Fever Within 48 Hours Sepsis New/Unexplained Change in Mental Status Sepsis Action Taken by Nursing 08/27/20 20:40 08/27/20 20:50 08/27/20 21:00 Temperature Temperature Source Pulse Rate - Lying Pulse Rate - Sitting Pulse Rate - Standing Pulse Rate 84 83 74 Pulse Rate from SpO2 Sensor 86 84 74 Respiratory Rate 19 19 15 Blood Pressure - Lying Blood Pressure - Sitting Blood Pressure- Standing Blood Pressure 107/67 Blood Pressure Mean 80 Blood Pressure Position Pulse Oximetry 99 99 99 Oxygen Delivery Method Sepsis Recent Fever Within 48 Hours Sepsis New/Unexplained Change in Mental Status Sepsis Action Taken by Nursing 08/27/20 21:14 08/27/20 21:20 08/27/20 21:30 Temperature Temperature Source Pulse Rate - Lying Pulse Rate - Sitting Pulse Rate - Standing Pulse Rate 68 68 70 Pulse Rate from SpO2 Sensor 69 70 Respiratory Rate 18 15 14 Blood Pressure - Lying Blood Pressure - Sitting Blood Pressure- Standing Blood Pressure 118/80 Blood Pressure Mean 92 Blood Pressure Position Pulse Oximetry 100 97 Oxygen Delivery Method Sepsis Recent Fever Within 48 Hours Sepsis New/Unexplained Change in Mental Status Sepsis Action Taken by Nursing 08/27/20 21:40 08/27/20 21:50 08/27/20 22:00 Temperature Temperature Source Pulse Rate - Lying Pulse Rate - Sitting Pulse Rate - Standing Pulse Rate 68 66 69 Pulse Rate from SpO2 Sensor 67 69 68 Respiratory Rate 19 19 23 Blood Pressure - Lying Blood Pressure - Sitting Blood Pressure- Standing Blood Pressure 117/88 Blood Pressure Mean 97 Blood Pressure Position Pulse Oximetry 99 99 99 Oxygen Delivery Method Sepsis Recent Fever Within 48 Hours Sepsis New/Unexplained Change in Mental Status Sepsis Action Taken by Nursing 08/27/20 22:10 08/27/20 22:20 08/27/20 22:40 Temperature Temperature Source Pulse Rate - Lying Pulse Rate - Sitting Pulse Rate - Standing Pulse Rate 65 65 73 Pulse Rate from SpO2 Sensor 67 66 Respiratory Rate 24 18 Blood Pressure - Lying Blood Pressure - Sitting Blood Pressure- Standing Blood Pressure Blood Pressure Mean Blood Pressure Position Pulse Oximetry 99 99 Oxygen Delivery Method Sepsis Recent Fever Within 48 Hours Sepsis New/Unexplained Change in Mental Status Sepsis Action Taken by Nursing 08/27/20 22:50 08/27/20 23:00 08/27/20 23:30 Temperature Temperature Source Pulse Rate - Lying Pulse Rate - Sitting Pulse Rate - Standing Pulse Rate 68 67 72 Pulse Rate from SpO2 Sensor 68 67 71 Respiratory Rate 17 16 12 Blood Pressure - Lying Blood Pressure - Sitting Blood Pressure- Standing Blood Pressure 142/97 H 134/95 Blood Pressure Mean 112 108 Blood Pressure Position Pulse Oximetry 96 96 98 Oxygen Delivery Method Sepsis Recent Fever Within 48 Hours Sepsis New/Unexplained Change in Mental Status Sepsis Action Taken by Nursing 08/28/20 00:00 08/28/20 00:30 08/28/20 01:00 Temperature Temperature Source Pulse Rate - Lying Pulse Rate - Sitting Pulse Rate - Standing Pulse Rate 67 69 84 Pulse Rate from SpO2 Sensor 69 70 83 Respiratory Rate 19 16 20 Blood Pressure - Lying Blood Pressure - Sitting Blood Pressure- Standing Blood Pressure 158/94 H 159/100 H 132/85 Blood Pressure Mean 115 119 100 Blood Pressure Position Pulse Oximetry 98 97 98 Oxygen Delivery Method Sepsis Recent Fever Within 48 Hours Sepsis New/Unexplained Change in Mental Status Sepsis Action Taken by Nursing 08/28/20 01:30 08/28/20 02:00 Temperature Temperature Source Pulse Rate - Lying Pulse Rate - Sitting Pulse Rate - Standing Pulse Rate 77 84 Pulse Rate from SpO2 Sensor 75 85 Respiratory Rate 17 21 Blood Pressure - Lying Blood Pressure - Sitting Blood Pressure- Standing Blood Pressure Blood Pressure Mean Blood Pressure Position Pulse Oximetry 98 100 Oxygen Delivery Method Room Air Sepsis Recent Fever Within 48 Hours Sepsis New/Unexplained Change in Mental Status Sepsis Action Taken by Nursing Laboratory Data Result diagrams: 08/27/20 20:04 08/27/20 20:04 Lab Results 08/27/20 08/27/20 08/27/20 Range/Units 20:04 20:04 20:47 WBC 6.68 (4.8-10.8) K/uL RBC 3.86 L (4.7-6.1) M/uL Hgb 13.3 L (14.0-18.0) g/dL Hct 38.7 L (42-52) % MCV 100.3 H (80-100) fL MCH 34.5 H (25-34) pg MCHC 34.4 (32-36) g/dL RDW Std Deviation 45.8 (36.4-46.3) fL RDW Coeff of Ashvin 12.5 (11.5-14.5) % Plt Count 172 (130-400) K/uL MPV 10.3 (7.4-10.4) fL Immature Gran % (Auto) 0.9 % Neut % (Auto) 63.1 % Lymph % (Auto) 24.1 % [place] % (Auto) 9.4 % Eos % (Auto) 1.9 % Baso % (Auto) 0.6 % Neut # (Auto) 4.21 (1.4-6.5) K/uL Lymph # (Auto) 1.61 (1.2-3.4) K/uL [place] # (Auto) 0.63 H (0.11-0.59) K/uL Eos # (Auto) 0.13 (0-0.5) K/uL Baso # (Auto) 0.04 (0-0.2) K/uL Immature Gran # (Auto) 0.06 H (0.00-0.02) K/uL PT 9.8 (9.0-12.0) Seconds INR 1.0 (0.9-1.1) Sodium 139 (136-145) mmol/L Potassium 3.6 (3.5-5.1) mmol/L Chloride 102 (98-107) mmol/L Carbon Dioxide 32 (21-32) mmol/L Anion Gap 4.0 (3-11) BUN 23 H (7-18) mg/dl Creatinine 1.13 (0.6-1.4) mg/dl Est Cr Clr Drug Dosing 66.1 ml/min Est GFR ( Amer) 82.0 ml/min Est GFR (Non-Af Amer) 70.8 ml/min BUN/Creatinine Ratio 20.0 (10-20) Glucose 92 (70-99) mg/dl Calcium 9.1 (8.5-10.1) mg/dl Magnesium 1.4 L (1.8-2.4) mg/dl Total Bilirubin 0.4 (0.2-1) mg/dl AST 65 H (15-37) U/L ALT 59 (12-78) U/L Alkaline Phosphatase 78 (45-117) U/L Total Creatine Kinase 43 (39-308) U/L Troponin I < 0.015 (0-0.045) ng/ml Total Protein 7.2 (6.4-8.2) gm/dl Albumin 3.7 (3.4-5.0) gm/dl Globulin 3.5 (2.5-4.0) gm/dl Albumin/Globulin Ratio 1.1 (0.9-2) Lipase 1031 H (73-393) U/L Urine Color Urine Appearance (Clear) Urine pH (4.5-7.5) Ur Specific [place] (1.000-1.030) Urine Protein (Negative) Urine Glucose (UA) (Negative) Urine Ketones (Negative) Urine Blood (Negative) Urine Nitrite (Negative) Urine Bilirubin (Negative) Urine Urobilinogen (Negative) Ur Leukocyte Esterase (Negative) Ethyl Alcohol mg/dL (0-3) mg/dl COVID-19 Eval Order SARS-CoV-2 (PCR) (Negative) 08/27/20 08/28/20 08/28/20 Range/Units 23:12 01:10 01:10 WBC (4.8-10.8) K/uL RBC (4.7-6.1) M/uL Hgb (14.0-18.0) g/dL Hct (42-52) % MCV (80-100) fL MCH (25-34) pg MCHC (32-36) g/dL RDW Std Deviation (36.4-46.3) fL RDW Coeff of Ashvin (11.5-14.5) % Plt Count (130-400) K/uL MPV (7.4-10.4) fL Immature Gran % (Auto) % Neut % (Auto) % Lymph % (Auto) % [place] % (Auto) % Eos % (Auto) % Baso % (Auto) % Neut # (Auto) (1.4-6.5) K/uL Lymph # (Auto) (1.2-3.4) K/uL [place] # (Auto) (0.11-0.59) K/uL Eos # (Auto) (0-0.5) K/uL Baso # (Auto) (0-0.2) K/uL Immature Gran # (Auto) (0.00-0.02) K/uL PT (9.0-12.0) Seconds INR (0.9-1.1) Sodium (136-145) mmol/L Potassium (3.5-5.1) mmol/L Chloride (98-107) mmol/L Carbon Dioxide (21-32) mmol/L Anion Gap (3-11) BUN (7-18) mg/dl Creatinine (0.6-1.4) mg/dl Est Cr Clr Drug Dosing ml/min Est GFR ( Amer) ml/min Est GFR (Non-Af Amer) ml/min BUN/Creatinine Ratio (10-20) Glucose (70-99) mg/dl Calcium (8.5-10.1) mg/dl Magnesium (1.8-2.4) mg/dl Total Bilirubin (0.2-1) mg/dl AST (15-37) U/L ALT (12-78) U/L Alkaline Phosphatase (45-117) U/L Total Creatine Kinase (39-308) U/L Troponin I (0-0.045) ng/ml Total Protein (6.4-8.2) gm/dl Albumin (3.4-5.0) gm/dl Globulin (2.5-4.0) gm/dl Albumin/Globulin Ratio (0.9-2) Lipase (73-393) U/L Urine Color Yellow Urine Appearance Clear (Clear) Urine pH 8.5 H (4.5-7.5) Ur Specific [place] > 1.045 H (1.000-1.030) Urine Protein Negative (Negative) Urine Glucose (UA) Negative (Negative) Urine Ketones Negative (Negative) Urine Blood Negative (Negative) Urine Nitrite Negative (Negative) Urine Bilirubin Negative (Negative) Urine Urobilinogen Negative (Negative) Ur Leukocyte Esterase Negative (Negative) Ethyl Alcohol mg/dL (0-3) mg/dl COVID-19 Eval Order Covid19 at [facility] SARS-CoV-2 (PCR) NEGATIVE (Negative) 08/28/20 Range/Units 01:22 WBC (4.8-10.8) K/uL RBC (4.7-6.1) M/uL Hgb (14.0-18.0) g/dL Hct (42-52) % MCV (80-100) fL MCH (25-34) pg MCHC (32-36) g/dL RDW Std Deviation (36.4-46.3) fL RDW Coeff of Ashvin (11.5-14.5) % Plt Count (130-400) K/uL MPV (7.4-10.4) fL Immature Gran % (Auto) % Neut % (Auto) % Lymph % (Auto) % [place] % (Auto) % Eos % (Auto) % Baso % (Auto) % Neut # (Auto) (1.4-6.5) K/uL Lymph # (Auto) (1.2-3.4) K/uL [place] # (Auto) (0.11-0.59) K/uL Eos # (Auto) (0-0.5) K/uL Baso # (Auto) (0-0.2) K/uL Immature Gran # (Auto) (0.00-0.02) K/uL PT (9.0-12.0) Seconds INR (0.9-1.1) Sodium (136-145) mmol/L Potassium (3.5-5.1) mmol/L Chloride (98-107) mmol/L Carbon Dioxide (21-32) mmol/L Anion Gap (3-11) BUN (7-18) mg/dl Creatinine (0.6-1.4) mg/dl Est Cr Clr Drug Dosing ml/min Est GFR ( Amer) ml/min Est GFR (Non-Af Amer) ml/min BUN/Creatinine Ratio (10-20) Glucose (70-99) mg/dl Calcium (8.5-10.1) mg/dl Magnesium (1.8-2.4) mg/dl Total Bilirubin (0.2-1) mg/dl AST (15-37) U/L ALT (12-78) U/L Alkaline Phosphatase (45-117) U/L Total Creatine Kinase (39-308) U/L Troponin I (0-0.045) ng/ml Total Protein (6.4-8.2) gm/dl Albumin (3.4-5.0) gm/dl Globulin (2.5-4.0) gm/dl Albumin/Globulin Ratio (0.9-2) Lipase (73-393) U/L Urine Color Urine Appearance (Clear) Urine pH (4.5-7.5) Ur Specific [place] (1.000-1.030) Urine Protein (Negative) Urine Glucose (UA) (Negative) Urine Ketones (Negative) Urine Blood (Negative) Urine Nitrite (Negative) Urine Bilirubin (Negative) Urine Urobilinogen (Negative) Ur Leukocyte Esterase (Negative) Ethyl Alcohol mg/dL < 3.0 (0-3) mg/dl COVID-19 Eval Order SARS-CoV-2 (PCR) (Negative) Administered Medications Sodium Chloride (Nss 1000ml) 1,000 mls @ 125 mls/hr IV .Q8H STA Stop: 08/28/20 04:12 Last Admin: 08/27/20 20:23 Dose: 125 mls/hr Documented by: [id number] Magnesium Sulfate/Dextrose (Magnesium Sulfate / D5w) 1 gm in 100 mls @ 100 mls/hr IV Q1H TAYO Stop: 08/28/20 02:48 Last Admin: 08/28/20 01:02 Dose: 100 mls/hr Documented by: [id number] Discontinued Medications Thiamine HCl 100 mg/ Syringe 10 mls @ 2 mls/min IV NOW STA Stop: 08/28/20 01:17 Last Admin: 08/28/20 01:37 Dose: 2 mls/min Documented by: [id number] Ioversol (Optiray 320 125ml) 119 ml IV ONCE ONE Stop: 08/27/20 20:48 Last Admin: 08/27/20 20:48 Dose: 1 ml Documented by: [id number] Imaging Data Radiologist's Impression: Ribs w/Chest X-Ray 08/27/20 20:13 XR ribs RT min 2V w [id number] CLINICAL HISTORY: fall. Right rib pain. COMPARISON STUDY: Chest 03/10/2020. FINDINGS: No pneumothorax. No pleural effusions. The lungs are hyperexpanded. The heart is normal in size. No new focal lung consolidations to suggest pneumonia. No evidence for pulmonary edema. Stable calcified granuloma within the right lower lobe. There are few old, healed right-sided rib fractures. No acute rib fractures identified. IMPRESSION: No acute rib fractures. No pneumothorax. ACT 112: Negative or not required by law. Electronically signed by: Elieser Raines M.D. 08/27/2020 10:[address] 08/27/20 20:[address] DOSE: HISTORY: double vision, weakness TECHNIQUE: Multiaxial CT images of the head were performed without the use of intravenous contrast. Automated exposure control was utilized for this study. A dose lowering technique was utilized adhering to the principles of ALARA. Comparison: Head CT 02/17/2020. Findings: The paranasal sinuses and mastoid air cells are clear. The calvarium and skull base are intact. There is no mass, hematoma, midline shift, acute infarct. White matter hypodensity is nonspecific but suggestive of microvascular ischemic change. The ventricles and sulci demonstrate mild age-related involutional changes. Impression: No significant change compared to the prior study. No acute intracranial abnormality. ACT 112: Negative or not required by law. Electronically signed by: Elieser Raines M.D. 08/27/2020 9:23 PM Head CTA 08/27/20 20:14 HEAD & NECK CTA HISTORY: double vision, weakness TECHNIQUE: Multiaxial CT images of the head were performed following the intravenous administration of contrast to evaluate the major cerebral vessels. Multiaxial CT images of the neck were also performed following the intravenous administration of contrast to evaluate the major cervical vessels. Maximum intensity projection images were also obtained. A dose lowering technique was utilized adhering to the principles of ALARA. COMPARISON: Head and neck CTA 02/17/2020. FINDINGS: There is no mass, hematoma, midline shift, or acute infarct. Visualized intracranial internal carotid arteries, distal vertebral arteries, and basilar artery are widely patent. There is no significant stenosis, occlusion, or aneurysm seen within the bilateral ACAs, MCAs, or insurance follow up representative. The major dural venous sinuses appear patent. The aortic arch and proximal great vessels are widely patent. There is no significant stenosis, occlusion, or dissection identified within the bilateral common carotid, internal carotid, or vertebral arteries. Mild emphysema. Mild mucosal thickening and retention cyst within the bilateral maxillary sinuses. IMPRESSION: 1. No significant stenosis, occlusion, or aneurysm within the [place]. 2. No significant stenosis, occlusion, or dissection identified within the carotid or vertebral arteries. ACT 112: Negative or not required by law. Electronically signed by: Elieser Raines M.D. 08/27/2020 9:29 PM Neck CTA 08/27/20 20:14 HEAD & NECK CTA HISTORY: double vision, weakness TECHNIQUE: Multiaxial CT images of the head were performed following the intravenous administration of contrast to evaluate the major cerebral vessels. Multiaxial CT images of the neck were also performed following the intravenous administration of contrast to evaluate the major cervical vessels. Maximum intensity projection images were also obtained. A dose lowering technique was utilized adhering to the principles of ALARA. COMPARISON: Head and neck CTA 02/17/2020. FINDINGS: There is no mass, hematoma, midline shift, or acute infarct. Visualized intracranial internal carotid arteries, distal vertebral arteries, and basilar artery are widely patent. There is no significant stenosis, occlusion, or aneurysm seen within the bilateral ACAs, MCAs, or insurance follow up representative. The major dural venous sinuses appear patent. The aortic arch and proximal great vessels are widely patent. There is no significant stenosis, occlusion, or dissection identified within the bilateral common carotid, internal carotid, or vertebral arteries. Mild emphysema. Mild mucosal thickening and retention cyst within the bilateral maxillary sinuses. IMPRESSION: 1. No significant stenosis, occlusion, or aneurysm within the [place]. 2. No significant stenosis, occlusion, or dissection identified within the carotid or vertebral arteries. ACT 112: Negative or not required by law. Electronically signed by: Elieser Raines M.D. 08/27/2020 9:29 PM Discharge Plan Visit Data Chief Complaint: Fall Stated Complaint: DIZZINESS, NAUSEA, FALL ED Provider: Gabe Shrestha Discharge Problem: Weakness, Dizziness, Fall, Rib pain on right side, Hypomagnesemia Forms Stand Alone Forms: [facility] [employer] Prescriptions Prescriptions: No Action sertraline [Zoloft] 50 mg Tablet 75 mg PO DAILY RF: 0 trazodone 50 mg Tablet 50 mg PO HS RF: 0 pantoprazole 40 mg Tablet,Delayed Release (Dr/Ec) 40 mg PO DAILY PRN (Reason: Heartburn) RF: 0 albuterol sulfate 90 mcg/actuation Hfa Aerosol Inhaler 2 puff INHALATION Q4 PRN (Reason: Shortness Of Breath Or Wheezing) RF: 0 multivitamin [Daily-Anatoly] Tablet 1 tab PO QAM Qty: 30 RF: 0 montelukast [Singulair] 10 mg Tablet 10 mg PO DAILY PRN (Reason: allergies) RF: 0 cyclobenzaprine 5 mg tablet 5 - 10 mg PO TID PRN (Reason: muscle spasms) RF: 0
[2020-08-27] MEDS ORDERED: SODIUM CHLORIDE 0.9% 1000ML 1,000 ML IV STA (20:13)
[2020-08-27 20:22] LABS: Basophils # (auto) 0.04 K/uL (0-0.2); Basophils % (auto) 0.6 %; Eosinophils # (auto) 0.13 K/uL (0-0.5); Eosinophils % (auto) 1.9 %; Hematocrit (blood only) 38.7 % (42-52); Hemoglobin 13.3 g/dL (14.0-18.0); Immature Granulocytes # (auto) 0.06 K/uL (0.00-0.02); Immature Granulocytes % (auto) 0.9 %; Lymphocytes # (auto) 1.61 K/uL (1.2-3.4); Lymphocytes % (auto) 24.1 %; Mean Corpuscular Hemoglobin 34.5 pg (25-34); Mean Corpuscular Hgb Conc 34.4 g/dL (32-36); Mean Corpuscular Volume 100.3 fL (80-100); Mean Platelet Volume 10.3 fL (7.4-10.4); Monocytes # (auto) 0.63 K/uL (0.11-0.59); Monocytes % (auto) 9.4 %; Neutrophils # (auto) 4.21 K/uL (1.4-6.5); Neutrophils % (auto) 63.1 %; Platelet Count 172 K/uL (130-400); RDW Coefficient of Variation 12.5 % (11.5-14.5); RDW Standard Deviation 45.8 fL (36.4-46.3); Red Blood Count 3.86 M/uL (4.7-6.1); White Blood Count 6.68 K/uL (4.8-10.8)
[2020-08-27 20:33] LABS: Alanine Aminotransferase 59 U/L (12-78); Albumin Level 3.7 gm/dl (3.4-5.0); Aspartate Aminotransferase 65 U/L (15-37); Blood Urea Nitrogen 23 mg/dl (7-18); Calcium 9.1 mg/dl (8.5-10.1); Carbon Dioxide 32 mmol/L (21-32); Chloride 102 mmol/L (98-107); Creatinine Clr Calc Pharmacy 66.1 ml/min; Est GFR (Non-African American) 70.8 ml/min; Glucose 92 mg/dl (70-99); Magnesium 1.4 mg/dl (1.8-2.4); Potassium 3.6 mmol/L (3.5-5.1); Sodium 139 mmol/L (136-145)
[2020-08-27 20:37] LABS: Albumin Globulin Ratio 1.1 (0.9-2); Alkaline Phosphatase 78 U/L (45-117); Bilirubin,Total 0.4 mg/dl (0.2-1); Creatine Kinase 43 U/L (39-308); Globulin 3.5 gm/dl (2.5-4.0); Total Protein 7.2 gm/dl (6.4-8.2); Troponin I < 0.015 ng/ml (0-0.045)
[2020-08-27] MEDS ORDERED: OPTIRAY 320 125ml IV ONE (20:47)
[2020-08-27 21:02] LABS: Prothrombin Time 9.8 Seconds (9.0-12.0)
--- NOTE | 2020-08-27 21:24 | CT Scan Report ---
HEAD CT NONCONTRAST CT DOSE: HISTORY: double vision, weakness TECHNIQUE: Multiaxial CT images of the head were performed without the use of intravenous contrast. A utomated exposure control was utilized for this study. A dose lowering technique was utilized adheri ng to the principles of ALARA. Comparison: Head CT 02/17/2020. Findings: The paranasal sinuses and mastoid air cells are clear. The calvarium and skull base are int act. There is no mass, hematoma, midline shift, acute infarct. White matter hypodensity is nonspecifi c but suggestive of microvascular ischemic change. The ventricles and sulci demonstrate mild age-rela gene involutional changes. Impression: No significant change compared to the prior study. No acute intracranial abnormality. ACT 112: Negative or not required by law. Electronically signed by: Elieser Raines M.D. 08/27/2020 9:23 PM
--- NOTE | 2020-08-27 21:31 | CT Scan Report ---
HEAD & NECK CTA HISTORY: double vision, weakness TECHNIQUE: Multiaxial CT images of the head were performed following the intravenous administration o f contrast to evaluate the major cerebral vessels. Multiaxial CT images of the neck were also perform ed following the intravenous administration of contrast to evaluate the major cervical vessels. Maxim um intensity projection images were also obtained. A dose lowering technique was utilized adhering to the principles of ALARA. COMPARISON: Head and neck CTA 02/17/2020. FINDINGS: There is no mass, hematoma, midline shift, or acute infarct. Visualized intracranial internal carotid arteries, distal vertebral arteries, and basilar artery are widely patent. There is no significant s tenosis, occlusion, or aneurysm seen within the bilateral ACAs, MCAs, or press reader. The major dural venous sinuses appear patent. The aortic arch and proximal great vessels are widely patent. There is no significant stenosis, occ lusion, or dissection identified within the bilateral common carotid, internal carotid, or vertebral arteries. Mild emphysema. Mild mucosal thickening and retention cyst within the bilateral maxillary s inuses. IMPRESSION: 1. No significant stenosis, occlusion, or aneurysm within the [place]. 2. No significant stenosis, occlusion, or dissection identified within the carotid or vertebral arter ies. ACT 112: Negative or not required by law. Electronically signed by: Elieser Raines M.D. 08/27/2020 9:29 PM
--- NOTE | 2020-08-27 21:31 | CT Scan Report ---
HEAD & NECK CTA HISTORY: double vision, weakness TECHNIQUE: Multiaxial CT images of the head were performed following the intravenous administration o f contrast to evaluate the major cerebral vessels. Multiaxial CT images of the neck were also perform ed following the intravenous administration of contrast to evaluate the major cervical vessels. Maxim um intensity projection images were also obtained. A dose lowering technique was utilized adhering to the principles of ALARA. COMPARISON: Head and neck CTA 02/17/2020. FINDINGS: There is no mass, hematoma, midline shift, or acute infarct. Visualized intracranial internal carotid arteries, distal vertebral arteries, and basilar artery are widely patent. There is no significant s tenosis, occlusion, or aneurysm seen within the bilateral ACAs, MCAs, or oil well logging engineer. The major dural venous sinuses appear patent. The aortic arch and proximal great vessels are widely patent. There is no significant stenosis, occ lusion, or dissection identified within the bilateral common carotid, internal carotid, or vertebral arteries. Mild emphysema. Mild mucosal thickening and retention cyst within the bilateral maxillary s inuses. IMPRESSION: 1. No significant stenosis, occlusion, or aneurysm within the [place]. 2. No significant stenosis, occlusion, or dissection identified within the carotid or vertebral arter ies. ACT 112: Negative or not required by law. Electronically signed by: Elieser Raines M.D. 08/27/2020 9:29 PM
--- NOTE | 2020-08-27 22:52 | XRay Report ---
XR ribs RT min 2V w CXR1V CLINICAL HISTORY: fall. Right rib pain. COMPARISON STUDY: Chest 03/10/2020. FINDINGS: No pneumothorax. No pleural effusions. The lungs are hyperexpanded. The heart is normal in size. No new focal lung consolidations to suggest pneumonia. No evidence for pulmonary edema. Stable calcified granuloma within the right lower lobe. There are few old, healed right-sided rib fractures. No acute rib fractures identified. IMPRESSION: No acute rib fractures. No pneumothorax. ACT 112: Negative or not required by law. Electronically signed by: Elieser Raines M.D. 08/27/2020 10:51 PM
[2020-08-27 23:27] LABS: Appearance Urine Clear (Clear); Bilirubin Urine Negative (Negative); Blood Urine Negative (Negative); Color Urine Yellow; Glucose Urine UA Negative (Negative); Ketones Urine Negative (Negative); Leukocyte Esterase Urine Negative (Negative); Nitrite Urine Negative (Negative); Protein Urine Negative (Negative); Specific Gravity Urine > 1.045 (1.000-1.030); Urobilinogen Urine Negative (Negative); pH Urine 8.5 (4.5-7.5)
[2020-08-28] MEDS: MAGNESIUM SULFATE / D5W 1 GM/100 ML BAG IV SCH ×2 (01:02→02:00)
--- NOTE | 2020-08-28 01:07 | History & Physical Report ---
Date of Service August 28, 2020 Assessment & Plan (1) Recurrent pancreatitis: Likely alcohol induced Dizziness secondary to orthostasis secondary to poor p.o. intake Orthostatic vitals positive at the ER. Transient double vision, worsening gait instability hx cerebellar ataxia as per records Rule out CVA hx alcoholic cirrhosis, no overt decompensation chronic anemia, hemoglobin at baseline Medical telemetry until stroke ruled out Neurochecks MRI brain Re: Transient double vision, worsening gait instability May need Neurology consultation/stroke work-up pending MRI results PT OT eval Bowel rest, IVF for recurrent pancreatitis DT precautions/MCKENNA S DVT prophylaxis. Lovenox subcu Full code Text document was generated using [employer] voice recognition software. It may contain grammatical or spelling errors. Kindly contact undersigned for clarification of any documentation item in question. History of Present Illness Chief Complaint: Dizziness, fall, right-sided chest pain Primary Care Provider: German Cole MD History obtained from patient and records. 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 Neurology recommended outpatient EMG/NCV. Patient not feeling well the last week. Achy abdominal pain with nausea, no emesis, no diarrhea. Poor appetite. Denies black/bloody stools. Dizziness described as lightheadedness especially on standing. Transient double vision. No headache. Patient denies chest pain or unusual shortness of breath. Increasing gait instability leading to right-sided rib pain secondary to fall. Patient denies head trauma. Patient stopped drinking alcohol last week secondary to abdominal pain. Mild s haking episodes at home. No EtOH withdrawal seizures as per patient. Patient consulted ER for evaluation. 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 Allergies Allergy/AdvReac Type Severity Reaction Status Date / Time No Known Allergies Allergy Verified 08/28/20 01:14 Home Medications Medication Instructions Recorded Confirmed Type sertraline [Zoloft] 75 mg PO DAILY 10/24/18 08/28/20 History trazodone 50 mg PO HS 11/13/18 08/28/20 History albuterol sulfate 2 puff INHALATION Q4 PRN 02/17/20 08/28/20 History pantoprazole 40 mg PO DAILY PRN 02/17/20 08/28/20 History multivitamin [Daily-Anatoly] 1 tab PO QAM #30 tab 02/20/20 08/28/20 Rx cyclobenzaprine 5 - 10 mg PO TID PRN 08/28/20 08/28/20 History montelukast [Singulair] 10 mg PO DAILY PRN 08/28/20 08/28/20 History Past Med/Surg History Medical History (Updated 08/28/20 @ 04:05 by Navi Ghosh MD) Alcoholic cirrhosis (09/15/12) Anemia Anxiety Asthma "childhood" Depression ETOH abuse 3-4 beers daily* Gastric varices without bleeding no evidence of varices on 07/2018 EGD Recurrent pancreatitis Splenic vein thrombosis Stomach ulcer non-bleeding Surgical History H/O eye surgery "FIBER" REMOVAL History of colonoscopy History of ERCP 09/13/18: ERCP: Grade 2 view, MAC#3, ETT 7.5 at [facility] History of tonsillectomy Family History Other No pertinent family history in first degree relatives Social History Smoking Status: Former smoker Cigarettes Per Day: QUIT SMOKING "YEARS AGO"; Second Hand Exposure: Yes; Do You Dip or Chew Tobacco: No; Tobacco Cessation Education Requested by Patient: No Hx Alcohol Use: Yes Alcohol type: beer and hard liquor Alcohol Intake Frequency Comment: 6-10 drinks a day Hx Substance Use: No Preferred Language: Slovak Communication Ability: Effective Visual Impairment: No Limitations Hearing Ability: Normal Naval Gunfire Spotter Required: No Beliefs That Will Affect Care: None marital status: Single Current Living Situation: Significant Other Current Living Situation Comment: lives with S.O. Other Information That Helps Us Care for You: No Feels Safe at Home: Yes Safety Concerns: Feels Safe At This Time Assistive Devices: Cane and Glasses Review of Systems Review of Systems: As per HPI, all 10 systems reviewed, all other ROS negative Physical Exam Physical Exam: GENERAL: Comfortable, pleasant, slightly anxious, no respiratory distress SKIN: Normal color, warm HEENT: [place]ck[place] palpebral conjunctivae, no ptosis, dry buccal mucosa NECK : Supple, no tenderness CHEST : CTA, right-sided chest wall tenderness HEART : RRR, no obvious murmurs ABDOMEN: Some distention, epigastric tenderness EXTREMITIES : No LE swelling/tenderness, no other conspicuous deformities noted NEUROLOGIC : Coherent, VA: Able to count fingers from a distance without trouble, no facial asymmetry, gait and stance not assessed Results & Data Results & [facility] ([facility]) Vital Signs (Past 12 Hours) Vital Signs Temp Pulse Resp BP Pulse Ox 08/28/20 00:00 67 19 158/94 H 98 08/27/20 23:30 72 12 134/95 98 08/27/20 23:00 67 16 142/97 H 96 08/27/20 22:50 68 17 96 08/27/20 22:40 73 08/27/20 22:20 65 18 99 08/27/20 22:10 65 24 99 08/27/20 22:00 69 23 117/88 99 08/27/20 21:50 66 19 99 08/27/20 21:40 68 19 99 08/27/20 21:30 70 14 118/80 97 08/27/20 21:20 68 15 100 08/27/20 21:14 68 18 08/27/20 21:00 74 15 107/67 99 08/27/20 20:50 83 19 99 08/27/20 20:40 84 19 99 08/27/20 20:30 88 16 110/75 99 08/27/20 20:22 88 15 98 08/27/20 20:20 97 H 17 104/66 98 08/27/20 20:19 21 121/77 08/27/20 20:17 89 23 141/79 H 97 08/27/20 20:10 90 16 100 08/27/20 20:06 91 H 23 100 08/27/20 19:33 36.2 C L 105 H 20 122/80 100 Laboratory Results Laboratory Results WBC 6.68 K/uL (4.8-10.8) 08/27/20 20:04 RBC 3.86 M/uL (4.7-6.1) L 08/27/20 20:04 Hgb 13.3 g/dL (14.0-18.0) L 08/27/20 20:04 Hct 38.7 % (42-52) L 08/27/20 20:04 MCV 100.3 fL (80-100) H 08/27/20 20:04 MCH 34.5 pg (25-34) H 08/27/20 20:04 MCHC 34.4 g/dL (32-36) 08/27/20 20:04 RDW Std Deviation 45.8 fL (36.4-46.3) 08/27/20 20:04 RDW Coeff of [place]vin 12.5 % (11.5-14.5) 08/27/20 20:04 Plt Count 172 K/uL (130-400) 08/27/20 20:04 MPV 10.3 fL (7.4-10.4) 08/27/20 20:04 Immature Gran % (Auto) 0.9 % 08/27/20 20:04 Neut % (Auto) 63.1 % 08/27/20 20:04 Lymph % (Auto) 24.1 % 08/27/20 20:04 [place] % (Auto) 9.4 % 08/27/20 20:04 Eos % (Auto) 1.9 % 08/27/20 20:04 Baso % (Auto) 0.6 % 08/27/20 20:04 Neut # (Auto) 4.21 K/uL (1.4-6.5) 08/27/20 20:04 Lymph # (Auto) 1.61 K/uL (1.2-3.4) 08/27/20 20:04 [place] # (Auto) 0.63 K/uL (0.11-0.59) H 08/27/20 20:04 Eos # (Auto) 0.13 K/uL (0-0.5) 08/27/20 20:04 Baso # (Auto) 0.04 K/uL (0-0.2) 08/27/20 20:04 Immature Gran # (Auto) 0.06 K/uL (0.00-0.02) H 08/27/20 20:04 PT 9.8 Seconds (9.0-12.0) 08/27/20 20:47 INR 1.0 (0.9-1.1) 08/27/20 20:47 Sodium 139 mmol/L (136-145) 08/27/20 20:04 Potassium 3.6 mmol/L (3.5-5.1) 08/27/20 20:04 Chloride 102 mmol/L (98-107) 08/27/20 20:04 Carbon Dioxide 32 mmol/L (21-32) 08/27/20 20:04 Anion Gap 4.0 (3-11) 08/27/20 20:04 BUN 23 mg/dl (7-18) H 08/27/20 20:04 Creatinine 1.13 mg/dl (0.6-1.4) 08/27/20 20:04 Est Cr Clr Drug Dosing 66.1 ml/min 08/27/20 20:04 Est GFR ( Amer) 82.0 ml/min 08/27/20 20:04 Est GFR (Non-Af Amer) 70.8 ml/min 08/27/20 20:04 BUN/Creatinine Ratio 20.0 (10-20) 08/27/20 20:04 Glucose 92 mg/dl (70-99) 08/27/20 20:04 Calcium 9.1 mg/dl (8.5-10.1) 08/27/20 20:04 Magnesium 1.4 mg/dl (1.8-2.4) L 08/27/20 20:04 Total Bilirubin 0.4 mg/dl (0.2-1) 08/27/20 20:04 AST 65 U/L (15-37) H 08/27/20 20:04 ALT 59 U/L (12-78) 08/27/20 20:04 Alkaline Phosphatase 78 U/L (45-117) 08/27/20 20:04 Total Creatine Kinase 43 U/L (39-308) 08/27/20 20:04 Troponin I < 0.015 ng/ml (0-0.045) 08/27/20 20:04 Total Protein 7.2 gm/dl (6.4-8.2) 08/27/20 20:04 Albumin 3.7 gm/dl (3.4-5.0) 08/27/20 20:04 Globulin 3.5 gm/dl (2.5-4.0) 08/27/20 20:04 Albumin/Globulin Ratio 1.1 (0.9-2) 08/27/20 20:04 Urine Color Yellow 08/27/20 23:12 Urine Appearance Clear (Clear) 08/27/20 23:12 Urine pH 8.5 (4.5-7.5) H 08/27/20 23:12 Ur Specific [place] > 1.045 (1.000-1.030) H 08/27/20 23:12 Urine Protein Negative (Negative) 08/27/20 23:12 Urine Glucose (UA) Negative (Negative) 08/27/20 23:12 Urine Ketones Negative (Negative) 08/27/20 23:12 Urine Blood Negative (Negative) 08/27/20 23:12 Urine Nitrite Negative (Negative) 08/27/20 23:12 Urine Bilirubin Negative (Negative) 08/27/20 23:12 Urine Urobilinogen Negative (Negative) 08/27/20 23:12 Ur Leukocyte Esterase Negative (Negative) 08/27/20 23:12 Impressions Ribs w/Chest X-Ray 08/27/20 20:13 XR ribs RT min 2V w CXR1V CLINICAL HISTORY: fall. Right rib pain. COMPARISON STUDY: Chest 03/10/2020. FINDINGS: No pneumothorax. No pleural effusions. The lungs are hyperexpanded. The heart is normal in size. No new focal lung consolidations to suggest pneumonia. No evidence for pulmonary edema. Stable calcified granuloma within the right lower lobe. There are few old, healed right-sided rib fractures. No acute rib fractures identified. IMPRESSION: No acute rib fractures. No pneumothorax. ACT 112: Negative or not required by law. Electronically signed by: Elieser Raines M.D. 08/27/2020 10:[address] 08/27/20 20:[address] DOSE: HISTORY: double vision, weakness TECHNIQUE: Multiaxial CT images of the head were performed without the use of intravenous contrast. Automated exposure control was utilized for this study. A dose lowering technique was utilized adhering to the principles of ALARA. Comparison: Head CT 02/17/2020. Findings: The paranasal sinuses and mastoid air cells are clear. The calvarium and skull base are intact. There is no mass, hematoma, midline shift, acute infarct. White matter hypodensity is nonspecific but suggestive of microvascular ischemic change. The ventricles and sulci demonstrate mild age-related involutional changes. Impression: No significant change compared to the prior study. No acute intracranial abnormality. ACT 112: Negative or not required by law. Electronically signed by: Elieser Raines M.D. 08/27/2020 9:23 PM Head CTA 08/27/20 20:14 HEAD & NECK CTA HISTORY: double vision, weakness TECHNIQUE: Multiaxial CT images of the head were performed following the intravenous administration of contrast to evaluate the major cerebral vessels. Multiaxial CT images of the neck were also performed following the intravenous administration of contrast to evaluate the major cervical vessels. Maximum intensity projection images were also obtained. A dose lowering technique was utilized adhering to the principles of ALARA. COMPARISON: Head and neck CTA 02/17/2020. FINDINGS: There is no mass, hematoma, midline shift, or acute infarct. Visualized intracranial internal carotid arteries, distal vertebral arteries, and basilar artery are widely patent. There is no significant stenosis, occlusion, or aneurysm seen within the bilateral ACAs, MCAs, or university manager. The major dural venous sinuses appear patent. The aortic arch and proximal great vessels are widely patent. There is no significant stenosis, occlusion, or dissection identified within the bilateral common carotid, internal carotid, or vertebral arteries. Mild emphysema. Mild mucosal thickening and retention cyst within the bilateral maxillary sinuses. IMPRESSION: 1. No significant stenosis, occlusion, or aneurysm within the [place]. 2. No significant stenosis, occlusion, or dissection identified within the carotid or vertebral arteries. ACT 112: Negative or not required by law. Electronically signed by: Elieser Raines M.D. 08/27/2020 9:29 PM Neck CTA 08/27/20 20:14 HEAD & NECK CTA HISTORY: double vision, weakness TECHNIQUE: Multiaxial CT images of the head were performed following the i ntravenous administration of contrast to evaluate the major cerebral vessels. Multiaxial CT images of the neck were also performed following the intravenous administration of contrast to evaluate the major cervical vessels. Maximum intensity projection images were also obtained. A dose lowering technique was utilized adhering to the principles of ALARA. COMPARISON: Head and neck CTA 02/17/2020. FINDINGS: There is no mass, hematoma, midline shift, or acute infarct. Visualized intracranial internal carotid arteries, distal vertebral arteries, and basilar artery are widely patent. There is no significant stenosis, occlusion, or aneurysm seen within the bilateral ACAs, MCAs, or university manager. The major dural venous sinuses appear patent. The aortic arch and proximal great vessels are widely patent. There is no significant stenosis, occlusion, or dissection identified within the bilateral common carotid, internal carotid, or vertebral arteries. Mild emphysema. Mild mucosal thickening and retention cyst within the bilateral maxillary sinuses. IMPRESSION: 1. No significant stenosis, occlusion, or aneurysm within the [place]. 2. No significant stenosis, occlusion, or dissection identified within the carotid or vertebral arteries. ACT 112: Negative or not required by law. Electronically signed by: Elieser Raines M.D. 08/27/2020 9:[address] abdomen pelvis initial read: Liver appears normal. There are splenic granulomas. Pancreatic calcification was present of the tongue the previous study suggesting chronic pancreatitis. Gallbladder appears normal. There is mild gastric thickening. The stomach is incompletely distended. There is a moderate amount of retained fecal material in the colon. The appendix appears normal. Adrenals kidneys ureters and bladder appear normal. Prostate appears normal. Impression: Gastric thickening likely artifactual from an distention but may reflect gastritis. Splenic granulomas. No solid organ injury or free pelvic fluid EKG as per my interpretation : Rate 85, NSR, normal axis, no ischemia
[2020-08-28] MEDS ORDERED: THIAMINE HCL 100 MG in SYRINGE 9 ML IV STA (01:13)
[2020-08-28 01:27] LABS: Lipase 1031 U/L (73-393)
[2020-08-28] MEDS ORDERED: oxyCODONE HCL IR 5 MG TAB (IMMEDIATE RELEASE) PO PRN (03:51)
[2020-08-28] MEDS ORDERED: LORazepam 1 MG/2 ML VIAL IV PRN (03:51)
[2020-08-28] MEDS ORDERED: PANTOprazole 40 MG TAB PO PRN (03:51)
[2020-08-28] MEDS ORDERED: ACETAMINOPHEN 325 MG TAB PO PRN ×2 (03:51→04:26)
[2020-08-28] MEDS ORDERED: PROMETHAZINE HCL 12.5 MG in SODIUM CHLORIDE 0.9% 50 ML IV PRN (03:51)
[2020-08-28] MEDS ORDERED: LORazepam 2 MG/4 ML VIAL IV PRN (03:51)
[2020-08-28] MEDS ORDERED: LORazepam 3 MG/6 ML VIAL IV PRN (03:51)
[2020-08-28] MEDS ORDERED: ATIVAN IV ALCOHOL WITHDRAWL IV PRN (03:51)
[2020-08-28] MEDS ORDERED: PANTOprazole 40 MG in SYRINGE 0 ML IV ONE (04:30)
[2020-08-28] MEDS: POTASSIUM CHLORIDE 40 MEQ in LACTATED RINGER'S 1,000 ML IV SCH ×3 (04:56→17:17)
[2020-08-28 07:23] LABS: Basophils # (auto) 0.02 K/uL (0-0.2); Basophils % (auto) 0.3 %; Eosinophils # (auto) 0.17 K/uL (0-0.5); Eosinophils % (auto) 2.5 %; Hemoglobin 11.4 g/dL (14.0-18.0); Immature Granulocytes # (auto) 0.03 K/uL (0.00-0.02); Immature Granulocytes % (auto) 0.4 %; Lymphocytes # (auto) 1.85 K/uL (1.2-3.4); Lymphocytes % (auto) 26.7 %; Mean Corpuscular Hemoglobin 33.5 pg (25-34); Mean Corpuscular Hgb Conc 33.5 g/dL (32-36); Mean Platelet Volume 9.9 fL (7.4-10.4); Monocytes # (auto) 0.82 K/uL (0.11-0.59); Monocytes % (auto) 11.8 %; Neutrophils # (auto) 4.03 K/uL (1.4-6.5); Neutrophils % (auto) 58.3 %; Platelet Count 146 K/uL (130-400); RDW Coefficient of Variation 12.6 % (11.5-14.5); RDW Standard Deviation 45.8 fL (36.4-46.3); White Blood Count 6.92 K/uL (4.8-10.8)
[2020-08-28] MEDS: MULTIVITAMIN TAB PO SCH (07:23)
[2020-08-28] MEDS: SERTRALINE HCL 50 MG TABLET PO SCH (07:23)
[2020-08-28] MEDS: MONTELUKAST SODIUM 10 MG TABLET PO PRN (07:23)
[2020-08-28] MEDS: FOLIC ACID 1 MG TAB PO SCH (07:24)
[2020-08-28] MEDS: ENOXAPARIN INJ 40 MG/0.4 ML SYR SQ SCH (07:25)
[2020-08-28 07:54] LABS: BUN Creatinine Ratio 19.6 (10-20); Calcium 8.9 mg/dl (8.5-10.1); Creatinine Clr Calc Pharmacy 91.1 ml/min; Est GFR (African American) 113.9 ml/min; Est GFR (Non-African American) 98.3 ml/min; Potassium 3.8 mmol/L (3.5-5.1)
[2020-08-28] MEDS: PANTOprazole 40 MG TAB PO SCH (08:23)
--- NOTE | 2020-08-28 09:17 | CT Scan Report ---
CT SCAN OF THE ABDOMEN AND PELVIS WITHOUT CONTRAST CLINICAL HISTORY: abd pain COMPARISON STUDY: December 19, 2018 TECHNIQUE: CT scan of the abdomen and pelvis was performed from the lung bases to the proximal femurs . Images are reviewed in the axial, sagittal, and coronal planes. IV contrast was not administered fo r this examination. A dose lowering technique was utilized adhering to the principles of ALARA. CT DOSE: 257.72 mGy.cm FINDINGS: Lower chest: No infiltrates or consolidative lesions. Minimal centrilobular emphysema. Mild atelectas is at dependent portions of bilateral lower lobes. Liver: The unenhanced liver is normal in size, contour, and attenuation. There is no intrahepatic flores iary ductal dilatation. Gallbladder: Unremarkable. Spleen: Normal in size and attenuation. Multiple calcifications of the splenic parenchyma is seen whi ch could represent sequela from remote granulomatous process. Pancreas: There are few calcifications within pancreatic body. Minimal fat stranding surrounding panc reatic tail. Adrenal glands: Nodular appearance of the left adrenal gland which is unchanged since prior study. Ri ght adrenal gland is unremarkable. Kidneys: No evidence of hydronephrosis is seen. Evaluation of the nephrolithiasis is limited due to e xcretion of intravenous contrast and hypoattenuating material within bilateral renal pelvises and uri nary bladder. Bowel: Bowel loops are nondilated. Appendix shows normal morphology and gas filled. Large amount of s tool is seen within cecum and proximal portion of the colon. Mild diverticulosis of sigmoid colon is seen without definite diverticulitis however evaluation of the pelvic region is limited due to beam h ardening artifact from excreted contrast within urinary bladder. Peritoneum: There is no intraperitoneal free air or abdominal ascites. Vasculature: The abdominal aorta is normal in course and caliber. Adenopathy: Multiple small lymph nodes are seen and retroperitoneal region, nonpathological by CT siz e criteria. No significant mesenteric lymphadenopathy seen. Pelvic viscera: Urinary bladder filled with excreted intravenous contrast creating beam hardening art ifact which limits evaluation of surrounding structures. Prostate gland is slightly enlarged with dys trophic calcifications within its parenchyma. Skeletal structures: Minimal degenerative changes of the spine. IMPRESSION: 1. Mild fat stranding surrounding pancreatic tail. Calcifications within region of pancreatic body. Above-mentioned findings might represent chronic and possibly acute pancreatitis. Please correlate ab ove-mentioned findings with clinical and laboratory data of pancreatitis. 2. Multiple calcifications within splenic parenchyma could represent sequela from remote granulomato us process. 3. Minimal emphysema. 4. Constipation pattern. Diverticulosis. 5. Additional findings as above. ACT 112: Negative or not required by law. The above report was generated using voice recognition software. It may contain grammatical, syntax o r spelling errors. Electronically signed by: Gunjan Ya DO 08/28/2020 9:15 AM
--- NOTE | 2020-08-28 11:00 | Electrocardiogram Report ---
Test Reason : Blood Pressure : / mmHG Vent. Rate : 084 BPM Atrial Rate : 084 BPM P-R Int : 120 ms QRS Dur : 088 ms QT Int : 358 ms P-R-T Axes : 045 047 053 degrees QTc Int : 423 ms Normal sinus rhythm Normal ECG When compared with ECG of 10-MAR-2020 22:19, Borderline criteria for Anterior infarct are no longer Present Nonspecific T wave abnormality no longer evident in Anterior leads Confirmed by Michael Melo ([id number]) on 08/28/2020 10:59:43 AM Referred By: REFERRED SELF Confirmed By:Rashad Melo
--- NOTE | 2020-08-28 15:36 | Hospitalist Progress Note ---
Date of Service August 28, 2020 Assessment & Plan (1) Blurry vision: Possible related to dizziness vs decrease eyes function Need to R/O CVA CT head showed no acute intracranial abnormality. CTA Neck/Head showed no significant stenosis, occlusion, or aneurysm within the [place].No significant stenosis, occlusion, or dissection identified within the carotid or vertebral arteries. MRI brain showed No acute intracranial findings. No focal neuro deficit on exam MRI head pending Will need outpatient follow up with ophthalmology to assess his vision and upgrade his glasses Continue monitor closely Chronic Pancreatitis Elevated lipase 1031 Pt said that he did not have any abdominal, nausea or vomiting on presentation Not sure why lipase and CT abd/pelvis was done CT abd/pelvis showed mild fat stranding surrounding pancreatic tail. Calcifications within region of pancreatic body. findings might represent chronic and possibly acute pancreatitis Denies any symptoms of pancreatitis currently Diet advanced as tolerated Will decrease IVF then d/c in am Dizziness Seems to be chronic because pt was admitted for Ataxia in 02/28 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 Fall precaution PT/OT exam Hx alcohol abuse Pt said that he has not been drinking alcohol for months Will monitor for alcohol withdrawn DVT px on Lovenox CODE STATUS FULL CODE Admission and Anticipated Discharge Date Admission Date: August 28, 2020 Subjective Pt was seen and examined for follow up blurry vision Lying in bed with no distress. Pt said that he feels fine He said that he does not have any abdominal pain, nausea and vomiting He said that he has been having blurry vision in the last few days He said that he has not been seeing an eye doctor for while and believe his glasses need to get upgrade He said that he has not drank any alcohol for months Denies any chest pain, palpitation, dizziness and SOB Review of Systems Review of Systems: All systems reviewed & are unremarkable except as noted in Subjective Physical Exam Physical Exam: General- No acute distress Head- atraumatic Eyes- PERRL, EOMI, able to read the print for the receipt of his lunch ENT- oropharynx clear Neck- supple, no JVD Lungs- clear to auscultation Heart- regular rhythm; no murmur Abdomen- normal bowel sounds, soft, nontender Extremities- no calf tenderness Neuro- alert, oriented x 3; PERRL, EOMI; no facial palsy; no dysarthria Skin- warm & dry Results & Data Results & Data ([facility]) Vital Signs (Past 12 Hours) Vital Signs Temp Pulse Pulse Resp BP Pulse Ox 08/28/20 11:34 37.1 C 75 18 154/85 H 100 08/28/20 08:15 73 08/28/20 07:23 36.8 C 62 18 147/89 H 99 08/28/20 04:18 36.4 C L 79 18 148/67 H 99
--- NOTE | 2020-08-28 17:03 | Magnetic Resonance Report ---
MRI OF THE BRAIN WITHOUT CONTRAST CLINICAL HISTORY: transient blurred vision COMPARISON STUDY: MRI of the brain February 17, 2020. Head CT and CTA of the head August 27, 2020. TECHNIQUE: Utilizing a 1.5 Georgina magnet and dedicated coil, multiplanar, multiecho imaging of the bra in was performed without IV contrast. FINDINGS: There are no foci of restricted diffusion to suggest acute infarct. No acute intracranial h emorrhage, midline shift or mass effect is present. Ventricular system is stable. Basal cisterns are patent. There are no extra-axial collections. Moderate atrophy is again noted. Periventricular white matter T2 hyperintensity is similar to prior MRI. This represents small vessel disease. Calvarial sig nal is normal. No intracranial mass is identified on this unenhanced examination. Mucous retention cy st within the left maxillary sinus is incidentally noted. IMPRESSION: 1. No acute intracranial findings. 2. No significant change in appearance of the brain. Moderate atrophy. ACT 112: Negative or not required by law. Electronically signed by: Wily Espinal M.D. 08/28/2020 5:02 PM
[2020-08-28] MEDS ORDERED: MELATONIN 3 MG TAB PO PRN (20:24)
[2020-08-28] MEDS ORDERED: traZODone HCL 50 MG TAB PO SCH (21:00)
[2020-08-29] MEDS: POTASSIUM CHLORIDE 40 MEQ in LACTATED RINGER'S 1,000 ML IV SCH (00:58)
[2020-08-29 07:08] LABS: Albumin Level 3.2 gm/dl (3.4-5.0); BUN Creatinine Ratio 12.9 (10-20); Bilirubin,Total 0.6 mg/dl (0.2-1); Calcium 9.2 mg/dl (8.5-10.1); Creatinine Clr Calc Pharmacy 94.7 ml/min; Est GFR (African American) 115.7 ml/min; Est GFR (Non-African American) 99.9 ml/min; Globulin 3.2 gm/dl (2.5-4.0); Potassium 4.7 mmol/L (3.5-5.1); Total Protein 6.4 gm/dl (6.4-8.2)
[2020-08-29] MEDS: PANTOprazole 40 MG TAB PO SCH (08:15)
[2020-08-29] MEDS: SERTRALINE HCL 50 MG TABLET PO SCH (08:16)
[2020-08-29] MEDS: MULTIVITAMIN TAB PO SCH (08:16)
[2020-08-29] MEDS: MONTELUKAST SODIUM 10 MG TABLET PO PRN (08:17)
[2020-08-29] MEDS: FOLIC ACID 1 MG TAB PO SCH (08:17)
[2020-08-29] MEDS: ENOXAPARIN INJ 40 MG/0.4 ML SYR SQ SCH (08:17)
[2020-08-29] MEDS ORDERED: THIAMINE HCL 100 MG TAB PO SCH (09:00)
--- NOTE | 2020-08-30 01:45 | Communication Note ---
Date of Service: August 29, 2020 Pt left without seeing today. Nurse said that pt had a tree fell in his house. He was in a hurry to leave the hospital.
--- NOTE | 2020-09-07 23:49 | Discharge Summary ---
Date of Service August 29, 2020 Admission HPI Per Admitting Provider History obtained from patient and records. 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 Neurology recommended outpatient EMG/NCV. Patient not feeling well the last week. Achy abdominal pain with nausea, no emesis, no diarrhea. Poor appetite. Denies black/bloody stools. Dizziness described as lightheadedness especially on standing. Transient double vision. No headache. Patient denies chest pain or unusual shortness of breath. Increasing gait instability leading to right-sided rib pain secondary to fall. Patient denies head trauma. Patient stopped drinking alcohol last week secondary to abdominal pain. Mild shaking episodes at home. No EtOH withdrawal seizures as per patient. Patient consulted ER for evaluation. 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 Admission Exam Per Admitting Provider GENERAL: Comfortable, pleasant, slightly anxious, no respiratory distress SKIN: Normal color, warm HEENT: [place] palpebral conjunctivae, no ptosis, dry buccal mucosa NECK : Supple, no tenderness CHEST : CTA, right-sided chest wall tenderness HEART : RRR, no obvious murmurs ABDOMEN: Some distention, epigastric tenderness EXTREMITIES : No LE swelling/tenderness, no other conspicuous deformities noted NEUROLOGIC : Coherent, VA: Able to count fingers from a distance without trouble, no facial asymmetry, gait and stance not assessed Principal Diagnosis Blurry Vision Chronic Pancreatitis Discharge Exam Pt left AMA without seeing today Discharge Data Allergies Allergy/AdvReac Type Severity Reaction Status Date / Time No Known Allergies Allergy Verified 08/28/20 01:14 Consultations 08/28/20 00:25 ED Decision to Admit Stat Ordered Studies 08/27/20 20:14 CT angio head w con Stat CT angio neck with con Stat CT head/brain wo con Stat 08/28/20 01:09 CT abd pelvis wo con Urgent 08/28/20 03:51 MR brain wo con Routine MRI OF THE BRAIN WITHOUT CONTRAST CLINICAL HISTORY: transient blurred vision COMPARISON STUDY: MRI of the brain February 17, 2020. Head CT and CTA of the head August 27, 2020. TECHNIQUE: Utilizing a 1.5 Georgina magnet and dedicated coil, multiplanar, multiecho imaging of the brain was performed without IV contrast. FINDINGS: There are no foci of restricted diffusion to suggest acute infarct. No acute intracranial hemorrhage, midline shift or mass effect is present. Ventricular system is stable. Basal cisterns are patent. There are no extra- axial collections. Moderate atrophy is again noted. Periventricular white matter T2 hyperintensity is similar to prior MRI. This represents small vessel disease. Calvarial signal is normal. No intracranial mass is identified on this unenhanced examination. Mucous retention cyst within the left maxillary sinus is incidentally noted. IMPRESSION: 1. No acute intracranial findings. 2. No significant change in appearance of the brain. Moderate atrophy. ACT 112: Negative or not required by law. Electronically signed by: Wily Espinal M.D. 08/28/2020 5:02 PM Dictated: 08/28/201654Transcribed: 08/28/201654 CT SCAN OF THE ABDOMEN AND PELVIS WITHOUT CONTRAST CLINICAL HISTORY: abd pain COMPARISON STUDY: December 19, 2018 TECHNIQUE: CT scan of the abdomen and pelvis was performed from the lung bases to the proximal femurs. Images are reviewed in the axial, sagittal, and coronal planes. IV contrast was not administered for this examination. A dose lowering technique was utilized adhering to the principles of ALARA. CT DOSE: 257.72 mGy.cm FINDINGS: Lower chest: No infiltrates or consolidative lesions. Minimal centrilobular emphysema. Mild atelectasis at dependent portions of bilateral lower lobes. Liver: The unenhanced liver is normal in size, contour, and attenuation. There is no intrahepatic biliary ductal dilatation. Gallbladder: Unremarkable. Spleen: Normal in size and attenuation. Multiple calcifications of the splenic parenchyma is seen which could represent sequela from remote granulomatous process. Pancreas: There are few calcifications within pancreatic body. Minimal fat stranding surrounding pancreatic tail. Adrenal glands: Nodular appearance of the left adrenal gland which is unchanged since prior study. Right adrenal gland is unremarkable. Kidneys: No evidence of hydronephrosis is seen. Evaluation of the nephrolithiasis is limited due to excretion of intravenous contrast and hypoattenuating material within bilateral renal pelvises and urinary bladder. Bowel: Bowel loops are nondilated. Appendix shows normal morphology and gas filled. Large amount of stool is seen within cecum and proximal portion of the colon. Mild diverticulosis of sigmoid colon is seen without definite diverticulitis however evaluation of the pelvic region is limited due to beam hardening artifact from excreted contrast within urinary bladder. Peritoneum: There is no intraperitoneal free air or abdominal ascites. Vasculature: The abdominal aorta is normal in course and caliber. Adenopathy: Multiple small lymph nodes are seen and retroperitoneal region, nonpathological by CT size criteria. No significant mesenteric lymphadenopathy seen. Pelvic viscera: Urinary bladder filled with excreted intravenous contrast creating beam hardening artifact which limits evaluation of surrounding structures. Prostate gland is slightly enlarged with dystrophic calcifications within its parenchyma. Skeletal structures: Minimal degenerative changes of the spine. IMPRESSION: 1. Mild fat stranding surrounding pancreatic tail. Calcifications within region of pancreatic body. Above-mentioned findings might represent chronic and possib ly acute pancreatitis. Please correlate above-mentioned findings with clinical and laboratory data of pancreatitis. 2. Multiple calcifications within splenic parenchyma could represent sequela from remote granulomatous process. 3. Minimal emphysema. 4. Constipation pattern. Diverticulosis. 5. Additional findings as above. ACT 112: Negative or not required by law. The above report was generated using voice recognition software. It may contain grammatical, syntax or spelling errors. Electronically signed by: Gunjan Ya DO 08/28/2020 9:15 AM Dictated: 08/28/20 09Transcribed: 08/28/20 09 HEAD & NECK CTA HISTORY: double vision, weakness TECHNIQUE: Multiaxial CT images of the head were performed following the intravenous administration of contrast to evaluate the major cerebral vessels. Multiaxial CT images of the neck were also performed following the intravenous administration of contrast to evaluate the major cervical vessels. Maximum intensity projection images were also obtained. A dose lowering technique was utilized adhering to the principles of ALARA. COMPARISON: Head and neck CTA 02/17/2020. FINDINGS: There is no mass, hematoma, midline shift, or acute infarct. Visualized intracranial internal carotid arteries, distal vertebral arteries, and basilar artery are widely patent. 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 The major dural venous sinuses appear patent. The aortic arch and proximal great vessels are widely patent. There is no significant stenosis, occlusion, or dissection identified within the bilateral common carotid, internal carotid, or vertebral arteries. Mild emphysema. Mild mucosal thickening and retention cyst within the bilateral maxillary sinuses. IMPRESSION: 1. No significant stenosis, occlusion, or aneurysm within the [place]. 2. No significant stenosis, occlusion, or dissection identified within the carotid or vertebral arteries. ACT 112: Negative or not required by law. Electronically signed by: Elieser Raines M.D. 08/27/2020 9:29 PM Dictated: 08/27/202122Transcribed: 08/27/202122 HEAD & NECK CTA HISTORY: double vision, weakness TECHNIQUE: Multiaxial CT images of the head were performed following the intravenous administration of contrast to evaluate the major cerebral vessels. Multiaxial CT images of the neck were also performed following the intravenous administration of contrast to evaluate the major cervical vessels. Maximum intensity projection images were also obtained. A dose lowering technique was utilized adhering to the principles of ALARA. COMPARISON: Head and neck CTA 02/17/2020. FINDINGS: There is no mass, hematoma, midline shift, or acute infarct. Visualized intracranial internal carotid arteries, distal vertebral arteries, and basilar artery are widely patent. 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 The major dural venous sinuses appear patent. The aortic arch and proximal great vessels are widely patent. There is no significant stenosis, occlusion, or dissection identified within the bilateral common carotid, internal carotid, or vertebral arteries. Mild emphysema. Mild mucosal thickening and retention cyst within the bilateral maxillary sinuses. IMPRESSION: 1. No significant stenosis, occlusion, or aneurysm within the [place]. 2. No significant stenosis, occlusion, or dissection identified within the carotid or vertebral arteries. ACT 112: Negative or not required by law. Electronically signed by: Elieser Raines M.D. 08/27/2020 9:29 PM Dictated: 08/27/202122Transcribed: 08/27/202122 Hospital Course (1) Blurry vision: Possible related to dizziness vs decrease eyes function Need to R/O CVA CT head showed no acute intracranial abnormality. CTA Neck/Head showed no significant stenosis, occlusion, or aneurysm within the [place].No significant stenosis, occlusion, or dissection identified within the carotid or vertebral arteries. MRI brain showed No acute intracranial findings. No focal neuro deficit on exam MRI head pending Will need outpatient follow up with ophthalmology to assess his vision and upgrade his glasses Continue monitor closely Chronic Pancreatitis Elevated lipase 1031 Pt said that he did not have any abdominal, nausea or vomiting on presentation Not sure why lipase and CT abd/pelvis was done CT abd/pelvis showed mild fat stranding surrounding pancreatic tail. Calcifications within region of pancreatic body. findings might represent chronic and possibly acute pancreatitis Denies any symptoms of pancreatitis currently Diet advanced as tolerated Will decrease IVF then d/c in am Dizziness Seems to be chronic because pt was admitted for Ataxia in 02/28 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 Fall precaution PT/OT exam Hx alcohol abuse Pt said that he has not been drinking alcohol for months Will monitor for alcohol withdrawn DVT px on Lovenox CODE STATUS FULL CODE Total Time Total Time Spent Total Time Spent (In Minutes): 15 minutes Total Time Includes: Examination of the Patient, Discharge Planning, Medication Reconciliation, Communication With Other Providers and Other Discharge Plan Discharge Items Patient Disposition: Against Medical Advice Reason For Visit: TRANSIENT BLURRED VISION, RECURRENT PANCREATITIS Follow-up/Referrals: German Cole MD [Primary Care Provider] - Medications and DC Order Prescriptions: No Action sertraline [Zoloft] 50 mg Tablet 75 mg PO DAILY RF: 0 trazodone 50 mg Tablet 50 mg PO HS RF: 0 pantoprazole 40 mg Tablet,Delayed Release (Dr/Ec) 40 mg PO DAILY PRN (Reason: Heartburn) RF: 0 albuterol sulfate 90 mcg/actuation Hfa Aerosol Inhaler 2 puff INHALATION Q4 PRN (Reason: Shortness Of Breath Or Wheezing) RF: 0 multivitamin [Daily-Anatoly] Tablet 1 tab PO QAM Qty: 30 RF: 0 montelukast [Singulair] 10 mg Tablet 10 mg PO DAILY PRN (Reason: allergies) RF: 0 cyclobenzaprine 5 mg tablet 5 - 10 mg PO TID PRN (Reason: muscle spasms) RF: 0 Discharge Orders: Left Against Medical Advice (Routine); Ordered 09/08/20 Ordered By: Placido Kaba Admission Data Admit Date/Time: 08/28/20 02:18 Attending Provider: Placido Kaba Admit Provider: Navi Ghosh Primary Care Provider: German Cole Other Providers: Navi Ghosh Other Interventions: Discharge Summary Assessment (RN) Last Done: 08/29/20 10:53
== END 2020-08-29 12:10 | disposition left against medical advice (07) | DRG 57 ==
LOC: ED 19:31 → 2S 08-28 02:18 → SUATTDRO 08-28 02:18 → 2S 08-28 03:36

== ENCOUNTER 2021-04-23 14:04 | Inpatient (IN) ==
--- NOTE | 2021-04-23 14:31 | Emergency Department Note ---
Impression & Plan Fall, Low blood magnesium, Alcohol intoxication, Headache, Acute UTI ED Provider Note Provider: Juan Pablo Lopez MD DATE OF SERVICE: 04/23/2021 CHIEF COMPLAINT: Headache, fall HISTORY OF PRESENT ILLNESS: Patient is a 61-year-old gentleman with a history of pancreatitis, alcoholism, ataxia, and cirrhosis presenting via ambulance today from his home. Patient evidently suffered a ground-level fall last night striking his right forehead. There is report of some possible loss of consciousness from EMS. Reports a bit of double vision. Patient did have some alcohol last night and this morning. Does report a bit of a headache. Patient denies any significant injury to his arms or legs or pain there at this time although states at times he has noticed a little bump on his left wrist area. Patient denies feeling nauseous or having abdominal pain. Per EMS evidently given the patient's continued headache and confusion and maybe a little speech issue earlier convinced him to call 911 and come here for evaluation. Patient does not believe that he is on any anticoagulants or antiplatelet agents. REVIEW OF SYSTEMS: A total of 10 review of systems was obtained and negative except as stated above in the HPI. PAST MEDICAL HISTORY: As noted above MEDICATIONS: Reviewed the patient's home medication list SOCIAL HISTORY: Lives at home with , regular alcohol reported PHYSICAL EXAM: GENERAL: alert and oriented in no acute distress on stretcher Head: normocephalic and atraumatic EYES: No injection, discharge or icterus. PERRL NECK: Trachea midline. Supple without significant posterior midline tenderness ENT: Mucous membranes pink and moist. Pharynx without erythema or exudate. LUNGS: Airway patent. No retractions. Breath sounds HEART: Regular rate and rhythm. No chest wall tenderness ABDOMEN: Soft and non-tender, without guarding or rebound. SKIN: Acyanotic, warm, dry, without rashes EXTREMITIES: Without swelling, tenderness or deformity without significant tenderness in particular overlying the left wrist. NEUROLOGICAL: No focal deficits moving all extremities. Some very mildly slurred speech. No facial droop and tongue is midline. Intact strength in the arms and legs. Do not grossly appreciate a facial at this time. EK bpm normal sinus rhythm with PVC. No acute ST segment elevation or depression. QTc 460. Normal axis. CONTINUOUS CARDIAC MONITORING: was ordered and showed a heart rate of 80s-100s bpm in normal sinus rhythm to sinus tachycardia GCS 15. Patient's laboratory studies and imaging reviewed. Differential includes Infection, dehydration, metabolic abnormality, hypo/hyperglycemia, electrolyte disturbance, anemia, hypoxia, cardiac sources, intracerebral event, toxicologic, neurologic, as well as other pathologies. IMPRESSION/MEDICAL DECISION MAKING: Patient suffered a fall last night with an LOC with continued headache and some hospital confusion and aphasia. Given the trauma as well as the time duration more than 12 hours since the fall outside of any reasonable window for thrombolysis. CT the head, cervical spine, and angiograms of the head and neck were obtained. Basic labs will be obtained. Question the patient may have some alcohol on board as well according to EMS and alcohol level was sent. Review of records indicate patient is a history of alcohol issues as well as ataxia related to alcohol abuse. May have been the etiology versus intoxication for the fall. Will work to look for any occult stroke or vascular issue. Did obtain x- ray of the left wrist as he states that at times there is been a bump there but exam is reassuring. No significant leukocytosis or anemia. Mild anion gap and lactate elevation likely related to alcoholic ketosis as I doubt an infectious source with this. Hypomagnesemia given IV supplementation. No bilirubin elevation with mild AST elevation. Medical alcohol significant elevated at 388. Imaging per radiology of the head and cervical spine as well as angiograms without significant acute traumatic injury noted. No findings concerning for acute vascular abnormality. Patient still having some by his report of vision issues and feeling a bit unsteady. Patient still significant intoxicated. Does report some urinary symptoms and UA is concerning for infection given a dose of ceftriaxone. Does not appear septic. Again significantly low magnesium likely contributing with his heavy alcohol use to the fall. May have some component of concussion. Given his significant alcohol, low magnesium, and UTI discussed with the patient further observation here for monitoring and hopeful improvement of his status. DIAGNOSIS: Alcohol intoxication, fall, headache, UTI, hypomagnesemia DISPOSITION: Hospitalist will evaluate Patient was agreeable with this plan. Past Med/Surg History Medical History (Updated 04/23/21 @ 21:24 by Juan Pablo Lopez M.D.) Alcoholic cirrhosis (09/15/12) Anemia Anxiety Asthma "childhood" Depression ETOH abuse 3-4 beers daily* Gastric varices without bleeding no evidence of varices on 07/2018 EGD Recurrent pancreatitis Splenic vein thrombosis Stomach ulcer non-bleeding Surgical History H/O eye surgery "FIBER" REMOVAL History of colonoscopy History of ERCP 09/13/18: ERCP: Grade 2 view, MAC#3, ETT 7.5 at [facility] History of tonsillectomy Family History Father Prostate cancer Social History (Updated 04/23/21 @ 19:11 by Arlet Kurtz PA-C) Smoking Status: Former smoker Tobacco Type: Smokeless Tobacco (Dip or Chew) Cigarettes Per Day: QUIT SMOKING "YEARS AGO"; Second Hand Exposure: Yes; Do You Dip or Chew Tobacco: Yes; Hx Alcohol Use: Yes Alcohol type: beer and hard liquor Alcohol Intake Frequency Comment: 6-10 drinks a day Hx Substance Use: No Preferred Language: Nepali Communication Ability: Effective Visual Impairment: No Limitations Hearing Ability: Normal Legal Instructor Required: No Beliefs That Will Affect Care: None marital status: Single Current Living Situation: Significant Other Current Living Situation Comment: lives with S.O. Feels Safe at Home: Yes Assistive Devices: None Allergies Allergies Allergy/AdvReac Type Severity Reaction Status Date / Time No Known Allergies Allergy Verified 08/28/20 01:14 Home Meds Home Medications Medication Instructions Recorded Confirmed sertraline 50 mg tablet (Zoloft) 75 mg PO DAILY 10/24/18 04/23/21 trazodone 50 mg tablet 100 mg PO HS 11/13/18 04/23/21 pantoprazole 40 mg tablet,delayed 40 mg PO DAILY PRN 02/17/20 04/23/21 release cyclobenzaprine 5 mg tablet 5 - 10 mg PO TID PRN 08/28/20 04/23/21 Previous Rx's Medication Instructions Recorded multivitamin (Daily-Anatoly) 1 tab PO QAM #30 tab 02/20/20 Results & Data (ED) Vital Signs Vital Signs - 24 hr 04/23/21 13:53 04/23/21 15:34 04/23/21 17:00 Temperature 37.1 C Temperature Source Oral Pulse Rate 94 H Pulse Rate [Finger] 90 89 Pulse Rhythm Regular Pulse Rhythm [Finger] Regular Regular Pulse Strength Normal Pulse Strength [Finger] Normal Normal Respiratory Rate 18 20 18 Respiratory Effort / Characteristics Non-Labored Non-Labored Non-Labored Respiratory Depth Normal Normal Normal Respiratory Pattern Regular Regular Blood Pressure 145/113 H Blood Pressure [Right Arm] 132/91 139/90 Blood Pressure Mean 123 Blood Pressure Mean [Right Arm] 104 106 Blood Pressure Position Sitting Blood Pressure Position [Right Arm] Sitting Sitting Pulse Oximetry 95 96 97 Oxygen Delivery Method Room Air Room Air Room Air Sepsis Recent Fever Within 48 Hours No Sepsis New/Unexplained Change in Mental Status No Sepsis Action Taken by Nursing No Action Required Laboratory Data Result diagrams: 04/23/21 14:30 04/23/21 14:30 Lab Results 04/23/21 04/23/21 04/23/21 Range/Units 14:30 14:30 14:30 WBC 6.37 (4.8-10.8) K/uL RBC 4.30 L (4.7-6.1) M/uL Hgb 15.1 (14.0-18.0) g/dL Hct 43.2 (42-52) % MCV 100.5 H (80-100) fL MCH 35.1 H (25-34) pg MCHC 35.0 (32-36) g/dL RDW Std Deviation 45.3 (36.4-46.3) fL RDW Coeff of Ashvin 12.4 (11.5-14.5) % Plt Count 186 (130-400) K/uL MPV 9.4 (7.4-10.4) fL Immature Gran % (Auto) 0.2 % Neut % (Auto) 56.9 % Lymph % (Auto) 35.2 % [place] % (Auto) 4.7 % Eos % (Auto) 1.6 % Baso % (Auto) 1.4 % Neut # (Auto) 3.63 (1.4-6.5) K/uL Lymph # (Auto) 2.24 (1.2-3.4) K/uL [place] # (Auto) 0.30 (0.11-0.59) K/uL Eos # (Auto) 0.10 (0-0.5) K/uL Baso # (Auto) 0.09 (0-0.2) K/uL Immature Gran # (Auto) 0.01 (0.00-0.02) K/uL PT 9.8 (9.0-12.0) Seconds INR 1.0 (0.9-1.1) APTT 23.4 (21.0-31.0) Seconds PTT Ratio 0.9 Sodium 139 (136-145) mmol/L Potassium 3.8 (3.5-5.1) mmol/L Chloride 102 (98-107) mmol/L Carbon Dioxide 23 (21-32) mmol/L Anion Gap 14 H (3-11) BUN 13 (6-23) mg/dl Creatinine 0.68 (0.6-1.4) mg/dl Est Cr Clr Drug Dosing 98.9 ml/min Est GFR ( Amer) 120.3 ml/min Est GFR (Non-Af Amer) 103.8 ml/min BUN/Creatinine Ratio 19.1 (10-20) Glucose 113 H (70-99(Fasting)) mg/dl Lactate (0.4-2.0) mmol/L Calcium 8.4 L (8.5-10.1) mg/dl Magnesium 1.2 L (1.7-2.4) mg/dl Total Bilirubin 0.6 (0.2-1.0) mg/dl AST 96 H (13-39) U/L ALT 38 (7-52) U/L Alkaline Phosphatase 93 (34-104) U/L Troponin I < 0.03 (0-0.04) ng/ml Total Protein 6.6 (6.0-8.3) gm/dl Albumin 3.9 (3.4-5.0) gm/dl Globulin 2.7 (2.5-4.0) gm/dl Albumin/Globulin Ratio 1.4 (0.9-2) Urine Color Urine Appearance (Clear) Urine pH (4.5-7.5) Ur Specific Lynn (1.000-1.030) Urine Protein (Negative) Urine Glucose (UA) (Negative) Urine Ketones (Negative) Urine Blood (Negative) Urine Nitrite (Negative) Urine Bilirubin (Negative) Urine Urobilinogen (Negative) Ur Leukocyte Esterase (Negative) Urine WBC (Auto) (0-5) /hpf Urine RBC (Auto) (0-4) /hpf U Hyaline Cast (Auto) (0-5) /lpf U Epithel Cells (Auto) (0-5) /lpf Urine Bacteria (Auto) (Negative) Urine Opiates Screen (Neg) Ur Methadone, Qual (Neg) Urine Barbiturates (Neg) Ur Phencyclidine (PCP) (Neg) U Amphetamin/Meth Scrn (Neg) MDMA (Ecstasy) Screen (Neg) U Benzodiazepines Scrn (Neg) Ur Cocaine Metabolite (Neg) U Marijuana (THC) Screen (Neg) Ethyl Alcohol mg/dL SARS-CoV-2, RNA, NAAT (NEGATIVE) 04/23/21 04/23/21 04/23/21 Range/Units 14:30 14:30 14:46 WBC (4.8-10.8) K/uL RBC (4.7-6.1) M/uL Hgb (14.0-18.0) g/dL Hct (42-52) % MCV (80-100) fL MCH (25-34) pg MCHC (32-36) g/dL RDW Std Deviation (36.4-46.3) fL RDW Coeff of Ashvin (11.5-14.5) % Plt Count (130-400) K/uL MPV (7.4-10.4) fL Immature Gran % (Auto) % Neut % (Auto) % Lymph % (Auto) % [place] % (Auto) % Eos % (Auto) % Baso % (Auto) % Neut # (Auto) (1.4-6.5) K/uL Lymph # (Auto) (1.2-3.4) K/uL [place] # (Auto) (0.11-0.59) K/uL Eos # (Auto) (0-0.5) K/uL Baso # (Auto) (0-0.2) K/uL Immature Gran # (Auto) (0.00-0.02) K/uL PT (9.0-12.0) Seconds INR (0.9-1.1) APTT (21.0-31.0) Seconds PTT Ratio Sodium (136-145) mmol/L Potassium (3.5-5.1) mmol/L Chloride (98-107) mmol/L Carbon Dioxide (21-32) mmol/L Anion Gap (3-11) BUN (6-23) mg/dl Creatinine (0.6-1.4) mg/dl Est Cr Clr Drug Dosing ml/min Est GFR ( Amer) ml/min Est GFR (Non-Af Amer) ml/min BUN/Creatinine Ratio (10-20) Glucose (70-99(Fasting)) mg/dl Lactate 2.7 H* (0.4-2.0) mmol/L Calcium (8.5-10.1) mg/dl Magnesium (1.7-2.4) mg/dl Total Bilirubin (0.2-1.0) mg/dl AST (13-39) U/L ALT (7-52) U/L Alkaline Phosphatase (34-104) U/L Troponin I (0-0.04) ng/ml Total Protein (6.0-8.3) gm/dl Albumin (3.4-5.0) gm/dl Globulin (2.5-4.0) gm/dl Albumin/Globulin Ratio (0.9-2) Urine Color Urine Appearance (Clear) Urine pH (4.5-7.5) Ur Specific Lynn (1.000-1.030) Urine Protein (Negative) Urine Glucose (UA) (Negative) Urine Ketones (Negative) Urine Blood (Negative) Urine Nitrite (Negative) Urine Bilirubin (Negative) Urine Urobilinogen (Negative) Ur Leukocyte Esterase (Negative) Urine WBC (Auto) (0-5) /hpf Urine RBC (Auto) (0-4) /hpf U Hyaline Cast (Auto) (0-5) /lpf U Epithel Cells (Auto) (0-5) /lpf Urine Bacteria (Auto) (Negative) Urine Opiates Screen (Neg) Ur Methadone, Qual (Neg) Urine Barbiturates (Neg) Ur Phencyclidine (PCP) (Neg) U Amphetamin/Meth Scrn (Neg) MDMA (Ecstasy) Screen (Neg) U Benzodiazepines Scrn (Neg) Ur Cocaine Metabolite (Neg) U Marijuana (THC) Screen (Neg) Ethyl Alcohol mg/dL Cancelled SARS-CoV-2, RNA, NAAT NEGATIVE (NEGATIVE) 04/23/21 04/23/21 04/23/21 Range/Units 15:15 16:35 16:35 WBC (4.8-10.8) K/uL RBC (4.7-6.1) M/uL Hgb (14.0-18.0) g/dL Hct (42-52) % MCV (80-100) fL MCH (25-34) pg MCHC (32-36) g/dL RDW Std Deviation (36.4-46.3) fL RDW Coeff of Ashvin (11.5-14.5) % Plt Count (130-400) K/uL MPV (7.4-10.4) fL Immature Gran % (Auto) % Neut % (Auto) % Lymph % (Auto) % [place] % (Auto) % Eos % (Auto) % Baso % (Auto) % Neut # (Auto) (1.4-6.5) K/uL Lymph # (Auto) (1.2-3.4) K/uL [place] # (Auto) (0.11-0.59) K/uL Eos # (Auto) (0-0.5) K/uL Baso # (Auto) (0-0.2) K/uL Immature Gran # (Auto) (0.00-0.02) K/uL PT (9.0-12.0) Seconds INR (0.9-1.1) APTT (21.0-31.0) Seconds PTT Ratio Sodium (136-145) mmol/L Potassium (3.5-5.1) mmol/L Chloride (98-107) mmol/L Carbon Dioxide (21-32) mmol/L Anion Gap (3-11) BUN (6-23) mg/dl Creatinine (0.6-1.4) mg/dl Est Cr Clr Drug Dosing ml/min Est GFR ( Amer) ml/min Est GFR (Non-Af Amer) ml/min BUN/Creatinine Ratio (10-20) Glucose (70-99(Fasting)) mg/dl Lactate (0.4-2.0) mmol/L Calcium (8.5-10.1) mg/dl Magnesium (1.7-2.4) mg/dl Total Bilirubin (0.2-1.0) mg/dl AST (13-39) U/L ALT (7-52) U/L Alkaline Phosphatase (34-104) U/L Troponin I (0-0.04) ng/ml Total Protein (6.0-8.3) gm/dl Albumin (3.4-5.0) gm/dl Globulin (2.5-4.0) gm/dl Albumin/Globulin Ratio (0.9-2) Urine Color Dark Yellow Urine Appearance Cloudy A (Clear) Urine pH 5.5 (4.5-7.5) Ur Specific Lynn 1.040 H (1.000-1.030) Urine Protein 1+ H (Negative) Urine Glucose (UA) Negative (Negative) Urine Ketones 1+ H (Negative) Urine Blood 1+ H (Negative) Urine Nitrite Negative (Negative) Urine Bilirubin 1+ H (Negative) Urine Urobilinogen Negative (Negative) Ur Leukocyte Esterase 2+ H (Negative) Urine WBC (Auto) >30 H (0-5) /hpf Urine RBC (Auto) 0-4 (0-4) /hpf U Hyaline Cast (Auto) 1-5 (0-5) /lpf U Epithel Cells (Auto) 0-5 (0-5) /lpf Urine Bacteria (Auto) 3+ H (Negative) Urine Opiates Screen Neg (Neg) Ur Methadone, Qual Neg (Neg) Urine Barbiturates Neg (Neg) Ur Phencyclidine (PCP) Neg (Neg) U Amphetamin/Meth Scrn Neg (Neg) MDMA (Ecstasy) Screen Neg (Neg) U Benzodiazepines Scrn Neg (Neg) Ur Cocaine Metabolite Neg (Neg) U Marijuana (THC) Screen Neg (Neg) Ethyl Alcohol mg/dL 388.1 H SARS-CoV-2, RNA, NAAT (NEGATIVE) Administered Medications Gabapentin (Gabapentin 1200mg Loading Dose) 1,200 mg PO TODAY@2014 [facility] Stop: 04/23/21 21:30 Last Admin: 04/23/21 20:31 Dose: 1,200 mg Documented by: [id number] Lorazepam (Ativan) 1 mg in 2 mls @ 2 mls/min IV ONE PRN; Protocol PRN Reason: EtoH Withdrawal AWSS 6-10 Stop: 05/23/21 20:19 Last Admin: 04/23/21 20:31 Dose: 2 mls/min Documented by: [id number] Discontinued Medications Acetaminophen (Acetaminophen 325 Mg Tab) 650 mg PO NOW [facility] Stop: 04/23/21 19:22 Last Admin: 04/23/21 19:56 Dose: 650 mg Documented by: [id number] Magnesium Sulfate/Dextrose (Magnesium Sulfate / D5w) 1 gm in 100 mls @ 200 mls/hr IV Q30M [facility] Stop: 04/23/21 16:29 Last Infusion: 02/12/22 18:40 Dose: 0 mls/hr Documented by: [id number] Infusion: 04/23/21 16:45 Dose: 200 mls/hr Documented by: [id number] Admin: 04/23/21 16:15 Dose: 200 mls/hr Documented by: [id number] Infusion: 04/23/21 16:02 Dose: 200 mls/hr Documented by: [id number] Admin: 04/23/21 15:32 Dose: 200 mls/hr Documented by: [id number] Multivitamins 10 ml/ Thiamine HCl 100 mg/ Folic Acid 1 mg/Sodium Chloride 1,011.2 mls @ 1,011.2 mls/hr IV .Q1H ONE Stop: 04/23/21 16:19 Last Infusion: 04/23/21 17:51 Dose: 1,011.2 mls/hr Documented by: [id number] Admin: 04/23/21 16:51 Dose: 1,011.2 mls/hr Documented by: [id number] Ceftriaxone Sodium (Rocephin) 2,000 mg in 70 mls @ 140 mls/hr IV NOW STA Stop: 04/23/21 18:05 Last Infusion: 04/23/21 18:45 Dose: 0 mls/hr Documented by: [id number] Infusion: 04/23/21 18:35 Dose: 140 mls/hr Documented by: [id number] Admin: 04/23/21 18:05 Dose: 140 mls/hr Documented by: [id number] Magnesium Sulfate/Dextrose (Magnesium Sulfate / D5w) 1 gm in 100 mls @ 100 mls/hr IV Q1H [facility]; Protocol Stop: 04/23/21 20:22 Last Admin: 04/23/21 19:57 Dose: 100 mls/hr Documented by: [id number] Admin: 04/23/21 18:46 Dose: Not Given Documented by: [id number] Ioversol (Optiray 320 125ml) 119 ml IV ONCE ONE Stop: 04/23/21 16:14 Last Admin: 04/23/21 16:13 Dose: 119 ml Documented by: [id number] Ketorolac Tromethamine (Ketorolac Tromethamine 15 Mg/Ml Vial) 10 mg IV NOW ONE Stop: 04/23/21 17:37 Last Admin: 04/23/21 18:06 Dose: 10 mg Documented by: [id number] Magnesium Sulfate/Dextrose (Magnesium Sulfate 1gm / D5w Bag) Confirm Administered Dose 1 gm IV .[employer] ONE Stop: 04/23/21 18:38 Last Admin: 04/23/21 18:41 Dose: 1 gm Documented by: [id number] Imaging Data Radiologist's Impression: Cervical Spine CT 04/23/21 14:[address] DOSE: HISTORY: fall, hit head TECHNIQUE: Multiaxial CT images of the cervical spine were performed and reformatted in the sagittal and coronal plane without the use of contrast. A dose lowering technique was utilized adhering to the principles of ALARA. COMPARISON: None. FINDINGS: No fractures. No subluxation. Prevertebral soft tissues and the C1-C2 interval are intact. No pneumothorax. Straightening the cervical spine with moderate to severe degenerative disc disease from C3 through C7. IMPRESSION: No fractures within the cervical spine. ACT 112: Negative or not required by law. Electronically signed by: Elieser Raines M.D. 04/23/2021 4:[address] 04/23/21 14:[address] DOSE: HISTORY: fall, hit head, loss of consciousness, vision changes TECHNIQUE: Multiaxial CT images of the head were performed without the use of intravenous contrast. Automated exposure control was utilized for this study. A dose lowering technique was utilized adhering to the principles of ALARA. Comparison: Head CT 08/27/2020. Findings: Partially visualized retention cyst within the left maxillary sinus. The mastoid air cells are clear. Mild motion artifact. The calvarium and skull base are intact. There is no mass, hematoma, midline shift, acute infarct. White matter hypodensity is nonspecific but suggestive of microvascular ischemic change. The ventricles and sulci demonstrate mild age-related involutional changes. Impression: No significant change compared to the prior study. No acute intracranial abnormality. ACT 112: Negative or not required by law. Electronically signed by: Elieser Raines M.D. 04/23/2021 4:23 PM Head CTA 04/23/21 14:16 HEAD & NECK CTA HISTORY: fall, hit head, loc, vision changes TECHNIQUE: Multiaxial CT images of the head were performed following the intravenous administration of contrast to evaluate the major cerebral vessels. Multiaxial CT images of the neck were also performed following the intravenous administration of contrast to evaluate the major cervical vessels. Maximum intensity projection images were also obtained. A dose lowering technique was utilized adhering to the principles of ALARA. COMPARISON: Head and neck CTA 08/27/2020. FINDINGS: Head CTA: Visualized intracranial internal carotid arteries, distal vertebral arteries, and basilar artery are widely patent. There is no significant stenosis, occlusion, or aneurysm seen within the bilateral ACAs, MCAs, or cargo handler. The major dural venous sinuses are patent. Neck CTA: The aortic arch and proximal great vessels are widely patent. There is no significant stenosis, occlusion, or dissection identified within the bilateral common carotid, internal carotid, or vertebral arteries. Mild emphysema. IMPRESSION: 1. No significant stenosis, occlusion, or aneurysm within the [place]. 2. No significant stenosis, occlusion, or dissection identified within the carotid or vertebral arteries. ACT 112: Negative or not required by law. Electronically signed by: Elieser Raines M.D. 04/23/2021 4:33 PM Neck CTA 04/23/21 14:16 HEAD & NECK CTA HISTORY: fall, hit head, loc, vision changes TECHNIQUE: Multiaxial CT images of the head were performed following the intravenous administration of contrast to evaluate the major cerebral vessels. Multiaxial CT images of the neck were also performed following the intravenous administration of contrast to evaluate the major cervical vessels. Maximum intensity projection images were also obtained. A dose lowering technique was utilized adhering to the principles of ALARA. COMPARISON: Head and neck CTA 08/27/2020. FINDINGS: Head CTA: Visualized intracranial internal carotid arteries, distal vertebral arteries, and basilar artery are widely patent. There is no significant stenosis, occlusion, or aneurysm seen within the bilateral ACAs, MCAs, or cargo handler. The major dural venous sinuses are patent. Neck CTA: The aortic arch and proximal great vessels are widely patent. There is no significant stenosis, occlusion, or dissection identified within the bilateral common carotid, internal carotid, or vertebral arteries. Mild emphysema. IMPRESSION: 1. No significant stenosis, occlusion, or aneurysm within the [place]. 2. No significant stenosis, occlusion, or dissection identified within the carotid or vertebral arteries. ACT 112: Negative or not required by law. Electronically signed by: Elieser Raines M.D. 04/23/2021 4:33 PM Chest X-Ray 04/23/21 14:32 XR chest 1V portable HISTORY: fall COMPARISON: Chest and right rib series 08/27/2020. FINDINGS: No pneumothorax. No pleural effusions. The heart is normal in size. Calcified granuloma within the right lower lobe, unchanged. No acute rib fractures identified. IMPRESSION: No acute process. ACT 112: Negative or not required by law. Electronically signed by: Elieser Raines M.D. 04/23/2021 3:06 PM Wrist X-Ray 04/23/21 14:32 LEFT WRIST 4 VIEWS HISTORY: Left wrist pain. fall COMPARISON: None. FINDINGS: There is no fracture or dislocation. Mild soft tissue swelling. No radiopaque foreign bodies. IMPRESSION: No fractures. ACT 112: Negative or not required by law. Electronically signed by: Elieser Raines M.D. 04/23/2021 3:05 PM Discharge Plan Visit Data Chief Complaint: Headache ED Provider: Juan Pablo Lopez Discharge Problem: Fall, Low blood magnesium, Alcohol intoxication, Headache, Acute UTI Patient Disposition: Admitted As Inpatient Discharge Instructions Interventions: ED Discharge Assessment Last Done: 04/23/21 21:06
[2021-04-23 14:42] LABS: Basophils # (auto) 0.09 K/uL (0-0.2); Basophils % (auto) 1.4 %; Eosinophils % (auto) 1.6 %; Hematocrit (blood only) 43.2 % (42-52); Hemoglobin 15.1 g/dL (14.0-18.0); Immature Granulocytes # (auto) 0.01 K/uL (0.00-0.02); Immature Granulocytes % (auto) 0.2 %; Lymphocytes # (auto) 2.24 K/uL (1.2-3.4); Lymphocytes % (auto) 35.2 %; Mean Corpuscular Hemoglobin 35.1 pg (25-34); Mean Corpuscular Volume 100.5 fL (80-100); Mean Platelet Volume 9.4 fL (7.4-10.4); Monocytes % (auto) 4.7 %; Neutrophils # (auto) 3.63 K/uL (1.4-6.5); Neutrophils % (auto) 56.9 %; Platelet Count 186 K/uL (130-400); RDW Coefficient of Variation 12.4 % (11.5-14.5); RDW Standard Deviation 45.3 fL (36.4-46.3); White Blood Count 6.37 K/uL (4.8-10.8)
[2021-04-23 14:53] LABS: Partial Thromboplastin Ratio 0.9; Partial Thromboplastin Time 23.4 Seconds (21.0-31.0); Prothrombin Time 9.8 Seconds (9.0-12.0)
--- NOTE | 2021-04-23 15:06 | XRay Report ---
LEFT WRIST 4 VIEWS HISTORY: Left wrist pain. fall COMPARISON: None. FINDINGS: There is no fracture or dislocation. Mild soft tissue swelling. No radiopaque foreign giovany s. IMPRESSION: No fractures. ACT 112: Negative or not required by law. Electronically signed by: Elieser Raines M.D. 04/23/2021 3:05 PM
--- NOTE | 2021-04-23 15:07 | XRay Report ---
XR chest 1V portable HISTORY: fall COMPARISON: Chest and right rib series 08/27/2020. FINDINGS: No pneumothorax. No pleural effusions. The heart is normal in size. Calcified granuloma wit hin the right lower lobe, unchanged. No acute rib fractures identified. IMPRESSION: No acute process. ACT 112: Negative or not required by law. Electronically signed by: Elieser Raines M.D. 04/23/2021 3:06 PM
[2021-04-23 15:16] LABS: Alanine Aminotransferase 38 U/L (7-52); Albumin Globulin Ratio 1.4 (0.9-2); Albumin Level 3.9 gm/dl (3.4-5.0); Alkaline Phosphatase 93 U/L (34-104); Anion Gap 14 (3-11); Aspartate Aminotransferase 96 U/L (13-39); BUN Creatinine Ratio 19.1 (10-20); Bilirubin,Total 0.6 mg/dl (0.2-1.0); Blood Urea Nitrogen 13 mg/dl (6-23); Calcium 8.4 mg/dl (8.5-10.1); Carbon Dioxide 23 mmol/L (21-32); Chloride 102 mmol/L (98-107); Creatinine Clr Calc Pharmacy 98.9 ml/min; Est GFR (African American) 120.3 ml/min; Est GFR (Non-African American) 103.8 ml/min; Globulin 2.7 gm/dl (2.5-4.0); Glucose 113 mg/dl (70-99(Fasting)); Magnesium 1.2 mg/dl (1.7-2.4); Potassium 3.8 mmol/L (3.5-5.1); Sodium 139 mmol/L (136-145); Total Protein 6.6 gm/dl (6.0-8.3)
[2021-04-23] MEDS ORDERED: MULTI-VITAMIN INFUSION 10 ML, THIAMINE HCL 100 MG, FOLIC ACID 1 MG in SODIUM CHLORIDE 0... IV ONE (15:20)
[2021-04-23] MEDS: MAGNESIUM SULFATE / D5W 1 GM/100 ML BAG IV SCH ×4 (15:32→19:57)
[2021-04-23] MEDS ORDERED: OPTIRAY 320 125ml IV ONE (16:13)
--- NOTE | 2021-04-23 16:25 | CT Scan Report ---
HEAD CT NONCONTRAST CT DOSE: HISTORY: fall, hit head, loss of consciousness, vision changes TECHNIQUE: Multiaxial CT images of the head were performed without the use of intravenous contrast. A utomated exposure control was utilized for this study. A dose lowering technique was utilized adheri ng to the principles of ALARA. Comparison: Head CT 08/27/2020. Findings: Partially visualized retention cyst within the left maxillary sinus. The mastoid air cells are clear. Mild motion artifact. The calvarium and skull base are intact. There is no mass, hematoma, midline shift, acute infarct. White matter hypodensity is nonspecific but suggestive of microvascula r ischemic change. The ventricles and sulci demonstrate mild age-related involutional changes. Impression: No significant change compared to the prior study. No acute intracranial abnormality. ACT 112: Negative or not required by law. Electronically signed by: Elieser Raines M.D. 04/23/2021 4:23 PM
--- NOTE | 2021-04-23 16:29 | CT Scan Report ---
CERVICAL SPINE CT CT DOSE: HISTORY: fall, hit head TECHNIQUE: Multiaxial CT images of the cervical spine were performed and reformatted in the sagittal and coronal plane without the use of contrast. A dose lowering technique was utilized adhering to th e principles of ALARA. COMPARISON: None. FINDINGS: No fractures. No subluxation. Prevertebral soft tissues and the C1-C2 interval are intact. No pneumothorax. Straightening the cervical spine with moderate to severe degenerative disc disease f rom C3 through C7. IMPRESSION: No fractures within the cervical spine. ACT 112: Negative or not required by law. Electronically signed by: Elieser Raines M.D. 04/23/2021 4:28 PM
--- NOTE | 2021-04-23 16:35 | CT Scan Report ---
HEAD & NECK CTA HISTORY: fall, hit head, loc, vision changes TECHNIQUE: Multiaxial CT images of the head were performed following the intravenous administration o f contrast to evaluate the major cerebral vessels. Multiaxial CT images of the neck were also perform ed following the intravenous administration of contrast to evaluate the major cervical vessels. Maxim um intensity projection images were also obtained. A dose lowering technique was utilized adhering to the principles of ALARA. COMPARISON: Head and neck CTA 08/27/2020. FINDINGS: Head CTA: Visualized intracranial internal carotid arteries, distal vertebral arteries, and basilar a rtery are widely patent. There is no significant stenosis, occlusion, or aneurysm seen within the fl[place] ateral ACAs, MCAs, or dog trainer. The major dural venous sinuses are patent. Neck CTA: The aortic arch and proximal great vessels are widely patent. There is no significant sten osis, occlusion, or dissection identified within the bilateral common carotid, internal carotid, or v ertebral arteries. Mild emphysema. IMPRESSION: 1. No significant stenosis, occlusion, or aneurysm within the [place]. 2. No significant stenosis, occlusion, or dissection identified within the carotid or vertebral arter ies. ACT 112: Negative or not required by law. Electronically signed by: Elieser Raines M.D. 04/23/2021 4:33 PM
--- NOTE | 2021-04-23 16:35 | CT Scan Report ---
HEAD & NECK CTA HISTORY: fall, hit head, loc, vision changes TECHNIQUE: Multiaxial CT images of the head were performed following the intravenous administration o f contrast to evaluate the major cerebral vessels. Multiaxial CT images of the neck were also perform ed following the intravenous administration of contrast to evaluate the major cervical vessels. Maxim um intensity projection images were also obtained. A dose lowering technique was utilized adhering to the principles of ALARA. COMPARISON: Head and neck CTA 08/27/2020. FINDINGS: Head CTA: Visualized intracranial internal carotid arteries, distal vertebral arteries, and basilar a rtery are widely patent. There is no significant stenosis, occlusion, or aneurysm seen within the flores ateral ACAs, MCAs, or can reforming machine operator. The major dural venous sinuses are patent. Neck CTA: The aortic arch and proximal great vessels are widely patent. There is no significant sten osis, occlusion, or dissection identified within the bilateral common carotid, internal carotid, or v ertebral arteries. Mild emphysema. IMPRESSION: 1. No significant stenosis, occlusion, or aneurysm within the [place]. 2. No significant stenosis, occlusion, or dissection identified within the carotid or vertebral arter ies. ACT 112: Negative or not required by law. Electronically signed by: Elieser Raines M.D. 04/23/2021 4:33 PM
[2021-04-23 16:44] LABS: Troponin I < 0.03 ng/ml (0-0.04)
[2021-04-23 17:04] LABS: Appearance Urine Cloudy (Clear); Bacteria Urine Automated 3+ (Negative); Blood Urine 1+ (Negative); Color Urine Dark Yellow; Epithelial Cell Urine Auto 0-5 /lpf (0-5); Glucose Urine UA Negative (Negative); Ketones Urine 1+ (Negative); Leukocyte Esterase Urine 2+ (Negative); Nitrite Urine Negative (Negative); Protein Urine 1+ (Negative); RBC Urine Automated 0-4 /hpf (0-4); Urobilinogen Urine Negative (Negative); WBC Urine Automated >30 /hpf (0-5); pH Urine 5.5 (4.5-7.5)
[2021-04-23 17:07] LABS: Bilirubin Urine 1+ (Negative)
[2021-04-23 17:33] LABS: Amphetamines+Metham, Urine Neg (Neg); Barbiturates, Urine Neg (Neg); Benzodiazepine, Urine Neg (Neg); Cocaine, Urine Neg (Neg); MDMA (Ecstacy), Urine Neg (Neg); Methadone, Urine Neg (Neg); Opiate, Urine Neg (Neg); Phencyclidine, Urine Neg (Neg)
[2021-04-23] MEDS ORDERED: KETOROLAC TROMETHAMINE 15 MG/ML VIAL IV ONE (17:36)
[2021-04-23] MEDS ORDERED: cefTRIAXone SODIUM 2,000 MG/70 ML BAG IV STA (17:36)
[2021-04-23] MEDS ORDERED: MAGNESIUM SULFATE 1GM / D5W BAG IV ONE (18:37)
[2021-04-23] MEDS ORDERED: GABAPENTIN 1200MG ALCOHOL WITHDRAWAL LOAD PO STA (19:08)
--- NOTE | 2021-04-23 19:12 | History & Physical Report ---
Date of Service April 23, 2021 Assessment & Plan (1) Fall: (2) Alcohol intoxication: (3) Weakness: (4) Mild TBI: (5) Lactic acidosis: (6) UTI (urinary tract infection): Plan: This is a 61-year-old male who has significant past medical history of alcohol dependence, tobacco abuse chewing tobacco, history of varices, history of pancreatitis, depression, asthma who presents to ED after sustaining a ground- level fall last night and striking his right forehead. Fall, striking head Reported LOC Mild TBI Patient fell from ground-level striking head with wooden stool Questionable LOC after striking head CT head neck unremarkable, CTA of head neck without abnormality Neuro checks every 2 hours, will need repeat neuro evaluation once sober Alcohol abuse Alcohol intoxication AWSS is protocol Gabapentin taper, as needed IV Ativan Received banana bag in ED Daily IV thiamine and folic acid Encourage alcohol cessation UTI Continue empiric Rocephin Urine and blood cultures ordered Lactic acidosis Likely in setting of alcohol ketosis Unlikely in setting of sepsis received 1 L banana bag in ED, repeat lactic acid 2.4 give additional 500ml bolus x 1 now repeat lactate continue gentle IVF x 2 additional liters Hypomagnesemia Received 4 g IV mag sulfate in ED Repeat in a.m. Elevated AST Likely in setting of chronic alcohol use Repeat in a.m. History of varices Continue PPI Tobacco abuse uses chewing tobacco, declines patch encourage tobacco cessation DVT prophylaxis: SCD/teds for now given recent fall and striking head, reassess in a.m. to begin Lovenox Dispo: PCU Full code PCP Dr. Cole Patient was seen and examined in collaboration with Dr. Edwards, please see addendum The chart was completed utilizing [employer] Speech voice recognition software. Grammatical errors, random word insertions, pronoun errors, and incomplete sentences are an occasional consequence of this system due to software limitations, ambient noise, and hardware issues. Any formal questions or concerns about the content, text, or information contained within the body of this dictation should be directly addressed to the provider for clarification. History of Present Illness Chief Complaint: Fall and struck head last evening. Primary Care Provider: German Cole MD This is a 61-year-old male who has significant past medical history of alcohol dependence, tobacco abuse chewing tobacco, history of varices, history of pancreatitis, depression, asthma who presents to ED after sustaining a ground- level fall last night and striking his right forehead. Patient recalls falling and denies any syncope; however, he feels he may have lost consciousness for 1 to 2 minutes after striking head. He states he struck his head on a wooden stool. He does have a slight abrasion above right eyebrow and below right eye. He states he has difficulty walking and loses balance frequently causing frequent falls. He complains of headache and blurry vision. The lady friend he lives with encouraged him to come to ER for evaluation. There was also report of possible slurred speech and confusion. Patient drinks significant amount of alcohol daily. Yesterday he drank 6-8 beers as well as a significant amount of tequila. He will not quantify amount. He states he drinks daily, too much." Mostly drinking hard liquor or beer. He does admit prior history of withdrawal when he was in [facility] but denies seizure. He currently denies any lightheadedness, dizziness, recent illness, fever, chills, sweats, chest pain, shortness of breath, cough, nausea, vomiting, abdominal pain. He does complain of dysuria but denies any increased urgency or frequency with urination, hematuria, melena or hematochezia. He denies any prior history of urinary tract infection. In ED patient remained hemodynamically stable. He underwent CT of the head and neck as well as CTA of head and neck which was unremarkable for any acute abnormality. He also underwent x-ray to left wrist which was without fracture. His lab work was significant for lactic acidosis at 2.7 secondary to alcoholic ketosis, hypomagnesemia 1.2 and elevated AST at 96. His urinalysis was positive and he did receive IV Rocephin for possible UTI. He also received a banana bag. Allergies Allergy/AdvReac Type Severity Reaction Status Date / Time No Known Allergies Allergy Verified 08/28/20 01:14 Home Medications Medication Instructions Recorded Confirmed Type sertraline 50 mg tablet (Zoloft) 75 mg PO DAILY 10/24/18 04/23/21 History trazodone 50 mg tablet 100 mg PO HS 11/13/18 04/23/21 History pantoprazole 40 mg tablet,delayed 40 mg PO DAILY PRN 02/17/20 04/23/21 History release multivitamin (Daily-Anatoly) 1 tab PO QAM #30 tab 02/20/20 04/23/21 Rx cyclobenzaprine 5 mg tablet 5 - 10 mg PO TID PRN 08/28/20 04/23/21 History Past Med/Surg History Medical History (Updated 04/23/21 @ 21:24 by Juan Pablo Lopez M.D.) Alcoholic cirrhosis (09/15/12) Anemia Anxiety Asthma "childhood" Depression ETOH abuse 3-4 beers daily* Gastric varices without bleeding no evidence of varices on 07/2018 EGD Recurrent pancreatitis Splenic vein thrombosis Stomach ulcer non-bleeding Surgical History H/O eye surgery "FIBER" REMOVAL History of colonoscopy History of ERCP 09/13/18: ERCP: Grade 2 view, MAC#3, ETT 7.5 at [facility] History of tonsillectomy Family History Father Prostate cancer Social History (Updated 04/23/21 @ 19:11 by Arlet Kurtz PA-C) Smoking Status: Never smoker Tobacco Type: Smokeless Tobacco (Dip or Chew) Cigarettes Per Day: QUIT SMOKING "YEARS AGO"; Second Hand Exposure: Yes; Do You Dip or Chew Tobacco: Yes; Tobacco Cessation Education Requested by Patient: No Hx Alcohol Use: Yes Alcohol type: beer and hard liquor Alcohol Intake Frequency Comment: 6-10 drinks a day Hx Substance Use: No Preferred Language: [place] Communication Ability: Effective Visual Impairment: No Limitations Hearing Ability: Normal 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 Beliefs That Will Affect Care: None marital status: Single Current Living Situation: Other Current Living Situation Comment: Home with friend Feels Safe at Home: Yes Safety Concerns: Feels Safe At This Time Assistive Devices: Walker Review of Systems Review of Systems: All systems reviewed & are unremarkable except as noted in HPI & below Physical Exam Physical Exam: Constitutional: Well-developed/well-nourished, male vitals as above, NAD, sitting up in bed, pleasant, conversing easily Head: Normocephalic, Atraumatic Eyes: PERRL, bilateral conjunctival erythema, sparing limbus, anicteric sclerae ENMT: external ear and nose normal, oropharynx normal Neck: trachea midline, no thyromegaly normal visual inspection Respiratory: normal respiratory effort, lungs clear to auscultation, no wheeze, rales, rhonchi. Normal insp/exp effort, no accessory muscle use Cardiovascular: RRR, no murmur, no edema Vessels: no JVD or carotid bruit Chest: normal inspection of chest Abdomen: normal bowel sounds, soft, nontender, no hepatosplenomegaly Musculoskeletal: no cyanosis or clubbing, extremities motor strength 5/5 Skin: no rashes, warm and dry normal turgor Neurologic: PERRL, EOMI, accommodation nl, no face palsy, no dysarthria CN's II-XI intact bilaterally and moves all extremities, pt with slowed point to point, dexterity, difficulty with fine motor movements in setting of intoxication Psychiatric: A+Ox3, euthymic affect Lymphatic: no cervical or axillary lymphadenopathy : deferred Results & Data Results & Data ([facility]) Vital Signs (Past 12 Hours) Vital Signs Temp Pulse Pulse Resp BP BP Pulse Ox 04/23/21 17:00 89 18 139/90 97 04/23/21 15:34 90 20 132/91 96 04/23/21 13:53 37.1 C 94 H 18 145/113 H 95 Diagnostic Findings Cervical Spine CT 04/23/21 14:[address] DOSE: HISTORY: fall, hit head TECHNIQUE: Multiaxial CT images of the cervical spine were performed and reformatted in the sagittal and coronal plane without the use of contrast. A dose lowering technique was utilized adhering to the principles of ALARA. COMPARISON: None. FINDINGS: No fractures. No subluxation. Prevertebral soft tissues and the C1-C2 interval are intact. No pneumothorax. Straightening the cervical spine with moderate to severe degenerative disc disease from C3 through C7. IMPRESSION: No fractures within the cervical spine. ACT 112: Negative or not required by law. Electronically signed by: Elieser Raines M.D. 04/23/2021 4:[address] 04/23/21 14:[address] DOSE: HISTORY: fall, hit head, loss of consciousness, vision changes TECHNIQUE: Multiaxial CT images of the head were performed without the use of intravenous contrast. Automated exposure control was utilized for this study. A dose lowering technique was utilized adhering to the principles of ALARA. Comparison: Head CT 08/27/2020. Findings: Partially visualized retention cyst within the left maxillary sinus. The mastoid air cells are clear. Mild motion artifact. The calvarium and skull base are intact. There is no mass, hematoma, midline shift, acute infarct. White matter hypodensity is nonspecific but suggestive of microvascular ischemic change. The ventricles and sulci demonstrate mild age-related involutional changes. Impression: No significant change compared to the prior study. No acute intracranial abnormality. ACT 112: Negative or not required by law. Electronically signed by: Elieser Raines M.D. 04/23/2021 4:23 PM Head CTA 04/23/21 14:16 HEAD & NECK CTA HISTORY: fall, hit head, loc, vision changes TECHNIQUE: Multiaxial CT images of the head were performed following the intravenous administration of contrast to evaluate the major cerebral vessels. Multiaxial CT images of the neck were also performed following the intravenous administration of contrast to evaluate the major cervical vessels. Maximum intensity projection images were also obtained. A dose lowering technique was utilized adhering to the principles of ALARA. COMPARISON: Head and neck CTA 08/27/2020. FINDINGS: Head CTA: Visualized intracranial internal carotid arteries, distal vertebral arteries, and basilar artery are widely patent. There is no significant stenosis, occlusion, or aneurysm seen within the bilateral ACAs, MCAs, or research & analytics manager. The major dural venous sinuses are patent. Neck CTA: The aortic arch and proximal great vessels are widely patent. There is no significant stenosis, occlusion, or dissection identified within the bilateral common carotid, internal carotid, or vertebral arteries. Mild emphysema. IMPRESSION: 1. No significant stenosis, occlusion, or aneurysm within the [place]. 2. No significant stenosis, occlusion, or dissection identified within the carotid or vertebral arteries. ACT 112: Negative or not required by law. Electronically signed by: Elieser Raines M.D. 04/23/2021 4:33 PM Neck CTA 04/23/21 14:16 HEAD & NECK CTA HISTORY: fall, hit head, loc, vision changes TECHNIQUE: Multiaxial CT images of the head were performed following the intravenous administration of contrast to evaluate the major cerebral vessels. Multiaxial CT images of the neck were also performed following the intravenous administration of contrast to evaluate the major cervical vessels. Maximum intensity projection images were also obtained. A dose lowering technique was utilized adhering to the principles of ALARA. COMPARISON: Head and neck CTA 08/27/2020. FINDINGS: Head CTA: Visualized intracranial internal carotid arteries, distal vertebral arteries, and basilar artery are widely patent. There is no significant stenosis, occlusion, or aneurysm seen within the bilateral ACAs, MCAs, or research & analytics manager. The major dural venous sinuses are patent. Neck CTA: The aortic arch and proximal great vessels are widely patent. There is no significant stenosis, occlusion, or dissection identified within the bilateral common carotid, internal carotid, or vertebral arteries. Mild emphysema. IMPRESSION: 1. No significant stenosis, occlusion, or aneurysm within the [place]. 2. No significant stenosis, occlusion, or dissection identified within the carotid or vertebral arteries. ACT 112: Negative or not required by law. Electronically signed by: Elieser Raines M.D. 04/23/2021 4:33 PM Chest X-Ray 04/23/21 14:32 XR chest 1V portable HISTORY: fall COMPARISON: Chest and right rib series 08/27/2020. FINDINGS: No pneumothorax. No pleural effusions. The heart is normal in size. Calcified granuloma within the right lower lobe, unchanged. No acute rib fractures identified. IMPRESSION: No acute process. ACT 112: Negative or not required by law. Electronically signed by: Elieser Raines M.D. 04/23/2021 3:06 PM Wrist X-Ray 04/23/21 14:32 LEFT WRIST 4 VIEWS HISTORY: Left wrist pain. fall COMPARISON: None. FINDINGS: There is no fracture or dislocation. Mild soft tissue swelling. No radiopaque foreign bodies. IMPRESSION: No fractures. ACT 112: Negative or not required by law. Electronically signed by: Elieser Raines M.D. 04/23/2021 3:05 PM Medications Administered Medication List Magnesium Sulfate/Dextrose (Magnesium Sulfate / D5w) 1 gm in 100 mls @ 100 mls/hr IV Q1H TAYO; Protocol Stop: 04/23/21 20:22 Last Admin: 04/23/21 18:46 Dose: Not Given Documented by: [id number] Discontinued Medications Magnesium Sulfate/Dextrose (Magnesium Sulfate / D5w) 1 gm in 100 mls @ 200 mls/hr IV Q30M TAYO Stop: 04/23/21 16:29 Last Infusion: 04/23/21 18:40 Dose: 0 mls/hr Documented by: [id number] Infusion: 04/23/21 16:45 Dose: 200 mls/hr Documented by: [id number] Admin: 04/23/21 16:15 Dose: 200 mls/hr Documented by: [id number] Infusion: 04/23/21 16:02 Dose: 200 mls/hr Documented by: [id number] Admin: 04/23/21 15:32 Dose: 200 mls/hr Documented by: [id number] Multivitamins 10 ml/ Thiamine HCl 100 mg/ Folic Acid 1 mg/Sodium Chloride 1,011.2 mls @ 1,011.2 mls/hr IV .Q1H ONE Stop: 04/23/21 16:19 Last Infusion: 04/23/21 17:51 Dose: 1,011.2 mls/hr Documented by: [id number] Admin: 04/23/21 16:51 Dose: 1,011.2 mls/hr Documented by: [id number] Ceftriaxone Sodium (Rocephin) 2,000 mg in 70 mls @ 140 mls/hr IV NOW STA Stop: 04/23/21 18:05 Last Infusion: 04/23/21 18:45 Dose: 0 mls/hr Documented by: [id number] Infusion: 04/23/21 18:35 Dose: 140 mls/hr Documented by: [id number] Admin: 04/23/21 18:05 Dose: 140 mls/hr Documented by: [id number] Ioversol (Optiray 320 125ml) 119 ml IV ONCE ONE Stop: 04/23/21 16:14 Last Admin: 04/23/21 16:13 Dose: 119 ml Documented by: [id number] Ketorolac Tromethamine (Ketorolac Tromethamine 15 Mg/Ml Vial) 10 mg IV NOW ONE Stop: 04/23/21 17:37 Last Admin: 04/23/21 18:06 Dose: 10 mg Documented by: [id number] Magnesium Sulfate/Dextrose (Magnesium Sulfate 1gm / D5w Bag) Confirm Administered Dose 1 gm IV .STK-MED ONE Stop: 04/23/21 18:38 Last Admin: 04/23/21 18:41 Dose: 1 gm Documented by: [id number] ECG Rate (beats per minute): 94 Rhythm: normal sinus Findings: + PVC COVID-19 Results Results COVID-19 Adm Lab Results: RBC 4.30 M/uL (4.7-6.1) L 04/23/21 WBC 6.37 K/uL (4.8-10.8) 04/23/21 Hgb 15.1 g/dL (14.0-18.0) 04/23/21 Hct 43.2 % (42-52) 04/23/21 Plt Count 186 K/uL (130-400) 04/23/21 Neutrophils (%) (Auto) 56.9 % 04/23/21 Lymphocytes (%) (Auto) 35.2 % 04/23/21 Monocytes # (Auto) 0.30 K/uL (0.11-0.59) 04/23/21 Eosinophils # (Auto) 0.10 K/uL (0-0.5) 04/23/21 Immature Granulocyte % (Auto) 0.2 % 04/23/21 Neutrophils # (Auto) 3.63 K/uL (1.4-6.5) 04/23/21 Lymphocytes # (Auto) 2.24 K/uL (1.2-3.4) 04/23/21 Monocytes # (Auto) 0.30 K/uL (0.11-0.59) 04/23/21 Eosinophils # (Auto) 0.10 K/uL (0-0.5) 04/23/21 Basophils # (Auto) 0.09 K/uL (0-0.2) 04/23/21 Immature Granulocyte # (Auto) 0.01 K/uL (0.00-0.02) 04/23/21 Na 139 mmol/L (136-145) 04/23/21 K 3.8 mmol/L (3.5-5.1) 04/23/21 Cl 102 mmol/L (98-107) 04/23/21 CO2 23 mmol/L (21-32) 04/23/21 Anion Gap 14 (3-11) H 04/23/21 BUN 13 mg/dl (6-23) 04/23/21 Creatinine 0.68 mg/dl (0.6-1.4) 04/23/21 BUN/Creatinine Ratio 19.1 (10-20) 04/23/21 Glucose Level 113 mg/dl (70-99(Fasting)) H 04/23/21 Ca 8.4 mg/dl (8.5-10.1) L 04/23/21 Total Bilirubin 0.6 mg/dl (0.2-1.0) 04/23/21 AST/SGOT 96 U/L (13-39) H 04/23/21 ALT/SGPT 38 U/L (7-52) 04/23/21 Alkaline Phosphatase 93 U/L (34-104) 04/23/21 Total Protein 6.6 gm/dl (6.0-8.3) 04/23/21 Albumin 3.9 gm/dl (3.4-5.0) 04/23/21 Globulin 2.7 gm/dl (2.5-4.0) 04/23/21 Albumin/Globulin Ratio 1.4 (0.9-2) 04/23/21 Troponin I < 0.03 ng/ml (0-0.04) 04/23/21 PTT 23.4 Seconds (21.0-31.0) 04/23/21 INR 1.0 (0.9-1.1) 04/23/21 SARS-CoV-2, RNA, NAAT NEGATIVE (NEGATIVE) 04/23/21 Chest X-Ray 04/23/21 Code Status & VTE Plan Code Status FULL CODE VTE Prophylaxis Plan VTE Prophylaxis will be ordered: Yes Supervising Physician Co-Signing Physician Notes I have seen and examined the patient and have discussed the case with the provider above. I agree with the assessment and plan as stated. 61 yo alcoholic presents intoxicated with a history of recurrent falls and persistent lightheadedness issues. It is very likely he may have a concussion but as he is currently intoxicated, any assessment is skewed. Will need to be reassessed in am when more sober. PT/OT ordered. Consider rehab to quit drinking altogether. No gross focal neurologic deficit seen on exam. Normal CBC, INR, CMP x for mildly elevated AST to 96. Elevated lactate to 2/8, no evidence of sepsis. Mag 1.2--repleting now and repeat in am. trop negative, +UA Head imaging is negative. Physical exam reveals a disheveled WNWD man in NAD who appears intoxicated. Reddened eyes generally, no jaundice. No abdominal TTP, abdomen is soft , NTND, Lungs are CTAB, heart exam reveals tachy rate with regular rhythm. Agree with plan above to support him through this transition to sobriety and help through withdrawal if needed. Empirically cover him with ceftriaxone for a presumed UTI, cont NSS with elevated lactate and supplement with thiamine and folate. He was given two bags of Mag sulfate intravenously. Cont to monitor on telemetry. Tonja Edwards DO [facility] Hospitalist
[2021-04-23] MEDS ORDERED: ACETAMINOPHEN 325 MG TAB PO STA (19:21)
[2021-04-23] MEDS ORDERED: SODIUM CHLORIDE 0.9% 1000ML 500 ML IV ONE (19:24)
[2021-04-23] MEDS ORDERED: GABAPENTIN 1200MG LOADING DOSE PO SCH (20:15)
[2021-04-23] MEDS ORDERED: CYCLOBENZAPRINE HCL 5 MG TAB PO PRN (20:20)
[2021-04-23] MEDS ORDERED: POLYETHYLENE (MIRALAX) 17 GM PACK PO PRN (20:20)
[2021-04-23] MEDS ORDERED: ONDANSETRON INJ 2 MG/ML 2 ML VIAL IV PRN (20:20)
[2021-04-23] MEDS ORDERED: MAGNESIUM HYDROXIDE SUSP 30 ML UDC PO PRN (20:20)
[2021-04-23] MEDS ORDERED: ALUMINUM/MAGNESIUM SUSP 30 ML UDC PO PRN (20:20)
[2021-04-23] MEDS ORDERED: GABAPENTIN 600 MG TAB PO ONE (20:20)
[2021-04-23] MEDS ORDERED: LORazepam 2 MG/ML VIAL (IM USE) ONE (20:29)
[2021-04-23] MEDS: LORazepam 1 MG/2 ML VIAL IV PRN (20:31)
[2021-04-23] MEDS: SODIUM CHLORIDE 0.9% 1000ML 1,000 ML IV SCH (21:38)
[2021-04-23] MEDS: traZODone HCL 100 MG TAB PO SCH (22:07)
[2021-04-24] MEDS ORDERED: GABAPENTIN 600 MG TAB PO SCH ×2 (01:15→15:15)
[2021-04-24 05:36] LABS: Albumin Globulin Ratio 1.3 (0.9-2); Albumin Level 3.1 gm/dl (3.4-5.0); BUN Creatinine Ratio 13.4 (10-20); Bilirubin,Total 0.6 mg/dl (0.2-1.0); Calcium 7.4 mg/dl (8.5-10.1); Creatinine Clr Calc Pharmacy 106.1 ml/min; Est GFR (Non-African American) 104.4 ml/min; Globulin 2.3 gm/dl (2.5-4.0); Magnesium 1.7 mg/dl (1.7-2.4); Total Protein 5.4 gm/dl (6.0-8.3)
[2021-04-24] MEDS: GABAPENTIN 600MG Q6H DOSE PO SCH ×2 (05:36→11:44)
[2021-04-24 06:43] LABS: Hematocrit (blood only) 35.7 % (42-52); Hemoglobin 12.1 g/dL (14.0-18.0); Mean Corpuscular Hemoglobin 34.4 pg (25-34); Mean Corpuscular Hgb Conc 33.9 g/dL (32-36); Mean Corpuscular Volume 101.4 fL (80-100); Mean Platelet Volume 9.5 fL (7.4-10.4); Platelet Count 153 K/uL (130-400); RDW Coefficient of Variation 12.4 % (11.5-14.5); RDW Standard Deviation 45.7 fL (36.4-46.3); Red Blood Count 3.52 M/uL (4.7-6.1); White Blood Count 4.82 K/uL (4.8-10.8)
[2021-04-24] MEDS: MULTIVITAMIN TAB PO SCH (08:30)
[2021-04-24] MEDS: PANTOprazole 40 MG TAB PO SCH (08:31)
[2021-04-24] MEDS: SERTRALINE HCL 50 MG TABLET PO SCH (08:31)
[2021-04-24] MEDS: SODIUM CHLORIDE 0.9% 1000ML 1,000 ML IV SCH (08:32)
[2021-04-24] MEDS: ACETAMINOPHEN 325 MG TAB PO PRN ×2 (08:34→17:40)
[2021-04-24] MEDS: LORazepam 1 MG/2 ML VIAL IV PRN ×4 (08:46→23:59)
[2021-04-24] MEDS ORDERED: Flu Vaccine (Fluarix) 0.5mL SYR (Standard Dose) IM ONE (09:00)
[2021-04-24] MEDS ORDERED: THIAMINE HCL 100 MG in SYRINGE 9 ML IV SCH (09:00)
[2021-04-24] MEDS ORDERED: FOLIC ACID 1 MG in SYRINGE 9.8 ML IV SCH (09:00)
--- NOTE | 2021-04-24 13:28 | Hospitalist Progress Note ---
Date of Service April 24, 2021 Assessment & Plan (1) Fall: (2) Alcohol intoxication: (3) Weakness: (4) Mild TBI: (5) Lactic acidosis: (6) UTI (urinary tract infection): Plan: Patient is a 61 yr male who has significant past medical history of alcohol dependence, tobacco abuse chewing tobacco, history of varices, history of pancreatitis, depression, asthma who presents to ED after sustaining a ground- level fall last night and striking his right forehead. Fall Mild TBI Suspected Concussion Chronic balance issues as per patient CT head, Neck unremarkable Fall precautions PT OT Alcohol abuse Alcohol intoxication Gabapentin taper, as needed IV Ativan Received banana bag in ED Continue thiamine and folic acid Encourage alcohol cessation Patient currently not interested in rehab placement UTI Continue empiric Rocephin Follow-up cultures Lactic acidosis Likely in setting of alcohol ketosis Unlikely sepsis Continue IV fluids Hypomagnesemia Replete and monitor Elevated AST Likely in setting of chronic alcohol use Monitor LFTs History of varices Continue PPI Tobacco abuse uses chewing tobacco, declines patch encourage tobacco cessation DVT Px: SCD/teds for now Code Status Full code Disposition PT/OT prior to discharge Admission and Anticipated Discharge Date Admission Date: April 23, 2021 Subjective Patient is seen and examined at bedside States headache is much better today Reports minimal dizziness with certain head movements Denies any vision change, chest pain, shortness of breath, nausea, abdominal pain Not interested in rehab placement Review of Systems Review of Systems: All systems reviewed & are unremarkable except as noted in Subjective Physical Exam Physical Exam: Physical Exam: Vitals signs as noted above General Appearance:Moderately built and nourished, no apparent distress Head: normocephalic, +traumatic-Mild bruise on forehead Eyes: normal inspection, EOMI Neck: supple, Trachea midline Respiratory/Chest: Normal breath sounds, CTA Cardiovascular: S1, S2, No murmur Abdomen/GI:Soft, Non tender, Bowel sounds present Extremities/Musculoskeletal:normal inspection, no edema Neurologic/Psych:AAOX3, grossly no focal neurological deficits Skin: normal color, warm Results & Data Results & Data ([facility]) Vital Signs (Past 12 Hours) Vital Signs Pulse Resp BP Pulse Ox 04/24/21 03:43 80 12 121/84 94 Laboratory Results Short CBC 04/23/21 04/24/21 Range/Units 14:30 04:52 WBC 6.37 4.82 (4.8-10.8) K/uL Hgb 15.1 12.1 L D (14.0-18.0) g/dL Hct 43.2 35.7 L (42-52) % Plt Count 186 153 (130-400) K/uL BMP 04/23/21 04/24/21 14:30 04:52 Sodium 139 139 Potassium 3.8 4.0 Chloride 102 104 Carbon Dioxide 23 28 BUN 13 9 Creatinine 0.68 0.67 Glucose 113 H 96 Calcium 8.4 L 7.4 L Cardiac Enzymes 04/23/21 Range/Units 14:30 Troponin I < 0.03 (0-0.04) ng/ml Liver Function 04/23/21 04/24/21 Range/Units 14:30 04:52 Total Bilirubin 0.6 0.6 (0.2-1.0) mg/dl AST 96 H 60 H (13-39) U/L ALT 38 27 (7-52) U/L Alkaline Phosphatase 93 71 (34-104) U/L Albumin 3.9 3.1 L (3.4-5.0) gm/dl Urine 04/23/21 Range/Units 16:35 Urine Color Dark Yellow Urine Appearance Cloudy A (Clear) Urine pH 5.5 (4.5-7.5) Ur Specific [place] 1.040 H (1.000-1.030) Urine Protein 1+ H (Negative) Urine Glucose (UA) Negative (Negative) (1) Fall Encounter type: initial encounter Qualified Code(s): W19.XXXA - Unspecified fall, initial encounter
[2021-04-24] MEDS ORDERED: cefTRIAXone SODIUM 2,000 MG in DEXTROSE 5% 50 ML IV SCH (18:00)
[2021-04-24] MEDS: traZODone HCL 100 MG TAB PO SCH (21:39)
[2021-04-25 07:16] LABS: Hematocrit (blood only) 35.2 % (42-52); Hemoglobin 11.9 g/dL (14.0-18.0); Mean Corpuscular Hemoglobin 34.7 pg (25-34); Mean Corpuscular Hgb Conc 33.8 g/dL (32-36); Mean Corpuscular Volume 102.6 fL (80-100); Mean Platelet Volume 10.4 fL (7.4-10.4); Platelet Count 127 K/uL (130-400); RDW Coefficient of Variation 12.1 % (11.5-14.5); RDW Standard Deviation 45.5 fL (36.4-46.3); Red Blood Count 3.43 M/uL (4.7-6.1); White Blood Count 5.36 K/uL (4.8-10.8)
[2021-04-25 07:37] LABS: BUN Creatinine Ratio 8.6 (10-20); Creatinine Clr Calc Pharmacy 83.5 ml/min; Est GFR (Non-African American) 96.6 ml/min; Magnesium 1.3 mg/dl (1.7-2.4); Potassium 3.5 mmol/L (3.5-5.1)
[2021-04-25] MEDS: LORazepam 1 MG/2 ML VIAL IV PRN (09:07)
[2021-04-25] MEDS: FOLIC ACID 1 MG TAB PO SCH (09:09)
[2021-04-25] MEDS: PANTOprazole 40 MG TAB PO SCH (09:09)
[2021-04-25] MEDS: MULTIVITAMIN TAB PO SCH (09:10)
[2021-04-25] MEDS: SERTRALINE HCL 50 MG TABLET PO SCH (09:10)
[2021-04-25] MEDS: THIAMINE HCL 100 MG TAB PO SCH (09:11)
--- NOTE | 2021-04-25 12:15 | Hospitalist Progress Note ---
Date of Service April 25, 2021 Assessment & Plan (1) Fall: Plan: In setting of alcohol intoxication Trauma work up negative (2) Alcohol intoxication: Plan: resolved Patient at risk for withdrawal. Continue gabapentin taper -continue IV ativan PRN for withdrawal (not anxiety) (3) Weakness: (4) Mild TBI: (5) Lactic acidosis: Plan: -due to dehydration (6) UTI (urinary tract infection): Plan: urine culture +enterococcus macdonald sensitive -d/c ceftriaxone -start amoxicillin Plan: Tobacco abuse uses chewing tobacco, declines patch encourage tobacco cessation Anxiety -start Vistaril 10mg PO TID PRN DVT Px: SCD/teds for now Code Status Full code Disposition PT/OT prior to discharge. Likely discharge home tomorrow. Admission and Anticipated Discharge Date Admission Date: April 23, 2021 Anticipated date of discharge: 04/26/21 Subjective Denies tremulousness, hallucinations, tremors Feels anxious and is getting ativan for that Physical Exam Physical Exam: Sitting in bed, no acute distress, just finished lunch Respiratory: breathing comfortably on room air, no wheezing/rhonchi/rales Cardiovascular: regular rate and rhythm, no murmurs/rubs/gallops Gastrointestinal (Abdomen): soft, non tender Neurologic: awake, alert, spontaneously moving extremities Results & Data Results & Data ([facility]) Vital Signs (Past 12 Hours) Vital Signs Temp Pulse Pulse Resp BP Pulse Ox Pulse Ox 04/25/21 11:06 36.8 C 83 19 131/83 96 04/25/21 08:33 36.7 C 78 19 138/90 96 04/25/21 08:00 96 04/25/21 07:23 85 04/25/21 04:49 36.8 C 78 18 158/97 H 98 Laboratory Results Short CBC 04/25/21 Range/Units 06:43 WBC 5.36 (4.8-10.8) K/uL Hgb 11.9 L (14.0-18.0) g/dL Hct 35.2 L (42-52) % Plt Count 127 L (130-400) K/uL BMP 04/25/21 06:43 Sodium 138 Potassium 3.5 Chloride 102 Carbon Dioxide 31 BUN 7 Creatinine 0.81 Glucose 105 H Calcium 8.0 L Medications Administered Current Inpatient Medications Acetaminophen (Acetaminophen 325 Mg Tab) 650 mg PO Q4H PRN PRN Reason: Pain or Fever Stop: 05/23/21 20:19 Last Admin: 04/24/21 17:40 Dose: 650 mg Documented by: Al Hydrox/Mg Hydrox/Simethicone (Aluminum/Magnesium Susp 30 Ml Udc) 15 ml PO Q4H PRN PRN Reason: Dyspepsia Stop: 05/23/21 20:19 Amoxicillin (Amoxicillin 500 Mg Cap) 500 mg PO TID [facility] Stop: 04/30/21 13:59 Cyclobenzaprine HCl (Cyclobenzaprine Hcl 5 Mg Tab) 5 mg PO TID PRN PRN Reason: muscle spasms Stop: 05/23/21 20:19 Folic Acid (Folic Acid 1 Mg Tab) 1 mg PO QAM [facility] Stop: 05/25/21 08:59 Last Admin: 04/25/21 09:09 Dose: 1 mg Documented by: Gabapentin (Gabapentin 600mg Q8h Dose) 600 mg PO Q8H [facility] Stop: 04/26/21 14:01 Gabapentin (Gabapentin 600mg Q12h Dose) 600 mg PO Q12H [facility] Stop: 04/26/21 12:01 Gabapentin (Gabapentin 600mg X1 Dose) 600 mg PO Q24H [facility] Stop: 04/27/21 12:01 Hydroxyzine HCl (Hydroxyzine Hcl 10 Mg Tab) 10 mg PO TID PRN PRN Reason: anxiety Stop: 05/25/21 12:28 Lorazepam (Ativan) 1 mg in 2 mls @ 2 mls/min IV ONE PRN; Protocol PRN Reason: EtoH Withdrawal AWSS 6-10 Stop: 05/23/21 20:19 Last Admin: 04/25/21 09:07 Dose: 2 mls/min Documented by: Magnesium Sulfate/Dextrose (Magnesium Sulfate / D5w) 1 gm in 100 mls @ 50 mls/h r IV Q2H [facility] Stop: 04/25/21 16:29 Magnesium Hydroxide (Magnesium Hydroxide Susp 30 Ml Udc) 30 ml PO Q12H PRN PRN Reason: Constipation Stop: 05/23/21 20:19 Multivitamins (Multivitamin Tab) 1 tab PO QAM [facility] Stop: 05/24/21 08:59 Last Admin: 04/25/21 09:10 Dose: 1 tab Documented by: Ondansetron HCl (Ondansetron Inj 2 Mg/Ml 2 Ml Vial) 4 mg IV Q6H PRN PRN Reason: Nausea Stop: 05/23/21 20:19 Pantoprazole Sodium (Pantoprazole 40 Mg Tab) 40 mg PO DAILY [facility] Stop: 05/24/21 08:59 Last Admin: 04/25/21 09:09 Dose: 40 mg Documented by: Polyethylene Glycol (Polyethylene (Miralax) 17 Gm Pack) 17 gm PO DAILY PRN PRN Reason: Constipation Stop: 05/23/21 20:19 Saccharomyces Boulardii (Saccharomyces Boulardii 250 Mg Cap) 250 mg PO DAILY [facility] Stop: 05/26/21 08:59 Sertraline HCl (Sertraline Hcl 50 Mg Tablet) 75 mg PO DAILY [facility] Stop: 05/24/21 08:59 Last Admin: 04/25/21 09:10 Dose: 75 mg Documented by: Thiamine HCl (Thiamine Hcl 100 Mg Tab) 100 mg PO QAM [facility] Stop: 05/25/21 08:59 Last Admin: 04/25/21 09:11 Dose: 100 mg Documented by: Trazodone HCl (Trazodone Hcl 100 Mg Tab) 100 mg PO HS [facility] Stop: 05/23/21 20:59 Last Admin: 04/24/21 21:39 Dose: 100 mg Documented by: (1) Fall Encounter type: initial encounter Qualified Code(s): W19.XXXA - Unspecified fall, initial encounter
[2021-04-25] MEDS: MAGNESIUM SULFATE / D5W 1 GM/100 ML BAG IV SCH ×2 (12:33→14:19)
[2021-04-25] MEDS: AMOXICILLIN 500 MG CAP PO SCH ×2 (13:53→21:06)
[2021-04-25] MEDS ORDERED: GABAPENTIN 600 MG TAB PO SCH (19:15)
[2021-04-25] MEDS: traZODone HCL 100 MG TAB PO SCH (21:06)
[2021-04-25] MEDS: hydrOXYzine HCl 10 MG TAB PO PRN (21:06)
[2021-04-25] MEDS: GABAPENTIN 600MG Q8H DOSE PO SCH (21:07)
--- NOTE | 2021-04-25 21:47 | Electrocardiogram Report ---
Test Reason : Blood Pressure : / mmHG Vent. Rate : 094 BPM Atrial Rate : 094 BPM P-R Int : 114 ms QRS Dur : 082 ms QT Int : 368 ms P-R-T Axes : 084 044 065 degrees QTc Int : 460 ms Poor data quality, interpretation may be adversely affected Sinus rhythm with occasional Premature ventricular complexes Otherwise normal ECG When compared with ECG of 27-AUG-2020 20:10, Premature ventricular complexes are now Present Confirmed by Venancio Costello ([id number]) on 04/25/2021 9:47:29 PM Referred By: REFERRED SELF Confirmed By:Venancio Costello
[2021-04-26] MEDS: GABAPENTIN 600MG Q12H DOSE PO SCH ×2 (00:09→12:06)
[2021-04-26] MEDS: GABAPENTIN 600MG Q8H DOSE PO SCH (05:42)
[2021-04-26 07:42] LABS: BUN Creatinine Ratio 12.9 (10-20); Calcium 8.6 mg/dl (8.5-10.1); Creatinine Clr Calc Pharmacy 93.3 ml/min; Est GFR (African American) 118.9 ml/min; Est GFR (Non-African American) 102.6 ml/min; Magnesium 1.5 mg/dl (1.7-2.4); Phosphorus 3.2 mg/dl (2.5-4.9); Potassium 3.6 mmol/L (3.5-5.1)
[2021-04-26] MEDS: THIAMINE HCL 100 MG TAB PO SCH (08:11)
[2021-04-26] MEDS: SACCHAROMYCES BOULARDII 250 MG CAP PO SCH (08:11)
[2021-04-26] MEDS: SERTRALINE HCL 50 MG TABLET PO SCH (08:11)
[2021-04-26] MEDS: MULTIVITAMIN TAB PO SCH (08:11)
[2021-04-26] MEDS: AMOXICILLIN 500 MG CAP PO SCH ×3 (08:11→20:45)
[2021-04-26] MEDS: FOLIC ACID 1 MG TAB PO SCH (08:11)
[2021-04-26] MEDS: PANTOprazole 40 MG TAB PO SCH (08:11)
[2021-04-26] MEDS: LORazepam 1 MG/2 ML VIAL IV PRN (12:13)
--- NOTE | 2021-04-26 17:15 | Hospitalist Progress Note ---
Date of Service April 26, 2021 Assessment & Plan (1) Fall: Plan: In setting of alcohol intoxication Trauma work up negative (2) Alcohol intoxication: Plan: - Continue gabapentin taper -continue IV ativan PRN for withdrawal (not anxiety) (3) Weakness: (4) Mild TBI: (5) Lactic acidosis: Plan: -due to dehydration (6) UTI (urinary tract infection): Plan: urine culture +enterococcus macdonald sensitive -ceftriaxone d/c yesterday. Started amoxicillin, plan for 5 day course -continue florastor Plan: Tobacco abuse uses chewing tobacco, declines patch encourage tobacco cessation Anxiety -continue Vistaril 10mg PO TID PRN Hypomagnesemia -repleted DVT Px: -start SQ heparin Code Status Full code Disposition PT/OT prior to discharge. Discharge pending medical stability Admission and Anticipated Discharge Date Admission Date: April 23, 2021 Subjective Required IV ativan dose this afternoon for tachycardia, anxiety Patient denies hallucinations but does feel jittery Started Vistaril yesterday for anxiety which he reports is helping Physical Exam Physical Exam: appears dishevelled, no acute distress Respiratory: breathing comfortably on room air, no wheezing/rhonchi/rales Cardiovascular: tachycardic but regular, no murmurs/rubs/gallops Gastrointestinal (Abdomen): soft, non tender, non distended Musculoskeletal: no edema Neurologic: awake, alert, spontaneously moving extremities but appears more tremulous than yesterday Results & Data Results & Data ([facility]) Vital Signs (Past 12 Hours) Vital Signs Temp Pulse Pulse Resp BP Pulse Ox Pulse Ox 04/26/21 15:32 36.5 C 90 18 114/75 97 04/26/21 14:43 107 H 04/26/21 11:40 36.7 C 126 H 17 109/76 97 04/26/21 08:00 95 04/26/21 07:55 36.7 C 96 H 17 112/76 97 04/26/21 07:29 94 H Laboratory Results [facility] 04/26/21 06:54 Sodium 136 Potassium 3.6 Chloride 100 Carbon Dioxide 30 BUN 9 Creatinine 0.70 Glucose 107 H Calcium 8.6 Medications Administered Current Inpatient Medications Acetaminophen (Acetaminophen 325 Mg Tab) 650 mg PO Q4H PRN PRN Reason: Pain or Fever Stop: 05/23/21 20:19 Last Admin: 04/24/21 17:40 Dose: 650 mg Documented by: Al Hydrox/Mg Hydrox/Simethicone (Aluminum/Magnesium Susp 30 Ml Udc) 15 ml PO Q4H PRN PRN Reason: Dyspepsia Stop: 05/23/21 20:19 Amoxicillin (Amoxicillin 500 Mg Cap) 500 mg PO TID [facility] Stop: 04/30/21 13:59 Last Admin: 04/26/21 14:30 Dose: 500 mg Documented by: Cyclobenzaprine HCl (Cyclobenzaprine Hcl 5 Mg Tab) 5 mg PO TID PRN PRN Reason: muscle spasms Stop: 05/23/21 20:19 Last Admin: 04/25/21 21:16 Dose: 5 mg Documented by: Folic Acid (Folic Acid 1 Mg Tab) 1 mg PO QAM [facility] Stop: 05/25/21 08:59 Last Admin: 04/26/21 08:11 Dose: 1 mg Documented by: Gabapentin (Gabapentin 600mg X1 Dose) 600 mg PO Q24H [facility] Stop: 04/27/21 12:01 Hydroxyzine HCl (Hydroxyzine Hcl 10 Mg Tab) 10 mg PO TID PRN PRN Reason: anxiety Stop: 05/25/21 12:28 Last Admin: 04/25/21 21:06 Dose: 10 mg Documented by: Lorazepam (Ativan) 1 mg in 2 mls @ 2 mls/min IV ONE PRN; Protocol PRN Reason: EtoH Withdrawal AWSS 6-10 Stop: 05/23/21 20:19 Last Admin: 04/26/21 12:13 Dose: 2 mls/min Documented by: Magnesium Hydroxide (Magnesium Hydroxide Susp 30 Ml Udc) 30 ml PO Q12H PRN PRN Reason: Constipation Stop: 05/23/21 20:19 Multivitamins (Multivitamin Tab) 1 tab PO QAM [facility] Stop: 05/24/21 08:59 Last Admin: 04/26/21 08:11 Dose: 1 tab Documented by: Ondansetron HCl (Ondansetron Inj 2 Mg/Ml 2 Ml Vial) 4 mg IV Q6H PRN PRN Reason: Nausea Stop: 05/23/21 20:19 Pantoprazole Sodium (Pantoprazole 40 Mg Tab) 40 mg PO DAILY [facility] Stop: 05/24/21 08:59 Last Admin: 04/26/21 08:11 Dose: 40 mg Documented by: Polyethylene Glycol (Polyethylene (Miralax) 17 Gm Pack) 17 gm PO DAILY PRN PRN Reason: Constipation Stop: 05/23/21 20:19 Saccharomyces Boulardii (Saccharomyces Boulardii 250 Mg Cap) 250 mg PO DAILY [facility] Stop: 05/26/21 08:59 Last Admin: 04/26/21 08:11 Dose: 250 mg Documented by: Sertraline HCl (Sertraline Hcl 50 Mg Tablet) 75 mg PO DAILY [facility] Stop: 05/24/21 08:59 Last Admin: 04/26/21 08:11 Dose: 75 mg Documented by: Thiamine HCl (Thiamine Hcl 100 Mg Tab) 100 mg PO QAM [facility] Stop: 05/25/21 08:59 Last Admin: 04/26/21 08:11 Dose: 100 mg Documented by: Trazodone HCl (Trazodone Hcl 100 Mg Tab) 100 mg PO HS [facility] Stop: 05/23/21 20:59 Last Admin: 04/25/21 21:06 Dose: 100 mg Documented by: (1) Fall Encounter type: initial encounter Qualified Code(s): W19.XXXA - Unspecified fall, initial encounter
[2021-04-26] MEDS ORDERED: MAGNESIUM SULFATE / D5W 1 GM/100 ML BAG IV ONE (17:30)
[2021-04-26] MEDS ORDERED: THIAMINE HCL 200 MG in SODIUM CHLORIDE 0.9% 50 ML IV STA (17:42)
[2021-04-26] MEDS: traZODone HCL 100 MG TAB PO SCH (20:45)
[2021-04-26] MEDS: HEPARIN SOD 5,000 UNIT/0.5 ML VIAL SQ SCH (20:46)
[2021-04-26] MEDS: ACETAMINOPHEN 325 MG TAB PO PRN (22:36)
[2021-04-26] MEDS: hydrOXYzine HCl 10 MG TAB PO PRN (22:37)
[2021-04-27] MEDS ORDERED: GABAPENTIN 600 MG TAB PO SCH (07:15)
[2021-04-27 08:04] LABS: Hematocrit (blood only) 37.7 % (42-52); Hemoglobin 12.5 g/dL (14.0-18.0); Mean Corpuscular Hemoglobin 34.9 pg (25-34); Mean Corpuscular Hgb Conc 33.2 g/dL (32-36); Mean Corpuscular Volume 105.3 fL (80-100); Mean Platelet Volume 10.7 fL (7.4-10.4); Platelet Count 144 K/uL (130-400); RDW Coefficient of Variation 12.1 % (11.5-14.5); RDW Standard Deviation 46.9 fL (36.4-46.3); Red Blood Count 3.58 M/uL (4.7-6.1); White Blood Count 6.98 K/uL (4.8-10.8)
[2021-04-27 08:26] LABS: BUN Creatinine Ratio 18.4 (10-20); Calcium 8.9 mg/dl (8.5-10.1); Creatinine Clr Calc Pharmacy 76.6 ml/min; Est GFR (African American) 108.7 ml/min; Est GFR (Non-African American) 93.8 ml/min; Magnesium 1.5 mg/dl (1.7-2.4); Phosphorus 3.9 mg/dl (2.5-4.9); Potassium 4.1 mmol/L (3.5-5.1)
[2021-04-27] MEDS ORDERED: THIAMINE HCL 200 MG in SODIUM CHLORIDE 0.9% 50 ML IV SCH (09:00)
[2021-04-27] MEDS: hydrOXYzine HCl 10 MG TAB PO PRN (09:13)
[2021-04-27] MEDS: SERTRALINE HCL 50 MG TABLET PO SCH (09:15)
[2021-04-27] MEDS: AMOXICILLIN 500 MG CAP PO SCH ×2 (09:15→13:10)
[2021-04-27] MEDS: PANTOprazole 40 MG TAB PO SCH (09:16)
[2021-04-27] MEDS: SACCHAROMYCES BOULARDII 250 MG CAP PO SCH (09:17)
[2021-04-27] MEDS: FOLIC ACID 1 MG TAB PO SCH (09:17)
[2021-04-27] MEDS: MULTIVITAMIN TAB PO SCH (09:17)
[2021-04-27] MEDS: HEPARIN SOD 5,000 UNIT/0.5 ML VIAL SQ SCH (09:40)
[2021-04-27] MEDS ORDERED: GABAPENTIN 600MG X1 DOSE PO SCH (12:00)
--- NOTE | 2021-04-27 17:23 | Discharge Summary ---
Date of Service April 27, 2021 Admission HPI Per Admitting Provider This is a 61-year-old male who has significant past medical history of alcohol dependence, tobacco abuse chewing tobacco, history of varices, history of pancreatitis, depression, asthma who presents to ED after sustaining a ground- level fall last night and striking his right forehead. Patient recalls falling and denies any syncope; however, he feels he may have lost consciousness for 1 to 2 minutes after striking head. He states he struck his head on a wooden stool. He does have a slight abrasion above right eyebrow and below right eye. He states he has difficulty walking and loses balance frequently causing frequent falls. He complains of headache and blurry vision. The lady friend he lives with encouraged him to come to ER for evaluation. There was also report of possible slurred speech and confusion. Patient drinks significant amount of alcohol daily. Yesterday he drank 6-8 beers as well as a significant amount of tequila. He will not quantify amount. He states he drinks daily, too much." Mostly drinking hard liquor or beer. He does admit prior history of withdrawal when he was in senior living but denies seizure. He currently denies any lightheadedness, dizziness, recent illness, fever, chills, sweats, chest pain, shortness of breath, cough, nausea, vomiting, abdominal pain. He does complain of dysuria but denies any increased urgency or frequency with urination, hematuria, melena or hematochezia. He denies any prior history of urinary tract infection. In ED patient remained hemodynamically stable. He underwent CT of the head and neck as well as CTA of head and neck which was unremarkable for any acute abnormality. He also underwent x-ray to left wrist which was without fracture. His lab work was significant for lactic acidosis at 2.7 secondary to alcoholic ketosis, hypomagnesemia 1.2 and elevated AST at 96. His urinalysis was positive and he did receive IV Rocephin for possible UTI. He also received a banana bag. Principal Diagnosis Falls at home Alcohol intoxication Alcohol withdrawal Anxiety Discharge Exam Appears well Breathing comfortably on room air Regular rate and rhythm Soft abdomen No tremulousness or tremors Discharge Data Allergies Allergy/AdvReac Type Severity Reaction Status Date / Time No Known Allergies Allergy Verified 08/28/20 01:14 Consultations 04/23/21 18:14 ED Decision to Admit Stat Ordered Studies 04/23/21 14:16 CT angio head w con Stat CT angio neck with con Stat CT cervical spine wo con Stat CT head/brain wo con Stat Hospital Course (1) Fall: In setting of alcohol intoxication Trauma work up negative (2) Alcohol intoxication: -Finished Gabapentin taper here -Required PRN IV ativan while here but not within 24 hours of discharge (3) Weakness: -Likely from chronic deconditioning -Evaluated by PT and recommended inpatient rehab but patient declines. He already attends outpatient rehab and he would like to continue (4) Lactic acidosis: -due to dehydration, resolved with IV fluids (5) UTI (urinary tract infection): -urine culture +enterococcus macdonald sensitive -initially received ceftraixone which was later discontinued. Started amoxicillin, plan for 5 day course Tobacco abuse -uses chewing tobacco, declines patch -encourage tobacco cessation Anxiety -started on Vistaril 10mg PO TID PRN while here which helped a little. Increased vistaril to 25mg TID PRN ( Rx: dispensed 7 tablets total) -Patient encouraged to follow up with his PCP for further management Hypomagnesemia -repleted while here Significant other, Mariah, was updated on care plan 04/26 and all questions were answered. Patient and Mariah were counseled extensively the importance of alcohol cessation Total Time Total Time Spent Total Time Spent (In Minutes): 38 Discharge Plan Discharge Items Patient Disposition: Home - Self-Care Reason For Visit: JESUS Discharge Diagnosis: Falls at home Alcohol intoxication Alcohol withdrawal Anxiety Condition on Discharge: Good Health Concerns: Ongoing alcohol abuse. 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 Patient not interested in AA Activity: Resume your previous activity Lifting: Gradually increase as tolerated Bathing: No limitations Exercise/Sports: As tolerated Driving/Machine Use: Resume 3 days after discharge Weightbearing: Full weightbearing Non-emergency contact: Primary Care Provider Call non-emergency contact if: you have any medication questions and your symptoms worsen Follow-up/Referrals: German Cole MD [Primary Care Provider] - (Date & Time 05/02/2021 9:40 AM Provider German Cole MD [facility] ) Diet: Regular Addtl Attending Provider Instructions: Talk to your family doctor about your ongoing alcohol abuse Talk to your family doctor about your anxiety. You were started on Vistaril which did help Pending Studies at Discharge: No Stand-Alone Forms: [facility], Smoking Cessation Medications and DC Order Prescriptions: New amoxicillin 500 mg Capsule 500 mg PO TID 3 Days Qty: 9 RF: 0 folic acid 1 mg Tablet 1 mg PO QAM 30 Days Qty: 30 RF: 0 thiamine HCl (vitamin B1) 50 mg tablet 100 mg PO DAILY 30 Days Qty: 60 RF: 0 hydroxyzine HCl 25 mg tablet 25 mg PO TID PRN (Reason: anxiety) 3 Days Qty: 7 RF: 0 Continued sertraline [Zoloft] 50 mg Tablet 75 mg PO DAILY RF: 0 trazodone 50 mg Tablet 100 mg PO HS RF: 0 pantoprazole 40 mg Tablet,Delayed Release (Dr/Ec) 40 mg PO DAILY PRN (Reason: Heartburn) RF: 0 multivitamin [Daily-Anatoly] Tablet 1 tab PO QAM Qty: 30 RF: 0 cyclobenzaprine 5 mg tablet 5 - 10 mg PO TID PRN (Reason: muscle spasms) RF: 0 Discharge Orders: Discharge Order (Routine); Ordered 04/27/21 Ordered By: Eleuterio Manzo/Other Patient Handouts: Alcoholism Resources Admission Data Admit Date/Time: 04/23/21 18:22 Attending Provider: Eleuterio Burgos Admit Provider: Tonja Edwards Primary Care Provider: German Cole Other Providers: Tonja Edwards ; Ben Pearson Other Interventions: Discharge Summary Assessment (RN) Last Done: 04/27/21 13:11
== END 2021-04-27 13:45 | disposition home or self-care (01) | DRG 897 ==
LOC: ED 14:04 → SUATTDRO 18:22 → EDINP 18:22 → 2S 21:06

== ENCOUNTER 2021-10-19 02:20 | Inpatient (IN) ==
[2021-10-19 03:57] LABS: Basophils # (auto) 0.05 K/uL (0-0.2); Basophils % (auto) 0.6 %; Eosinophils # (auto) 0.03 K/uL (0-0.50); Eosinophils % (auto) 0.4 %; Hematocrit (blood only) 33.8 % (40.1-51.0); Hemoglobin 11.7 g/dl (14.0-18.0); Immature Granulocytes # (auto) 0.06 K/uL (0.00-0.02); Immature Granulocytes % (auto) 0.8 %; Lymphocytes # (auto) 1.19 K/uL (1.2-3.4); Lymphocytes % (auto) 15.2 %; Mean Corpuscular Hemoglobin 33.9 pg (25.0-34.0); Mean Corpuscular Hgb Conc 34.6 g/dL (32.0-36.0); Mean Platelet Volume 9.9 fL (9.4-12.4); Monocytes # (auto) 0.84 K/uL (0.24-0.82); Monocytes % (auto) 10.8 %; Neutrophils # (auto) 5.64 K/uL (1.4-6.5); Neutrophils % (auto) 72.2 %; Platelet Count 157 K/uL (130-400); RDW Coefficient of Variation 10.8 % (11.5-14.5); RDW Standard Deviation 38.6 fL (36.4-46.3); Red Blood Count 3.45 M/uL (4.63-6.08); White Blood Count 7.81 K/ul (4.8-10.8)
[2021-10-19 04:17] LABS: Albumin Level 3.7 gm/dl (3.4-5.0); BUN Creatinine Ratio 9.7 (10-20); Bilirubin,Total 0.7 mg/dl (0.2-1.0); Calcium 9.2 mg/dl (8.5-10.1); Creatinine Clr Calc Pharmacy 59.3 ml/min; Est GFR (African American) 81.4 ml/min; Est GFR (Non-African American) 70.3 ml/min; Potassium 3.6 mmol/L (3.5-5.1)
[2021-10-19 04:18] LABS: Acetaminophen 4 ug/ml (10-30); Salicylate < 3.0 mg/dl (3.0-30)
[2021-10-19 04:40] LABS: Albumin Globulin Ratio 1.4 (0.9-2); Globulin 2.7 gm/dl (2.5-4.0); Total Protein 6.4 gm/dl (6.0-8.3)
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
[2021-10-19 06:46] LABS: Appearance Urine Clear (Clear); Bacteria Urine Automated 1+ (Negative); Bilirubin Urine Negative (Negative); Blood Urine Negative (Negative); Color Urine Yellow; Epithelial Cell Urine Auto 0-5 /lpf (0-5); Glucose Urine UA Negative (Negative); Ketones Urine Trace (Negative); Leukocyte Esterase Urine 1+ (Negative); Nitrite Urine Negative (Negative); Protein Urine Negative (Negative); RBC Urine Automated 0-4 /hpf (0-4); Specific Gravity Urine 1.012 (1.000-1.030); Urobilinogen Urine Negative (Negative); WBC Urine Automated >30 /hpf (0-5)
[2021-10-19 07:22] LABS: Amphetamines+Metham, Urine Neg (Neg); Barbiturates, Urine Neg (Neg); Benzodiazepine, Urine Neg (Neg); Cocaine, Urine Neg (Neg); MDMA (Ecstacy), Urine Neg (Neg); Methadone, Urine Neg (Neg); Opiate, Urine Neg (Neg); Phencyclidine, Urine Neg (Neg)
[2021-10-19] MEDS ORDERED: SULFAMETHOXAZOLE/TRIMETHOPRIM DS 800/160MG TAB PO ONE (10:28)
[2021-10-19] MEDS ORDERED: MULTI-VITAMIN INFUSION 10 ML, THIAMINE HCL 100 MG, FOLIC ACID 1 MG in SODIUM CHLORIDE 0... IV ONE (10:39)
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
--- NOTE | 2021-10-19 12:32 | CT Scan Report ---
CT head/brain wo con CLINICAL HISTORY: ALTERED MENTAL STATUS COMPARISON STUDY: 09/14/2021 CT DOSE: 690.05 mGycm TECHNIQUE: Standard CT of the Brain was performed without IV contrast. A dose lowering technique was utilized adhering to the principles of ALARA. FINDINGS: Extraaxial space: There is no evidence for subdural hematoma. There are no extra-axial fluid collecti ons. Ventricles and cisterns: The ventricles are mildly dilated bilaterally. There is no evidence for midl ine shift or mass effect. Parenchyma: There is no subarachnoid or intraparenchymal hemorrhage. There is no evidence for an acut e infarct or cerebral edema. There is mild cerebral cortical atrophy present. There is homogeneous at tenuation of the brain parenchyma. There are no gross mass lesions. Osseous structures: There is no evidence for an acute fracture. The visualized paranasal sinuses are clear. The mastoid air cells are clear bilaterally. Soft tissues: There is no evidence for focal soft tissue swelling. IMPRESSION: 1. No acute intracerebral pathology. 2. Mild cerebral cortical atrophy. ACT 112: Negative or not required by law. Electronically signed by: Braulio Dawson M.D. 10/19/2021 12:26 PM
[2021-10-19] MEDS ORDERED: LORazepam 3 MG in SYRINGE 1.5 ML IV PRN (16:28)
[2021-10-19] MEDS ORDERED: GABAPENTIN 1200MG ALCOHOL WITHDRAWAL LOAD PO STA (16:28)
[2021-10-19] MEDS ORDERED: Ativan IV Alcohol Withdrawal--Active Protocol IV PRN (16:28)
[2021-10-19] MEDS ORDERED: LORazepam 2 MG in SYRINGE 1 ML IV PRN (16:28)
[2021-10-19] MEDS ORDERED: ACETAMINOPHEN 325 MG TAB PO PRN (16:28)
[2021-10-19] MEDS ORDERED: SODIUM CHLORIDE 0.9% 1000ML 1,000 ML IV SCH (16:28)
[2021-10-19] MEDS ORDERED: PIPERACILLIN/TAZOBACTAM 3.375 GM in DEXTROSE 5% 100 ML IV ONE (17:00)
[2021-10-19] MEDS ORDERED: GABAPENTIN 600 MG TAB PO ONE (17:00)
[2021-10-19] MEDS: THIAMINE HCL 100 MG TAB PO SCH (17:18)
[2021-10-19] MEDS: FOLIC ACID 1 MG TAB PO SCH (17:19)
[2021-10-19] MEDS: LORazepam 1 MG in SYRINGE 0.5 ML IV PRN (20:21)
[2021-10-19] MEDS ORDERED: SULFAMETHOXAZOLE/TRIMETHOPRIM DS 800/160MG TAB PO SCH (21:00)
[2021-10-19] MEDS ORDERED: LORazepam 2 MG in SYRINGE 1 ML IV STA ×2 (22:52→23:48)
[2021-10-19] MEDS ORDERED: GABAPENTIN 600 MG TAB PO SCH (23:00)
[2021-10-19] MEDS: PIPERACILLIN/TAZOBACTAM 3.375 GM in DEXTROSE 5% 100 ML IV SCH (23:14)
[2021-10-19] MEDS ORDERED: chlordiazePOXIDE ALCOHOL WITHDRAWL 50MG PO STA (23:40)
[2021-10-20] MEDS ORDERED: SODIUM CHLORIDE 0.9% 1000ML 1,000 ML IV ONE (02:38)
[2021-10-20] MEDS: chlordiazePOXIDE HCl 25 MG CAP PO SCH ×5 (02:49→23:04)
[2021-10-20 02:55] LABS: Base Excess ABG 0.3 mEq/L (-9-1.8); HCO3 ABG 25 mmol/L (19-24); Oxygen Saturation ABG 94.3 % (90-95); PCO2 ABG 42 mmHg (35-46); PO2 ABG 76 mmHg (80-95); pH ABG 7.39 (7.35-7.45)
[2021-10-20 03:06] LABS: Allen Test Pos (Pos)
[2021-10-20] MEDS: PIPERACILLIN/TAZOBACTAM 3.375 GM in DEXTROSE 5% 100 ML IV SCH ×3 (05:57→21:25)
--- NOTE | 2021-10-20 06:01 | Communication Note ---
Date of Service: October 20, 2021 Patient requiring multiple doses of IV Ativan for alcohol withdrawal. PCU transfer Change gabapentin to Librium. Will relay to AM provider.
[2021-10-20 06:50] LABS: Basophils # (auto) 0.05 K/uL (0-0.2); Basophils % (auto) 0.7 %; Eosinophils % (auto) 4.5 %; Hematocrit (blood only) 32.3 % (40.1-51.0); Hemoglobin 10.9 g/dl (14.0-18.0); Immature Granulocytes # (auto) 0.07 K/uL (0.00-0.02); Lymphocytes # (auto) 1.55 K/uL (1.2-3.4); Lymphocytes % (auto) 23.2 %; Mean Corpuscular Hemoglobin 33.7 pg (25.0-34.0); Mean Corpuscular Hgb Conc 33.7 g/dL (32.0-36.0); Mean Platelet Volume 10.1 fL (9.4-12.4); Monocytes # (auto) 0.65 K/uL (0.24-0.82); Monocytes % (auto) 9.7 %; Neutrophils # (auto) 4.07 K/uL (1.4-6.5); Neutrophils % (auto) 60.9 %; Platelet Count 137 K/uL (130-400); RDW Standard Deviation 40.1 fL (36.4-46.3); Red Blood Count 3.23 M/uL (4.63-6.08); White Blood Count 6.69 K/ul (4.8-10.8)
--- NOTE | 2021-10-20 06:54 | XRay Report ---
XR chest 1V portable HISTORY: 61 years-old Male low o2 acute hypoxia COMPARISON: Chest radiograph 04/23/2021 TECHNIQUE: Portable AP view of the chest FINDINGS: Calcified granuloma of the right lower lobe. Cardiomediastinal and hilar silhouettes are within raiza l limits. No pneumothorax, pleural effusion, airspace consolidation or overt pulmonary edema. Mild ri ght hemidiaphragmatic elevation. Degenerative changes of the shoulders and spine. IMPRESSION: No acute process. ACT 112: Negative or not required by law. The above report was generated using voice recognition software. It may contain grammatical, syntax o r spelling errors. Electronically signed by: Zoran Kang M.D. 10/20/2021 6:52 AM
[2021-10-20 07:14] LABS: Albumin Globulin Ratio 1.5 (0.9-2); Albumin Level 3.2 gm/dl (3.4-5.0); BUN Creatinine Ratio 13.5 (10-20); Bilirubin,Total 0.7 mg/dl (0.2-1.0); Creatinine Clr Calc Pharmacy 90.5 ml/min; Est GFR (African American) 116.2 ml/min; Est GFR (Non-African American) 100.3 ml/min; Globulin 2.2 gm/dl (2.5-4.0); Potassium 3.2 mmol/L (3.5-5.1); Total Protein 5.4 gm/dl (6.0-8.3)
[2021-10-20] MEDS ORDERED: POTASSIUM CHLORIDE CRTAB 20 MEQ TABCR PO STA (07:30)
[2021-10-20 07:33] LABS: Ferritin 100.8 ng/ml (8-388)
[2021-10-20 07:37] LABS: Folate (Folic Acid) > 22.30 ng/ml (>5.38); Vitamin B12 630 pg/ml (180-914)
--- NOTE | 2021-10-20 08:02 | Communication Note ---
Date of Service: October 20, [address], patient to be seen within the next 24 hours.
[2021-10-20] MEDS: THIAMINE HCL 100 MG TAB PO SCH (08:51)
[2021-10-20] MEDS: FOLIC ACID 1 MG TAB PO SCH (08:51)
[2021-10-20] MEDS ORDERED: GABAPENTIN 600 MG TAB PO SCH (11:00)
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
[2021-10-21] MEDS: PIPERACILLIN/TAZOBACTAM 3.375 GM in DEXTROSE 5% 100 ML IV SCH ×2 (06:00→15:05)
--- NOTE | 2021-10-21 06:02 | Electrocardiogram Report ---
Test Reason : Blood Pressure : / mmHG Vent. Rate : 089 BPM Atrial Rate : 089 BPM P-R Int : 122 ms QRS Dur : 084 ms QT Int : 366 ms P-R-T Axes : 059 050 053 degrees QTc Int : 445 ms Normal sinus rhythm Normal ECG When compared with ECG of 14-SEP-2021 13:25, No significant change was found Confirmed by Teddy Molina ([id number]) on 10/21/2021 6:02:39 AM Referred By: REFERRED SELF Confirmed By:Teddy Molina
[2021-10-21] MEDS: FOLIC ACID 1 MG TAB PO SCH (08:23)
[2021-10-21] MEDS: THIAMINE HCL 100 MG TAB PO SCH (08:23)
[2021-10-21] MEDS: chlordiazePOXIDE HCl 25 MG CAP PO SCH ×3 (08:27→22:57)
[2021-10-21 09:57] LABS: Hemoglobin 11.8 g/dl (14.0-18.0); Mean Corpuscular Hgb Conc 33.7 g/dL (32.0-36.0); Mean Corpuscular Volume 100.9 fL (80.0-100.0); Platelet Count 180 K/uL (130-400); RDW Coefficient of Variation 11.3 % (11.5-14.5); RDW Standard Deviation 41.3 fL (36.4-46.3); Red Blood Count 3.47 M/uL (4.63-6.08); White Blood Count 10.63 K/ul (4.8-10.8)
[2021-10-21 10:23] LABS: BUN Creatinine Ratio 8.9 (10-20); Calcium 9.1 mg/dl (8.5-10.1); Creatinine Clr Calc Pharmacy 69.1 ml/min; Est GFR (African American) 93.3 ml/min; Est GFR (Non-African American) 80.5 ml/min; Magnesium 1.2 mg/dl (1.7-2.4); Phosphorus 2.8 mg/dl (2.5-4.9); Potassium 3.8 mmol/L (3.5-5.1)
--- NOTE | 2021-10-21 11:20 | Psychiatric Progress Note ---
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 Diagnostically consistent with alcohol use disorder severe seems as though he mistook a broomstick to be a person likely in a state of acute alcohol intoxication versus complicated alcohol withdrawal as he has recently reduced his use after many years of chronic significant alcohol use. I suspect his intermittent nonspecific auditory hallucinations are likely due to complications from chronic alcohol use versus post TBI psychosis given his late age at first onset of these symptoms. He otherwise has no other symptoms of acute psychosis or any other primary psychiatric conditions. At this point risk of harm to self and others is slightly increased due to substance use with substance use treatment being the most significant modifiable risk factor to reduce acute and chronic risk but acute risk is low given denial of SI, willing to get medical treatment for alcohol withdrawal and no longer has access to guns. Liver enzymes reviewed and stable but given history of cirrhosis defer safety of naltrexone to medical team. 10/21/21: Collateral consistent with hallucinations occurring in the context of significant reduction in alcohol in the last week consistent with complicated alcohol withdrawal with visual hallucinations as well as potential contribution from repeated TBIs and recent fall about 1 month ago. Therefore feel he does not meet 302 criteria as no primary underlying psychiatric condition and no history of aggression, no hx harm to others and no hx harm to self and no current symptoms of SI, HI, kenroy nor psychosis nor delirium. Agree with ongoing treatment for alcohol withdrawal. He declines residential or outpatient alcohol use referrals but willing to take handouts on resources if he changes his mind. Reviewed counseling on avoiding alcohol use. Does not meet 302 criteria so will allow this to and will discontinue 1-on-1. Psychiatrically safe for discharge once medically stable. 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 -Discussed with Dr. 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 Psychiatry consulted for recommendations. Chief Complaint "I'm great". Review of Systems Notes good sleep, stable appetite Subjective Subjective Patient was seen & assessed and interval progress reviewed. He was eating lunch with roommate Mariah at bedside. States he feels "great" and is fully oriented. He denies any SI or HI nor any symptoms of psychosis. Review potential options to help with his ongoing effort to reduce his alcohol use and abstain from alcohol he declines residential or intensive outpatient treatment or referrals for dual diagnosis therapy but states if provided with these resources he will think about it and consider it and will contact programs if he changes his mind. Mariah notes in addition to contribution from his alcohol use she wonders about the impact of a recent fall he had in which he hit his head. Antwon agrees that he has a history of significant head injuries due to prior falls noting "like a football player with how many I've had". Provided some psychoeducation on traumatic brain injuries, post TBI psychosis and more fragile brain state status post repeated TBI's thus making use of alcohol even more risky and brain even more susceptible to developing delirium. Mariah noted that Antwon has a history of developing delirium easily noting that he previously had a UTI and got very confused like what she used to see when she worked in a prison and that he seemed to have an extended effect from anesthesia after a surgical procedure about a month ago. Remains eager to go home once he is considered medically stable and neither have any other concerns or questions. Further collateral from psych liason yesterday on 10/20/21 per discussion with Antwon's roommate: "Spoke with patient's partner/roommate, Mraiah, to gain history and collateral. Mariah has lived with patient for ~18 years. They used to be in a romantic relationship but now they are "best friends and care about each other". Patient's parents are , he has 2 brothers. He has a brother who lives locally in [place] whom he is estranged from. He often speaks to his other brother who lives in [place]. Patient has a significant history of alcohol use. Mariah reports he typically drinks beer, Tequila and Vodka but only has had a "few beers this week. He only had 1 beer the day he came into the hospital". He has had visual and auditory hallucinations for ~ 1 week and has never had a history of this. He has been seeing animals, in particular a cat and squirrels with babies. Mariah reports he was talking to the squirrel behind the couch on Sunday, he even put nuts in a bowl for it. Mariah feels patient has a concussion from a recent fall ~1 month ago when he fell backwards and hit his head in the garage. She does not recall patient ever having alcohol withdrawal to this extent. He has been to rehab in the past, ~15 years ago @ [facility] and was sober for over a year. Mariah was not aware patient is currently on a 302 and will lose his privileges to firearms. State Police had removed all firearms from his home. Patient is an avid arnaud and had over 10 guns. Mariah reports she does not have any safety concerns and "I don't have any worries about him having guns. I know he would never hurt me or anyone else. He has never tried to hurt himself"." Physical Exam Psychiatric Orientation: alert and oriented x 3 Apperance: appropriately dressed and appropriately groomed Eye Contact: good eye contact Motor Behavior: no abnormal motor movements Speech: normal rate/rhythm/volume of speech Affect: euthymic affect Mood: no depressed mood and no anxious mood Thought Process: linear/logical thought process Thought Content: reality based without delusions Suicidal Thoughts: denies suicidal thoughts Homicidal Thoughts: denies homicidal thoughts Hallucinations: no auditory hallucinations and no visual hallucinations Cognition: recent memory grossly intact, remote memory grossly intact, attention grossly intact and language grossly intact Estimated Intelligence: consistent with education level Insight: + limited insight Judgement: + limited judgement Vital Signs (Past 24 Hours) Last Vital Signs Temp 36.9 C 10/21/21 03:20 Pulse 92 H 10/21/21 03:20 Resp 18 10/21/21 03:20 BP 109/69 10/21/21 03:20 Pulse Ox 96 10/21/21 03:20 O2 Del Method 10/21/21 03:20 O2 Flow Rate 3 10/20/21 18:56 Results & Data ([facility]) Laboratory Results Laboratory Results - last 24 hr 10/21/21 10/21/21 09:38 09:38 WBC 10.63 RBC 3.47 L Hgb 11.8 L Hct 35.0 L MCV 100.9 H MCH 34.0 MCHC 33.7 RDW Std Deviation 41.3 RDW Coeff of Ashvin 11.3 L Plt Count 180 MPV 10.0 Sodium 134 L Potassium 3.8 Chloride 100 Carbon Dioxide 28 Anion Gap 6 BUN 9 Creatinine 1.01 Est Cr Clr Drug Dosing 69.1 Est GFR ( Amer) 93.3 Est GFR (Non-Af Amer) 80.5 BUN/Creatinine Ratio 8.9 L Glucose 93 Calcium 9.1 Phosphorus 2.8 Magnesium 1.2 L Current Inpatient Medications Current Inpatient Medications: Current Inpatient Medications Acetaminophen (Acetaminophen 325 Mg Tab) 650 mg PO Q4H PRN PRN Reason: Pain or Fever Stop: 11/18/21 16:27 Chlordiazepoxide HCl (Chlordiazepoxide Hcl 25 Mg Cap) 50 mg PO Q8H TAYO; Taper Stop: 10/22/21 23:59 Last Admin: 10/21/21 08:27 Dose: 50 mg Chlordiazepoxide HCl (Chlordiazepoxide Hcl 10 Mg Cap) 10 mg PO Q12H TAYO Stop: 10/23/21 18:01 Folic Acid (Folic Acid 1 Mg Tab) 1 mg PO QAM TAYO Stop: 11/18/21 16:27 Last Admin: 10/21/21 08:23 Dose: 1 mg Piperacillin Sod/Tazobactam (Sod 3.375 gm/ Dextrose) 115 mls @ 28.75 mls/hr IV Q8H TAYO; Protocol Stop: 10/29/21 16:27 Last Infusion: 10/21/21 10:02 Dose: Infused Lorazepam 1 mg/ Syringe 1 mls @ 2 mls/min IV UD PRN; Protocol PRN Reason: EtOH Withdrawal AWSS Score 6,7 Stop: 11/18/21 16:27 Last Admin: 10/19/21 20:21 Dose: 2 mls/min Lorazepam 2 mg/ Syringe 2 mls @ 2 mls/min IV UD PRN; Protocol PRN Reason: EtOH Withdrawal AWSS Score 8,9 Stop: 11/18/21 16:27 Thiamine HCl (Thiamine Hcl 100 Mg Tab) 100 mg PO QAM TAYO Stop: 11/18/21 16:27 Last Admin: 10/21/21 08:23 Dose: 100 mg Mental Health & Subst Abuse Tx Therapist Name of Therapist: None Digital Computer Operator Name of Digital Computer Operator: None Post Discharge Appointments Primary Care Physician Name Of Family Doctor: German Cole
[2021-10-21] MEDS: LORazepam 1 MG in SYRINGE 0.5 ML IV PRN (11:26)
[2021-10-21] MEDS ORDERED: GABAPENTIN 600 MG TAB PO SCH (15:00)
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
[2021-10-21] MEDS: MAGNESIUM SULFATE / D5W 1 GM/100 ML BAG IV SCH ×3 (16:34→19:41)
[2021-10-21] MEDS: DULoxetine HCL 60 MG CAP PO SCH (20:32)
[2021-10-21] MEDS: NITROFURANTOIN MONOHYDRATE 100 MG CAP PO SCH (20:32)
[2021-10-21] MEDS: busPIRone 5 MG TAB PO SCH (20:32)
[2021-10-21] MEDS: traZODone HCL 100 MG TAB PO SCH (20:32)
[2021-10-21] MEDS: HEPARIN SOD 5,000 UNIT/0.5 ML VIAL SQ SCH ×2 (20:32→20:36)
[2021-10-22] MEDS: hydrOXYzine HCl 25 MG TAB PO PRN (05:18)
[2021-10-22 07:24] LABS: BUN Creatinine Ratio 19.8 (10-20); Est GFR (Non-African American) 96.6 ml/min; Magnesium 1.7 mg/dl (1.7-2.4); Phosphorus 4.1 mg/dl (2.5-4.9); Potassium 3.8 mmol/L (3.5-5.1)
[2021-10-22] MEDS: chlordiazePOXIDE HCl 25 MG CAP PO SCH ×2 (09:11→16:34)
[2021-10-22] MEDS: THIAMINE HCL 100 MG TAB PO SCH (09:11)
[2021-10-22] MEDS: NALTREXONE HCL 50 MG TAB PO SCH (09:11)
[2021-10-22] MEDS: FOLIC ACID 1 MG TAB PO SCH (09:11)
[2021-10-22] MEDS: NITROFURANTOIN MONOHYDRATE 100 MG CAP PO SCH ×2 (09:12→20:18)
[2021-10-22] MEDS: HEPARIN SOD 5,000 UNIT/0.5 ML VIAL SQ SCH ×2 (09:12→20:18)
[2021-10-22] MEDS: busPIRone 5 MG TAB PO SCH ×2 (09:12→20:18)
[2021-10-22] MEDS: MAGNESIUM OXIDE 400 MG TAB PO SCH ×2 (09:24→20:18)
[2021-10-22] MEDS: LORazepam 1 MG in SYRINGE 0.5 ML IV PRN (11:53)
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
[2021-10-22] MEDS: DULoxetine HCL 60 MG CAP PO SCH (20:18)
[2021-10-22] MEDS: traZODone HCL 100 MG TAB PO SCH (20:18)
[2021-10-23] MEDS ORDERED: GABAPENTIN 600 MG TAB PO SCH (03:00)
[2021-10-23] MEDS: MAGNESIUM SULFATE / D5W 1 GM/100 ML BAG IV SCH ×2 (08:18→10:26)
[2021-10-23] MEDS: MAGNESIUM OXIDE 400 MG TAB PO SCH ×2 (08:18→20:02)
[2021-10-23] MEDS: HEPARIN SOD 5,000 UNIT/0.5 ML VIAL SQ SCH ×2 (08:18→20:02)
[2021-10-23] MEDS: FOLIC ACID 1 MG TAB PO SCH (08:18)
[2021-10-23] MEDS: THIAMINE HCL 100 MG TAB PO SCH (08:19)
[2021-10-23] MEDS: NITROFURANTOIN MONOHYDRATE 100 MG CAP PO SCH ×2 (08:19→20:03)
[2021-10-23] MEDS: NALTREXONE HCL 50 MG TAB PO SCH (08:19)
[2021-10-23] MEDS: busPIRone 5 MG TAB PO SCH ×2 (08:19→20:03)
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
[2021-10-23] MEDS: DULoxetine HCL 60 MG CAP PO SCH (20:02)
[2021-10-23] MEDS: traZODone HCL 100 MG TAB PO SCH (20:04)
[2021-10-23] MEDS: hydrOXYzine HCl 25 MG TAB PO PRN (22:37)
[2021-10-24] MEDS: FOLIC ACID 1 MG TAB PO SCH (09:03)
[2021-10-24] MEDS: HEPARIN SOD 5,000 UNIT/0.5 ML VIAL SQ SCH (09:03)
[2021-10-24] MEDS: busPIRone 5 MG TAB PO SCH (09:03)
[2021-10-24] MEDS: NALTREXONE HCL 50 MG TAB PO SCH (09:04)
[2021-10-24] MEDS: MAGNESIUM OXIDE 400 MG TAB PO SCH (09:04)
[2021-10-24] MEDS: NITROFURANTOIN MONOHYDRATE 100 MG CAP PO SCH (09:05)
[2021-10-24] MEDS: THIAMINE HCL 100 MG TAB PO SCH (09:05)
[2021-10-24] MEDS: MAGNESIUM SULFATE / D5W 1 GM/100 ML BAG IV SCH ×2 (10:45→11:58)
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
== END 2021-10-24 14:10 | disposition home or self-care (01) | DRG 896 ==
LOC: ED 02:20 → EDINP 11:03 → SUATTDRO 11:03 → 2W 16:06 → 2E 10-20 00:51
DX: E83.42 Hypomagnesemia; F10.231 Alcohol dependence with withdrawal delirium; G31.2 Degeneration of nervous system due to alcohol; B95.2 Enterococcus as the cause of diseases classified elsewhere; D64.9 Anemia, unspecified; Z79.899 Other long term (current) drug therapy; G93.41 Metabolic encephalopathy; Z87.440 Personal history of urinary (tract) infections; F17.220 Nicotine dependence, chewing tobacco, uncomplicated; Z79.1 Long term (current) use of non-steroidal anti-inflammatories (NSAID); N39.0 Urinary tract infection, site not specified; R74.01 Elevation of levels of liver transaminase levels; J45.909 Unspecified asthma, uncomplicated; F10.251 Alcohol dependence with alcohol-induced psychotic disorder with hallucinations